=== PATIENT | female | born 1960 | race Caucasian/White ===

== ENCOUNTER 2020-10-16 07:29 | Outpatient (REF) | payer BC, SELFPAY ==
[2020-10-16 11:53] LABS: Estimated Average Glucose 100 mg/dL; Hemoglobin A1c % 5.1 %
[2020-10-16 11:58] LABS: Microalbum/Creatinine Ratio Ur 4.7 ug/mg cr
[2020-10-16 12:08] LABS: Alanine Aminotransferase 13 U/L (0-31); Albumin Level 4.1 g/dL (3.5-5.0); Alkaline Phosphatase 130 U/L (39-117); Anion Gap 12 (12-20); Aspartate Amino Transferase 14 U/L (5-31); Bilirubin Total 0.7 mg/dL (0.0-1.0); Blood Urea Nitrogen 13 mg/dL (9-16); Calcium 8.8 mg/dL (8.4-10.2); Carbon Dioxide 26 mmol/L (22-29); Chloride 103 mmol/L (96-108); Cholesterol 150 mg/dL; Estimated Glomerular Filt Rate > 60; Glucose Fasting 105 mg/dL (60-99); HDL Cholesterol 46 mg/dL; LDL Cholesterol Calculated 74 mg/dl; Potassium 4.4 mmol/l (3.3-5.1); Sodium 137 mmol/L (135-145); Total Protein 6.5 g/dL (6.5-8.0); Triglycerides 150 mg/dL
== END 2020-10-16 07:30 | disposition home or self-care (01) ==
LOC: HO.MANLR 07:29
PROVIDERS: PCP Internal Medicine; Visit Provider Internal Medicine
DX: E11.9 Type 2 diabetes mellitus without complications (principal)
CPT/HCPCS: 80053; 80061; 82043; 83036

== ENCOUNTER 2021-01-20 07:36 | Outpatient (REF) | payer BC, SELFPAY ==
[2021-01-20 11:43] LABS: Estimated Average Glucose 103 mg/dL; Hemoglobin A1c % 5.2 %
== END 2021-01-20 07:37 | disposition home or self-care (01) ==
LOC: HO.MANLR 07:36
PROVIDERS: PCP Internal Medicine; Visit Provider Internal Medicine
DX: E11.9 Type 2 diabetes mellitus without complications (principal)
CPT/HCPCS: 36415; 83036

== ENCOUNTER 2021-04-18 08:02 | Outpatient (REF) | payer BC, SELFPAY ==
[2021-04-18 11:51] LABS: Estimated Average Glucose 105 mg/dL; Hemoglobin A1c % 5.3 %
[2021-04-18 11:52] LABS: Alanine Aminotransferase 15 U/L (0-31); Albumin Level 4.3 g/dL (3.5-5.0); Alkaline Phosphatase 160 U/L (39-117); Anion Gap 12 (12-20); Aspartate Amino Transferase 15 U/L (5-31); Bilirubin Total 0.6 mg/dL (0.0-1.0); Blood Urea Nitrogen 14 mg/dL (9-16); Carbon Dioxide 27 mmol/L (22-29); Chloride 106 mmol/L (96-108); Cholesterol 161 mg/dL; Estimated Glomerular Filt Rate > 60; Glucose Fasting 132 mg/dL (60-99); HDL Cholesterol 49 mg/dL; LDL Cholesterol Calculated 80 mg/dl; Potassium 3.9 mmol/L (3.3-5.1); Sodium 141 mmol/L (135-145); Triglycerides 164 mg/dL
[2021-04-18 13:36] LABS: Creatinine Urine 173.44 mg/dL; Microalbum/Creatinine Ratio Ur 5.1 ug/mg cr
== END 2021-04-18 08:03 | disposition home or self-care (01) ==
LOC: HO.MANLDS 08:02
PROVIDERS: PCP Internal Medicine; Visit Provider Internal Medicine
DX: E11.9 Type 2 diabetes mellitus without complications (principal)
CPT/HCPCS: 36415; 80053; 80061; 82043; 83036

== ENCOUNTER 2021-09-05 07:39 | Outpatient (REF) | payer BC, SELFPAY ==
[2021-09-05 12:01] LABS: Estimated Average Glucose 114 mg/dL; Hemoglobin A1c % 5.6 %
== END 2021-09-05 07:40 | disposition home or self-care (01) ==
LOC: HO.MANLDS 07:39
PROVIDERS: PCP Internal Medicine; Visit Provider Internal Medicine
DX: E11.9 Type 2 diabetes mellitus without complications (principal)
CPT/HCPCS: 36415; 83036

== ENCOUNTER 2021-12-30 07:38 | Outpatient (REF) | payer BC, SELFPAY ==
[2021-12-30 11:19] LABS: Alanine Aminotransferase 13 U/L (0-31); Albumin Level 4.2 g/dL (3.5-5.0); Alkaline Phosphatase 137 U/L (39-117); Anion Gap 11 (12-20); Aspartate Amino Transferase 15 U/L (5-31); Bilirubin Total 0.7 mg/dL (0.0-1.0); Blood Urea Nitrogen 11 mg/dL (9-16); Calcium 9.3 mg/dL (8.4-10.2); Carbon Dioxide 28 mmol/L (22-29); Chloride 106 mmol/L (96-108); Cholesterol 157 mg/dL; Estimated Glomerular Filt Rate > 60; Glucose Fasting 124 mg/dL (60-99); HDL Cholesterol 51 mg/dL; LDL Cholesterol Calculated 72 mg/dl; Potassium 3.8 mmol/L (3.3-5.1); Sodium 141 mmol/L (135-145); Total Protein 7.1 g/dL (6.5-8.0); Triglycerides 173 mg/dL
[2021-12-30 11:40] LABS: Thyroid Stimulating Hormone 6.51 uIU/mL (0.32-4.0)
[2021-12-30 11:53] LABS: Creatinine Urine 48.66 mg/dL; Microalbumin Urine < 5.0 mg/L
[2021-12-30 12:22] LABS: Estimated Average Glucose 114 mg/dL; Hemoglobin A1C 131.2217 umol/L; Hemoglobin A1c % 5.6 %
== END 2021-12-30 07:39 | disposition home or self-care (01) ==
LOC: HO.MANLDS 07:38
PROVIDERS: PCP Internal Medicine; Visit Provider Internal Medicine
DX: E11.9 Type 2 diabetes mellitus without complications (principal); E03.9 Hypothyroidism, unspecified
CPT/HCPCS: 36415; 80053; 80061; 82043; 83036; 84443

== ENCOUNTER 2022-01-12 15:31 | Outpatient (REF) | payer BC, SELFPAY ==
[2022-01-12 19:56] LABS: Appearance Urine CLEAR; Color Urine YELLOW; Glucose Urine UA NEG (NEG); Leukocyte Esterase Urine NEG (NEG); Nitrite Urine NEG (NEG); Urine Blood NEG (NEG); Urine Ketones NEG (NEG); Urine Protein NEG (NEG-TRACE)
== END 2022-01-12 15:32 | disposition home or self-care (01) ==
LOC: HO.MANLDS 15:31
PROVIDERS: PCP Internal Medicine; Visit Provider Internal Medicine
DX: R30.9 Painful micturition, unspecified (principal)
CPT/HCPCS: 81003

== ENCOUNTER 2022-01-14 08:24 | Outpatient (REF) | payer BC, SELFPAY ==
--- NOTE | ~2022-01-14 | US_ITS ---
EXAMINATION: US ABDOMEN COMPLETE CLINICAL INFORMATION: Right upper quadrant pain. COMPARISON: None TECHNIQUE: Real-time imaging of the abdominal viscera. FINDINGS: PANCREAS: Normal. ABDOMINAL AORTA: The proximal, mid, and distal segments are normal in caliber. INFERIOR VENA CAVA: Visualized portions are normal. LIVER: Normal. The liver is normal in size. The liver contour is normal. Parenchymal echogenicity is normal. No focal hepatic lesion. There is no intrahepatic biliary duct dilatation seen. GALLBLADDER: Surgically absent. COMMON BILE DUCT: Normal in caliber measuring 0.61 cm in diameter. RIGHT KIDNEY: No renal calculi or focal parenchymal lesions. The kidney measures 10.8 cm in maximum dimension. There are scattered echogenic pyramids with twinkle artifact and echogenic shadowing. Question nephrocalcinosis. There is mild hydronephrosis. LEFT KIDNEY: No renal calculi or focal parenchymal lesions. The kidney measures 9.3 cm in maximum dimension. There are echogenic pyramids with twinkle artifact and some shadowing question nephrocalcinosis. There is mild hydronephrosis. SPLEEN: Normal. The spleen measures 8.8 cm in maximum dimension. FREE FLUID: None. US/US abdomen complete IMPRESSION: Bilateral echogenic pyramids with twinkle artifact and some shadowing likely nephrocalcinosis. There is mild bilateral hydronephrosis. The rest of the abdominal ultrasound is unremarkable.
== END 2022-01-14 08:25 | disposition home or self-care (01) ==
LOC: HO.HMGCX 08:24
PROVIDERS: PCP Internal Medicine; Visit Provider Physician Assistant
DX: R10.11 Right upper quadrant pain (principal)
CPT/HCPCS: 76700

== ENCOUNTER 2022-01-28 08:33 | Outpatient (REF) | payer BC, SELFPAY ==
[2022-01-28 11:17] LABS: Appearance Urine CLEAR; Color Urine YELLOW; Glucose Urine UA NEG (NEG); Leukocyte Esterase Urine NEG (NEG); Nitrite Urine NEG (NEG); PH 6.5 (5.0-8.0); Specific Gravity - Urine 1.015 (1.005-1.025); Urine Blood NEG (NEG); Urine Ketones NEG (NEG); Urine Protein NEG (NEG-TRACE)
== END 2022-01-28 08:34 | disposition home or self-care (01) ==
LOC: HO.MANLNP 08:33
PROVIDERS: PCP Internal Medicine; Visit Provider Internal Medicine
DX: R30.9 Painful micturition, unspecified (principal)
CPT/HCPCS: 81003

== ENCOUNTER 2022-04-17 07:52 | Outpatient (REF) | payer BC, SELFPAY ==
[2022-04-17 12:18] LABS: Creatinine Urine 93.57 mg/dL; Microalbum/Creatinine Ratio Ur 8.5 ug/mg cr
[2022-04-17 12:25] LABS: Alanine Aminotransferase 16 U/L (0-31); Alkaline Phosphatase 148 U/L (39-117); Anion Gap 12 (12-20); Aspartate Amino Transferase 15 U/L (5-31); Bilirubin Total 0.5 mg/dL (0.0-1.0); Blood Urea Nitrogen 13 mg/dL (9-16); Carbon Dioxide 25 mmol/L (22-29); Chloride 107 mmol/L (96-108); Cholesterol 158 mg/dL; Estimated Glomerular Filt Rate > 60; Glucose Random 117 mg/dL (60-115); HDL Cholesterol 50 mg/dL; LDL Cholesterol Calculated 79 mg/dl; Potassium 4.1 mmol/L (3.3-5.1); Sodium 140 mmol/L (135-145); Total Protein 6.9 g/dL (6.5-8.0); Triglycerides 147 mg/dL
[2022-04-17 12:58] LABS: Estimated Average Glucose 108 mg/dL; Hemoglobin A1c % 5.4 %
== END 2022-04-17 07:53 | disposition home or self-care (01) ==
LOC: HO.MANLDS 07:52
PROVIDERS: Visit Provider Internal Medicine
DX: E11.9 Type 2 diabetes mellitus without complications (principal)
CPT/HCPCS: 36415; 80053; 80061; 82043; 83036

== ENCOUNTER 2022-07-06 10:18 | Outpatient (REF) | payer BC, SELFPAY ==
[2022-07-06 14:15] LABS: Estimated Average Glucose 105 mg/dL; Hemoglobin A1c % 5.3 %
[2022-07-06 14:18] LABS: Cholesterol 147 mg/dL; HDL Cholesterol 51 mg/dL; LDL Cholesterol Calculated 75 mg/dl; Triglycerides 107 mg/dL
== END 2022-07-06 10:19 | disposition home or self-care (01) ==
LOC: HO.MANLDS 10:18
PROVIDERS: Visit Provider Internal Medicine
DX: E11.9 Type 2 diabetes mellitus without complications (principal)
CPT/HCPCS: 36415; 80061; 83036

== ENCOUNTER 2023-01-29 07:27 | Outpatient (REF) | payer BC, SELFPAY ==
[2023-01-29 11:19] LABS: Estimated Average Glucose 108 mg/dL; Hemoglobin A1c % 5.4 %
[2023-01-29 12:04] LABS: Microalbum/Creatinine Ratio Ur 26.6 ug/mg cr
[2023-01-29 12:09] LABS: Alanine Aminotransferase 22 U/L (0-31); Alkaline Phosphatase 143 U/L (39-117); Anion Gap 15 (12-20); Aspartate Amino Transferase 18 U/L (5-31); Bilirubin Total 0.9 mg/dL (0.0-1.0); Blood Urea Nitrogen 18 mg/dL (9-16); Calcium 8.9 mg/dL (8.4-10.2); Carbon Dioxide 24 mmol/L (22-29); Chloride 104 mmol/L (96-108); Cholesterol 178 mg/dL; Estimated Glomerular Filt Rate 54; Glucose Fasting 133 mg/dL (60-99); HDL Cholesterol 49 mg/dL; LDL Cholesterol Calculated 102 mg/dl; Sodium 139 mmol/L (135-145); Total Protein 6.6 g/dL (6.5-8.0); Triglycerides 136 mg/dL
[2023-01-29 12:30] LABS: Free T4 (Free Thyroxine) 1.12 ng/dL (0.71-1.85); Thyroid Stimulating Hormone 0.47 uIU/mL (0.32-4.0)
== END 2023-01-29 07:28 | disposition home or self-care (01) ==
LOC: HO.MANLDS 07:27
PROVIDERS: Visit Provider Internal Medicine
DX: Z13.89 Encounter for screening for other disorder (principal)
CPT/HCPCS: 36415; 80053; 80061; 82043; 83036; 84439; 84443

== ENCOUNTER 2023-06-25 07:33 | Outpatient (REF) | payer BC, SELFPAY ==
[2023-06-25 15:07] LABS: Alanine Aminotransferase 20 U/L (0-31); Alkaline Phosphatase 152 U/L (39-117); Anion Gap 12 (12-20); Aspartate Amino Transferase 16 U/L (5-31); Bilirubin Total 0.6 mg/dL (0.0-1.0); Blood Urea Nitrogen 15 mg/dL (9-16); Calcium 9.9 mg/dL (8.4-10.2); Carbon Dioxide 26 mmol/L (22-29); Chloride 107 mmol/L (96-108); Cholesterol 154 mg/dL; Estimated Glomerular Filt Rate > 60; Glucose Random 134 mg/dL (60-115); HDL Cholesterol 47 mg/dL; LDL Cholesterol Calculated 80 mg/dl; Potassium 4.2 mmol/L (3.3-5.1); Sodium 141 mmol/L (135-145); Triglycerides 135 mg/dL
[2023-06-25 15:24] LABS: Free T4 (Free Thyroxine) 0.93 ng/dL (0.71-1.85); Thyroid Stimulating Hormone 0.51 uIU/mL (0.32-4.0)
[2023-06-26 03:27] LABS: Estimated Average Glucose 111 mg/dL; Hemoglobin A1c % 5.5 %
== END 2023-06-25 07:34 | disposition home or self-care (01) ==
LOC: HO.MANLDS 07:33
PROVIDERS: Visit Provider Internal Medicine
DX: E03.9 Hypothyroidism, unspecified (principal); E11.9 Type 2 diabetes mellitus without complications
CPT/HCPCS: 36415; 80053; 80061; 83036; 84439; 84443

== ENCOUNTER 2023-10-19 07:30 | Outpatient (REF) | payer BC, SELFPAY ==
[2023-10-19 13:42] LABS: Estimated Average Glucose 111 mg/dL; Hemoglobin A1c % 5.5 % (<6.0)
[2023-10-19 14:25] LABS: Alanine Aminotransferase 17 U/L (0-31); Albumin Level 3.9 g/dL (3.5-5.0); Alkaline Phosphatase 150 U/L (39-117); Anion Gap 12 (12-20); Aspartate Amino Transferase 19 U/L (5-31); Bilirubin Total 0.6 mg/dL (0.0-1.0); Blood Urea Nitrogen 14 mg/dL (9-16); Calcium 8.8 mg/dL (8.4-10.2); Carbon Dioxide 25 mmol/L (22-29); Chloride 106 mmol/L (96-108); Cholesterol 147 mg/dL (<200); Estimated Glomerular Filt Rate > 60; Free T4 (Free Thyroxine) 1.01 ng/dL (0.71-1.85); Glucose Random 130 mg/dL (60-115); HDL Cholesterol 46 mg/dL (>40); LDL Cholesterol Calculated 79 mg/dL (<100); Potassium 3.7 mmol/L (3.3-5.1); Sodium 139 mmol/L (135-145); Thyroid Stimulating Hormone 1.22 uIU/mL (0.32-4.0); Total Protein 6.7 g/dL (6.5-8.0); Triglycerides 111 mg/dL (<150)
== END 2023-10-19 07:31 | disposition home or self-care (01) ==
LOC: HO.MANLDS 07:30
PROVIDERS: Visit Provider Internal Medicine
DX: E03.9 Hypothyroidism, unspecified (principal); E11.9 Type 2 diabetes mellitus without complications
CPT/HCPCS: 36415; 80053; 80061; 83036; 84439; 84443

== ENCOUNTER 2024-01-28 07:34 | Outpatient (REF) | payer BC, SELFPAY ==
[2024-01-28 13:18] LABS: MANUAL DIFF FLAG NO
[2024-01-28 13:32] LABS: Basophils Absolute Auto 0.1 X10*3/uL (0.0-0.2); Basophils Percent Auto 0.8 % (0-2); Eosinophils Absolute Auto 0.2 X10*3/uL (0.0-0.4); Eosinophils Percent Auto 2.4 % (0-4); Hematocrit 39.8 % (37.0-47.0); Hemoglobin 13.3 g/dl (12.0-16.0); Imm Gran Abs Auto 0.02 X10*3/uL (0.00-0.03); Imm Gran Pct Auto 0.3 % (0.0-0.4); Lymphocytes Absolute Auto 2.3 X10*3/uL (1.2-4.9); Lymphocytes Percent Auto 37.8 % (20-40); Mean Corpuscular HGB Conc 33.4 g/dl (31.0-35.0); Mean Corpuscular Hemoglobin 30.1 pg (27.0-33.0); Mean Platelet Volume 9.4 fL (9.4-12.3); Monocytes Absolute Auto 0.7 X10*3/uL (0.1-1.2); Monocytes Percent Auto 10.7 % (2-11); Platelet Count 268 X10*3/uL (160-400); Red Blood Count 4.42 X10*6/uL (4.20-5.50); Red Cell Distribution Width 12.6 % (11.0-16.0); White Blood Count 6.2 X10*3/uL (4.8-10.8)
[2024-01-28 13:38] LABS: Estimated Average Glucose 137 mg/dL; Hemoglobin A1c % 6.4 % (<6.0)
[2024-01-28 14:16] LABS: Alanine Aminotransferase 19 U/L (0-31); Albumin Level 4.1 g/dL (3.5-5.0); Alkaline Phosphatase 172 U/L (39-117); Anion Gap 13 (12-20); Aspartate Amino Transferase 15 U/L (5-31); Bilirubin Total 0.6 mg/dL (0.0-1.0); Blood Urea Nitrogen 16 mg/dL (9-16); Calcium 9.2 mg/dL (8.4-10.2); Carbon Dioxide 26 mmol/L (22-29); Chloride 107 mmol/L (96-108); Cholesterol 159 mg/dL (<200); Estimated Glomerular Filt Rate > 60; Glucose Random 155 mg/dL (60-115); HDL Cholesterol 43 mg/dL (>40); LDL Cholesterol Calculated 81 mg/dL (<100); Potassium 4.7 mmol/L (3.3-5.1); Sodium 141 mmol/L (135-145); Total Protein 7.1 g/dL (6.5-8.0); Triglycerides 175 mg/dL (<150)
[2024-01-28 14:33] LABS: Thyroid Stimulating Hormone 0.42 uIU/mL (0.32-4.0)
== END 2024-01-28 07:35 | disposition home or self-care (01) ==
LOC: HO.MANLDS 07:34
PROVIDERS: Visit Provider Internal Medicine
DX: R73.9 Hyperglycemia, unspecified (principal); E03.9 Hypothyroidism, unspecified; E78.5 Hyperlipidemia, unspecified
CPT/HCPCS: 36415; 80053; 80061; 83036; 84443; 85025

== ENCOUNTER 2024-04-25 07:33 | Outpatient (REF) | payer BC, SELFPAY ==
[2024-04-25 13:31] LABS: MANUAL DIFF FLAG NO
[2024-04-25 13:46] LABS: Basophils Percent Auto 0.5 % (0-2); Eosinophils Absolute Auto 0.1 X10*3/uL (0.0-0.4); Eosinophils Percent Auto 2.5 % (0-4); Hematocrit 39.3 % (37.0-47.0); Hemoglobin 13.3 g/dl (12.0-16.0); Imm Gran Abs Auto 0.01 X10*3/uL (0.00-0.03); Imm Gran Pct Auto 0.2 % (0.0-0.4); Lymphocytes Absolute Auto 1.7 X10*3/uL (1.2-4.9); Lymphocytes Percent Auto 31.3 % (20-40); Mean Corpuscular HGB Conc 33.8 g/dl (31.0-35.0); Mean Corpuscular Hemoglobin 30.5 pg (27.0-33.0); Mean Corpuscular Volume 90.1 fL (80.0-98.0); Mean Platelet Volume 9.2 fL (9.4-12.3); Monocytes Absolute Auto 0.5 X10*3/uL (0.1-1.2); Monocytes Percent Auto 8.7 % (2-11); Neutrophils Absolute Auto 3.1 x10*3/uL (2.0-8.3); Neutrophils Percent Auto 56.8 % (45-73); Platelet Count 239 X10*3/uL (160-400); Red Blood Count 4.36 X10*6/uL (4.20-5.50); Red Cell Distribution Width 12.5 % (11.0-16.0); White Blood Count 5.5 X10*3/uL (4.8-10.8)
[2024-04-25 13:59] LABS: Estimated Average Glucose 148 mg/dL; Hemoglobin A1c % 6.8 % (<6.0)
[2024-04-25 14:03] LABS: Alanine Aminotransferase 23 U/L (0-31); Albumin Level 4.2 g/dL (3.5-5.0); Alkaline Phosphatase 155 U/L (39-117); Anion Gap 12 (12-20); Aspartate Amino Transferase 19 U/L (5-31); Blood Urea Nitrogen 15 mg/dL (9-16); Calcium 9.6 mg/dL (8.4-10.2); Carbon Dioxide 26 mmol/L (22-29); Chloride 106 mmol/L (96-108); Cholesterol 160 mg/dL (<200); Estimated Glomerular Filt Rate 57; Glucose Random 143 mg/dL (60-115); HDL Cholesterol 44 mg/dL (>40); LDL Cholesterol Calculated 85 mg/dL (<100); Sodium 140 mmol/L (135-145); Total Protein 7.3 g/dL (6.5-8.0); Triglycerides 156 mg/dL (<150)
[2024-04-25 14:20] LABS: Free T4 (Free Thyroxine) 1.06 ng/dL (0.71-1.85); Thyroid Stimulating Hormone 0.53 uIU/mL (0.32-4.0)
[2024-04-25 14:24] LABS: Creatinine Urine 186.03 mg/dL
== END 2024-04-25 07:34 | disposition home or self-care (01) ==
LOC: HO.MANLDS 07:33
PROVIDERS: Visit Provider Internal Medicine
DX: E03.9 Hypothyroidism, unspecified (principal); E11.9 Type 2 diabetes mellitus without complications
CPT/HCPCS: 36415; 80053; 80061; 82043; 82570; 83036; 84439; 84443; 85025

== ENCOUNTER 2024-07-21 07:34 | Outpatient (REF) | payer BC, SELFPAY ==
[2024-07-21 08:36] LABS: Estimated Average Glucose 120 mg/dL; Hemoglobin A1c % 5.8 % (<6.0)
[2024-07-21 09:02] LABS: Alanine Aminotransferase 15 U/L (0-31); Alkaline Phosphatase 160 U/L (39-117); Anion Gap 10 (12-20); Aspartate Amino Transferase 14 U/L (5-31); Bilirubin Total 0.6 mg/dL (0.0-1.0); Blood Urea Nitrogen 9 mg/dL (9-16); Calcium 9.5 mg/dL (8.4-10.2); Carbon Dioxide 27 mmol/L (22-29); Chloride 107 mmol/L (96-108); Cholesterol 140 mg/dL (<200); Estimated Glomerular Filt Rate > 60; Glucose Random 135 mg/dL (60-115); HDL Cholesterol 41 mg/dL (>40); LDL Cholesterol Calculated 69 mg/dL (<100); Potassium 4.4 mmol/L (3.3-5.1); Sodium 140 mmol/L (135-145); Total Protein 6.9 g/dL (6.5-8.0); Triglycerides 154 mg/dL (<150)
== END 2024-07-21 07:35 | disposition home or self-care (01) ==
LOC: HO.LAB 07:34
PROVIDERS: PCP Internal Medicine; Visit Provider Internal Medicine
DX: E11.9 Type 2 diabetes mellitus without complications (principal)
CPT/HCPCS: 36415; 80053; 80061; 83036

== ENCOUNTER 2025-01-24 07:04 | Outpatient (REF) | payer BC, SELFPAY ==
--- OUTSIDE RECORDS SUMMARY | 2025-01-24 07:10 | XMS_ITS | Data Portability ---
Author Organization [facility] Address [address] [facility] [facility] [place] [address] Assessment Encounter Date Assessment Date Assessment LastModified by Organization Details LastModified Time 04/28/2024 04/28/2024 [id number] [place] [id number] (GLOST TILE SORTER) [facility] MODERATE MUST MEET 2 OUT OF 3 ELEMENTS: PROBLEMS, DATA OR RISK ELEMENT 1: PROBLEMS ADDRESSED 1 OR MORE CHRONIC ILLNESS WITH EXACERBATION OR 2 OR MORE STABLE CHRONIC ILLNESSES OR 1 UNDIAGNOSED NEW PROBLEM OR 1 ACUTE ILLNESS W/SYMPTOMS OR 1 ACUTE COMPLICATED INJURY ELEMENT 2: DATA MUST MEET 1 OF 3 CATEGORIES CATEGORY 1: REVIEW OF PRIOR EXTERNAL NOTES, REVIEW OF RESULTS, ORDERING OF EACH TEST, ASSESSMENT REQUIRING INDEPENDENT HISTORIAN OR CATEGORY 2: INDEPENDENT INTERPRETATION OF TESTS BY ANOTHER PHYSICIAN OR SPECIALIST OR CATEGORY 3: DISCUSSION OF MGT OR TEST INTERPRETATION W/EXTERNAL PHYSICIAN OR SPECIALIST ELEMENT 3: RISK RISK OF COMPLICATIONS AND/OR MORBIDITY OR MORTALITY OF PATIENT MANAGEMENT PROVIDER MUST THOROUGHLY DOCUMENT EACH ELEMENT THAT IS COVERED Not available 04/28/2024 13:53:13 07/28/2024 07/28/2024 [id number] [place] [id number] (GLOST TILE SORTER) [facility] MODERATE MUST MEET 2 OUT OF 3 ELEMENTS: PROBLEMS, DATA OR RISK ELEMENT 1: PROBLEMS ADDRESSED 1 OR MORE CHRONIC ILLNESS WITH EXACERBATION OR 2 OR MORE STABLE CHRONIC ILLNESSES OR 1 UNDIAGNOSED NEW PROBLEM OR 1 ACUTE ILLNESS W/SYMPTOMS OR 1 ACUTE COMPLICATED INJURY ELEMENT 2: DATA MUST MEET 1 OF 3 CATEGORIES CATEGORY 1: REVIEW OF PRIOR EXTERNAL NOTES, REVIEW OF RESULTS, ORDERING OF EACH TEST, ASSESSMENT REQUIRING INDEPENDENT HISTORIAN OR CATEGORY 2: INDEPENDENT INTERPRETATION OF TESTS BY ANOTHER PHYSICIAN OR SPECIALIST OR CATEGORY 3: DISCUSSION OF MGT OR TEST INTERPRETATION W/EXTERNAL PHYSICIAN OR SPECIALIST ELEMENT 3: RISK RISK OF COMPLICATIONS AND/OR MORBIDITY OR MORTALITY OF PATIENT MANAGEMENT PROVIDER MUST THOROUGHLY DOCUMENT EACH ELEMENT THAT IS COVERED Not available 07/28/2024 16:10:01 09/08/2024 09/08/2024 [id number] [place] [id number] (GLOST TILE SORTER) : MDM LOW MUST MEET 2 OF 3 ELEMENTS: PROBLEMS, DATA OR RISK ELEMENT 1: PROBLEMS ADDRESSED (LOW): 2 OR MORE SELF-LIMITED OR MINOR PROBLEMS OR 1 STABLE CHRONIC ILLNESS OR 1 ACUTE UNCOMPLICATED ILLNESS OR INJURY ELEMENT 2: DATA TO BE REVISED AND ANALYZED (LOW) MUST MEET 1 OF 2 CATEGORIES: CATEGORY 1. REVIEW OF PRIOR EXTERNAL NOTES/RESULTS, ORDERING OF TEST(S) CATEGORY 2. ASSESSMENT REQUIRING INDEPENDENT HISTORIAN(S) INCLUDE WHO THE HISTORIAN IS AND RELATION TO PT AND WHY PT IS UNABLE TO GIVE COMPLETE HISTORY ELEMENT 3: RISK (LOW) RISK OF COMPLICATIONS AND/OR MORBIDITY OR MORTALITY OF PATIENT MANAGEMENT PROVIDER MUST THOROUGHLY DOCUMENT ALL OF THE ELEMENTS COVERED Not available 09/08/2024 11:30:44 11/03/2024 11/03/2024 [id number] [place] [id number] (GLOST TILE SORTER) MDM MODERATE MUST MEET 2 OUT OF 3 ELEMENTS: PROBLEMS, DATA OR RISK ELEMENT 1: PROBLEMS ADDRESSED 1 OR MORE CHRONIC ILLNESS WITH EXACERBATION OR 2 OR MORE STABLE CHRONIC ILLNESSES OR 1 UNDIAGNOSED NEW PROBLEM OR 1 ACUTE ILLNESS W/SYMPTOMS OR 1 ACUTE COMPLICATED INJURY ELEMENT 2: DATA MUST MEET 1 OF 3 CATEGORIES CATEGORY 1: REVIEW OF PRIOR EXTERNAL NOTES, REVIEW OF RESULTS, ORDERING OF EACH TEST, ASSESSMENT REQUIRING INDEPENDENT HISTORIAN OR CATEGORY 2: INDEPENDENT INTERPRETATION OF TESTS BY ANOTHER PHYSICIAN OR SPECIALIST OR CATEGORY 3: DISCUSSION OF MGT OR TEST INTERPRETATION W/EXTERNAL PHYSICIAN OR SPECIALIST ELEMENT 3: RISK RISK OF COMPLICATIONS AND/OR MORBIDITY OR MORTALITY OF PATIENT MANAGEMENT PROVIDER MUST THOROUGHLY DOCUMENT EACH ELEMENT THAT IS COVERED Not available 11/03/2024 16:30:36 Plan of Treatment Reminders Order Date Submit Date Provider Last Modified By Organization Details Last Modified Time Details Appointments FOLLOW UP 15 2024 04:15P M DR AVILA Not available Not available Not available Lab HbA1c (hemoglob in A1c), blood 2023 024 [facility], [place], [address], 11/01/2024 12:49:40 HbA1c (hemoglob in A1c), blood 2023 024 [email or web address], [place], [address], 11/01/2024 12:49:40 TSH + free T4, serum 2023 024 [facility], [place], [address], 07/31/2024 06:38:51 HbA1c (hemoglob in A1c), blood 2023 024 [facility] (Lab), [address] [place], [address], 03/22/2024 16:27:53 CMP, serum or plasma 2023 024 [facility] (Lab), [address] [place] [address], [id number], 04/26/2024 11:19:42 lipid panel, blood 2023 024 [facility] (Lab), [address] [place] [address], [id number], 03/22/2024 16:27:53 CBC w/ auto diff 2023 024 [facility] (Lab), [address] [place] [address], [id number], 03/22/2024 16:27:53 microalbu min, urine 2023 024 [facility] (Lab), [address] [place], [address], 03/22/2024 16:27:53 Referral medical weight loss program referral - pt with diabetes 2023 024 [facility], [address] [place] [address] [place], [address], 11/06/2024 08:34:18 hand surgeon referral 2023 024 kelvin Olsen MD, [address] [facility], [place], [address], 11/06/2024 08:34:18 Procedures None recorded. Surgeries None recorded. Imaging None recorded. Medication Orders Trulicity 1.5 mg/0.5 mL subcutane ous pen injector 2023 [facility][id number], [address] [place], [place], [id number], 07/28/2024 16:10:51 valacyclo vir 1 gram tablet 2023 024 [facility] #[id number], [address] [place], [place], [id number], 04/28/2024 13:32:01 bupropion HCl XL 150 mg 24 hr tablet, extended release 2023 024 [facility][id number], [address] [place], [place], [id number], 03/22/2024 16:21:58 Patient TargetsNo targets recorded. Patient Instructions Encounter Date Encounter Id Patient Instructions Last Modified By Organization Details Last Modified Time 07/28/2024 [id number] hypothyroidism: care instructions Not available 07/28/2024 16:09:31 09/08/2024 [id number] pulse oximetry* Not available 09/08/2024 11:31:45 sleep apnea: car e instructions Not available 09/08/2024 11:31:45 11/03/2024 [id number] learning about type 2 diabetes Not available 11/03/2024 16:26:14 type 2 diabetes: care instructions Not available 11/03/2024 16:26:15 hypothyroidism: care instructions Not available 11/03/2024 16:31:18 Reason for Referral Hand Surgeon Referral for [place]ion of flexor tendon sheath of finger Referring Physician: Yasmany Avila, Internal Medicine, Encounter Date: 11/03/2024 Medical Weight Loss Program Referral for Type 2 diabetes mellitus pt with diabetes Referring Physician: Yasmany Avila, Internal Medicine, Encounter Date: 11/03/2024 Results Created Date Observation Date Name Description Value Unit Range Abnormal Flag Note LastModifiedBy Organization Detail LastModifiedTime 09/08/20 24 09/08/2024 pulse oxime try* Result 100% Not Available [facility] [address] [facility] [address], [place], [address], 09/08/2024 08:28:29 04/19/20 24 04/19/2024 stere otact ic breas t biops y (PROC ) No observ ation record ed. [email or web address] [facility] [address] [place] [address], [id number], 04/20/2024 22:31:30 04/26/20 24 04/19/2024 stere otact ic breas t biops y (PROC ) No observ ation record ed. [email or web address] [facility] [address] [place] [address], [id number], 04/28/2024 08:29:17 Result Notes None recorded. Problems Name Problem SNOMED Code Status Onset Date Resolution Date Notes Provider Name and Address Organization Details Recorded Time Depressi ve disorder 78435961 Active 2018 Yasmany Avila DO [address] [place] [address], [phone], [facility] 9 16:39:55 Osteoart hritis 131722994 Active 2018 Yasmany Avila DO [address] [place], [address], [facility] 9 16:54:59 Fibromya lgia 387874902 Active 2018 Yasmany Avila DO [address] [place], [address], [facility] 9 16:55:17 Gastroes ophageal reflux disease 062324046 Active 2019 Yasmany Avila DO [address] [place] [address], [phone], [facility] 0 10:46:59 Lipomato sis dolorosa 60468782 Active 2020 Yasmany Avila DO [address] [place] [address], [address], [facility] 1 14:49:03 Adenomat ous polyp of colon 289108185 Active 2020 Yasmany Avila, DO [address] [place] [address], [address], [facility] 1 21:20:54 Gastriti s 1544797 Active 2021 JUAN CINTRON [address] [place] [address], [address], [facility] 2 11:43:18 Anxiety 16376552 Active 2021 Yasmany Avila DO [address] [place] [address], [phone], [facility] 2 15:38:23 Sleep apnea 06510666 Active 2021 Yasmany Avila DO [address] [place] [address], [address], [facility] 2 15:58:19 Dysuria 10043284 Active 2021 JUAN CINTRON [address] [place] [address], [address], [facility] 2 16:46:40 Acute urinary tract infectio n 722693280 Active 2021 JUAN CINTRON [address] [place] [address], [address], [facility] 2 15:19:40 Type 2 diabetes mellitus 03522059 Active 2023 JUAN CINTRON [address] [place] [address], [address], [facility] 4 16:41:53 Aphthous ulcer of mouth 020064432 Active 2023 Yasmany Avila, DO [address] [place], [address], [facility] 4 16:19:17 Hypothyr oidism 90383685 [facility] 2017 [facility] 08:31:11 Mammogra phy abnormal 091930167 Active 2017 Right breast ? microcalc ification repeat mammo due 09/22 benign bzx Yasmany Avila, DO [address] [place] [address], [address], [facility] 4 13:49:16 Kidney stone 18928350 Active 2017 bilateral multiple 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 8 08:33:12 Medullar y sponge kidney 190868040 Active 2017 [facility] 8 08:33:38 Hyperlip idemia 49399512 Active 2017 [facility] 8 08:34:04 Migraine 13658290 Active 2017 [facility] 8 08:34:13 History of depressi on 602467246 Active 2017 [facility] 08:34:21 Mood disorder 74969809 Active 2017 anger [facility] 8 08:42:26 Ganglion of flexor tendon sheath of finger 356234273 Active 2023 Yasmany Avila, DO [address] [place], [address], [facility] 4 16:24:37 Excessiv e weight gain 508690431 Active 2023 Yasmany Avila, DO [address] [facility], [place], [address], [facility] 16:35:32 Problem Notes None recorded. Procedures Surgical History Date Name Laterality Status Provider Name and Address Organization Details Recorded Time 09/11/20 24 colonoscopy [facility] 09/11/2024 14:56:20 [facility] 02/25/2018 08:36:33 Cholecystectomy completed [facility] 02/25/2018 08:37:24 Endometr ablate thermal completed [facility] 02/25/2018 08:39:56 Imaging Results Imaging Date Name Status LastModified by Organization Details LastModified Time 04/19/2024 stereotactic breast biopsy (PROC) completed [address] [facility] [address] [place] [address], [address], 04/20/2024 22:31:30 04/19/2024 stereotactic breast biopsy (PROC) completed [address] [facility] [address] [place] [address], [address], 04/28/2024 08:29:17 Procedure Notes None recorded. Medical Equipment None Reported. Allergies Allergen ID Allergen Name Allergen Category Reaction Reaction Severity Criticality Documentation Date Start Date Code Code System Note Provider Name and Address Organization Details Recorded Time 913 Provigil medicatio n Not available Not available Not available 02/25/2018 84910 4 RxNorm Julissa Ricki [facility] 8 08:35:44 Medications Name Sig Start Date Stop Date Status Note LastModified by Organization Details LastModified Time Prescriptio n - Prior Authorizati on Request 02/03 completed Not Available Not Available Not Available cyclobenzap rine 10 mg tablet take 1 tablet by mouth three times a day 11/30 completed Not Available Not Available Not Available amoxicillin 500 mg capsule Take 1 capsule every 8 hours by oral route for 10 days. 04/03 completed Not Available Not Available Not Available metformin 500 mg tablet TAKE 1 TABLET BY MOUTH ONCE DAILY FOR 7 DAYS, THEN TAKE 1 TAB TWICE A DAY FOR 7 DAYS, THEN TAKE 2 TABS IN THE MORNING AND 1 TAB IN THE EVENI 05/25 completed Not Available Not Available Not Available nabumetone 750 mg tablet take 1 tablet by mouth twice a day for 15 DAYS 01/10 completed Not Available Not Available Not Available trazodone 50 mg tablet TAKE 1 TABLET BY MOUTH EVERY DAY 01/07 completed Not Available Not Available Not Available atorvastati n 10 mg tablet TAKE 1 TABLET BY MOUTH EVERY DAY active Not Available Not Available No t Available oxybutynin chloride ER 10 mg tablet,exte nded release 24 hr TAKE 1 TABLET BY MOUTH EVERY DAY active Not Available Not Available No t Available valacyclovi r 1 gram tablet TAKE 1 TABLET BY MOUTH EVERY 12 HOURS FOR 7 DAYS 04/28 completed Not Available Not Available Not Available sucralfate 100 mg/mL oral suspension TAKE 10 MLS BY MOUTH TWICE DAILY NEEDED 03/19 completed Not Available Not Available Not Available meloxicam 15 mg tablet 07/19 completed Not Available Not Available Not Available famotidine 40 mg tablet TAKE 1 TABLET BY MOUTH EVERY DAY 2024 active Not Available Not Available Not Avai lable dextroamphe tamine-amph etamine 10 mg tablet 06/07 completed Not Available Not Available Not Available Pyridium 200 mg tablet TAKE 1 TABLET BY MOUTH THREE TIMES DAILY FOR 7 DAYS 03/19 completed Not Available Not Available Not Available clobetasol 0.05 % topical cream APPLY A THIN LAYER TO THE AFFECTED AREA TOPICALLY TWICE DAILY 04/20 completed Not Available Not Available Not Available ciprofloxac in 250 mg tablet TAKE 1 TABLET BY MOUTH TWICE DAILY FOR 7 DAYS 12/31 completed Not Available Not Available Not Available ciprofloxac in 500 mg tablet TAKE 1 TABLET BY MOUTH EVERY 12 HOURS FOR 5 DAYS 03/19 completed Not Available Not Available Not Available sulfamethox azole 800 mg-trimetho prim 160 mg tablet TAKE 1 TABLET BY MOUTH EVERY 12 HOURS FOR 7 DAYS 03/19 completed Not Available Not Available Not Available tramadol 50 mg tablet TAKE 1 TABLET BY MOUTH TWICE DAILY NEEDED 03/22 completed Not Available Not Available Not Available triamcinolo ne acetonide 0.1 % topical cream 10/27 /2021 completed Not Available Not Available Not Available amoxicillin 500 mg tablet TAKE 1 TABLET BY MOUTH THREE TIMES DAILY 03/19 completed Not Available Not Available Not Available levothyroxi ne 75 mcg tablet TAKE 1 TABLET BY MOUTH EVERY DAY 07/06 completed Not Available Not Available Not Available Nexium 20 mg capsule,del ayed release Take 1 capsule every day by oral route. active OTC Not Available Not Available No t Available levothyroxi ne 100 mcg tablet TAKE 1 TABLET BY MOUTH EVERY DAY active Not Available Not Available No t Available oxycodone-a cetaminophe n 5 mg-325 mg tablet 05/25 completed Not Available Not Available Not Available bupropion HCl 100 mg tablet Take 1 tablet every day by oral route in the morning for 30 days. 09/27 completed Not Available Not Available Not Available levothyroxi ne 88 mcg tablet TAKE 1 TABLET BY MOUTH EVERY MORNING ON AN EMPTY STOMACH-- 04/03 completed Not Available Not Available Not Available lorazepam 0.5 mg tablet take 1 tablet by mouth every 6 hours if needed 09/27 completed Not Available Not Available Not Available methocarbam ol 750 mg tablet Take 1 tablet 3 times a day by oral route for 15 days. 08/30 completed Not Available Not Available Not Available prednisone 1 mg tablet 02/25 completed Not Available Not Available Not Available oseltamivir 75 mg capsule 02/25 completed Not Available Not Available Not Available metformin 1,000 mg tablet take 1 tab BID 08/31 completed Not Available Not Available Not Available clotrimazol e-betametha sone 1 %-0.05 % topical cream APPLY TO THE AFFECTED AND SURROUNDI NG AREAS OF SKIN BY TOPICAL ROUTE 2 TIMES PER DAY IN THE MORNING AND EVENING FOR 2 WEEKS 01/10 completed Not Available Not Available Not Available diclofenac potassium 50 mg tablet take 1 tablet by mouth twice a day 07/26 completed Not Available Not Available Not Available gabapentin 300 mg capsule 02/25 completed Not Available Not Available Not Available zolpidem 5 mg tablet TAKE 1 TABLET BY MOUTH EVERY DAY 10/29 completed Not Available Not Available Not Available lorazepam 1 mg tablet TAKE 1 TABLET BY MOUTH THREE TIMES DAILY FOR 10 DAYS 2024 active Not Available Not Available Not Avai lable fluocinonid e 0.05 % topical solution 09/10 completed Not Available Not Available Not Available estradiol 0.01% (0.1 mg/gram) vaginal cream PLACE 1 GRAM VAGINALLY 2 TIMES EVERY WEEK 09/10 completed Not Available Not Available Not Available zolpidem 10 mg tablet TAKE 1 TABLET BY MOUTH EVERY DAY 02/03 completed Not Available Not Available Not Available scopolamine 1 mg over 3 days transdermal patch APPLY 1 PATCH TOPICALLY TO THE SKIN EVERY 72 HOURS FOR 10 DAYS 2024 active Not Available Not Available Not Avai lable clobetasol 0.05 % scalp solution APPLY TO THE AFFECTED SCALP AREA BY TOPICAL ROUTE 2 TIMES PER DAY IN THE MORNING AND EVENING 01/10 completed Not Available Not Available Not Available dextroamphe tamine-amph etamine 5 mg tablet 02/25 completed Not Available Not Available Not Available naproxen 500 mg tablet 02/03 completed Not Available Not Available Not Available Tri-Janeen 0.01 %-4 %-0.05 % topical cream AAAOF THE FACE NIGHTLY AT BEDTIME FOR 12 WEEKS 09/10 completed Not Available Not Available Not Available Laxative (bisacodyl) 5 mg tablet TAKE 4 TABLETS BY MOUTH DIRECTED 11/03 completed Not Available Not Available Not Available Vitamin D3 25 mcg (1,000 unit) capsule Take 1 capsule every day by oral route. active Not Available Not Available No t Available cyclobenzap rine 5 mg tablet 05/25 completed Not Available Not Available Not Available Prilosec OTC 20 mg tablet,rudy yed release Take 1 tablet every day by oral route. 02/11 completed Not Available Not Available Not Available bupropion HCl XL 150 mg 24 hr tablet, extended release TAKE 1 TABLET BY MOUTH EVERY DAY 2024 active Not Available Not Available Not Avai lable nitrofurant oin monohydrate /macrocryst als 100 mg capsule TAKE 1 CAPSULE BY MOUTH EVERY 12 HOURS FOR 7 DAYS 02/11 completed Not Available Not Available Not Available trospium 20 mg tablet TAKE 1 TABLET BY MOUTH TWICE DAILY INSTEAD OF MYRBETRIQ 03/19 completed Not Available Not Available Not Available duloxetine 30 mg capsule,del ayed release TAKE 3 CAPSULES BY MOUTH EVERY DAY 09/12 completed Not Available Not Available Not Available duloxetine 60 mg capsule,del ayed release TAKE 1 CAPSULE BY MOUTH TWICE DAILY active Not Available Not Available No t Available Boostrix Tdap 2.5 Lf unit-8 mcg-5 Lf/0.5 mL intramuscul ar syringe 09/27 completed Not Available Not Available Not Available diclofenac 1 % topical gel 01/10 completed Not Available Not Available Not Available GaviLyte-G 236 gram-22.74 gram-6.74 gram-5.86 gram oral solution MIX AND DRINK DIRECTED 11/03 completed Not Available Not Available Not Available potassium citrate ER 15 mEq (1,620 mg) tablet,exte nded release TAKE 1 TABLET BY MOUTH TWICE DAILY 02/03 completed Not Available Not Available Not Available estradiol 10 mcg vaginal tablet 01/07 completed Not Available Not Available Not Available OneTouch Delica Lancets 33 gauge active Not Available Not Available Not Available OneTouch Verio test strips use one strip up to 4 times daily active Not Available Not Available No t Available lidocaine 5 % topical ointment 01/10 completed Not Available Not Available Not Available Myrbetriq 50 mg tablet,exte nded release TAKE 1 TABLET BY MOUTH EVERY DAY 03/19 completed Not Available Not Available Not Available Trulicity 1.5 mg/0.5 mL subcutaneou s pen injector 2024 active Not Available Not Available Not Avai lable Fluarix Quad [id number] (PF) 60 mcg (15 mcg x 4)/0.5 mL IM syringe 09/27 completed Not Available Not Available Not Available Flucelvax Quad (PF) 60 mcg (15 mcg x 4)/0.5 mL IM syringe 09/27 completed Not Available Not Available Not Available Fluarix Quad (PF) 60 mcg (15 mcg x 4)/0.5 mL IM syringe 09/27 completed Not Available Not Available Not Available Rybelsus 3 mg tablet 02/03 completed Not Available Not Available Not Available Fluarix Quad (PF) 60 mcg (15 mcg x 4)/0.5 mL IM syringe 01/27 completed Not Available Not Available Not Available Trulicity 3 mg/0.5 mL subcutaneou s pen injector Inject 3 mg every week by subcutane ous route for 30 days. 09/08 completed Not Available Not Available Not Available Vitals Date Recorded Body height Body mass index (BMI) Body weight Heart rate Respiratory rate Oxygen saturation Oxygen saturation in Arterial blood by Pulse oximetry Systolic blood pressure Diastolic blood pressure Provider Name and Address Organization Details Last Updated DateTime 4 154.94 cm 33.6 kg/m2 35154.4 4 g 97 /min 18 /min 99 % 99 % 148 mm[Hg] 88 mm[Hg] Rodríguez [facility] 4 16:05:16 Date Recorded Body height Body mass index (BMI) Body weight Heart rate Oxygen saturation Oxygen saturation in Arterial blood by Pulse oximetry Systolic blood pressure Diastolic blood pressure Provider Name and Address Organization Details Last Updated DateTime 4 154.94 cm 33.4 kg/m2 26665.4 9 g 90 /min 97 % 97 % 154 mm[Hg] 94 mm[Hg] Briseyda [facility] 4 13:32:55 Date Recorded Body height Body mass index (BMI) Body weight Heart rate Oxygen saturation Oxygen saturation in Arterial blood by Pulse oximetry Systolic blood pressure Diastolic blood pressure Provider Name and Address Organization Details Last Updated DateTime 4 154.94 cm 32.3 kg/m2 82722.3 g 91 /min 97 % 97 % 152 mm[Hg] 80 mm[Hg] Elyse [facility] 4 15:48:26 Date Recorded Body height Body mass index (BMI) Body weight Heart rate Oxygen saturation Oxygen saturation in Arterial blood by Pulse oximetry Systolic blood pressure Diastolic blood pressure Provider Name and Address Organization Details Last Updated DateTime 4 154.94 cm 32.4 kg/m2 10422.0 9 g 80 /min 100 % 100 % 138 mm[Hg] 82 mm[Hg] Rodríguez [facility] 4 10:01:03 Date Recorded Body height Body mass index (BMI) Body weight Heart rate Oxygen saturation Oxygen saturation in Arterial blood by Pulse oximetry Systolic blood pressure Diastolic blood pressure Provider Name and Address Organization Details Last Updated DateTime 4 154.94 cm 30.6 kg/m2 69886.9 6 g 98 /min 98 % 98 % 134 mm[Hg] 84 mm[Hg] Rod[facility]guez [facility] 4 15:57:43 Social History Question Answer Notes LastModified by Organizat ion Details LastModified Time Tobacco Smoking Status Never Smoker Not Available [facility] 09/17/2020 03:36:24 What Is Your Level Of Alcohol Consumption? Occasional [id number] Information not available 09/17/2020 What Is Your Level Of Caffeine Consumption? Occasional 2 Cups Coffee Per Day [id number] Information not available 09/17/2020 What Was The Date Of Your Most Recent Tobacco Screening? 11/03/2024 [email or web address] Information not available 11/03/2024 Do You Or Have You Ever Used Any Other Forms Of Tobacco Or Nicotine? No Information not available 04/20/2022 Sex: Unknown Functional Status Question Answer Note LastModified by Organization D etails LastModified Time What is your exercise level? None [id number] Information not available 09/17/2020 Mental Status None recorded. Family History Nothing Reported. Medical History No medical history recorded. Gynecological HistoryNo gynecological history recorded. Obstetrics History GPAL:G 0 P 0 0 0 0 Immunizations Vaccine Type Date Status Note Provider Nam e and Address Organization Details Recorded Time COVID-19, mRNA, LNP-S, PF, 100 mcg/0.5mL dose or 50 mcg/0.25mL dose 1 completed aYsmany Avila DO [address] [place] [address], [phone], [facility] 05/26/2021 14:10:58 COVID-19, mRNA, LNP-S, PF, 100 mcg/0.5mL dose or 50 mcg/0.25mL dose 1 completed Yasmany Avila DO [address] [place] [address], [phone], [facility] 05/26/2021 14:10:41 Influenza, split virus, quadrivalent, preservative 1 completed Yasmany Avila DO [address] [place] [address], [phone], [facility] 09/10/2021 15:42:09 Influenza, split virus, quadrivalent, preservative 8 completed Annemarie VICTOR M Sin [address] [facility], [place], [address], [facility] 08/30/2018 09:30:50 Tdap 8 completed Not Available [facility] 12/16/2019 02:14:52 Influenza, split virus, quadrivalent, preservative 9 completed Yeni [facility] 08/21/2019 16:23:48 Influenza, split virus, quadrivalent, preservative 0 completed Yeni fi[facility] 01/27/2021 10:01:10 Past Encounters Encounter ID Performer Location Encounter Start Date Encounter Closed Date Diagnosis/Indication Diagnosis SNOMED-CT Code Diagnosis ICD10 Code Diagnosis Note [id number] February January, [facility] [address] [facility],[place] [address] 02/25/2018 15:53:51 02/25/2018 17:04:31 Type 2 diabetes mellitus 55534981 E11.65 extensive counsellin g as noted in HPI 30 minutes were spent on counseling . all of the patients questions were answered. she will follow up in 3 months for recheck of labs. she is motivated to make lifestyle changes. specifical ly we discussed mediterran thad diet, weight watchers, or plant based diet. avoid atkins diet as it is high in animal fat which may be detrimenta l to cardiovasc ular health. Essentiall y consider a diet that focuses on fish/chick en as main source of protein, healthy fats like olive oil/avocad os, avoid/elim inate red meats/proc essed meats, eat lots of veggies, moderate fruit, avoid junk foods and white/proc essed carbs. exercise daily, or at least 4 days per week. attempt a mix of cardiovasc ular and muscle building. attempt to walk for 10 minutes even leisurely after every meal to minimize post prandial blood sugar spikes. Hypothyroidism 78120236 E03.9 Hyperlipidemia 03151016 E78.5 as above [id number] [facility] [address] [facility],[place] [address] 04/01/2018 14:42:36 04/01/2018 15:14:15 Type 2 diabetes mellitus 15551885 E11.65 continue current regimen Kidney stone 73506875 N2 0.0 has known kidney stones, but never has passed a stone urine was normal seems unlikely to be a passing stone if marcos blood in urine recc ER - pt understood Acute low back pain 2788 28667 M54.5 likely muscular [id number] [facility] [address] [facility], [place] [address] 05/25/2018 08:54:33 05/25/2018 09:54:01 Type 2 diabetes mellitus 99393222 E11.65 continue current regimen of 1000 mg in am and 500 mg in pm Obstructiv e sleep apnea syndrome 04840413 G47.33 Hypothyroidism 45169839 E03.9 is due for recheck in 6 months Depressive disorder 3548 9007 F33.9 well controlled rare use of lorazepam [id number] [facility] [address] [facility], [place] [address] 07/26/2018 14:24:21 07/26/2018 15:05:36 Neck pain 87670573 M54.2 Type 2 mary lou betes mellitus 83464572 E11.65 continue current regimen of 1000 mg in am and 500 mg in pm History of depression 16 9180337 Z86.59 Hyperlipidemia 59542291 E78.5 as above [id number] [facility] [address] [facility], [place] [address] 08/30/2018 09:01:42 08/30/2018 09:48:56 Type 2 diabetes mellitus 40091220 E11.65 continue current regimen of 1000 mg in am and 500 mg in pm pt would like to consider trulicity for weight loss benefits. she will check with her insurance the coverage ability of this medication . she would switch from metformin to trulicity. she is aware of thyroid c-cell tumor risk and has no h/o thyroid cancer in herself or in her family. Obstructiv e sleep apnea syndrome 61188136 G47.33 Hypothyroidism 02209452 E03.9 will check at next visit Depressive disorder 3548 9007 F33.9 well controlled rare use of lorazepam Motion sickness 70091144 T75.3XXA Screening procedure 2012 5006 Z13.9 [id number] February MARIAA SinALTHEA [facility] [address] [facility],[place] [address] 11/30/2018 11:44:17 11/30/2018 12:17:45 Type 2 diabetes mellitus 11798578 E11.65 has been taking metformin, plans to switch back to trulicity Obstructiv e sleep apnea syndrome 65595164 G47.33 uses cpap nightly Hypothyroidism 04423523 E03.9 will check 6 months Depressive disorder 3548 9007 F33.9 well controlled rare use of lorazepam Body mass index 25-29 - overweight 268543190 Z68.27 has been gradually losing weight praised for improvemen t Hyperlipidemia 81883516 E78.5 work on diet and exercise to help lower naturally consider statin over the next 6 mos to a year [id number] Yasmany Avila [facility] [address] [facility],[address] [place] [address] 03/14/2019 13:42:08 03/14/2019 14:26:43 Hypothyroidism 62728263 E03.9 will need to keep biannual chk of tsh Type 2 mary lou betes mellitus 42987925 E11.9 last a1c is 5.1 and she is doing awesome Hyperlipidemia 11683400 E78.5 will start atorvastat in 10mg rechk lab in 4 mo [id number] Yasmany Avila [facility] [address] [facility],[place] [address] 06/07/2019 15:23:08 06/07/2019 16:32:00 Hypothyroidism 09996421 E03.9 will need to keep biannual chk of tsh Type 2 mary lou betes mellitus 64662754 E11.9 last a1c is 5.1 and she is doing awesome Hypercholesterolemia 136 78820 E78.00 Anxiety 17175215 F41.9 [id number] Yasmany Avila [facility] [address] [facility],[place] [address] 06/21/2019 16:19:55 06/21/2019 16:49:45 Depressive disorder 51242466 F32.1 will add low dose bupropion to the cymbalta to try to improve her mood [id number] Yasmany Avila [facility] [address] [facility],[place] [address] 08/21/2019 16:05:43 08/21/2019 17:03:21 Depressive disorder 31588004 F32.1 l added low dose bupropion to the cymbalta to try to improve her mood and she seems to be better Type 2 mary lou betes mellitus 20992953 E11.9 has not been checkin g her sugars Medullary sponge kidney 840935298 Q61.5 no new issues followed by renal [id number] Yasmany Avila [facility] [address] [facility],[place] [address] 09/27/2019 16:06:34 09/27/2019 16:46:29 Metabolic syndrome X 012930324 E88.81 doing fantastic on trulicity and has no prob a1c is 5.0 Depressive disorder 3548 9007 F32.1 l added low dose bupropion to the cymbalta to try to improve her mood and she seems to be better she thinks she is doing ok Cheilosis 16898578 K13.0 [id number] Yasmany Avila [facility] [address] [facility],[place] [address] 11/06/2019 14:09:47 11/06/2019 14:31:55 Seborrheic dermatitis of scalp 714415337 L21.0 Anterior caput ongoing for 6 mo-1 year Eczema 77600132 L30.9 Scalp eczema Depressive disorder 3548 9007 F32.1 seems to be doing better Metabolic syndrome X 237 448179 E88.81 doing fantastic on trulicity and has no prob a1c is 5.0 [id number] Yasmany Avila [facility] [address] [facility],[place] [address] 01/10/2020 10:28:46 01/10/2020 11:13:50 Adult health examination 964892667 Z00.00 doing well Type 2 mary lou betes mellitus 20833075 E11.9 a1c is 4.8 and she s doing well still on trulicity we will stop and rechk a1c in 3 mo Hypothyroidism 88671453 E03.9 will need to keep biannual chk of tsh Alopecia 44492971 L65.9 believe this is from the bupropion will stop and see if this improves [id number] VICTORM Ascencio [facility] [address] [facility],[place] [address] 01/31/2020 13:31:55 02/12/2020 11:49:21 Fever 916093036 R50.9 f/u if sx change or worsen Acute pharyngitis 261893 003 J02.9 f/u if sx change or worsen Type 2 mary lou betes mellitus 62409589 E11.65 [id number] Yasmany Avila [facility] [address] [facility],[place] [address] 04/03/2020 14:51:19 04/03/2020 16:03:36 Hyperlipidemia 55884333 E78.5 will start atorvastat in 10mg and her LDL down to 111 and HDL at 40 exelllent Mood disorder 35705720 F 39 taking lorazepam daily during the day [facility]chan[facility] ic bursitis of left hip 1290332719 78904 M70.[address] rao for ani inj Type 2 mary lou betes mellitus 65065310 E11.9 a1c is up to 6.4 so we will go back to trulicity [place]opecia 26145232 L65.9 [place] [id number] Yasmany vAila [facility] [address] [facility],[place] [address] 04/17/2020 14:53:35 04/17/2020 15:20:16 Type 2 diabetes mellitus 22811103 E11.9 doing well on angie.icity Mood disorder 01908570 F 39 taking lorazepam daily during the day 0n 90 mg dulox ? if she has WU Insomnia 397314711 G47.0 0 [id number] Yasmany Avila [facility] [address] [facility],[place] [address] 07/19/2020 10:14:25 07/19/2020 11:12:13 Type 2 diabetes mellitus 71081242 E11.9 doing well on angie.icity a1c 5 Depressive disorder 2219 9007 F32.1 seems to be doing better Hypothyroidism 65693152 E03.9 will need to keep biannual chk of tsh Hyperlipidemia 60866865 E78.5 atorvastat in 10mg and her LDL down to 80and HDL at 50+exellle nt Gastroesop hageal reflux disease 096412019 K21.9 will try the omeprazole and if ok will continue for now call if unhelpful [id number] Yasmany Avila [facility] [address] [facility], [address] [facility] [place] [address] 10/25/2020 08:51:38 10/25/2020 10:26:59 Hypothyroidism 97017211 E03.9 will need to keep biannual chk of tsh Type 2 mary lou betes mellitus 55268281 E11.9 doing well on trul.icity a1c 5.1 long discussion re need for close monitor during pandemic a also will need vaccine if deemed safe for her to use Medullary sponge kidney 349718095 Q61.5 no new issues followed by renal and creat is stable [place]b [place] neg [id number] Yasmany Avila [facility] [address] [facility],[place] [address] 01/27/2021 09:56:49 01/27/2021 10:49:39 Hypothyroidism 16138654 E03.9 will need to keep biannual chk of tsh Type 2 mary lou betes mellitus 16645526 E11.9 doing well on trul.icity a1c 5.2 was 5.1 long discussion re need for close monitor during pandemic a also will need vaccine if deemed safe for her to use Medullary sponge kidney 986245594 Q61.5 no new issues followed by renal and creat is stable microalb is neg Pain in both feet 768937 4973 5964705 M79.671 M79.672 [id number] Yasmany Avila [facility] [address] [facility],[place] [address] 05/26/2021 13:57:49 05/26/2021 16:43:26 Type 2 diabetes mellitus 93046317 E11.9 doing well on trul.icity a1c 5.3 5.2 was 5.1 long discussion re need for close monitor during pandemic a also will need vaccine if deemed safe for her to use Hypothyroidism 95255338 E03.9 will need to keep biannual chk of tsh Depressive disorder 3548 9007 F32.1 seems to be doing better Hyperlipidemia 21457075 E78.5 atorvastat in 10mg and her LDL down to 80and HDL at 50+exellle nt 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 frustratin g , no treatment availhas mult areas around her legs they bother the most there she is covered in them and there are too many to remove but we will consider having the more prominent ones removed Medullary sponge kidney 350672739 Q61.5 no new issues followed by renal [place] [id number] Yasmany Avila [facility] [address] [facility],[place] [address] [place] [address] 09/10/2021 15:23:06 09/10/2021 16:34:47 Depressive disorder 67930861 F32.1 seems to be doing better Type 2 mary lou betes mellitus 83704869 E11.9 doing well on trul.icity a1c 5.3 5.2 was 5.1 long discussion re need for close monitor during pandemic a also will need vaccine if deemed safe for her to use Hypothyroidism 41865535 E03.9 will need to keep biannual chk of tsh Insomnia 823261543 G47.0 0 [id number] Yasmany Avila [facility] [address] [facility],[address] [place] [address] 10/01/2021 15:21:44 10/01/2021 16:24:14 Insomnia 561516480 G47.00 Metabolic syndrome X 237 632281 E88.81 doing fantastic on trulicity and has no prob a1c is 5.5 Type 2 mary lou betes mellitus 65143192 E11.9 doing well on trul.icity a1c 5.5 was5.3 5.2 was 5.1 long discussion re need for close monitor during pandemic a also will need vaccine if deemed safe for her to use [id number] Yasmany Avila DO [facility] [address] [facility],[address] [facility] [place] [address] 01/07/2022 15:49:40 01/07/2022 16:42:57 Major depressive disorder 484842123 F32.1 still under a lot of stress Type 2 mary lou betes mellitus 71094917 E11.9 doing well on trul.icity a1c was 5.6 and was 5.5 was 5.3 5.2 was 5.1 long discussion re need for close monitor during pandemic also will need vaccine if deemed safe for her to use Medullary sponge kidney 588295363 Q61.5 no new issues followed by renal and creat is stable microalb is neg Hypothyroidism 12679596 E03.9 will need to keep biannual chk of tsh Hyperlipidemia 39842791 E78.5 atorvastat in 10mg and her LDL down to 80and HDL at 50+exellle nt Gastroesop hageal reflux disease 822692748 K21.9 will try the nexium or pantoprazo le and if ok will continue for now call if unhelpful Motion sickness 66467477 T75.3XXD Nummular eczema 36907311 L30.0 [id number] JUAN CINTRON [facility] [address] [facility],[place] [address] 02/11/2022 11:28:51 02/11/2022 14:31:41 Gastritis 1425746 K29.60 will start on famotidine and sucralfate [id number] Yasmany Avila DO [facility] [address] [facility] [address] [facility] [place] [address] 04/20/2022 14:54:09 04/20/2022 15:44:20 Gastroesophageal reflux disease 006564024 K21.9 the nexium nad famotidine are actually doing quite well Hypothyroidism 09426074 E03.9 will need to keep biannual chk of tsh Type 2 mary lou betes mellitus 47866371 E11.9 doing well on trul.icity a1c was 5.6 and was 5.5 was 5.3 5.2 was 5.1 long discussion re need for close monitor during pandemic also will need vaccine if deemed safe for her to use Depressive disorder 3548 9007 F32.1 seems to be doing better Active or passive immunization 331847016 Z23 patient advised of due vaccines (pneu 23 & shingles) Anxiety 54035362 F41.9 [id number] [facility] [address] [facility],[place] [address] 07/24/2022 08:11:59 07/27/2022 08:51:09 Sleep apnea 11336494 G47.30 for home sleep study [id number] Yasmany Avila [facility] [address] [facility],[place] [address] 03/19/2023 15:25:36 03/19/2023 16:12:35 Depressive disorder 61315562 F32.1 seems to be doing better Motion sickness 63472387 T75.3XXD Hyperglycemia 56986975 R 73.9 a1c 5.4 and she is doing fantastic [id number] Yasmany Avila DO [facility] [address] [facility],[place] [address] 07/06/2023 08:07:11 07/07/2023 08:35:17 Hyperglycemia 49739371 R73.9 a1c 5.5 and she is doing fantastic Hypothyroidism 80542928 E03.9 will need to keep biannual chk of tsh Medullary sponge kidney 861704283 Q61.5 no new issues followed by renal and creat is stable microalb is neg [id number] Yasmany Avila [facility] [address] [facility],[place] [address] 10/29/2023 15:43:59 10/29/2023 16:19:11 Hyperglycemia 76589158 R73.9 a1c i still 5.5 and she is doing fantastic Hypothyroidism 38961703 E03.9 will need to keep biannual chk of tsh Hyperlipidemia 86331189 E78.5 atorvastat in 10mg and her LDL down to 80and HDL at 50+exellle nt [id number] Yasmany Avila [facility] [address] [facility],[address] [facility] [address] 02/04/2024 15:53:19 02/07/2024 08:17:57 Hyperlipidemia 84492856 E78.5 atorvastat in 10mg will hold for several weeks to see if swelling is gone and her LDL down to 80and HDL at 50+exellle nt Hypothyroidism 26347385 E03.9 will need to keep biannual chk of tsh but will do extra test due to use of trulicity3 mg Type 2 mary lou betes mellitus 22565698 E11.9 doing well on trul.icity a1c was 5.6 and was 5.5 was 5.3 5.2 was 5.1 long discussion re need for close monitor during pandemic also will need vaccine if deemed safe for her to use [id number] Yasmany Avila [facility] [address] [facility], [address] [facility] [address] 03/22/2024 15:56:04 03/22/2024 16:41:37 Type 2 diabetes mellitus 30731643 E11.9 doing well on trul.icity a1c was 5.6 and was 5.5 was 5.3 5.2 was 5.1 long discussion re need for close monitor during pandemic also will need vaccine if deemed safe for her to use Hyperlipidemia 35180653 E78.5 atorvastat in 10mg will hold for several weeks to see if swelling is gone and her LDL down to 80and HDL at 50+exellle nt Mood disorder 18951789 F 39 duloxetine not helpful relates taking 60 bid Depression screening 171 925776 Z13.31 positive History of depression 16 9416544 Z86.59 Aphthous u lcer of mouth 079432357 K12.0 will treat next outbreak [id number] Yasmany Avila [facility] [address] [facility],[address] [facility] [address] 04/28/2024 13:26:29 04/28/2024 14:23:51 Type 2 diabetes mellitus 45457035 E11.9 side effects on trul.icity of 3mg a1c was up to 6.8 was 6.2 5.6 and was 5.5 was 5.3 5.2 was 5.1 long discussion re need for close monitor during pandemic also will need vaccine if deemed safe for her to use Hypothyroidism 70452026 E03.9 will need to keep biannual chk of tsh but will do extra test due to use of trulicity 3mgwill try to cut dose by pulling out prematurly Medullary sponge kidney 062453798 Q61.5 no new issues followed by renal and creat is stable microalb is neg [id number] Yasmany Avila [facility] [address] [facility], [place] [address] 07/28/2024 15:42:43 07/30/2024 20:26:54 Type 2 diabetes mellitus 09192296 E11.9 side effects on trul.icity of 3mg a1c was up to 6.8 was 6.2 5.6 and was 5.5 was 5.3 5.2 was 5.1 long discussion re need for close monitor during pandemic also will need vaccine if deemed safe for her to use Hypothyroidism 26620796 E03.9 will need to keep biannual chk of tsh but will do extra test due to use of trulicity 3mgwill try to cut dose by pulling out prematurly [id number] Yasmany Avila [facility] [address] [place] [address], [place] [address] 09/08/2024 09:52:15 09/08/2024 13:45:24 Sleep apnea 99087557 G47.30 for home sleep study Anxiety 43935726 F41.9 stable with her work as long as the current schedule maintained paperwork filled out here with pt present [id number] Yasmany Avila [facility] [address] [facility], [place] [address] 11/03/2024 15:48:10 11/03/2024 16:43:03 Type 2 diabetes mellitus 93590033 E11.9 side effects on trul.icity of 3mg a1c is great at 6.0 was up to 6.8 was 6.2 5.6 and was 5.5 was 5.3 5.2 was 5.1 long discussion re need for close monitor during pandemic also will need vaccine if deemed safe for her to use Ganglion o f flexor tendon sheath of finger 766386423 M67.449 will refer to the hadnt Hypothyroidism 76791568 E03.9 will need to keep biannual chk of tsh but will do extra test due to use of trulicity 3mgwill try to cut dose by Health Concerns Section Related Observation LastModified by Organization Detai ls LastModified Time None Recorded Concern Status LastModified by Organization Details LastModified Time None Recorded Advance Directives Directive None Recorded Payers Encounter Date Sequence Insurance Name Policy Number Policy Mallory Covered Member ID Mallory Member ID Guarantor Name 03/22/2024 1 [place] Kobe Whittaker [id number] Jyoti Broadhurst 04/28/2024 1 [place] Kobe Woodsont [id number] Jyoti Broadhurst 07/28/2024 1 [place] Kobe Woodsont [id number] Jyoti Broadhurst 09/08/2024 1 [place] Kobe Woodsont [id number] Jyoti Broadhurst 11/03/2024 1 [place] Kobe Villegasrst [id number] Jyoti Broadhurst Notes Date Note Type Note Provider Name a nd Address Organization Details Recorded Time 4 text/html here for rechkrelates that she has been feeling depressed for at least a monthtaking meds appropriately not skipping just down seems dulox not working like it was Yasmany Avila, DO [address] [facility], [place], [address], [facility] 03/22/2024 16:23:06 4 text/html Care Management - DiabetesReported bypatient.Self Care:seeing eye doctor yearly for dilated eye exam; checking feet regularly; normal range of home blood sugars (in the low 100s); no side effects from medications Associated Symptoms:symptoms are usually well controlled; no fatigue; no dizziness; no excessive sweating; no headaches; no confusion; no increased thirst; no increased appetite; no increased urination; no blurred vision; no numbness of feet; no calluses on feet here for rechkand is doing okgot good news on breast bx and her lab was good except for a1c is up to 6.8relates that the 3mg dose is causing a lot of gi sx and nausea not feeling well and actually skipped last doseusing a once a day bupropion Yasmany Avila DO [address] [place] [address], [phone], [facility] 04/28/2024 14:00:43 4 text/html here for rechkstates she has been getting lightheaded a lotoverall is ok Yasmany Avila DO [address] [place] [address], [phone], [facility] 07/28/2024 16:13:22 4 text/html here for recchk relates that her work wants her to fill out more paper workthis is reviewed in detail with the pt Yasmany Avila DO [address] [place] [address], [phone], [facility] 09/08/2024 11:32:21 4 text/html Care Management - DiabetesReported bypatient.Self Care:seeing eye doctor yearly for dilated eye exam; checking feet regularly; normal range of home blood sugars (in the low 100s); no side effects from medications Associated Symptoms:symptoms are usually well controlled; no fatigue; no dizziness; no excessive sweating; no headaches; no confusion; no increased thirst; no increased appetite; no increased urination; no blurred vision; no numbness of feet; no calluses on feet here for rechk and is doing wellrelates that she has been stressed at work bc of [id number] 6.0 Yasmany Avila DO [address] [place] [address], [phone], [facility] 11/03/2024 16:37:41 OBGyn Episode No OBEpisode recorded.
[2025-01-24 08:25] LABS: Estimated Average Glucose 126 mg/dL
[2025-01-24 08:35] LABS: Alanine Aminotransferase 35 U/L (0-31); Alkaline Phosphatase 162 U/L (39-117); Anion Gap 12 (12-20); Aspartate Amino Transferase 22 U/L (5-31); Bilirubin Total 0.5 mg/dL (0.0-1.0); Blood Urea Nitrogen 13 mg/dL (9-16); Carbon Dioxide 27 mmol/L (22-29); Chloride 107 mmol/L (96-108); Cholesterol 138 mg/dL (<200); Estimated Glomerular Filt Rate 54; Glucose Random 146 mg/dL (60-115); HDL Cholesterol 48 mg/dL (>40); LDL Cholesterol Calculated 50 mg/dL (<100); Potassium 3.8 mmol/L (3.3-5.1); Sodium 142 mmol/L (135-145); Total Protein 7.3 g/dL (6.5-8.0); Triglycerides 200 mg/dL (<150)
== END 2025-01-24 07:05 | disposition home or self-care (01) ==
LOC: HO.LABR 07:04
PROVIDERS: PCP Internal Medicine; Visit Provider Internal Medicine
DX: E11.9 Type 2 diabetes mellitus without complications (principal)
CPT/HCPCS: 36415; 80053; 80061; 83036

== ENCOUNTER 2025-04-06 07:17 | Outpatient (REF) | payer BC, SELFPAY ==
--- OUTSIDE RECORDS SUMMARY | 2025-04-06 07:19 | XMS_ITS | Data Portability ---
Author Organization [facility] Home Service Address [address] [facility] [place] [address] Assessment Encounter Date Assessment Date Assessment LastModified by Organization Details LastModified Time 09/08/2024 09/08/2024 [id number] [place] [address] (FAMILY SERVICE ASSISTANT) : MDM LOW MUST MEET 2 OF [...] COVERED Not available 09/08/2024 11:30:44 11/03/2024 11/03/2024 [id number] [place] [address] (FAMILY SERVICE ASSISTANT) MDM MODERATE MUST MEET 2 OUT OF [...] THAT IS COVERED Not available 11/03/2024 16:30:36 01/31/2025 01/31/20[place] [id number] [place] [address] (FAMILY SERVICE ASSISTANT) [facility] MODERATE MUST MEET 2 OUT OF 3 [...] EACH ELEMENT THAT IS COVERED Not available 01/31/2025 16:54:07 02/27/2025 02/27/2025 [address] [place] [address] (FAMILY SERVICE ASSISTANT) [facility] MODERATE MUST MEET 2 OUT OF 3 [...] EACH ELEMENT THAT IS COVERED Not available 02/27/2025 15:54:35 04/04/2025 04/04/2025 [address] [place] [address] (FAMILY SERVICE ASSISTANT) [facility] MODERATE MUST MEET 2 OUT OF 3 [...] EACH ELEMENT THAT IS COVERED Not available 04/04/2025 16:18:11 Plan of Treatment Reminders Order Date Submit Date Provider Last Modified By Organization Details Last Modified Time Details Appointments FOLLOW UP 15 2024 09:15A M DR AVILA Not available Not available Not available Lab GBA gene mutations , blood or tissue 2024 025 [facility] (Lab), [address] [place], [address], 04/04/2025 16:29:33 CMP, serum or plasma [address] [place] [address] (Lab), [address] [place], [address], 04/04/2025 16:23:34 CBC [address] [place] [address] (Lab), [address] [place], [address], 04/04/2025 16:23:34 hemoglobi n A1c, QN, blood [address] [place] [address] (Lab), [address] [place], [address], 04/04/2025 16:23:34 TSH, serum or plasma [address] [place] [address] (Lab), [address] [place], [address], 04/04/2025 16:23:34 TSH + free T4, serum [address] [place] [address] (Lab), [address] [place], [address], 02/27/2025 16:00:11 Referral medical weight loss program referral - pt with diabetes [id number] [facility], [address] [place] [address] [place], [address], 11/06/2024 08:34:18 hand surgeon referral 2023 024 kelvin Olsen MD, [address] [facility], [place], [address], 11/06/2024 08:34:18 Procedures None recorded. Surgeries None recorded. Imaging None recorded. Medication Orders lisinopri l 10 mg tablet 2024 025 [place] [id number], [address], [place], [id number], 04/04/2025 16:20:12 lisinopri l 5 mg tablet 2024 025 [id number], [address], [place], [phone], 04/04/2025 16:19:23 Medrol (Zachary) 4 mg tablets in a dose pack 2024 025 [facility][id number], [address], [place], [id number], 04/04/2025 15:53:21 Patient TargetsNo targets recorded. Patient Instructions Encounter Date Encounter Id Patient Instructions Last Modified By Organization Details Last Modified Time 09/08/2024 [id number] pulse oximetry* Not available 09/08/2024 11:31:45 sleep apnea: car e instructions Not available 09/08/2024 11:31:45 11/03/2024 [id number] learning about t ype 2 diabetes Not available 11/03/2024 16:26:14 type 2 diabetes: care instructions Not available 11/03/2024 16:26:15 hypothyroidism: care instructions Not available 11/03/2024 16:31:18 01/31/2025 [id number] gastroesophageal reflux disease (GERD): care instructions Not available 01/31/2025 16:57:21 hypothyroidism: care instructions Not available 01/31/2025 16:57:21 Reason for Referral Hand Surgeon Referral for Ga nglion of flexor tendon sheath of finger Referring Physician: Yasmany Avila, Internal Medicine, Encounter Date: 11/03/2024 Medical Weight Loss Program Referral for Type 2 diabetes mellitus pt with diabetes Referring Physician: Yasmany Avila [facility], Encounter Date: 11/03/2024 Results Created Date Observation Date Name Description Value Unit Range Abnormal Flag Note LastModifiedBy Organization Detail LastModifiedTime 09/08/2009/08/2024 pulse oxime try* Result 100% Not Available [facility] [address] [place] [address] D, [place], [address], 09/08/2024 08:28:29 Result Notes None recorded. Problems Name Problem SNOMED Code Status Onset Date Resolution Date Notes Provider Name and Address Organization Details Recorded Time Depressi ve disorder 44815093 Active 2018 Yasmany Avila DO [address] [place] [address], [address], [facility] 9 16:39:55 Osteoart hritis 583001326 Active 2018 Yasmany Avila DO [address] [place] [address], [address], [facility] 9 16:54:59 Fibromya lgia 015660673 Active 2018 Yasmany Avila DO [address] [place] [address], [address], [facility] 9 16:55:17 Gastroes ophageal reflux disease 399813465 Active 2019 Yasmany Avila DO [address] [place] [address], [address], [facility] 0 10:46:59 Lipomato sis dolorosa 04645439 Active 2020 Yasmany Avila DO [address] [place] [address], [address], [facility] 1 14:49:03 Adenomat ous polyp of colon 714486195 Active 2020 Yasmany Avila DO [address] [place] [address], [address], [facility] 1 21:20:54 Gastriti s 9613803 Active 2021 JUAN CINTRON [address] [place] [address], [address], [facility] 2 11:43:18 Anxiety 03224336 Active 2021 Yasmany Avila DO [address] [place] [address], [address], [facility] 2 15:38:23 Sleep apnea 57589252 Active 2021 Yasmany Avila DO [address] [place] [address], [address], [facility] 2 15:58:19 Dysuria 65715599 Active 2021 JUAN CINTRON [address] [place] [address], [address], [facility] 2 16:46:40 Acute urinary tract infectio n 597435272 Active 2021 JUAN CINTRON [address] [place] [address], [address], [facility] 2 15:19:40 Type 2 diabetes mellitus 28975159 Active 2023 JUAN CINTRON [address] [place] [address], [address], [facility] 4 16:41:53 Aphthous ulcer of mouth 141459319 Active 2023 Yasmany Avila DO [address] [place] [address], [address], [facility] 4 16:19:17 Hypothyr oidism 86730956 Active 2017 [facility] 8 08:31:11 Mammogra phy abnormal 893200970 Active 2017 Right breast ? microcalc ification repeat mammo due 09/22 benign bzx Yasmany Avila, DO [address] [place] [address], [address], [place] [facility] 4 13:49:16 Kidney stone 48708146 Active 2017 bilateral multiple [facility] 08:32:51 Metaboli c syndrome X 716676467 Active 2017 [facility] 08:33:12 Medullar y sponge kidney 994495677 Active 2017 [facility] 08:33:38 Hyperlip idemia 11824759 Active 2017 [facility] 08:34:04 Migraine 11812806 Active 2017 [facility] 08:34:13 History of depressi on 574533821 Active 2017 [facility] 08:34:21 Mood disorder 48366840 Active 2017 anger [facility] 08:42:26 Ganglion of flexor tendon sheath of finger 321309951 Active 2023 Yasmany Avila, DO [address] [place] [address], [place], [address], [place] [facility] 4 16:24:37 Excessiv e weight gain 394819689 Active 2023 Yasmany Avila, DO [address] [place] [address], [address], [place] [facility] 4 16:35:32 Elevated blood-pr essure reading without diagnosi s of hyperten frank 241573397 Active 2024 Yasmany Avila, DO [address] [place] [address], [address], [facility] 16:53:34 Generali zed rash 477197746 Active 2024 Yasmany Avila, [address], [address], [facility] 5 16:59:16 Infestat ion by Sarcopte s sc[facility] hominis 756099814 Active 2024 Yasmany Avila, [address], [address], [facility] 16:11:51 Hyperten sive disorder 24399492 Active 2024 Yasmany Avila, [address], [address], [facility] 15:57:28 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 Procedures Surgical History Date Name Laterality Status Provider Name and Address Organization Details Recorded Time 09/11/20 24 colonoscopy completed Ismael Avila [facility] 09/11/2024 14:56:20 delivery completed Julissakeiko Robison [facility] 02/25/2018 08:36:33 Cholecystectomy completed Julissa Robison [facility] 02/25/2018 08:37:24 Endometr ablate thermal completed Julissakeiko Robison [facility] 02/25/2018 08:39:56 Imaging Results None recorded. Procedure Notes None recorded. Medical Equipment None Reported. Allergies Allergen ID Allergen Name Allergen Category Reaction Reaction Severity Criticality Documentation Date Start Date Code Code System Note Provider Name and Address Organization Details Recorded Time 913 Provigil medicatio n Not available Not available Not available 02/25/2018 65031 4 RxNorm Julissa fiore [facility] 8 08:35:44 Medications Name Sig Start Date [...] Not Available Not Available No t Available dextroamphe tamine-amph etamine 10 mg tablet 06/07 completed Not Available Not Available Not Available Pyridium 200 mg tablet TAKE 1 TABLET BY MOUTH THREE TIMES DAILY FOR 7 DAYS 03/19 completed Not Available Not Available Not Available clobetasol 0.05 % topical cream APPLY A THIN LAYER TO THE AFFECTED AREA TOPICALLY TWICE DAILY 04/20 completed Not Available Not Available Not Available permethrin 5 % topical cream APPLY FROM NECK DOWN OVERNIGHT FOR 8 HOURS. WASH OFF IN THE MORNING. REPEAT IN 1 WEEK 04/04 completed Not Available Not Available Not Available [...] tablet TAKE 1 TABLET BY MOUTH EVERY 6 TO 8 HOURS NEEDED FOR PAIN. MAXIMUM 400 MG DAILY 04/04 completed Not Available Not Available Not Available triamcinolo ne acetonide 0.1 % topical cream APPLY TO THE AFFECTED AREA TWICE DAILY FOR UP TO 2 WEEKS 04/04 completed Not Available Not Available Not Available [...] completed Not Available Not Available Not Available lisinopril 10 mg tablet Take 1 tablet every day by oral route for 30 days. 2024 active Not Available Not Available Not Avai lable diclofenac potassium 50 mg tablet take 1 tablet by mouth twice a day 07/26 completed Not Available Not Available Not Available gabapentin 300 mg capsule 02/25 completed Not Available Not Available Not Available lisinopril 5 mg tablet TAKE 1 TABLET BY MOUTH EVERY DAY 04/04 completed Not Available Not Available Not Available [...] SKIN EVERY 72 HOURS FOR 10 DAYS active Not Available Not Available No t Available methylpredn isolone 4 mg tablets in a dose pack FOLLOW PACKAGE DIRECTION S 04/04 completed Not Available Not Available Not Available clobetasol 0.05 % scalp solution APPLY TO [...] Not Available Not Available No t Available nitrofurant oin monohydrate /macrocryst als 100 mg [...] Not Available OneTouch Delica Lancets 33 gauge 04/04 completed Not Available Not Available Not Available OneTouch Verio test strips use one strip up to 4 times daily 04/04 completed Not Available Not Available Not Available lidocaine 5 % topical ointment 01/10 completed Not Available Not Available Not Available Myrbetriq 50 mg tablet,exte nded release TAKE 1 TABLET BY MOUTH EVERY DAY 03/19 completed Not Available Not Available Not Available Trulicity 1.5 mg/0.5 mL subcutaneou s pen injector ADMINISTE R 1.5 MG UNDER THE SKIN EVERY WEEK active Not Available Not Available No t Available Fluarix Quad (PF) 60 mcg (15 [...] Available Not Available Rybelsus 3 mg tablet 1 po qd 2024 active Not Available Not Available Not Avai lable Fluarix Quad (PF) 60 mcg (15 mcg [...] Updated DateTime 4 154.94 cm 32.4 kg/m2 36473.0 9 g 80 /min 100 % 100 % 138 mm[Hg] 82 mm[Hg] Rodríguez [facility] 4 10:01:03 Date Recorded Body height Body mass index (BMI) Body weight Heart rate Oxygen saturation Oxygen saturation in Arterial blood by Pulse oximetry Systolic blood pressure Diastolic blood pressure Provider Name and Address Organization Details Last Updated DateTime 4 154.94 cm 30.6 kg/m2 37214.9 6 g 98 /min 98 % 98 % 134 mm[Hg] 84 mm[Hg] Rodríguez [facility] 4 15:57:43 Date Recorded Body height Body mass index (BMI) Body weight Heart rate Oxygen saturation Oxygen saturation in Arterial blood by Pulse oximetry Systolic blood pressure Diastolic blood pressure Provider Name and Address Organization Details Last Updated DateTime 5 154.94 cm 32.2 kg/m2 39935.4 2 g 103 /min 92 % 92 % 154 mm[Hg] 98 mm[Hg] Briseyda Mosher [facility] 5 16:08:34 Date Recorded Body height Body mass index (BMI) Body weight Heart rate Oxygen saturation Oxygen saturation in Arterial blood by Pulse oximetry Systolic blood pressure Diastolic blood pressure Provider Name and Address Organization Details Last Updated DateTime 5 154.94 cm 32.1 kg/m2 65163.7 g 98 /min 97 % 97 % 140 mm[Hg] 78 mm[Hg] Elyse Nguyenmond [facility] 5 15:35:11 Date Recorded Body height Body mass index (BMI) Body weight Oxygen saturation Oxygen saturation in Arterial blood by Pulse oximetry Heart rate Systolic blood pressure Diastolic blood pressure Provider Name and Address Organization Details Last Updated DateTime 5 154.94 cm 32.8 kg/m2 07589.9 9 g 96 % 96 % 68 /min 130 mm[Hg] 78 mm[Hg] Terri Strauss [facility] 5 15:58:03 Social History Question Answer Notes LastModified by Saber Seven Details LastModified Time Tobacco Smoking Status Never Smoker Not Available [facility] 09/17/2020 03:36:24 What Is Your Level Of Caffeine Consumption? Occasional 2 Cups Coffee Per Day [id number] Information not available 09/17/2020 What Was The Date Of Your Most Recent Tobacco Screening? 04/04/2025 [email or web address] Information not available 04/04/2025 Sex: Unknown Functional Status Question Answer Note LastModified by Saber Seven Details LastModified Time Do you or have you ever used any other forms of tobacco or nicotine? No Information not available 04/20/2022 What is your level of alcohol consumption? Occasional [id number] Information not available 09/17/2020 What is your exercise level? None [id number] Information not available 09/17/2020 Mental Status None recorded. Family History Nothing Reported. Medical History No medical history recorded. Gynecological HistoryNo gynecological history recorded. Obstetrics History GPAL:G 0 P 0 0 0 0 Immunizations Vaccine Type Date Status Note Provider Nam e and Address Organization Details Recorded Time COVID-19, mRNA, LNP-S, PF, 100 mcg/0.5mL dose or 50 mcg/0.25mL dose 1 completed Yasmany Avila DO [address] [place] [address], [address], [facility] 05/26/2021 14:10:58 COVID-19, mRNA, LNP-S, PF, 100 mcg/0.5mL dose or 50 mcg/0.25mL dose 1 completed Yasmany Avila DO [address] [place] [address], [address], [facility] 05/26/2021 14:10:41 Influenza, split virus, quadrivalent, preservative 1 completed Yasmany Avila DO [address] [place] [address], [address], [facility] 09/10/2021 15:42:09 Influenza, split virus, quadrivalent, preservative 8 completed February January MARIAAALTHEA [address] [place] [address], [address], [facility] 08/30/2018 09:30:50 Tdap 8 completed Not Available [facility] 12/16/2019 02:14:52 Influenza, split virus, quadrivalent, preservative 9 completed Yeni fiore [facility] 08/21/2019 16:23:48 Influenza, split virus, quadrivalent, preservative 0 completed Yeni fiore [facility] 01/27/2021 10:01:10 Past Encounters Encounter ID Performer Location Encounter Start Date Encounter Closed Date Diagnosis/Indication Diagnosis SNOMED-CT Code Diagnosis ICD10 Code Diagnosis Note [id number] Yasmany Avila [facility] [address] [facility] [place] [address] 02/25/2018 15:53:51 02/25/2018 17:04:31 Type 2 diabetes mellitus 74488152 E11.65 extensive counsellin g as noted in [...] fat which may be detrimenta l [facility]. Essentiall y consider a diet that [...] minimize post prandial blood sugar spikes. Hypothyroidism 50198787 E03.9 Hyperlipidemia 82006429 E78.5 as above [id number] Yasmany Avila [facility] [address] [place] [address] 04/01/2018 14:42:36 04/01/2018 15:14:15 Type 2 diabetes mellitus 03406648 E11.65 continue current regimen Kidney stone 04372120 N2 0.0 has known kidney stones, but never has passed a stone urine was normal seems unlikely to be a passing stone if marcos blood in urine recc ER - pt understood Acute low back pain 2788 43396 M54.5 likely muscular [id number] Yasmany Avila [facility] [address] [place] [address] 05/25/2018 08:54:33 05/25/2018 09:54:01 Type 2 diabetes mellitus 24645628 E11.65 continue current regimen of 1000 mg in am and 500 mg in pm Obstructiv e sleep apnea syndrome 77017101 G47.33 Hypothyroidism 72053314 E03.9 is due for recheck in 6 months Depressive disorder 3548 9007 F33.9 well controlled rare use of lorazepam [id number] Yasmany Avila [facility] [address] [facility],[place] [address] 07/26/2018 14:24:21 07/26/2018 15:05:36 Neck pain 33719783 M54.2 Type 2 mary lou betes mellitus 46642201 E11.65 continue current regimen of 1000 mg in am and 500 mg in pm History of depression 16 0649920 Z86.59 Hyperlipidemia 65261752 E78.5 as above [id number] Yasmany Avila [facility] [address] [facility],[place] [address] 08/30/2018 09:01:42 08/30/2018 09:48:56 Type 2 diabetes mellitus 23085848 E11.65 continue current regimen of 1000 mg [...] her family. Obstructiv e sleep apnea syndrome 43029996 G47.33 Hypothyroidism 43734827 E03.9 will check at next visit Depressive disorder 3548 9007 F33.9 well controlled rare use of lorazepam Motion sickness 28667601 T75.3XXA Screening procedure 2012 5006 Z13.9 [id number] Yasmany Avila [facility] [address] [facility],[place] [address] 11/30/2018 11:44:17 11/30/2018 12:17:45 Type 2 diabetes mellitus 13174975 E11.65 has been taking metformin, plans to switch back to trulicity Obstructiv e sleep apnea syndrome 92988079 G47.33 uses cpap nightly Hypothyroidism 25110544 E03.9 will check 6 months Depressive disorder 3547 9007 F33.9 well controlled rare use of lorazepam Body mass index 25-29 - overweight 196732984 Z68.27 has been gradually losing weight praised for improvemen t Hyperlipidemia 37016002 E78.5 work on diet and exercise to help lower naturally consider statin over the next 6 mos to a year [id number] Yasmany Avila [facility] [address] [facility] [address] 03/14/2019 13:42:08 03/14/2019 14:26:43 Hypothyroidism 67306550 E03.9 will need to keep biannual chk of tsh Type 2 mary lou betes mellitus 99788975 E11.9 last a1c is 5.1 and she is doing awesome Hyperlipidemia 12536654 E78.5 will start atorvastat in 10mg rechk lab in 4 mo [id number] Yasmany Avila [facility] [address] [facility] [address] 06/07/2019 15:23:08 06/07/2019 16:32:00 Hypothyroidism 56283928 E03.9 will need to keep biannual chk of tsh Type 2 mary lou betes mellitus 53314691 E11.9 last a1c is 5.1 and she is doing awesome Hypercholesterolemia 136 00288 E78.00 Anxiety 96302238 F41.9 [id number] Yasmany Avila [facility] [address] [facility] [address] 06/21/2019 16:19:55 06/21/2019 16:49:45 Depressive disorder 05059219 F32.1 will add low dose bupropion to the cymbalta to try to improve her mood [id number] Yasmany Avila [facility] [address] [facility],[place] [facility] [address] 08/21/2019 16:05:43 08/21/2019 17:03:21 Depressive disorder 28689668 F32.1 l added low dose bupropion to the cymbalta to try to improve her mood and she seems to be better Type 2 mary lou betes mellitus 02083693 E11.9 has not been checkin g her sugars Medullary sponge kidney 471541259 Q61.5 no new issues followed by renal [id number] Yasmany Avila [facility] [address] [facility] [place] [address] 09/27/2019 16:06:34 09/27/2019 16:46:29 Metabolic syndrome X 393812822 E88.81 doing fantastic on trulicity and has no prob a1c is 5.0 Depressive disorder 3548 9007 F32.1 l added low dose bupropion to the cymbalta to try to improve her mood and she seems to be better she thinks she is doing ok Cheilosis 71554370 K13.0 [id number] Yasmany Avila DO [facility] [address] [facility],[place] [address] 11/06/2019 14:09:47 11/06/2019 14:31:55 Seborrheic dermatitis of scalp 349737430 L21.0 Anterior caput ongoing for 6 mo-1 year Eczema 00024280 L30.9 Scalp eczema Depressive disorder 3548 9007 F32.1 seems to be doing better Metabolic syndrome X 237 920078 E88.81 doing fantastic on trulicity and has no prob a1c is 5.0 [id number] Yasmany Avila DO [facility] [address] [facility],[place] [address] 01/10/2020 10:28:46 01/10/2020 11:13:50 Adult health examination 233163858 Z00.00 doing well Type 2 mary lou betes mellitus 23558568 E11.9 a1c is 4.8 and she s doing well still on trulicity we will stop and rechk a1c in 3 mo Hypothyroidism 60864540 E03.9 will need to keep biannual chk of tsh Alopecia 32536818 L65.9 believe this is from the bupropion will stop and see if this improves [id number] Yasmany Avila DO [facility] [address] [facility] [address] 01/31/2020 13:31:55 02/12/2020 11:49:21 Fever 899265598 R50.9 f/u if sx change or worsen Acute pharyngitis 513599 003 J02.9 f/u if sx change or worsen Type 2 mary lou betes mellitus 81951826 E11.65 [id number] Yasmany Avila [facility] [address] [facility],[place] [address] 04/03/2020 14:51:19 04/03/2020 16:03:36 Hyperlipidemia 91909618 E78.5 will start atorvastat in 10mg and her LDL down to 111 and HDL at 40 exelllent Mood disorder 85541190 F 39 taking lorazepam daily during the day [facility] bursitis of left hip 6629991265 51262 [address]70[address] rao for ani inj Type 2 mary lou betes mellitus 12572164 E11.9 a1c is up to 6.4 so we will go back to trulicity Alopecia [id number] [place] [id number] Yasmany Avila [facility] [address] [facility] [address] 04/17/2020 14:53:35 04/17/2020 15:20:16 Type 2 diabetes mellitus 62938884 E11.9 doing well on angie.icity Mood disorder 84093817 F 40 taking lorazepam daily during the day 0n 90 mg dulox ? if she has WU Insomnia 134723488 G47.0 0 [id number] Yasmany Avila [facility] [address] [facility] [address], [place] [address] 07/19/2020 10:14:25 07/19/2020 11:12:13 Type 2 diabetes mellitus 35311222 E11.9 doing well on angie.icity a1c 5 Depressive disorder 3548 9007 F32.1 seems to be doing better Hypothyroidism 11605584 E03.9 will need to keep biannual chk of tsh Hyperlipidemia 80846512 E78.5 atorvastat in 10mg and her LDL down to 80and HDL at 50+exellle nt Gastroesop hageal reflux disease 769055199 K21.9 will try the omeprazole and if ok will continue for now call if unhelpful [id number] Yasmany Avila [facility] [address] [facility] [address],[place] [address] 10/25/2020 08:51:38 10/25/2020 10:26:59 Hypothyroidism 74262638 E03.9 will need to keep biannual chk of tsh Type 2 mary lou betes mellitus 14389021 E11.9 doing well on trul.icity a1c 5.1 long discussion re need for close monitor during pandemic a also will need vaccine if deemed safe for her to use Medullary sponge kidney 417323892 Q61.5 no new issues followed by renal and creat is [place]b [place] neg [id number] Yasmany Avila, [facility] [address] [facility] [address],[place] [address] 01/27/2021 09:56:49 01/27/2021 10:49:39 Hypothyroidism 02199502 E03.9 will need to keep biannual chk of tsh Type 2 mary lou betes mellitus 92201421 E11.9 doing well on trul.icity a1c 5.2 was 5.1 long discussion re need for close monitor during pandemic a also will need vaccine if deemed safe for her to use Medullary sponge kidney 376669010 Q61.5 no new issues followed by renal and creat is stable microalb is neg Pain in both feet 540919 2283 0966797 M79.671 M79.672 [id number] Yasmany Avila, [facility] [address] [facility] [address],[place] [address] 05/26/2021 13:57:49 05/26/2021 16:43:26 Type 2 diabetes mellitus 82298391 E11.9 doing well on trul.icity a1c 5.3 5.2 was 5.1 long discussion re need for close monitor during pandemic a also will need vaccine if deemed safe for her to use Hypothyroidism 76296703 E03.9 will need to keep biannual chk of tsh Depressive disorder 4680 3017 F32.1 seems to be doing better Hyperlipidemia 12610952 E78.5 atorvastat in 10mg and her LDL down to 80and HDL at 50+exellle nt 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 frustratin g , no treatment availhas mult areas around her legs they bother the most there she is covered in them and there are too many to remove but we will consider having the more prominent ones removed Medullary sponge kidney 178252012 Q61.5 no new issues followed by renal and creat is stable [place]alb [place] neg [id number] Yasmany Phelan Krysta [facility] [address] [facility] [address],[place] [address] 09/10/2021 15:23:06 09/10/2021 16:34:47 Depressive disorder 34049258 F32.1 seems to be doing better Type 2 mary lou betes mellitus 36039566 E11.9 doing well on trul.icity a1c 5.3 5.2 was 5.1 long discussion re need for close monitor during pandemic a also will need vaccine if deemed safe for her to use Hypothyroidism 68394547 E03.9 will need to keep biannual chk of tsh Insomnia 300200590 G47.0 0 [id number] Yasmany Parisikaylynn [facility] [address] [facility] [address],[place] [address] 10/01/2021 15:21:44 10/01/2021 16:24:14 Insomnia 287748430 G47.00 Metabolic syndrome X 237 687306 E88.81 doing fantastic on trulicity and has no prob a1c is 5.5 Type 2 mary lou betes mellitus 02155241 E11.9 doing well on trul.icity a1c 5.5 was5.3 5.2 was 5.1 long discussion re need for close monitor during pandemic a also will need vaccine if deemed safe for her to use [id number] Yasmany Phelan Krysta [facility] [address] [facility] [address],[place] [address] 01/07/2022 15:49:40 01/07/2022 16:42:57 Major depressive disorder 566576137 F32.1 still under a lot of stress Type 2 mary lou betes mellitus 67295462 E11.9 doing well on trul.icity a1c was 5.6 and was 5.5 was 5.3 5.2 was 5.1 long discussion re need for close monitor during pandemic also will need vaccine if deemed safe for her to use Medullary sponge kidney 501497245 Q61.5 no new issues followed by renal and creat is stable microalb is neg Hypothyroidism 50317725 E03.9 will need to keep biannual chk of tsh Hyperlipidemia 82903154 E78.5 atorvastat in 10mg and her LDL down to 80and HDL at 50+exellle nt Gastroesop hageal reflux disease 453301888 K21.9 will try the nexium or pantoprazo le and if ok will continue for now call if unhelpful Motion sickness 02341660 T75.3XXD Nummular eczema 60875561 L30.0 [id number] Yasmany Avila [facility] [address] [facility] [address],[place] [address] 02/11/2022 11:28:51 02/11/2022 14:31:41 Gastritis 7672888 K29.60 will start on famotidine and sucralfate [id number] Yasmany Avila [facility] [address] [facility] [address],[place] [facility] [address] 04/20/2022 14:54:09 04/20/2022 15:44:20 Gastroesophageal reflux disease 309149015 K21.9 the nexium nad famotidine are actually doing quite well Hypothyroidism 34949953 E03.9 will need to keep biannual chk of tsh Type 2 mary lou betes mellitus 30424207 E11.9 doing well on trul.icity a1c was 5.6 and was 5.5 was 5.3 5.2 was 5.1 long discussion re need for close monitor during pandemic also will need vaccine if deemed safe for her to use Depressive disorder 3548 9007 F32.1 seems to be doing better Active or passive immunization 376369577 Z23 patient advised of due vaccines (pneu 23 & shingles) Anxiety 00504011 F41.9 [id number] Yasmany Avila [facility] [address] [facility] [address],[place] [facility] [address] 07/24/2022 08:11:59 07/27/2022 08:51:09 Sleep apnea 22246792 G47.30 for home sleep study [id number] Yasmany Avila [facility] [address] [facility] [address] [address] [facility] [address] 03/19/2023 15:25:36 03/19/2023 16:12:35 Depressive disorder 77759075 F32.1 seems to be doing better Motion sickness 45914575 T75.3XXD Hyperglycemia 52615135 R 73.9 a1c 5.4 and she is doing fantastic [id number] Yasmany Avila [facility] [address] [facility] [address],[place] [address] 07/06/2023 08:07:11 07/07/2023 08:35:17 Hyperglycemia 02086644 R73.9 a1c 5.5 and she is doing fantastic Hypothyroidism 23303766 E03.9 will need to keep biannual chk of tsh Medullary sponge kidney 019801291 Q61.5 no new issues followed by renal and creat is stable microalb is neg [id number] Yasmany Avila [facility] [address] [facility] [address],[place] [address] 10/29/2023 15:43:59 10/29/2023 16:19:11 Hyperglycemia 56057827 R73.9 a1c i still 5.5 and she is doing fantastic Hypothyroidism 33503069 E03.9 will need to keep biannual chk of tsh Hyperlipidemia 37704397 E78.5 atorvastat in 10mg and her LDL down to 80and HDL at 50+exellle nt [id number] Yasmany Avila [facility] [address] [facility] [address],[place] [address] 02/04/2024 15:53:19 02/07/2024 08:17:57 Hyperlipidemia 14227689 E78.5 atorvastat in 10mg will hold for several weeks to see if swelling is gone and her LDL down to 80and HDL at 50+exellle nt Hypothyroidism 73843790 E03.9 will need to keep biannual chk of tsh but will do extra test due to use of trulicity3 mg Type 2 mary lou betes mellitus 95701776 E11.9 doing well on trul.icity a1c was 5.6 and was 5.5 was 5.3 5.2 was 5.1 long discussion re need for close monitor during pandemic also will need vaccine if deemed safe for her to use [id number] Yasmany Avila DO [facility] [address] [facility],[place] [address] 03/22/2024 15:56:04 03/22/2024 16:41:37 Type 2 diabetes mellitus 48825580 E11.9 doing well on trul.icity a1c was 5.6 and was 5.5 was 5.3 5.2 was 5.1 long discussion re need for close monitor during pandemic also will need vaccine if deemed safe for her to use Hyperlipidemia 62017224 E78.5 atorvastat in 10mg will hold for several weeks to see if swelling is gone and her LDL down to 80and HDL at 50+exellle nt Mood disorder 41599422 F 40 duloxetine not helpful relates taking 60 bid Depression screening 171 112718 Z13.31 positive History of depression 16 5658207 Z86.59 Aphthous u lcer of mouth 032345540 K12.0 will treat next outbreak [id number] Yasmany Avila [facility] [address] [facility],[place] [address] 04/28/2024 13:26:29 04/28/2024 14:23:51 Type 2 diabetes mellitus 31270560 E11.9 side effects on trul.icity of 3mg a1c was up to 6.8 was 6.2 5.6 and was 5.5 was 5.3 5.2 was 5.1 long discussion re need for close monitor during pandemic also will need vaccine if deemed safe for her to use Hypothyroidism 01641728 E03.9 will need to keep biannual chk of tsh but will do extra test due to use of trulicity 3mgwill try to cut dose by pulling out prematurly Medullary sponge kidney 181044371 Q61.5 no new issues followed by renal and creat is stable microalb is neg [id number] Yasmany Avila [facility] [address] [facility] [address] [place] [address] 07/28/2024 15:42:43 07/30/2024 20:26:54 Type 2 diabetes mellitus 25691228 E11.9 side effects on trul.icity of 3mg a1c was up to 6.8 was 6.2 5.6 and was 5.5 was 5.3 5.2 was 5.1 long discussion re need for close monitor during pandemic also will need vaccine if deemed safe for her to use Hypothyroidism 25185701 E03.9 will need to keep biannual chk of tsh but will do extra test due to use of trulicity 3mgwill try to cut dose by pulling out prematurly [id number] Yasmany Avila [facility] [address] [facility] [address],[place] [address] 09/08/2024 09:52:15 09/08/2024 13:45:24 Sleep apnea 96117152 G47.30 for home sleep study Anxiety 96727551 F41.9 stable with her work as long as the current schedule maintained paperwork filled out here with pt present [id number] Yasmany Avila [facility] [address] [facility],[place] [address] 11/03/2024 15:48:10 11/03/2024 16:43:03 Type 2 diabetes mellitus 47762625 E11.9 side effects on trul.icity of 3mg a1c is great at 6.0 was up to 6.8 was 6.2 5.6 and was 5.5 was 5.3 5.2 was 5.1 long discussion re need for close monitor during pandemic also will need vaccine if deemed safe for her to use Ganglion o f flexor tendon sheath of finger 815657405 M67.449 will refer to the hadnt Hypothyroidism 46906108 E03.9 will need to keep biannual chk of tsh but will do extra test due to use of trulicity 3mgwill try to cut dose by [id number] Yasmany Avila [facility] [address] [facility] [address],[place] [address] 01/31/2025 15:50:12 02/02/2025 11:51:08 Depression screening 707614469 Z13.31 neg Elevated blood-pressure reading without diagnosis of hypertension 194957811 R03.0 she will get a bp machine and record will rechk in 2 mo Gastroesop hageal reflux disease 752471058 K21.9 the nexium nad famotidine are actually doing quite well Hypothyroidism 25204707 E03.9 will need to keep biannual chk of tsh but will do extra test due to use of trulicity 3mgwill try to cut dose by Type 2 mary lou betes mellitus 37712954 E11.9 side effects on trulicity of 3mg a1c is great at 6.0 was up to 6.8 was 6.2 5.6 and was 5.5 was 5.3 5.2 was 5.1 long discussion re need for close monitor during pandemic also will need vaccine if deemed safe for her to use Generalized rash 8013717 06 R21 [id number] Yasmany Avila [facility] [address] [facility],[place] [address] 02/27/2025 15:15:31 02/27/2025 16:06:56 Hyperlipidemia 05835670 E78.5 atorvastat in 10mg will hold for several weeks to see if swelling is gone and her LDL down to 80and HDL at 50+excelll ent Hypothyroidism 13340100 E03.9 will need to keep biannual chk of tsh but will do extra test due to use of trulicity 3mgwill try to cut dose by Generalized rash 6034450 06 R21 resolved Type 2 mary lou betes mellitus 39324796 E11.9 side effects on trulicity of 3mg a1c is great at 6.0 was up to 6.8 was 6.2 5.6 and was 5.5 was 5.3 5.2 was 5.1 long discussion re need for close monitor during pandemic also will need vaccine if deemed safe for her to use Depression screening 171 940967 Z13.31 neg Hypertensive disorder 38 610574 I10 will need to treat [id number] Yasmany Avila, [facility] [address] [facility] [address],[place] [place] [address] 04/04/2025 15:35:48 04/04/2025 16:29:18 Hypothyroidism 39222545 E03.9 will need to keep biannual chk of tsh but will do extra test due to use of trulicity 3mgwill try to cut dose by Hypertensive disorder 38 179547 I10 will need to treat at higher dose as home readings are still elevated Type 2 mary lou betes mellitus 30528190 E11.9 side effects on trulicity of 3mg a1c is great at 6.0 was up to 6.8 was 6.2 5.6 and was 5.5 was 5.3 5.2 was 5.1 long discussion re need for close monitor during pandemic also will need vaccine if deemed safe for her to use Hyperlipidemia 41244197 E78.5 atorvastat in 10mg will hold for several weeks to see if swelling is gone and her LDL down to 80and HDL at 50+excelll ent Depression screening 171 320760 Z13.31 neg 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 4496833455 11731441 Z14.8 Health Concerns Section Related Observation LastModified by Organization Detai ls LastModified Time None Recorded Concern Status LastModified by Organization Details LastModified Time None Recorded Advance Directives Directive None Recorded Payers Encounter Date Sequence Insurance Name Policy Number Policy Mallory Covered Member ID Mallory Member ID Guarantor Name 09/08/2024 1 [facility] Kobe Whittaker [id number] Jyoti Joneshursji 11/03/2024 1 [facility] Kobe Whittaker [id number] Jyoti Broadhurst 01/31/2025 1 [facility] Kobe Whittaker [id number] Jyoti Broadhurst 02/27/2025 1 [facility] Kobe Whittaker [id number] Jyoti Broadhurst 04/04/2025 1 [facility] Kobe Whittaker [id number] Jyoti Jonesrsji Notes Date Note Type Note Provider Name and Address Organization Details Recorded Time 09/08/20 24 text/htm l here for recchk relates that her work wants her to fill out more paper workthis is reviewed in detail with the pt Yasmany Avila, DO [address] [facility], [place], [address], [facility] 09/08/2024 11:32:21 11/03/20 24 text/htm l Care Management - DiabetesReported bypatient.Self Care:seeing eye [...] has been stressed at work bc of [id number] 6.0 Yasmany Avila DO [address] [place], [address], [facility] 11/03/2024 16:37:41 02/01/20 25 text/htm l here for rechk and is doing ok overallrelates that she is doing oka1c 6.0has a dfusse macular rash over limbs and thoraxwill neeed to treat as is very itchy for he last 3 weeks Yasmany Avila DO [address] [place], [address], [facility] 01/31/2025 17:00:00 02/28/20 25 text/htm l Care Management - Acquired HypothyroidismReported bypatient.Medication Education:understands administration; understands effect of concurrent medications; understands missed doses; understands consequences of noncompliance Associated Symptoms:no abnormal weight gain; no tiredness; no dry skin; no cold intolerance; no constipation; no diarrhea; no goiterCare Management - DiabetesReported bypatient.Self Care:seeing eye doctor [...] no numbness of feet; no calluses on feetCare Management - HyperlipidemiaReported bypatient.Control:usually well controlled; improving; at goal Complications:no coronary artery disease; no heart attack; no cardiovascular disease; no pancreatitis; no strokeGeneral Rash/Skin LesionReported bypatient.Quality:no itchy; not painful Context:no new detergents or skin products; no one else with similar rash Aggravating factors:nothing makes it worse Associated Symptoms:no fever; no cold symptoms; no nausea; no vomiting; no diarrhea; no urinary symptoms has been checking her bp at homeavg is 168/90 Yasmany Avila DO [address] [place], [address], [facility] 02/27/2025 16:00:25 04/04/20 25 text/htm l Care Management - Acquired HypothyroidismReported bypatient.Medication Education:understands administration; understands effect of concurrent medications; understands missed doses; understands consequences of noncompliance Associated Symptoms:no abnormal weight gain; no tiredness; no dry skin; no cold intolerance; no constipation; no diarrhea; no goiterCare Management - DiabetesReported bypatient.Self Care:seeing eye doctor [...] no numbness of feet; no calluses on feetCare Management - HyperlipidemiaReported bypatient.Control:usually well controlled; improving; at goal Complications:no coronary artery disease; no heart attack; no cardiovascular disease; no pancreatitis; no strokeGeneral Rash/Skin LesionReported bypatient.Quality:no itchy; not painful Context:no new detergents or skin products; no one else with similar rash Aggravating factors:nothing makes it worse Associated Symptoms:no fever; no cold symptoms; no nausea; no vomiting; no diarrhea; no urinary symptoms a1c in january was 6.0 doing well overall has been checking her bp at homeavg is 168/90 Yasmany Avila DO [address] [place], [address], [facility] 04/04/2025 16:28:52 OBGyn Episode No OBEpisode recorded.
== END 2025-04-06 07:18 | disposition home or self-care (01) ==
LOC: HO.LAB 07:17
PROVIDERS: PCP Internal Medicine; Visit Provider Internal Medicine
DX: Z14.8 Genetic carrier of other disease (principal)
CPT/HCPCS: 81251

== ENCOUNTER 2025-04-23 07:19 | Outpatient (REF) | payer BC, SELFPAY ==
--- OUTSIDE RECORDS SUMMARY | 2025-04-23 07:21 | XMS_ITS | Data Portability ---
Author Organization [facility], Telehealth Patient Home Address [address] [facility] [place] [place] [address] Assessment Encounter Date Assessment Date Assessment LastModified by Organization Details LastModified Time 09/08/2024 09/08/2024 [id number] [place] [address] (BILLING SPEC) : MDM LOW MUST MEET 2 OF [...] COVERED Not available 09/08/2024 11:30:44 11/03/2024 11/03/2024 [id number] [place] [address] (BILLING SPEC) MDM MODERATE MUST MEET 2 OUT OF [...] COVERED Not available 11/03/2024 16:30:36 01/31/2025 01/31/2025 [address] [place] [address] (BILLING SPEC) [facility] MODERATE MUST MEET 2 OUT OF 3 [...] COVERED Not available 01/31/2025 16:54:07 02/27/2025 02/27/2025 [address] [place] [address] (BILLING SPEC) [facility] MODERATE MUST MEET 2 OUT OF 3 [...] COVERED Not available 02/27/2025 15:54:35 04/04/2025 04/04/2025 [address] [place] [address] (BILLING SPEC) [facility] MODERATE MUST MEET 2 OUT OF 3 [...] mutations , blood or tissue 2024 025 [facility] (Lab), [address] [place], [address], 04/04/2025 16:29:33 CMP, serum or plasma 2024 025 [facility] (Lab), [address] [place], [address], 04/04/2025 16:23:34 CBC [address] [place] [address] (Lab), [address] [place], [address], 04/04/2025 16:23:34 hemoglobi n A1c, QN, blood 2024 025 [facility] (Lab), [address] [place], [address], 04/04/2025 16:23:34 TSH, serum or plasma [address] [place] [address] (Lab), [address] [place], [address], 04/04/2025 16:23:34 TSH + free T4, serum [address] [place] [address] (Lab), [address] [place], [address], 02/27/2025 16:00:11 Referral medical weight loss program referral - pt with diabetes 2023 [facility], [address] [place] [address] [place], [address], 11/06/2024 08:34:18 hand surgeon referral 2023 024 kelvin Olsen MD, [address] [facility], [place], [address], 11/06/2024 08:34:18 Procedures None recorded. Surgeries None recorded. Imaging None recorded. Medication Orders lisinopri l 10 mg tablet 2024 025 [id number], [address], [place], [id number], 04/04/2025 16:20:12 lisinopri l 5 mg tablet 2024 025 [id number], [address], [place], [id number], 04/04/2025 16:19:23 Medrol (Zachary) 4 mg tablets in a dose pack 2024 025 [email or web address][id number], [address], [place], [id number], 04/04/2025 15:53:21 Patient TargetsNo targets recorded. Patient Instructions Encounter Date Encounter Id Patient Instructions Last Modified By Organization Details Last Modified Time 09/08/2024 [id number] pulse oximetry* Not available 09/08/2024 11:31:45 sleep apnea: car e instructions Not available 09/08/2024 11:31:45 11/03/2024 [id number] learning about t ype 2 diabetes Not available 11/03/2024 16:26:14 type 2 diabetes: care instructions Not available 11/03/2024 16:26:15 hypothyroidism: care instructions Not available 11/03/2024 16:31:18 01/31/2025 [id number] gastroesophageal reflux disease (GERD): care instructions Not [...] pulse oxime try* Result 100% Not Available [facility] [address] [place] [address] D, [place], [address], 09/08/2024 08:28:29 Result Notes None recorded. Problems Name Problem SNOMED Code Status Onset Date Resolution Date Notes Provider Name and Address Organization Details Recorded Time Depressi ve disorder 73688040 Active 2018 Yasmany Avila DO [address] [place] [address], [address], [facility] 9 16:39:55 Osteoart hritis 870446710 Active 2018 Yasmany Avila DO [address] [place] [address], [address], [facility] 9 16:54:59 Fibromya lgia 902528354 Active 2018 Yasmany Avila DO [address] [place] [address], [address], [facility] 9 16:55:17 Gastroes ophageal reflux disease 419955953 Active 2019 Yasmany Avila DO [address] [place] [address], [address], [facility] 0 10:46:59 Lipomato sis dolorosa 14292891 Active 2020 Yasmany Avila DO [address] [place] [address], [address], [facility] 1 14:49:03 Adenomat ous polyp of colon 044490777 Active 2020 Yasmany Avila DO [address] [place] [address], [address], [facility] 1 21:20:54 Gastriti s 2962676 Active 2021 JUAN CINTRON [address] [place] [address], [address], [facility] 2 11:43:18 Anxiety 64475677 Active 2021 Yasmany Avila DO [address] [place] [address], [address], [facility] 2 15:38:23 Sleep apnea 63820661 Active 2021 Yasmany Avila DO [address] [place] [address], [address], [facility] 2 15:58:19 Dysuria 41122196 Active 2021 JUAN CINTRON [address] [place] [address], [address], [facility] 2 16:46:40 Acute urinary tract infectio n 657356565 Active 2021 JUAN CINTRON [address] [place] [address], [address], [facility] 2 15:19:40 Type 2 diabetes mellitus 24688490 Active 2023 JUAN CINTRON [address] [place] [address], [address], [facility] 4 16:41:53 Aphthous ulcer of mouth 044813156 Active 2023 Yasmany Avila DO [address] [place] [address], [address], [facility] 4 16:19:17 Hypothyr oidism 66310354 [facility] 8 08:31:11 Mammogra phy abnormal 362854273 Active 2017 Right breast ? microcalc ification repeat mammo due 09/22 benign bzx Yasmany Avila, DO [address] [place] [address], [address], [place] [facility] 4 13:49:16 Kidney stone 53155241 Active 2017 [facility] 08:32:51 Metaboli c syndrome X 939069873 Active 2017 [facility] 08:33:12 Medullar y sponge kidney 406757055 Active 2017 [facility] 08:33:38 Hyperlip idemia 06854456 Active 2017 [facility] 8 08:34:04 Migraine 44734848 Active 2017 [facility] 8 08:34:13 History of depressi on 208299387 Active 2017 [facility] 08:34:21 Mood disorder 44949618 Active 2017 anger [facility] 8 08:42:26 Ganglion of flexor tendon sheath of finger 056252442 Active 2023 Yasmany Avila, DO [address] [place] [address], [place], [address], [place] [facility] 4 16:24:37 Excessiv e weight gain 952301874 Active 2023 Yasmany Avila, DO [address] [place] [address], [address], [place] [facility] Internal [facility] 4 16:35:32 Elevated blood-pr essure reading without diagnosi s of hyperten frank 131891093 Active 2024 Yasmany Avila, DO [address] [place] [address], [address], [facility] Internal [facility] 5 16:53:34 Generali zed rash 676488522 Active 2024 Yasmany Phelan Krysta, [address], [address], [facility] Internal [facility] 5 16:59:16 Infestat ion by Sarcopte s scabiei ward hominis 948202278 Active 2024 Yasmany Parisikaylynn, [address], [address], [facility] 5 16:11:51 Hyperten sive disorder 47757286 Active 2024 Yasmany Phelan Krysta [address], [address], [facility] 15:57:28 Gaucher' s disease 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 Procedures Surgical History Date Name Laterality Status Provider Name and Address Organization Details Recorded Time 09/11/20 24 colonoscopy completed Ismael Avila [facility] 09/11/2024 14:56:20 delivery completed Julissa Robison [facility] Internal [facility] 02/25/2018 08:36:33 Cholecystectomy completed Julissa Robison [facility] Internal [facility] 02/25/2018 08:37:24 Endometr ablate thermal completed Julissakeiko Robison [facility] 02/25/2018 08:39:56 Imaging Results None recorded. Procedure Notes None recorded. Medical Equipment None Reported. Allergies Allergen ID Allergen Name Allergen Category Reaction Reaction Severity Criticality Documentation Date Start Date Code Code System Note Provider Name and Address Organization Details Recorded Time 913 Provigil medicatio n Not available Not available Not available 02/25/2018 72099 4 RxNorm Julissa fiore [facility] 8 08:35:44 Medications Name Sig [...] Not Available Not Available Not Avai lable oxycodone-a cetaminophe n 5 mg-325 mg tablet [...] Available Not Available lisinopril 10 mg tablet TAKE 1 TABLET BY MOUTH EVERY DAY active Not Available Not Available No t Available diclofenac potassium 50 mg tablet take [...] Updated DateTime 5 154.94 cm 32.2 kg/m2 38144.4 2 g 103 /min 92 % 92 % 154 mm[Hg] 98 mm[Hg] Briseyda Mosher [facility] 5 16:08:34 Date Recorded Body height Body mass index (BMI) Body weight Heart rate Oxygen saturation Oxygen saturation in Arterial blood by Pulse oximetry Systolic blood pressure Diastolic blood pressure Provider Name and Address Organization Details Last Updated DateTime 5 154.94 cm 32.1 kg/m2 24935.7 g 98 /min 97 % 97 % 140 mm[Hg] 78 mm[Hg] Elyse Flores [facility] 5 15:35:11 Date Recorded Body height Body mass index (BMI) Body weight Oxygen saturation Oxygen saturation in Arterial blood by Pulse oximetry Heart rate Systolic blood pressure Diastolic blood pressure Provider Name and Address Organization Details Last Updated DateTime 5 154.94 cm 32.8 kg/m2 60730.9 9 g 96 % 96 % 68 /min 130 mm[Hg] 78 mm[Hg] Terri Strauss [facility] 5 15:58:03 Date Recorded Body height Body mass index (BMI) Body weight Heart rate Oxygen saturation Oxygen saturation in Arterial blood by Pulse oximetry Systolic blood pressure Diastolic blood pressure Provider Name and Address Organization Details Last Updated DateTime 4 154.94 cm 32.4 kg/m2 64124.0 9 g 80 /min 100 % 100 % 138 mm[Hg] 82 mm[Hg] Rodríguez Frausto [facility] 4 10:01:03 Date Recorded Body height Body mass index (BMI) Body weight Heart rate Oxygen saturation Oxygen saturation in Arterial blood by Pulse oximetry Systolic blood pressure Diastolic blood pressure Provider Name and Address Organization Details Last Updated DateTime 4 154.94 cm 30.6 kg/m2 96083.9 6 g 98 /min 98 % 98 % 134 mm[Hg] 84 mm[Hg] Rodríguez Frausto [facility] 4 15:57:43 Social History Question Answer Notes LastModified by QThru Details LastModified Time Tobacco Smoking Status Never Smoker Not Available [facility]/17/[facility] 03:36:24 What Is Your Level Of Caffeine Consumption? Occasional 2 Cups Coffee Per Day [id number] Information not available 09/17/2020 What Was The Date Of Your Most Recent Tobacco Screening? 04/04/2025 [email or web address] Information not available 04/04/2025 Sex: Unknown Functional Status Question Answer Note LastModified by QThru Details LastModified Time Do you or have you ever used any other forms of tobacco or nicotine? No Information not available 04/20/2022 What is your level of alcohol consumption? Occasional [id number] Information not available 09/17/2020 What is your exercise level? None [id number] Information not available 09/17/2020 Mental Status None recorded. Family History Nothing Reported. Medical History No medical history recorded. Gynecological HistoryNo gynecological history recorded. Obstetrics History GPAL:G 0 P 0 0 0 0 Immunizations Vaccine Type Date Status Note Provider Nam e and Address Organization Details Recorded Time COVID-19, mRNA, LNP-S, PF, 100 mcg/0.5mL dose or 50 mcg/0.25mL dose 1 completed Yasmany Avila DO [address] [place] [address], [address], [facility] Internal [facility] 05/26/2021 14:10:58 COVID-19, mRNA, LNP-S, PF, 100 mcg/0.5mL dose or 50 mcg/0.25mL dose 1 completed Yasmany Avila DO [address] [place] [address], [address], [facility] Internal [facility] 05/26/2021 14:10:41 Influenza, split virus, quadrivalent, preservative 1 completed Yasmany Avila DO [address] [place] [address], [address], [facility] 09/10/2021 15:42:09 Influenza, split virus, quadrivalent, preservative 8 completed February JanuaryMARIAAALTHEA [address] [place] [address], [address], [facility] 08/30/2018 09:30:50 Tdap 8 completed Not Available [facility] 12/16/2019 02:14:52 Influenza, split virus, quadrivalent, preservative 9 completed Yeni fiore [facility] 08/21/2019 16:23:48 Influenza, split virus, quadrivalent, preservative 0 completed Yeni fiore [facility] 01/27/2021 10:01:10 Past Encounters Encounter ID Performer Location Encounter Start Date Encounter Closed Date Diagnosis/Indication Diagnosis SNOMED-CT Code Diagnosis ICD10 Code Diagnosis Note [id number] Yasmany Avila DO [facility] [address] [place] [address],[place] [address] 02/25/2018 15:53:51 02/25/2018 17:04:31 Type 2 diabetes mellitus 97880584 E11.65 extensive counsellin g as noted in [...] minimize post prandial blood sugar spikes. Hypothyroidism 80792312 E03.9 Hyperlipidemia 32700715 E78.5 as above [id number] [facility] [address] [facility], [place] [address] 04/01/2018 14:42:36 04/01/2018 15:14:15 Type 2 diabetes mellitus 53244324 E11.65 continue current regimen Kidney stone 04915907 N2 0.0 has known kidney stones, but never has passed a stone urine was normal seems unlikely to be a passing stone if marcos blood in urine recc ER - pt understood Acute low back pain 2788 04424 M54.5 likely muscular [id number] [facility] [address] [facility],[place] [address] 05/25/2018 08:54:33 05/25/2018 09:54:01 Type 2 diabetes mellitus 16571570 E11.65 continue current regimen of 1000 mg in am and 500 mg in pm Obstructiv e sleep apnea syndrome 05521992 G47.33 Hypothyroidism 60196330 E03.9 is due for recheck in 6 months Depressive disorder 3548 9007 F33.9 well controlled rare use of lorazepam [id number] [facility] [address] [facility],[place] [address] 07/26/2018 14:24:21 07/26/2018 15:05:36 Neck pain 30203176 M54.2 Type 2 mary lou betes mellitus 29670806 E11.65 continue current regimen of 1000 mg in am and 500 mg in pm History of depression 16 6786540 Z86.59 Hyperlipidemia 54784842 E78.5 as above [id number] [facility] [address] [facility],[place] [address] 08/30/2018 09:01:42 08/30/2018 09:48:56 Type 2 diabetes mellitus 07485460 E11.65 continue current regimen of 1000 mg [...] her family. Obstructiv e sleep apnea syndrome 90874810 G47.33 Hypothyroidism 95425891 E03.9 will check at next visit Depressive disorder 3548 9007 F33.9 well controlled rare use of lorazepam Motion sickness 73002132 T75.3XXA Screening procedure 2012 [address] Z13.[id number] [facility] [address] [facility],[place] [address] 11/30/2018 11:44:17 11/30/2018 12:17:45 Type 2 diabetes mellitus 23625620 E11.65 has been taking metformin, plans to switch back to trulicity Obstructiv e sleep apnea syndrome 29735595 G47.33 uses cpap nightly Hypothyroidism 36258475 E03.9 will check 6 months Depressive disorder 3548 9007 F33.9 well controlled rare use of lorazepam Body mass index 25-29 - overweight 146617129 Z68.27 has been gradually losing weight praised for improvemen t Hyperlipidemia 11509536 E78.5 work on diet and exercise to help lower naturally consider statin over the next 6 mos to a year [id number] [facility] [address] [facility] [address] 03/14/2019 13:42:08 03/14/2019 14:26:43 Hypothyroidism 11540064 E03.9 will need to keep biannual chk of tsh Type 2 mary lou betes mellitus 83719356 E11.9 last a1c is 5.1 and she is doing awesome Hyperlipidemia 76169506 E78.5 will start atorvastat in 10mg rechk lab in [id number] [facility] [address] [facility],[place] [address] 06/07/2019 15:23:08 06/07/2019 16:32:00 Hypothyroidism 43672028 E03.9 will need to keep biannual chk of tsh Type 2 mary lou betes mellitus 52214277 E11.9 last a1c is 5.1 and she is doing awesome Hypercholesterolemia 136 10223 E78.00 Anxiety 99147183 F41.[id number] [facility] [address] [facility],[place] [address] 06/21/2019 16:19:55 06/21/2019 16:49:45 Depressive disorder 54357518 F32.1 will add low dose bupropion to the cymbalta to try to improve her mood [id number] [facility] [address] [facility] [address] 08/21/2019 16:05:43 08/21/2019 17:03:21 Depressive disorder 47064837 F32.1 l added low dose bupropion to the cymbalta to try to improve her mood and she seems to be better Type 2 mary lou betes mellitus 47663705 E11.9 has not been checkin g her sugars Medullary sponge kidney 362384159 Q61.5 no new issues followed by renal [id number] [facility] [address] [facility] [address] 09/27/2019 16:06:34 09/27/2019 16:46:29 Metabolic syndrome X 971710214 E88.81 doing fantastic on trulicity and has no prob a1c is 5.0 Depressive disorder 3548 9007 F32.1 l added low dose bupropion to the cymbalta to try to improve her mood and she seems to be better she thinks she is doing ok Cheilosis 97393244 K13.[id number] [facility] [address] [facility],[place] [address] 11/06/2019 14:09:47 11/06/2019 14:31:55 Seborrheic dermatitis of scalp 423808187 L21.0 Anterior caput ongoing for 6 mo-1 year Eczema 97486138 L30.9 Scalp eczema Depressive disorder 3548 9007 F32.1 seems to be doing better Metabolic syndrome X 237 594643 E88.81 doing fantastic on trulicity and has no prob a1c is 5.[id number] [facility] [address] [facility],[place] [address] 01/10/2020 10:28:46 01/10/2020 11:13:50 Adult health examination 019156357 Z00.00 doing well Type 2 mary lou betes mellitus 70524755 E11.9 a1c is 4.8 and she s doing well still on trulicity we will stop and rechk a1c in 3 mo Hypothyroidism 58205656 E03.9 will need to keep biannual chk of tsh Alopecia 49590262 L65.9 believe this is from the bupropion will stop and see if this improves [id number] Yasmany Avila DO [facility] [address] [facility] [address] 01/31/2020 13:31:55 02/12/2020 11:49:21 Fever 672477089 R50.9 f/u if sx change or worsen Acute pharyngitis 437199 003 J02.9 f/u if sx change or worsen Type 2 mary lou betes mellitus 24895614 E11.[id number] [facility] [address] [facility],[place] [address] 04/03/2020 14:51:19 04/03/2020 16:03:36 Hyperlipidemia 35819009 E78.5 will start atorvastat in 10mg and her LDL down to 111 and HDL at 40 exelllent Mood disorder 93674519 F 39 taking lorazepam daily during the day [facility] bursitis of left hip 4677888179 95051 M70.[address] rao for ani inj Type 2 mary lou betes mellitus 86053634 E11.9 a1c is up to 6.4 so we will go back to trulicity [place]opecia 76446092 L[place] [place] [id number] [facility] [address] [facility] [address] 04/17/2020 14:53:35 04/17/2020 15:20:16 Type 2 diabetes mellitus 83642761 E11.9 doing well on angie.icity Mood disorder 88806442 F 39 taking lorazepam daily during the day 0n 90 mg dulox ? if she has WU Insomnia 060827634 G47.[id number] [facility] [address] [facility] [facility] [address] 07/19/2020 10:14:25 07/19/2020 11:12:13 Type 2 diabetes mellitus 91132752 E11.9 doing well on angie.icity a1c 5 Depressive disorder 3548 9007 F32.1 seems to be doing better Hypothyroidism 90682112 E03.9 will need to keep biannual chk of tsh Hyperlipidemia 30366156 E78.5 atorvastat in 10mg and her LDL down to 80and HDL at 50+exellle nt Gastroesop hageal reflux disease 059786297 K21.9 will try the omeprazole and if ok will continue for now call if unhelpful [id number] Yasmany Avila DO [facility] [address] [facility] [address] 10/25/2020 08:51:38 10/25/2020 10:26:59 Hypothyroidism 61162289 E03.9 will need to keep biannual chk of tsh Type 2 mary lou betes mellitus 57653359 E11.9 doing well on trul.icity a1c 5.1 long discussion re need for close monitor during pandemic a also will need vaccine if deemed safe for her to use Medullary sponge kidney 555586780 Q61.5 no new issues followed by renal [place] [id number] Yasmany Avila, [facility] [address] [facility],[place] [address] 01/27/2021 09:56:49 01/27/2021 10:49:39 Hypothyroidism 84092972 E03.9 will need to keep biannual chk of tsh Type 2 mary lou betes mellitus 46739575 E11.9 doing well on trul.icity a1c 5.2 was 5.1 long discussion re need for close monitor during pandemic a also will need vaccine if deemed safe for her to use Medullary sponge kidney 666789923 Q61.5 no new issues followed by renal and creat is stable microalb is neg Pain in both feet 394149 8489 8693446 M79.671 M79.672 [id number] Yasmany Avila, [facility] [address] 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 [address] [facility] [address],[place] [address] 09/10/2021 15:23:06 09/10/2021 16:34:47 Depressive disorder 76212832 F32.1 seems to be doing better Type 2 mary lou betes mellitus 72885346 E11.9 doing well on trul.icity a1c 5.3 5.2 was 5.1 long discussion re need for close monitor during pandemic a also will need vaccine if deemed safe for her to use Hypothyroidism 91831318 E03.9 will need to keep biannual chk of tsh Insomnia 454277334 G47.[id number] [facility] Internal Medicine [address] [facility] [address] [address] 10/01/2021 15:21:44 10/01/2021 16:24:14 Insomnia 533418098 G47.00 Metabolic syndrome X 237 485518 E88.81 doing fantastic on trulicity and has no prob a1c is 5.5 Type 2 mary lou betes mellitus 69845128 E11.9 doing well on trul.icity a1c 5.5 was5.3 5.2 was 5.1 long discussion re need for close monitor during pandemic a also will need vaccine if deemed safe for her to use [id number] [facility] Internal Medicine [address] [facility] [address],[place] [address] 01/07/2022 15:49:40 01/07/2022 16:42:57 Major depressive disorder 004929350 F32.1 still under a lot of stress Type 2 mary lou betes mellitus 80660817 E11.9 doing well on trul.icity a1c was 5.6 and was 5.5 was 5.3 5.2 was 5.1 long discussion re need for close monitor during pandemic also will need vaccine if deemed safe for her to use Medullary sponge kidney 598483009 Q61.5 no new issues followed by renal and creat is stable microalb is neg Hypothyroidism 24887261 E03.9 will need to keep biannual chk of tsh Hyperlipidemia 10057159 E78.5 atorvastat in 10mg and her LDL down to 80and HDL at 50+exellle nt Gastroesop hageal reflux disease 604863556 K21.9 will try the nexium or pantoprazo le and if ok will continue for now call if unhelpful Motion sickness 19891840 T75.3XXD Nummular eczema 93228576 L30.[address] [facility] Internal Medicine [address] [facility] [address] [address] 02/11/2022 11:28:51 02/11/2022 14:31:41 Gastritis 5116586 K29.60 will start on famotidine and sucralfate [address] [facility] Internal Medicine [address] [facility],[place] [address] 04/20/2022 14:54:09 04/20/2022 15:44:20 Gastroesophageal reflux disease 203278866 K21.9 the nexium nad famotidine are actually doing quite well Hypothyroidism 27542300 E03.9 will need to keep biannual chk of tsh Type 2 mary lou betes mellitus 68803723 E11.9 doing well on trul.icity a1c was 5.6 and was 5.5 was 5.3 5.2 was 5.1 long discussion re need for close monitor during pandemic also will need vaccine if deemed safe for her to use Depressive disorder 3548 9007 F32.1 seems to be doing better Active or passive immunization 380314061 Z23 patient advised of due vaccines (pneu 23 & shingles) Anxiety 03521595 F41.[address] [facility] Internal Medicine [address] [facility] [address] [place] [facility] [place] [address] 07/24/2022 08:11:59 07/27/2022 08:51:09 Sleep apnea 53163964 G47.30 for home sleep study [address] [facility] Internal Medicine [address] [facility] [address] [address] 03/19/2023 15:25:36 03/19/2023 16:12:35 Depressive disorder 93786533 F32.1 seems to be doing better Motion sickness 72173264 T75.3XXD Hyperglycemia 34544173 R 73.9 a1c 5.4 and she is doing fantastic [address] [facility] Internal Medicine [address] [facility] [address],[place] [address] 07/06/2023 08:07:11 07/07/2023 08:35:17 Hyperglycemia 15581072 R73.9 a1c 5.5 and she is doing fantastic Hypothyroidism 32418057 E03.9 will need to keep biannual chk of tsh Medullary sponge kidney 444087361 Q61.5 no new issues followed by renal and creat is stable microalb is neg 307559 Yasmany Avila [facility] Internal Medicine [address] [facility] [address],[place] [address] 10/29/2023 15:43:59 10/29/2023 16:19:11 Hyperglycemia 95213381 R73.9 a1c i still 5.5 and she is doing fantastic Hypothyroidism 65565761 E03.9 will need to keep biannual chk of tsh Hyperlipidemia 25691975 E78.5 atorvastat in 10mg and her LDL down to 80and HDL at 50+exellle nt 076826 Yasmany Avila [facility] Internal Medicine [address] [facility] [address] [address] 02/04/2024 15:53:19 02/07/2024 08:17:57 Hyperlipidemia 00859203 E78.5 atorvastat in 10mg will hold for several weeks to see if swelling is gone and her LDL down to 80and HDL at 50+exellle nt Hypothyroidism 88312564 E03.9 will need to keep biannual chk of tsh but will do extra test due to use of trulicity3 mg Type 2 mary lou betes mellitus 81176913 E11.9 doing well on trul.icity a1c was 5.6 and was 5.5 was 5.3 5.2 was 5.1 long discussion re need for close monitor during pandemic also will need vaccine if deemed safe for her to use [id number] Yasmany Avila [facility] Internal Medicine [address] [facility] [address] 03/22/2024 15:56:04 03/22/2024 16:41:37 Type 2 diabetes mellitus 01251539 E11.9 doing well on trul.icity a1c was 5.6 and was 5.5 was 5.3 5.2 was 5.1 long discussion re need for close monitor during pandemic also will need vaccine if deemed safe for her to use Hyperlipidemia 31983934 E78.5 atorvastat in 10mg will hold for several weeks to see if swelling is gone and her LDL down to 80and HDL at 50+exellle nt Mood disorder 36164835 F 39 duloxetine not helpful relates taking 60 bid Depression screening 171 630799 Z13.31 positive History of depression 16 6488237 Z86.59 Aphthous u lcer of mouth 560016716 K12.0 will treat next outbreak [id number] Yasmany Avila [facility] Internal Medicine [address] [facility] [address] 04/28/2024 13:26:29 04/28/2024 14:23:51 Type 2 diabetes mellitus 91482878 E11.9 side effects on trul.icity of 3mg a1c was up to 6.8 was 6.2 5.6 and was 5.5 was 5.3 5.2 was 5.1 long discussion re need for close monitor during pandemic also will need vaccine if deemed safe for her to use Hypothyroidism 15845300 E03.9 will need to keep biannual chk of tsh but will do extra test due to use of trulicity 3mgwill try to cut dose by pulling out prematurly Medullary sponge kidney 126518184 Q61.5 no new issues followed by renal and creat is stable microalb is neg 558575 Yasmany Avila [facility] Internal Medicine [address] [facility] [address] 07/28/2024 15:42:43 07/30/2024 20:26:54 Type 2 diabetes mellitus 61525605 E11.9 side effects on trul.icity of 3mg a1c was up to 6.8 was 6.2 5.6 and was 5.5 was 5.3 5.2 was 5.1 long discussion re need for close monitor during pandemic also will need vaccine if deemed safe for her to use Hypothyroidism 22726989 E03.9 will need to keep biannual chk of tsh but will do extra test due to use of trulicity 3mgwill try to cut dose by pulling out prematurly [id number] Yasmany Avila [facility] Internal Medicine [address] [facility] [address] [address] 09/08/2024 09:52:15 09/08/2024 13:45:24 Sleep apnea 67586036 G47.30 for home sleep study Anxiety 18877044 F41.9 stable with her work as long as the current schedule maintained paperwork filled out here with pt present [id number] Yasmany Avila [facility] Internal Medicine [address] [facility],[place] [address] 11/03/2024 15:48:10 11/03/2024 16:43:03 Type 2 diabetes mellitus 99595122 E11.9 side effects on trul.icity of 3mg a1c is great at 6.0 was up to 6.8 was 6.2 5.6 and was 5.5 was 5.3 5.2 was 5.1 long discussion re need for close monitor during pandemic also will need vaccine if deemed safe for her to use Ganglion o f flexor tendon sheath of finger 517430448 M67.449 will refer to the hadnt Hypothyroidism 10391352 E03.9 will need to keep biannual chk of tsh but will do extra test due to use of trulicity 3mgwill try to cut dose by [id number] Yasmany Avila [facility] Internal Medicine [address] [facility] [address] [address] 01/31/2025 15:50:12 02/02/2025 11:51:08 Depression screening 285237132 Z13.31 neg Elevated blood-pressure reading without diagnosis of hypertension 116021243 R03.0 she will get a bp machine and record will rechk in 2 mo Gastroesop hageal reflux disease 859695259 K21.9 the nexium nad famotidine are actually doing quite well Hypothyroidism 55483568 E03.9 will need to keep biannual chk of tsh but will do extra test due to use of trulicity 3mgwill try to cut dose by Type 2 mary lou betes mellitus 53498595 E11.9 side effects on trulicity of 3mg a1c is great at 6.0 was up to 6.8 was 6.2 5.6 and was 5.5 was 5.3 5.2 was 5.1 long discussion re need for close monitor during pandemic also will need vaccine if deemed safe for her to use Generalized rash 6290961 06 R[id number] [facility] Internal Medicine [address] [facility] [address],[place] [address] 02/27/2025 15:15:31 02/27/2025 16:06:56 Hyperlipidemia 93681983 E78.5 atorvastat in 10mg will hold for several weeks to see if swelling is gone and her LDL down to 80and HDL at 50+excelll ent Hypothyroidism 64935001 E03.9 will need to keep biannual chk of tsh but will do extra test due to use of trulicity 3mgwill try to cut dose by Generalized rash 4819569 06 R21 resolved Type 2 mary lou betes mellitus 43309590 E11.9 side effects on trulicity of 3mg a1c is great at 6.0 was up to 6.8 was 6.2 5.6 and was 5.5 was 5.3 5.2 was 5.1 long discussion re need for close monitor during pandemic also will need vaccine if deemed safe for her to use Depression screening 171 366035 Z13.31 neg Hypertensive disorder 38 634757 I10 will need to treat [id number] Yasmany Avila [facility] Internal Medicine [address] [facility] [address],[place] [address] 04/04/2025 15:35:48 04/04/2025 16:29:18 Hypothyroidism 08278745 E03.9 will need to keep biannual chk of tsh but will do extra test due to use of trulicity 3mgwill try to cut dose by Hypertensive disorder 38 692662 I10 will need to treat at higher dose as home readings are still elevated Type 2 mary lou betes mellitus 97839974 E11.9 side effects on trulicity of 3mg a1c is great at 6.0 was up to 6.8 was 6.2 5.6 and was 5.5 was 5.3 5.2 was 5.1 long discussion re need for close monitor during pandemic also will need vaccine if deemed safe for her to use Hyperlipidemia 60480099 E78.5 atorvastat in 10mg will hold for several weeks to see if swelling is gone and her LDL down to 80and HDL at 50+excelll ent Depression screening 171 248681 Z13.31 neg 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 47157615 Z14.8 Health Concerns Section Related Observation LastModified by Organization Detai ls LastModified Time None Recorded Concern Status LastModified by Organization Details LastModified Time None Recorded Advance Directives Directive None Recorded Payers Encounter Date Sequence Insurance Name Policy Number Policy Mallory Covered Member ID Mallory Member ID Guarantor Name 09/08/2024 1 [facility] [employer] Kobe Whittaker [id number] Jyoti Jonesrsji 11/03/2024 1 [facility] [employer] Kobe Whittaker [id number] Jyoti Broadhurst 01/31/2025 1 [facility] [employer] Kobe Whittaker [id number] Jyoti Broadhurst 02/27/2025 1 [facility] [employer] Kobe Whittaker [id number] Jyoti Broadhurst 04/04/2025 1 [facility] [employer] Kobe Whittaker [id number] Jyoti Jonesrsji Notes Date Note Type Note Provider Name and Address Organization Details Recorded Time 09/08/20 24 text/htm l here for recchk relates that her work wants her to fill out more paper workthis is reviewed in detail with the pt Yasmany Avila, DO [address] [facility], [place], [address], [facility] [place] [facility] 09/08/2024 11:32:21 11/03/20 24 [...] has been stressed at work bc of gpnouptsin9r 6.0 Yasmany Avila DO [address] [place], [address], [facility] Internal Medicine 11/03/2024 16:37:41 02/01/20 25 text/htm l here for rechk and is doing ok overallrelates that she is doing oka1c 6.0has a dfusse macular rash over limbs and thoraxwill neeed to treat as is very itchy for he last 3 weeks Yasmany Avila DO [address] [place], [address], [facility] Internal Medicine 01/31/2025 17:00:00 02/28/20 25 [...] homeavg is 168/90 Yasmany Avila DO [address] [place], [address], [facility] Internal Medicine 02/27/2025 16:00:25 04/04/20 25 [...] homeavg is 168/90 Yasmany Avila DO [address] [place], [address], [facility] Internal Medicine 04/04/2025 16:28:52 OBGyn Episode No OBEpisode recorded.
[2025-04-23 07:36] LABS: MANUAL DIFF FLAG NO
[2025-04-23 08:12] LABS: Basophils Absolute Auto 0.1 X10*3/uL (0.0-0.2); Basophils Percent Auto 0.7 % (0-2); Eosinophils Absolute Auto 0.2 X10*3/uL (0.0-0.4); Eosinophils Percent Auto 2.6 % (0-4); Hematocrit 36.4 % (37.0-47.0); Hemoglobin 12.4 g/dl (12.0-16.0); Imm Gran Abs Auto 0.03 X10*3/uL (0.00-0.03); Imm Gran Pct Auto 0.4 % (0.0-0.4); Lymphocytes Absolute Auto 2.2 X10*3/uL (1.2-4.9); Lymphocytes Percent Auto 29.4 % (20-40); Mean Corpuscular HGB Conc 34.1 g/dl (31.0-35.0); Mean Corpuscular Hemoglobin 30.5 pg (27.0-33.0); Mean Corpuscular Volume 89.4 fL (80.0-98.0); Monocytes Absolute Auto 0.6 X10*3/uL (0.1-1.2); Monocytes Percent Auto 8.4 % (2-11); Neutrophils Absolute Auto 4.3 x10*3/uL (2.0-8.3); Neutrophils Percent Auto 58.5 % (45-73); Platelet Count 247 X10*3/uL (160-400); Red Blood Count 4.07 X10*6/uL (4.20-5.50); White Blood Count 7.4 X10*3/uL (4.8-10.8)
[2025-04-23 08:13] LABS: Estimated Average Glucose 131 mg/dL; Hemoglobin A1c % 6.2 % (<6.0); Total Hemoglobin (HGBA1C) 3245.4876 umol/L
[2025-04-23 08:38] LABS: Alanine Aminotransferase 22 U/L (0-31); Albumin Level 4.1 g/dL (3.5-5.0); Anion Gap 11 (12-20); Aspartate Amino Transferase 18 U/L (5-31); Bilirubin Total 0.6 mg/dL (0.0-1.0); Blood Urea Nitrogen 14 mg/dL (9-16); Calcium 9.6 mg/dL (8.4-10.2); Carbon Dioxide 26 mmol/L (22-29); Chloride 105 mmol/L (96-108); Estimated Glomerular Filt Rate > 60; Glucose Random 153 mg/dL (60-115); Potassium 4.4 mmol/L (3.3-5.1); Sodium 138 mmol/L (135-145); Total Protein 6.5 g/dL (6.5-8.0)
[2025-04-23 08:56] LABS: Thyroid Stimulating Hormone 0.08 uIU/mL (0.32-4.0)
[2025-04-23 09:08] LABS: Alkaline Phosphatase 142 U/L (39-117)
== END 2025-04-23 07:20 | disposition home or self-care (01) ==
LOC: HO.LAB 07:19
PROVIDERS: PCP Internal Medicine; Visit Provider Internal Medicine
DX: E03.9 Hypothyroidism, unspecified (principal); I10 Essential (primary) hypertension; E11.9 Type 2 diabetes mellitus without complications
CPT/HCPCS: 36415; 80053; 83036; 84443; 85025

== ENCOUNTER 2025-08-29 07:13 | Outpatient (REF) | payer BC, SELFPAY ==
--- OUTSIDE RECORDS SUMMARY | 2020-06-20 17:45 | XMS_ITS | Encounter Summary ---
Author Organization [facility] Address [address] [facility] [address] [place] [address] Phone Care Team Providers Care Advanced Manufacturing Vice President Name Role Phone Yasmany Chaparro Primary Care Provider [phone] Krysta Yasmany Hooker DO Unavailable Kevin Anguiano MD Unavailable [email or web address] Edison Lua MD Unavailable Destiny Estrada ONSHORE DIVER Unavailable Renay Yoder MD Unavailable Violeta Bedolla DO Unavailable Jah Zhang MD Unavailable Roverto Braga MD Unavailable Yulisa Suazo MD Unavailable [phone] Mónica Cruz MD Unavailable [phone] Felipa Watson ONSHORE DIVER Unavailable Encounter Details Date Type Department Care Team (Late st Contact Info) Description 06/20/2020 5:45 PM EDT Hospital Encounter [facility] [address] [place] [phone] Ann Daniel, NURSE RESEARCH [address] [place] [address] [phone] [email or web address] Social History Tobacco Use Types Packs/Day Years [...] as of this encounter Plan of Treatment Not on file documented as of this encounter Procedures Procedure [...] IMPRESSION: No acute osseous abnormality. Ann Daniel NURSE RESEARCH IMG XR UPPER EXTREMITY Delfina l Result documented in this encounter Visit Diagnoses Not on filedocumented in this encounter Care Teams Advanced Manufacturing Vice President Relationship Specialty Start Date End Date Yasmany Chaparro DO PCP - General 09/02/17 12/12/24 Yasmany Chaparro DO Historical LMR Provider 09/04/17 Kevin Anguiano MD [email or web address] Historical LMR Provider 09/04/17 Edison Lua MD [address] [place] [address] Historical LMR Provider 09/04/17 Destiny Estrada NP [address] [place] [phone] [email or web address] Historical LMR Provider 09/04/17 2 Renay Yoder MD [address] [facility], 2nd [place] [address] [email or web address] Historical LMR Provider 09/04/17 Violeta Bedolla DO [address] [place] [address] Historical LMR Provider 09/04/17 2 Jah Zhang MD [address] [facility], [address] [place] [address] [email or web address] Historical LMR Provider 09/04/17 Roverto Braga MD [address] [place] [phone] Historical LMR Provider 09/04/17 2 Yulisa Suazo MD [address] [place] [address] Orthopedics [facility] Medicine, [place] [address] [email or web address] Historical LMR Provider 09/04/17 Mónica Cruz MD [address] [place] [phone] Historical LMR Provider 09/04/17 2 Felipa Watson NP [address] [place] [id number] Historical LMR Provider 09/04/17 2 documented as of this encounter Additional Source Comments The information contained in this document represents components of the legal health record. It is not the complete legal health record.[facility]
--- OUTSIDE RECORDS SUMMARY | 2025-08-29 07:16 | XMS_ITS | Encounter Summary ---
Author Organization [facility] Address [address] [place] [address] Phone Care Team Providers Care Railroad Maintenance Clerk Name Role Phone Yasmany Chaparro DO Primary Care Provider [phone] Yasmany Chaparro DO Unavailable Kevin Anguiano MD Unavailable [email or web address] Edison Lua MD Unavailable Destiny Estrada SUPERVISOR ORDNANCE TRUCK INSTALLATION Unavailable Renay Yoder MD Unavailable Violeta Bedolla DO Unavailable Jah Zhang MD Unavailable Roverto Braga MD Unavailable Yulisa Suazo MD Unavailable [phone] Mónica Cruz MD Unavailable [phone] Felipa Watson SUPERVISOR ORDNANCE TRUCK INSTALLATION Unavailable Yasmany Chaparro DO Primary Care Provider [phone] Encounter Details Date Type Department Care Team (Late st Contact Info) Description 08/11/2021 Procedure Pass [facility] Admitting Dept Virtual Department [address] [place] [address] Social History Tobacco Use Types Packs/Day Years Used Date Smoking Tobacco: Never Smokeless Tobacco: Never Alcohol Use Standard Drinks/Week Comments Yes 0 (1 standard drink = 0.6 oz pur e alcohol) Socially Comments No Sex and Gender Information Value Date Recorded Sex Assigned at Not on file Legal Sex Female 9:47 PM EDT Gender Identity Not on file Sexual Orientation Not on file documented as of this encounter Plan of Treatment Not on file documented as of this encounter Visit Diagnoses Not on filedocumented in this encounter Care Teams Railroad Maintenance Clerk Relationship Specialty Start Date End Date Yasmany Chaparro DO PCP - General 09/02/17 12/12/24 Yasmany Chaparro DO [address] [place] [address] PCP - General Internal Medicine 12/13/24 Yasmany Chaparro DO Historical LMR Provider 09/04/17 Kevin Anguiano MD [email or web address] Historical LMR Provider 09/04/17 Edison Lua MD [address] [place] [address] Historical LMR Provider 09/04/17 Destiny Estrada NP [address] [place] [address] [email or web address] Historical LMR Provider 09/04/17 2 Renay Yoder MD [address] [place] [address] Historical LMR Provider 09/04/17 Violeta Bedolla DO [address] [place] [address] Historical LMR Provider 09/04/17 2 Jah Zhang MD [address] [facility], [address] [place] [address] Historical LMR Provider 09/04/17 Roverto Braga MD [facility] [place] [address] Historical LMR Provider 09/04/17 2 Yulisa Suazo MD [address] [place] [address] [facility] [place] [address] Historical LMR Provider 09/04/17 Mónica Cruz MD [address] [place] [address] Historical LMR Provider 09/04/17 2 Felipa Watson NP [address] [place] [address] Historical LMR Provider 09/04/17 2 documented as of this encounter Additional Source Comments The information contained in this document represents components of the legal health record. It is not the complete legal health record.[facility]
--- OUTSIDE RECORDS SUMMARY | 2025-08-29 07:16 | XMS_ITS | Encounter Summary ---
Author Organization [facility] Address [address] [facility] [address] [place] [address] Phone Care Team Providers Care Electromedical Service Engineer Name Role Phone Yasmany Chaparro DO Primary Care Provider [phone] Yasmany Chaparro DO Unavailable Kevin Anguiano MD Unavailable [email or web address] Edison Lua MD Unavailable Destiny Estrada FREIGHT CAR CLEANER Unavailable Renay Yoder MD Unavailable Violeta Bedolla DO Unavailable Jah Zhang MD Unavailable Roverto Braga MD Unavailable Yulisa Suazo MD Unavailable [phone] Mónica Cruz MD Unavailable [phone] Felipa Watson FREIGHT CAR CLEANER Unavailable Yasmany Chaparro DO Primary Care Provider [phone] Encounter Details Date Type Department Care Team (Late st Contact Info) Description 10/02/2020 Procedure Pass [employer] [employer] [facility], [address] [address] Social History Tobacco Use Types Packs/Day Years [...] on filedocumented in this encounter Care Teams Electromedical Service Engineer Relationship Specialty Start Date End Date Yasmany Chaparro DO PCP - General 09/02/17 12/12/24 Yasmany Chaparro DO [address] [place] [address] PCP - General Internal Medicine 12/13/24 Yasmany Chaparro DO Historical LMR Provider 09/04/17 Kevin Anguiano MD [email or web address] Historical LMR Provider 09/04/17 Edison Lua MD [address] [place] [address] Historical LMR Provider 09/04/17 Destiny Estrada NP [address] [place] [address] [email or web address] Historical LMR Provider 09/04/17 2 Renay Yoder MD [address] [place] [address] Historical LMR Provider 09/04/17 Violeta Bedolla DO [address] [place] [address] Historical LMR Provider 09/04/17 2 Jah Zhang MD [address] [facility] [place] [address] Historical LMR Provider 09/04/17 Roverto Braga MD [facility] [place] [address] Historical LMR Provider 09/04/17 2 Yulisa Suazo MD [address] [place] [address] [facility] [place] [address] Historical LMR Provider 09/04/17 Mónica Cruz MD [address] [place] [address] Historical LMR Provider 09/04/17 2 Felipa Watson NP [address] [place] [address] Historical LMR Provider 09/04/17 2 documented as of this encounter Additional Source Comments The information contained in this document represents components of the legal health record. It is not the complete legal health record.[facility]
--- OUTSIDE RECORDS SUMMARY | 2025-08-29 07:16 | XMS_ITS | Encounter Summary ---
Author Organization [facility] Address [address] [place] [address] Phone Care Team Providers Care Route Driver Name Role Phone Krysta Yasmany Hooker DO Unavailable Kevin Anguiano MD Unavailable [email or web address] Jah Zhang MD Unavailable [phone] Yasmany Chaparro DO Primary Care Provider [phone] Encounter Details Date Type Department Care Team (Late st Contact Info) Description 12/15/2024 Procedure Pass [place] Admitting Dept - Virtual Department [address] [place] [address] Social History Tobacco Use Types Packs/Day Years [...] on filedocumented in this encounter Care Teams Route Driver Relationship Specialty Start Date End Date Yasmany Chaparro DO [address] [facility] [place] [address] PCP - General Internal Medicine 12/13/24 Yasmany Chaparro DO Historical LMR Provider 09/04/17 Kevin Anguiano MD [email or web address] Historical LMR Provider 09/04/17 Jah Zhang MD [address] [address] Historical LMR Provider 09/04/17 documented as of this encounter Additional Source Comments The information contained in this document represents components of the legal health record. It is not the complete legal health record.[facility]
--- OUTSIDE RECORDS SUMMARY | 2025-08-29 07:16 | XMS_ITS | Encounter Summary ---
Author Organization [facility] Address [address] [facility] [address] [place] [address] Phone Care Team Providers Care Supervisor Communications And Signals Name Role Phone Yasmany Chaparro DO Primary Care Provider [phone] Yasmany Chaparro DO Unavailable Kevin Anguiano MD Unavailable [email or web address] Jah Zhang MD Unavailable [phone] Yasmany Chaparro DO Primary Care Provider [phone] Encounter Details Date Type Department Care Team (Late st Contact Info) Description 10/21/2022 Procedure Pass [address] [address] Social History Tobacco Use Types Packs/Day Years Used Date Smoking Tobacco: Never Smokeless Tobacco: Never Alcohol Use Standard Drinks/Week Comments Not Currently 0 (1 standard drink = 0.6 oz [...] on filedocumented in this encounter Care Teams Supervisor Communications And Signals Relationship Specialty Start Date End Date Yasmany Chaparro DO PCP - General 09/02/17 12/12/24 Yasmany Chaparro DO [address] [facility] [place] [address] PCP - General Internal Medicine 12/13/24 Yasmany Chaparro DO Historical LMR Provider 09/04/17 Kevin Anguiano MD [email or web address] Historical LMR Provider 09/04/17 Jah Zhang MD [address] [address] [email or web address] Historical LMR Provider 09/04/17 documented as of this encounter Additional Source Comments The information contained in this document represents components of the legal health record. It is not the complete legal health record.[facility]
--- OUTSIDE RECORDS SUMMARY | 2025-08-29 07:16 | XMS_ITS | Encounter Summary ---
Author Organization [facility] Address [address] [place] [address] Phone Care Team Providers Care [employer] Name Role Phone Yasmany Chaparro DO Primary Care Provider [phone] Yasmany Chaparro DO Unavailable Kevin Anguiano MD Unavailable [email or web address] Jah Zhang MD Unavailable [phone] Yasmany Chaparro DO Primary Care Provider [phone] Encounter Details Date Type Department Care Team (Late st Contact Info) Description 12/30/2022 Ancillary Orders [facility], [facility] [address] [place] [address] Yasmany Chaparro DO [address] [facility] [place] [address] [email or web address] Abnormal finding on mammography Social History Tobacco Use Types Packs/Day Years [...] on file documented as of this encounter Results * BI MAMMOGRAM DIAGNOSTIC WITH TOMOSYNTHESIS WITH CAD (LEFT) (02/11/2023 7:22 AM EDT) Anatomical Region Laterality Modality Breast Left Left Mammography 02/11/2023 7:44 AM EDT Impressions 02/11/2023 4:53 PM EDT Equivocal persistence of discrete asymmetry within the posterior slightly medial left breast, only defined in one projection and not clearly persisting on spot compression tomography. Particularly given presence of multifocal asymmetries and lack of suspicious finding on ultrasound, finding is favored to be benign. Recommend follow-up mammography in 6 months to document stability. The results were given to the patient by the technologist at the time of the examination. BI-RADS CATEGORY: 3 - Probably benign finding. Short interval follow up suggested. DENSITY: The breast tissue is heterogeneously dense, which could obscure a lesion on mammography. Narrative 02/11/2023 4:53 PM EDT History: Abnormal screening mammography. 5 mm discrete asymmetry posterior medial left breast as revealed on cc projection. EXAM: Unilateral left full field digital mammography was obtained with computer-aided detection. 2-D and 2-D C view imaging obtained as well as tomosynthesis images in two projections of the breast was also obtained. Spot compression views including spot tomography obtained in the CC projection. 90 degree mediolateral tomography obtained. COMPARISON: Previous [facility] mammograms 12/29/2022, dating back to 04/15/2009. The breast is composed of heterogeneous fatty and fibroglandular elements. There are multiple discrete asymmetries throughout the breast, including 5.4 mm asymmetry posterior slightly medial breast suggested on conventional spot view but not clearly persisting on spot tomography and not well seen in the 90 degrees mediolateral projection. Additional oval asymmetries noted anterior breast. Immediately following mammography, targeted left breast ultrasound obtained revealing duct ectasia and suggestion of possible cyst deep within the left breast, difficult to reproduce in 2 planes. No solid, suspicious mass identified. Yasmany Chaparro DO IMG MG EXAMS Final Result documented in this encounter Visit Diagnoses Diagnosis Abnormal finding on mammography Abnormal finding on mammography documented in this encounter Care Teams [employer] Relationship Specialty Start Date End Date Yasmany Chaparro DO PCP - General 09/02/17 12/12/24 Yasmany Chaparro DO [address] [place] [address] [place] [address] PCP - General Internal Medicine 12/13/24 Yasmany Chaparro DO Historical LMR Provider 09/04/17 Kevin Anguiano MD [email or web address] Historical LMR Provider 09/04/17 Jah Zhang MD [address] [place] [id number] [email or web address] Historical LMR Provider 09/04/17 documented as of this encounter Additional Source Comments The information contained in this document represents components of the legal health record. It is not the complete legal health record.[facility]
--- OUTSIDE RECORDS SUMMARY | 2025-08-29 07:16 | XMS_ITS | Data Portability ---
Author Organization [facility], Telehealth Patient Home Address [address] [facility] [place] [address] Assessment Encounter Date Assessment Date Assessment LastModified by Organization Details LastModified Time 01/31/2025 01/31/2025 [address] [place] [address] (TECHNICAL AIDE) MDM MODERATE MUST MEET 2 OUT OF [...] COVERED Not available 01/31/2025 16:54:07 02/27/2025 02/27/2025 [address] [place] [address] (TECHNICAL AIDE) MDM MODERATE MUST MEET 2 OUT OF [...] COVERED Not available 02/27/2025 15:54:35 04/04/2025 04/04/2025 [address] [place] [address] (TECHNICAL AIDE) MDM MODERATE MUST MEET 2 OUT OF [...] THAT IS COVERED Not available 04/04/2025 16:18:11 05/07/2025 05/07/2025 [address] [place] [address] (TECHNICAL AIDE) MDM MODERATE MUST MEET 2 OUT OF [...] EACH ELEMENT THAT IS COVERED Not available 05/07/2025 09:33:41 07/09/2025 07/09/20[place] [address] [place] [address] (TECHNICAL AIDE) MDM HIGH MUST MEET 2 OUT OF 3 ELEMENTS: PROBLEMS, DATA OR RISK ELEMENT 1: PROBLEMS 1 OR MORE CHRONIC ILLNESS W/SEVERE EXACERBATION, PROGRESSION MAY REQUIRE HOSPITAL LEVEL CARE OR 1 ACUTE OR CHRONIC ILLNESS OR INJURY THAT POSES A THREAT TO LIFE OR BODILY FUNCTION ELEMENT 2: DATA: MUST MEET 2 OF 3 CATEGORIES CATEGORY 1 REVIEW OF PRIOR EXTERNAL NOTES REVIEW OF THE RESULTS ORDERING OF EACH TEST ASSESSMENT REQUIRING INDEPENDENT HISTORIAN(S) CATEGORY 2: INDEPENDENT INTERPRETATION OF TESTS BY ANOTHER PROVIDER/SPECIALI ST CATEGORY 3: DISCUSSION OF MGT OR TEST INTERPRETATION W/EXTERNAL PHYSICIAN/SPECIAL IST ELEMENT 3: RISK HIGH RISK OF MORBIDITY FROM ADDITIONAL DIAGNOSTIC TESTING OR TREATMENT PROVIDER MUST THOROUGHLY DOCUMENT EACH ELEMENT THAT IS COVERED The patient presented to their appointment today for multiple concerns requiring moderate to high-level decision making and took over 40-45 minutes for an adequate and appropriate history, exam, assessment and treatment plan. This appointment was done with an established patient. Not available 07/09/2025 16:17:35 Plan of Treatment Reminders Order Date Submit Date Provider Last Modified By Organization Details Last Modified Time Details Appointments FOLLOW UP 15 2024 02:15P M DR AVILA Not available Not available Not available Lab GBA gene mutations , blood or tissue 2024 025 [facility] (Lab), [address] [place] [address], [address], 05/08/2025 11:16:08 CMP, serum or plasma 2024 025 [facility] (Lab), [address] [place] [address], [address], 04/24/2025 12:27:37 CBC 2024 025 [facility] (Lab), [address] [place] [address], [address], 04/24/2025 12:27:37 hemoglobi n A1c, QN, blood 2024 025 [facility] (Lab), [address] [place] [address], [address], 04/24/2025 12:27:37 TSH, serum or plasma 2024 025 [facility] (Lab), [address] [place] [address], [address], 04/04/2025 16:23:34 TSH + free T4, serum 2024 025 [facility] (Lab), [address] [place], [address], 02/27/2025 16:00:11 Referral genetic counselor referral 2024 025 [facility], [address] [place], [address], 05/15/2025 09:28:08 Procedures None recorded. Surgeries None recorded. Imaging US, echocardi ogram - Not Required Procedure codes: 12719 Resolutio n: Completed on 5 at 09:41 am. 2024 025 [email or web address] 10 [facility], [address] [facility], [address], [address], 07/11/2025 12:26:05 PFT, complete 2024 025 [email or web address] 10 [facility] (Pulmonary Lab), [address] [place], [address], 07/11/2025 12:26:19 XR, chest, 2 view 2024 025 [email or web address] 10 [facility], [address] [place], [address], 07/11/2025 12:26:28 Medication Orders losartan 50 mg tablet 2024 025 [id number], [address] [place], [place], [id number], 05/07/2025 09:36:18 levothyro xine 88 mcg tablet 2024 025 [facility] #78333, [address] [place], [place], [id number], 05/07/2025 09:36:16 lisinopri l 10 mg tablet 2024 025 [facility] #62783, [address] [place], [place], [id number], 05/07/2025 09:32:05 lisinopri l 5 mg tablet 2024 025 [facility] #32162, [address] [place], [place], [id number], 04/04/2025 16:19:23 Medrol (Zachary) 4 mg tablets in a dose pack 2024 025 [facility] #10058, [address] [place], [place], [id number], 04/04/2025 15:53:21 Patient TargetsNo targets recorded. Patient Instructions Encounter Date Encounter Id Patient Instructions Last Modified By Organization Details Last Modified Time 01/31/2025 [id number] gastroesophageal reflux disease (GERD): care instructions Not available 01/31/2025 16:57:21 hypothyroidism: care instructions [email or web address] Not available 01/31/2025 16:57:21 Reason for Referral Genetic Counselor Referral f or Family history of disorder Referring Physician: Yasmany Avila, Internal Medicine, Encounter Date: 05/07/2025 Results Created Date Observation Date Name Description Value Unit Range Abnormal Flag Note LastModifiedBy Organization Detail LastModifiedTime Result Notes None recorded. Problems Name Problem SNOMED Code Status Onset Date Resolution Date Notes Provider Name and Address Organization Details Recorded Time Hypothyr oidism 50432435 Active 2017 [facility] 8 08:31:11 Mammogra phy abnormal 907911339 Active 2017 Right breast ? microcalc ification repeat mammo due 09/22 benign bzx Yasmany Avila, DO [address] [facility], [place], [address], [facility] 4 13:49:16 Kidney stone 65220898 Active 2017 bilateral multiple [facility] 8 08:32:51 Metaboli c syndrome X 639652259 Active 2017 [facility] 8 08:33:12 Medullar y sponge kidney 950668634 Active 2017 [facility] 8 08:33:38 Hyperlip idemia 04589612 Active 2017 [facility] 8 08:34:04 Migraine 29979127 Active 2017 [facility] 8 08:34:13 History of depressi on 727437228 Active 2017 [facility] 8 08:34:21 Mood disorder 10033451 Active 2017 anger [facility] 8 08:42:26 Depressi ve disorder 75272395 Active 2018 Yasmany Avila DO [address] [place] [address], [address], [facility] 9 16:39:55 Osteoart hritis 891167229 Active 2018 Yasmany Avila DO [address] [place] [address], [address], [facility] 9 16:54:59 Fibromya lgia 463012903 Active 2018 Yasmany Avila DO [address] [place] [address], [address], [facility] [place] [facility] 9 16:55:17 Gastroes ophageal reflux disease 472108222 Active 2019 Yasmany Avila DO [address] [place] [address], [address], [facility] [place] 0 10:46:59 Lipomato sis dolorosa 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 Active 2020 Yasmany Avila DO [address] [place] [address], [address], [facility] 1 14:49:03 Adenomat ous polyp of colon 949346183 Active 2020 Yasmany Avila DO [address] [place] [address], [address], [facility] 1 21:20:54 Gastriti s 7080651 Active 2021 JUAN CINTRON [address] [place] [address], [address], [facility] [place] 2 11:43:18 Anxiety 38462654 Active 2021 Yasmany Avila, DO [address] [place] [address], [address], [facility] [place] 2 15:38:23 Sleep apnea 88243559 Active 2021 Yasmany Avila DO [address] [place] [address], [address], [facility] [place] 2 15:58:19 Dysuria 71211448 Active 2021 JUAN CINTRON [address] [place] [address], [address], [facility] [place] 2 16:46:40 Acute urinary tract infectio n 607097186 Active 2021 JUAN CINTRON [address] [place] [address], [address], [facility] [place] 2 15:19:40 Type 2 diabetes mellitus 05040943 Active 2023 JUAN CINTRON [address] [place] [address], [address], [facility] 4 16:41:53 Aphthous ulcer of mouth 114488355 Active 2023 Yasmany Avila DO [address] [place] [address], [address], [facility] 4 16:19:17 Ganglion of flexor tendon sheath of finger 330342170 Active 2023 Yasmany Avila DO [address] [place] [address], [address], [facility] 4 16:24:37 Excessiv e weight gain 860161364 Active 2023 Yasmany Avila, DO [address] [place] [address], [address], [facility] [place] 4 16:35:32 Elevated blood-pr essure reading without diagnosi s of hyperten frank 863936534 Active 2024 Yasmany Avila, DO [address] [place] [address], [address], [facility] [place] 5 16:53:34 Generali zed rash 532978639 Active 2024 Yasmany Avila, [address], [address], [facility] [place] [facility] 5 16:59:16 Infestat ion by Sarcopte s sc[facility]iei [facility] hominis 083455947 Active 2024 Yasmany Avila, [address], [address], [facility] [place] [facility] 5 16:11:51 Hyperten sive disorder 90714639 Active 2024 Yasmany Avila, [address], [address], [facility] [place] 5 15:57:28 Dyspnea on exertion 60878539 Active 2024 Yasmany Avila, [address], [address], [facility] [place] 5 16:09:12 Problem Notes None recorded. Procedures Surgical History Date Name Laterality Status Provider Name and Address Organization Details Recorded Time 09/11/20 24 colonoscopy completed Ismael Avila [facility] 09/11/2024 14:56:20 delivery completed Julissakeiko Robison [facility] 02/25/2018 08:36:33 Cholecystectomy completed Julissakeiko Robison [facility] 02/25/2018 08:37:24 Endometr ablate thermal completed [facility]/25/[facility] 08:39:56 Imaging Results None recorded. Procedure Notes None recorded. Medical Equipment None Reported. Allergies Allergen ID Allergen Name Allergen Category Reaction Reaction Severity Criticality Documentation Date Start Date Code Code System Note Provider Name and Address Organization Details Recorded Time 9090 lisinopri l medicatio n cough Not available low 05/07/2025 15679 RxNorm Yasmany Avila, DO [address] [place], [address], [facility] [place] [facility] 5 09:32:15 913 Provigil medicatio n Not available Not available Not available 02/25/2018 17676 4 RxNorm [facility] 8 08:35:44 Medications Name Sig Start Date Stop Date Status Note LastModified by Organization Details LastModified Time Prescriptio n - Prior Authorizati on Request 02/03 completed Not Available Not Available Not Available losartan 50 mg tablet TAKE 1 TABLET BY MOUTH EVERY DAY active Not Available Not Available No t Available cyclobenzap rine 10 mg tablet take [...] Available permethrin 5 % topical cream APPLY (THOROUGH LY MASSAGE INTO SKIN FROM HEAD TO SOLES OF FEET) BY TOPICAL ROUTE ONCE LEAVE ON FOR 8-14 HR, THEN REMOVE BY THOROUGH WASHING 04/04 completed Not Available Not Available Not [...] TAKE 1 TABLET BY MOUTH EVERY DAY 05/07 completed Not Available Not Available Not Available oxycodone-a cetaminophe n 5 mg-325 mg tablet 05/25 completed Not Available Not Available Not Available bupropion HCl 100 mg tablet Take 1 tablet every day by oral route in the morning for 30 days. 09/27 completed Not Available Not Available Not Available levothyroxi ne 88 mcg tablet TAKE 1 TABLET BY MOUTH EVERY MORNING ON AN EMPTY STOMACH active Not Available Not Available No t Available lorazepam 0.5 mg tablet take 1 [...] TAKE 1 TABLET BY MOUTH EVERY DAY 05/07 completed Not Available Not Available Not Available [...] Not Available No t Available Fluarix Quad 7470-7164 (PF) 60 mcg (15 mcg x 4)/0.5 [...] completed Not Available Not Available Not Available Ozempic 0.25 mg or 0.5 mg (2 mg/3 mL) subcutaneou s pen injector INJECT 0.25MG UNDER THE SKIN EVERY WEEK active Not Available Not Available No t Available Vitals Date Recorded Body height Body mass index (BMI) Body weight Heart rate Oxygen saturation Oxygen saturation in Arterial blood by Pulse oximetry Systolic And Diastolic Provider Name and Address Organization Details Last Updated DateTime 5 154.94 cm 32.2 kg/m2 36897.4 2 g 103 /min 92 % 92 % 154/98 mm[Hg] Briseyda Mosher [facility] 5 16:08:34 Date Recorded Body height Body mass index (BMI) Body weight Heart rate Oxygen saturation Oxygen saturation in Arterial blood by Pulse oximetry Systolic And Diastolic Provider Name and Address Organization Details Last Updated DateTime 5 154.94 cm 32.1 kg/m2 62478.7 g 98 /min 97 % 97 % 140/78 mm[Hg] Elyse Flores [facility] 5 15:35:11 Date Recorded Body height Body mass index (BMI) Body weight Oxygen saturation Oxygen saturation in Arterial blood by Pulse oximetry Heart rate Systolic And Diastolic Provider Name and Address Organization Details Last Updated DateTime 5 154.94 cm 32.8 kg/m2 54696.9 9 g 96 % 96 % 68 /min 130/78 mm[Hg] Terri Strauss [facility] 5 15:58:03 Date Recorded Body height Body mass index (BMI) Body weight Heart rate Oxygen saturation Oxygen saturation in Arterial blood by Pulse oximetry Systolic And Diastolic Provider Name and Address Organization Details Last Updated DateTime 5 154.94 cm 32.7 kg/m2 91095.4 8 g 90 /min 98 % 98 % 130/80 mm[Hg] Elyse Flores [facility] 5 09:22:23 Date Recorded Body height Body mass index (BMI) Body weight Oxygen saturation Oxygen saturation in Arterial blood by Pulse oximetry Heart rate Systolic And Diastolic Provider Name and Address Organization Details Last Updated DateTime 5 154.94 cm 33.8 kg/m2 60194.0 3 g 99 % 99 % 92 /min 124/76 mm[Hg] [facility] 5 15:27:27 Social History Question Answer Notes LastModified by Organizat ion Details LastModified Time Tobacco Smoking Status Never Smoker Not Available [facility] 09/17/2020 03:36:24 What Is Your Level Of Caffeine Consumption? Occasional 2 Cups Coffee Per Day [id number] Information not available 09/17/2020 What Was The Date Of Your Most Recent Tobacco Screening? 07/09/2025 [email or web address] Information not available 07/09/2025 Sex: Unknown Functional Status Question Answer Note LastModified by Organizat ion Details LastModified Time Do you or have you ever used any other forms of tobacco or nicotine? No Information not available 04/20/2022 What is your level of alcohol consumption? Occasional [id number] Information not available 09/17/2020 What is your exercise level? None [id number] Information not available 09/17/2020 Mental Status None recorded. Family History Relationship Description Onset Age of this Age Resolved Age Notes LastModified by Organization Details LastModified Time Father Malignant neoplasm of colon 60 Not available 2024 23:40:54 Maternal Grandmother Leukemia Not available 05/27 23:41:10 Unspecified Relation Malignant neoplasm of breast 60 60 Not available 2024 23:41:38 Sister Polyp of colon 40 Not available 2024 23:42:10 Medical History No medical history recorded. Gynecological HistoryNo gynecological history recorded. Obstetrics History GPAL:G 0 P 0 0 0 0 Immunizations Vaccine Type Date Status Note Provider Nam e and Address Organization Details Recorded Time COVID-19, mRNA, LNP-S, PF, 100 mcg/0.5mL dose or 50 mcg/0.25mL dose 1 completed Yasmany Avila DO [address] [place] [address], [address], [facility] [place] [facility] 05/26/2021 14:10:58 COVID-19, mRNA, LNP-S, PF, 100 mcg/0.5mL dose or 50 mcg/0.25mL dose 1 completed Yasmany Avila DO [address] [place] [address] [place], [address], [facility] [place] 05/26/2021 14:10:41 Influenza, split virus, quadrivalent, preservative 1 completed Yasmany Avila DO [address] [place], [address], [facility] [place] [facility] 09/10/2021 15:42:09 Influenza, split virus, quadrivalent, preservative 8 completed February VICTOR M Sin [address] [place], [address], [facility] [place] [facility] 08/30/2018 09:30:50 Tdap 8 completed Not Available [facility] 12/16/2019 02:14:52 Influenza, split virus, quadrivalent, preservative 9 completed Yeni fiore [facility] 08/21/2019 16:23:48 Influenza, split virus, quadrivalent, preservative 0 [facility] 01/27/2021 10:01:10 Past Encounters Encounter ID Performer Location Encounter Start Date Encounter Closed Date Diagnosis/Indication Diagnosis SNOMED-CT Code Diagnosis ICD10 Code Diagnosis IMO Codes Diagnosis Note [id number] Yasmany MorroAlicia Avila DO [facility] [address] [facility],[place] [address] 02/25/2018 15:53:51 02/25/2018 17:04:31 Type 2 diabetes mellitus 45178827 E11.65 extensive counsellin g as noted in [...] fat which may be detrimenta l [facility]. Essentiall y consider a diet that [...] minimize post prandial blood sugar spikes. Hypothyroidism 31867204 E03.9 Hyperlipidemia 31643097 E78.5 as above [id number] Yasmany Avila [facility] [address] [facility],[place] [address] 04/01/2018 14:42:36 04/01/2018 15:14:15 Type 2 diabetes mellitus 16681558 E11.65 continue current regimen Kidney stone 50893176 N2 0.0 has known kidney stones, but never has passed a stone urine was normal seems unlikely to be a passing stone if marcos blood in urine recc ER - pt understood Acute low back pain 2788 73761 M54.5 likely muscular [id number] [facility] [address] [facility],[place] [address] 05/25/2018 08:54:33 05/25/2018 09:54:01 Type 2 diabetes mellitus 88981526 E11.65 continue current regimen of 1000 mg in am and 500 mg in pm Obstructiv e sleep apnea syndrome 77679142 G47.33 Hypothyroidism 81096669 E03.9 is due for recheck in 6 months Depressive disorder 3548 9007 F33.9 well controlled rare use of lorazepam [id number] Yasmany Avila [facility] [address] [facility],[place] [address] 07/26/2018 14:24:21 07/26/2018 15:05:36 Neck pain 40403455 M54.2 Type 2 mary lou betes mellitus 62543293 E11.65 continue current regimen of 1000 mg in am and 500 mg in pm History of depression 16 1020247 Z86.59 Hyperlipidemia 59976356 E78.5 as above [id number] Yasmany Avila [facility] [address] [facility], [place] [address] 08/30/2018 09:01:42 08/30/2018 09:48:56 Type 2 diabetes mellitus 51251541 E11.65 continue current regimen of 1000 mg [...] her family. Obstructiv e sleep apnea syndrome 13958076 G47.33 Hypothyroidism 22257496 E03.9 will check at next visit Depressive disorder 3548 9007 F33.9 well controlled rare use of lorazepam Motion sickness 13953953 T75.3XXA Screening procedure 2012 5006 Z13.9 [id number] Yasmany Avila [facility] [address] [facility], [place] [place] [address] 11/30/2018 11:44:17 11/30/2018 12:17:45 Type 2 diabetes mellitus 99385283 E11.65 has been taking metformin, plans to switch back to trulicity Obstructiv e sleep apnea syndrome 67424227 G47.33 uses cpap nightly Hypothyroidism 18827466 E03.9 will check 6 months Depressive disorder 3548 9007 F33.9 well controlled rare use of lorazepam Body mass index 25-29 - overweight 558282397 Z68.27 has been gradually losing weight praised for improvemen t Hyperlipidemia 97601885 E78.5 work on diet and exercise to help lower naturally consider statin over the next 6 mos to a year [id number] Yasmany Avila [facility] [address] [facility], [place] [place] [address] 03/14/2019 13:42:08 03/14/2019 14:26:43 Hypothyroidism 28245606 E03.9 will need to keep biannual chk of tsh Type 2 mary lou betes mellitus 78495515 E11.9 last a1c is 5.1 and she is doing awesome Hyperlipidemia 91368398 E78.5 will start atorvastat in 10mg rechk lab in 4 mo [id number] Yasmany Avila [facility] [address] [facility], [place] [place] [address] 06/07/2019 15:23:08 06/07/2019 16:32:00 Hypothyroidism 95581799 E03.9 will need to keep biannual chk of tsh Type 2 mary lou betes mellitus 77645138 E11.9 last a1c is 5.1 and she is doing awesome Hypercholesterolemia 136 79038 E78.00 Anxiety 72132646 F41.9 [id number] Yasmany Avila [facility] [address] [facility],[place] [address] 06/21/2019 16:19:55 06/21/2019 16:49:45 Depressive disorder 12825289 F32.1 will add low dose bupropion to the cymbalta to try to improve her mood [id number] Yasmany Avila [facility] [address] [facility],[place] [address] 08/21/2019 16:05:43 08/21/2019 17:03:21 Depressive disorder 50701397 F32.1 l added low dose bupropion to the cymbalta to try to improve her mood and she seems to be better Type 2 mary lou betes mellitus 25819873 E11.9 has not been checkin g her sugars Medullary sponge kidney 113437897 Q61.5 no new issues followed by renal [id number] Yasmany Avila [facility] [address] [facility] [address],[place] [address] 09/27/2019 16:06:34 09/27/2019 16:46:29 Metabolic syndrome X 041137988 E88.81 doing fantastic on trulicity and has no prob a1c is 5.0 Depressive disorder 3633 9007 F32.1 l added low dose bupropion to the cymbalta to try to improve her mood and she seems to be better she thinks she is doing ok Cheilosis 21826787 K13.0 [id number] Yasmany Avila [facility] [address] [facility] [address] [address] 11/06/2019 14:09:47 11/06/2019 14:31:55 Seborrheic dermatitis of scalp 853885850 L21.0 Anterior caput ongoing for 6 mo-1 year Eczema 43260384 L30.9 Scalp eczema Depressive disorder 2844 3297 F32.1 seems to be doing better Metabolic syndrome X 237 764149 E88.81 doing fantastic on trulicity and has no prob a1c is 5.0 [id number] Yasmany Avila [facility] [address] [facility] [address] [address] 01/10/2020 10:28:46 01/10/2020 11:13:50 Adult health examination 431691251 Z00.00 doing well Type 2 mary lou betes mellitus 84751584 E11.9 a1c is 4.8 and she s doing well still on trulicity we will stop and rechk a1c in 3 mo Hypothyroidism 89768324 E03.9 will need to keep biannual chk of tsh Alopecia 47574511 L65.9 believe this is from the bupropion will stop and see if this improves [id number] Yasmany Avila [facility] [address] [facility], [place] [address] 01/31/2020 13:31:55 02/12/2020 11:49:21 Fever 210932192 R50.9 f/u if sx change or worsen Acute pharyngitis 838876 003 J02.9 f/u if sx change or worsen Type 2 mary lou betes mellitus 25648746 E11.65 [id number] Yasmany Avila [facility] [address] [facility] [place] [address] 04/03/2020 14:51:19 04/03/2020 16:03:36 Hyperlipidemia 35256034 E78.5 will start atorvastat in 10mg and her LDL down to 111 and HDL at 40 exelllent Mood disorder 07390977 F 40 taking lorazepam daily during the day [facility] ic bursitis of left hip [id number] 92004 [address]70.[address] rao for ani inj Type 2 mary lou betes mellitus 10360571 E11.9 a1c is up to 6.4 so we will go back to trulicity [place]opecia 69360984 [place] [id number] Yasmany Avila [facility] [address] [facility] [address],[place] [facility] [place] [address] 04/17/2020 14:53:35 04/17/2020 15:20:16 Type 2 diabetes mellitus 72628070 E11.9 doing well on angie.icity Mood disorder 94453397 F 40 taking lorazepam daily during the day 0n 90 mg dulox ? if she has WU Insomnia 530030372 G47.0 0 [id number] Yasmany Avila, [facility] [address] [facility] [address],[place] [address] 07/19/2020 10:14:25 07/19/2020 11:12:13 Type 2 diabetes mellitus 11006758 E11.9 doing well on angie.icity a1c 5 Depressive disorder 3548 9007 F32.1 seems to be doing better Hypothyroidism 66228757 E03.9 will need to keep biannual chk of tsh Hyperlipidemia 15610979 E78.5 atorvastat in 10mg and her LDL down to 80and HDL at 50+exellle nt Gastroesop hageal reflux disease 655483758 K21.9 will try the omeprazole and if ok will continue for now call if unhelpful [id number] Yasmany Avila, [facility] [address] [facility] [address],[place] [address] 10/25/2020 08:51:38 10/25/2020 10:26:59 Hypothyroidism 53659168 E03.9 will need to keep biannual chk of tsh Type 2 mary lou betes mellitus 42528016 E11.9 doing well on trul.icity a1c 5.1 long discussion re need for close monitor during pandemic a also will need vaccine if deemed safe for her to use Medullary sponge kidney 070032994 Q61.5 no new issues followed by renal [place] [id number] Yasmany Avila, [facility] [address] [facility] [address],[place] [address] 01/27/2021 09:56:49 01/27/2021 10:49:39 Hypothyroidism 64499303 E03.9 will need to keep biannual chk of tsh Type 2 mary lou betes mellitus 42536247 E11.9 doing well on trul.icity a1c 5.2 was 5.1 long discussion re need for close monitor during pandemic a also will need vaccine if deemed safe for her to use Medullary sponge kidney 438897562 Q61.5 no new issues followed by renal and creat is stable microalb is neg Pain in bi lateral feet 1965834308 5172001 M79.671 M79.672 [id number] Yasmany Avila [facility] [address] [facility] [address],[place] 7 05/26/2021 13:57:49 05/26/2021 16:43:26 Type 2 diabetes mellitus 22313299 E11.9 doing well on trul.icity a1c 5.3 5.2 was 5.1 long discussion re need for close monitor during pandemic a also will need vaccine if deemed safe for her to use Hypothyroidism 94565367 E03.9 will need to keep biannual chk of tsh Depressive disorder 3548 9007 F32.1 seems to be doing better Hyperlipidemia 32400627 E78.5 atorvastat in 10mg and her LDL down to 80and HDL at 50+exellle nt 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 frustratin g , no treatment availhas mult areas around her legs they bother the most there she is covered in them and there are too many to remove but we will consider having the more prominent ones removed Medullary sponge kidney 219479342 Q61.5 no new issues followed by renal and creat is [place]b is neg [id number] Yasmany Avila [facility] [address] [facility] [address] 7 09/10/2021 15:23:06 09/10/2021 16:34:47 Depressive disorder 45780987 F32.1 seems to be doing better Type 2 mary lou betes mellitus 41707721 E11.9 doing well on trul.icity a1c 5.3 5.2 was 5.1 long discussion re need for close monitor during pandemic a also will need vaccine if deemed safe for her to use Hypothyroidism 20640632 E03.9 will need to keep biannual chk of tsh Insomnia 118669940 G47.0 0 [id number] Yasmany Avila [facility] [address] [facility] [address],[place] 7 10/01/2021 15:21:44 10/01/2021 16:24:14 Insomnia 236346699 G47.00 Metabolic syndrome X 237 565574 E88.81 doing fantastic on trulicity and has no prob a1c is 5.5 Type 2 mary lou betes mellitus 31138733 E11.9 doing well on trul.icity a1c 5.5 was5.3 5.2 was 5.1 long discussion re need for close monitor during pandemic a also will need vaccine if deemed safe for her to use [id number] Yasmany Avila [facility] [address] [facility] [address],[place] [address] 01/07/2022 15:49:40 01/07/2022 16:42:57 Major depressive disorder 890457063 F32.1 still under a lot of stress Type 2 mary lou betes mellitus 73486253 E11.9 doing well on trul.icity a1c was 5.6 and was 5.5 was 5.3 5.2 was 5.1 long discussion re need for close monitor during pandemic also will need vaccine if deemed safe for her to use Medullary sponge kidney 254926315 Q61.5 no new issues followed by renal and creat is stable microalb is neg Hypothyroidism 64108802 E03.9 will need to keep biannual chk of tsh Hyperlipidemia 56529791 E78.5 atorvastat in 10mg and her LDL down to 80and HDL at 50+exellle nt Gastroesop hageal reflux disease 134617664 K21.9 will try the nexium or pantoprazo le and if ok will continue for now call if unhelpful Motion sickness 70543611 T75.3XXD Nummular eczema 88378790 L30.0 [id number] Yasmany Avila [facility] [address] [facility] [address],[place] [address] 02/11/2022 11:28:51 02/11/2022 14:31:41 Gastritis 5439712 K29.60 will start on famotidine and sucralfate [id number] Yasmany Avila [facility] [address] [facility] [address],[place] [address] 04/20/2022 14:54:09 04/20/2022 15:44:20 Gastroesophageal reflux disease 249653110 K21.9 the nexium nad famotidine are actually doing quite well Hypothyroidism 02511316 E03.9 will need to keep biannual chk of tsh Type 2 mary lou betes mellitus 78201324 E11.9 doing well on trul.icity a1c was 5.6 and was 5.5 was 5.3 5.2 was 5.1 long discussion re need for close monitor during pandemic also will need vaccine if deemed safe for her to use Depressive disorder 3548 9007 F32.1 seems to be doing better Active or passive immunization 038777835 Z23 patient advised of due vaccines (pneu 23 & shingles) Anxiety 92763156 F41.9 [id number] Yasmany Avila [facility] [address] [facility] [address] [address] 07/24/2022 08:11:59 07/27/2022 08:51:09 Sleep apnea 40402268 G47.30 for home sleep study [id number] Yasmany Avila [facility] [address] [facility] [address],[place] [address] 03/19/2023 15:25:36 03/19/2023 16:12:35 Depressive disorder 04128418 F32.1 seems to be doing better Motion sickness 96456079 T75.3XXD Hyperglycemia 65484075 R 73.9 a1c 5.4 and she is doing fantastic [id number] Yasmany Avila [facility] [address] [facility] [address],[place] [address] 07/06/2023 08:07:11 07/07/2023 08:35:17 Hyperglycemia 40020177 R73.9 a1c 5.5 and she is doing fantastic Hypothyroidism 26460710 E03.9 will need to keep biannual chk of tsh Medullary sponge kidney 848146526 Q61.5 no new issues followed by renal and creat is stable microalb is neg [id number] Yasmany Avila [facility] [address] [facility] [address],[place] [facility] [place] [address] 10/29/2023 15:43:59 10/29/2023 16:19:11 Hyperglycemia 29530942 R73.9 a1c i still 5.5 and she is doing fantastic Hypothyroidism 32160442 E03.9 will need to keep biannual chk of tsh Hyperlipidemia 59369528 E78.5 atorvastat in 10mg and her LDL down to 80and HDL at 50+exellle nt [id number] Yasmany Avila, [facility] [address] [facility],[place] [address] 02/04/2024 15:53:19 02/07/2024 08:17:57 Hyperlipidemia 29855294 E78.5 atorvastat in 10mg will hold for several weeks to see if swelling is gone and her LDL down to 80and HDL at 50+exellle nt Hypothyroidism 00104627 E03.9 will need to keep biannual chk of tsh but will do extra test due to use of trulicity3 mg Type 2 mary lou betes mellitus 21317557 E11.9 doing well on trul.icity a1c was 5.6 and was 5.5 was 5.3 5.2 was 5.1 long discussion re need for close monitor during pandemic also will need vaccine if deemed safe for her to use [id number] Yasmany Avila, [facility] [address] [facility] [address] [address] 03/22/2024 15:56:04 03/22/2024 16:41:37 Type 2 diabetes mellitus 97656645 E11.9 doing well on trul.icity a1c was 5.6 and was 5.5 was 5.3 5.2 was 5.1 long discussion re need for close monitor during pandemic also will need vaccine if deemed safe for her to use Hyperlipidemia 34841134 E78.5 atorvastat in 10mg will hold for several weeks to see if swelling is gone and her LDL down to 80and HDL at 50+exellle nt Mood disorder 15835921 F 40 duloxetine not helpful relates taking 60 bid Depression screening 171 637284 Z13.31 positive History of depression 16 8057658 Z86.59 Aphthous u lcer of mouth 991062955 K12.0 will treat next outbreak [id number] Yasmany Avila DO [facility] [address] [facility],[place] [address] 04/28/2024 13:26:29 04/28/2024 14:23:51 Type 2 diabetes mellitus 79119570 E11.9 side effects on trul.icity of 3mg a1c was up to 6.8 was 6.2 5.6 and was 5.5 was 5.3 5.2 was 5.1 long discussion re need for close monitor during pandemic also will need vaccine if deemed safe for her to use Hypothyroidism 09036794 E03.9 will need to keep biannual chk of tsh but will do extra test due to use of trulicity 3mgwill try to cut dose by pulling out prematurly Medullary sponge kidney 225770403 Q61.5 no new issues followed by renal and creat is stable microalb is neg [id number] Yasmany Avila DO [facility] [address] [facility],[place] [address] 07/28/2024 15:42:43 07/30/2024 20:26:54 Type 2 diabetes mellitus 78914349 E11.9 side effects on trul.icity of 3mg a1c was up to 6.8 was 6.2 5.6 and was 5.5 was 5.3 5.2 was 5.1 long discussion re need for close monitor during pandemic also will need vaccine if deemed safe for her to use Hypothyroidism 97003309 E03.9 will need to keep biannual chk of tsh but will do extra test due to use of trulicity 3mgwill try to cut dose by pulling out prematurly [id number] Yasmany Avila DO [facility] [address] [facility],[place] [address] 09/08/2024 09:52:15 09/08/2024 13:45:24 Sleep apnea 70547954 G47.30 for home sleep study Anxiety 73344698 F41.9 stable with her work as long as the current schedule maintained paperwork filled out here with pt present [id number] Yasmany Avila DO [facility] [address] [facility],[place] [facility] [address] 11/03/2024 15:48:10 11/03/2024 16:43:03 Type 2 diabetes mellitus 55204506 E11.9 side effects on trul.icity of 3mg a1c is great at 6.0 was up to 6.8 was 6.2 5.6 and was 5.5 was 5.3 5.2 was 5.1 long discussion re need for close monitor during pandemic also will need vaccine if deemed safe for her to use Ganglion o f flexor tendon sheath of finger 213023611 M67.449 will refer to the hadnt Hypothyroidism 47053669 E03.9 will need to keep biannual chk of tsh but will do extra test due to use of trulicity 3mgwill try to cut dose by [id number] Yasmany Avila [facility] [address] [facility],[place] [address] 01/31/2025 15:50:12 02/02/2025 11:51:08 Depression screening 403690285 Z13.31 neg Elevated blood-pressure reading without diagnosis of hypertension 783395014 R03.0 she will get a bp machine and record will rechk in 2 mo Gastroesop hageal reflux disease 055916143 K21.9 the nexium nad famotidine are actually doing quite well Hypothyroidism 06052984 E03.9 will need to keep biannual chk of tsh but will do extra test due to use of trulicity 3mgwill try to cut dose by Type 2 mary lou betes mellitus 84647764 E11.9 side effects on trulicity of 3mg a1c is great at 6.0 was up to 6.8 was 6.2 5.6 and was 5.5 was 5.3 5.2 was 5.1 long discussion re need for close monitor during pandemic also will need vaccine if deemed safe for her to use Generalized rash 2398459 06 R21 [id number] Yasmany Avila [facility] [address] [facility] [address] [address] 02/27/2025 15:15:31 02/27/2025 16:06:56 Hyperlipidemia 06038259 E78.5 atorvastat in 10mg will hold for several weeks to see if swelling is gone and her LDL down to 80and HDL at 50+excelll ent Hypothyroidism 12157739 E03.9 will need to keep biannual chk of tsh but will do extra test due to use of trulicity 3mgwill try to cut dose by Generalized rash 1959228 06 R21 resolved Type 2 mary lou betes mellitus 86919904 E11.9 side effects on trulicity of 3mg a1c is great at 6.0 was up to 6.8 was 6.2 5.6 and was 5.5 was 5.3 5.2 was 5.1 long discussion re need for close monitor during pandemic also will need vaccine if deemed safe for her to use Depression screening 171 Z13.31 neg Hypertensive disorder 38 670043 I10 will need to treat [id number] Yasmany Avila [facility] [address] [facility],[place] [address] 04/04/2025 15:35:48 04/04/2025 16:29:18 Hypothyroidism 89255994 E03.9 will need to keep biannual chk of tsh but will do extra test due to use of trulicity 3mgwill try to cut dose by Hypertensive disorder 38 935381 I10 will need to treat at higher dose as home readings are still elevated Type 2 mary lou betes mellitus 78725438 E11.9 side effects on trulicity of 3mg a1c is great at 6.0 was up to 6.8 was 6.2 5.6 and was 5.5 was 5.3 5.2 was 5.1 long discussion re need for close monitor during pandemic also will need vaccine if deemed safe for her to use Hyperlipidemia 94507121 E78.5 atorvastat in 10mg will hold for several weeks to see if swelling is gone and her LDL down to 80and HDL at 50+excelll ent Depression screening 171 Z13.31 neg 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 1482055008 12985526 Z14.8 9994691030 [id number] Yasmany Avila [facility] [address] [facility],[place] [address] 05/07/2025 09:13:44 05/07/2025 09:52:37 Depression screening 583858931 Z13.31 neg Hyperlipidemia 83863825 E78.5 stable and holding is on atorvastat in 10mg will hold for several weeks to see if swelling is gone and her LDL down to 80and HDL at 50+excelll ent Hypertensive disorder 38 990963 I10 she has developed a cough will change lisinopril to losartan Type 2 mary lou betes mellitus 45383684 E11.9 a1vc is great at 6.2 side effects on trulicity of 3mg a1c is great at 6.0 was up to 6.8 was 6.2 5.6 and was 5.5 was 5.3 5.2 was 5.1 long discussion re need for close monitor during pandemic also will need vaccine if deemed safe for her to use Hypothyroidism 04952531 E03.9 noted very low tsh dizzy, jittery and hand tremors will lower dose to 88mcg Family his tory of disorder 794088063 Z83.49 9614345 [id number] Yasmany Avila [facility] [address] [facility] [address],[place] [address] 07/09/2025 15:18:25 07/09/2025 16:48:00 Hypertensive disorder 71334935 I10 she has developed a cough will change lisinopril to losartan Hyperlipidemia 28055765 E78.5 stable and holding is on atorvastat in 10mg will hold for several weeks to see if swelling is gone and her LDL down to 80and HDL at 50+excelll ent Type 2 mary lou betes mellitus 10794394 E11.9 a1vc is great at 6.2 side effects on trulicity of 3mg a1c is great at 6.0 was up to 6.8 was 6.2 5.6 and was 5.5 was 5.3 5.2 was 5.1 long discussion re need for close monitor during pandemic also will need vaccine if deemed safe for her to use Hypothyroidism 00984816 E03.9 noted very low tsh dizzy, jittery and hand tremors will lower dose to 88mcg Depression screening 171 084019 Z13.31 neg Dyspnea on exertion 6084 5006 R06.09 777300 Health Concerns Section Related Observation LastModified by Organization Detai ls LastModified Time None Recorded Concern Status LastModified by Organization Details LastModified Time None Recorded Advance Directives Directive None Recorded Payers Insurance Date Sequence Insurance Name Policy Number Policy Mallory Covered Member ID Mallory Member ID Guarantor Name 07/07/2025 1 [facility] [employer] Kobe Hirsch Remedios [id number] Jyoti Remedios Notes Date Note Type Note Provider Name and Address Organization Details Recorded Time 02/01/20 25 text/htm l Care Management - DiabetesReported by PatientROS as noted in the HPI here for rechk and is doing ok overallrelates that she is doing oka1c 6.0has a dfusse macular rash over limbs and thoraxwill neeed to treat as is very itchy for he last 3 weeks Yasmany Avila, DO [address] [facility], [place], [address], [facility] [place] 01/31/2025 17:00:00 02/28/20 25 text/htm l Care Management - DiabetesReported by PatientHPIFor self care, patient reportsseeing eye doctor yearly for dilated eye exam,checking feet regularly,normal range of home blood sugars (in the low 100s), andno side effects from medications. For associated symptoms, patient reportssymptoms are usually well controlled,no fatigue,no dizziness,no excessive sweating,no headaches,no confusion,no increased thirst,no increased appetite,no increased urination,no blurred vision,no numbness of feet, andno calluses on feet. Care Management - Acquired HypothyroidismReported by PatientCare ManagementFor medication education, patient reportsunderstands administration,understands effect of concurrent medications,understands missed doses, andunderstands consequences of noncompliance.Interim HistoryFor associated symptoms, patient reportsno abnormal weight gain,no tiredness,no dry skin,no cold intolerance,no constipation,no diarrhea, andno goiter. General Rash/Skin LesionReported by PatientHPIFor quality, patient reportsno itchyandnot painful. For context, patient reportsno new detergents or skin productsandno one else with similar rash. For aggravating factors, patient reportsnothing makes it worse. For associated symptoms, patient reportsno fever,no cold symptoms,no nausea,no vomiting,no diarrhea, andno urinary symptoms. Care Management - HyperlipidemiaReported by PatientHPIFor control, patient reportsusually well controlled,improving, andat goal. For complications, patient reportsno coronary artery disease,no heart attack,no cardiovascular disease,no pancreatitis, andno stroke.ROS as noted in the HPI has been checking her bp at homeavg is 168/90 Yasmany A. Bigda, DO [address] [place], [address], [facility], [place] [facility] 02/27/2025 16:00:25 04/04/20 25 text/htm l Care Management - DiabetesReported by PatientHPIFor self care, patient reportsseeing eye doctor yearly for dilated eye exam,checking feet regularly,normal range of home blood sugars (in the low 100s), andno side effects from medications. For associated symptoms, patient reportssymptoms are usually well controlled,no fatigue,no dizziness,no excessive sweating,no headaches,no confusion,no increased thirst,no increased appetite,no increased urination,no blurred vision,no numbness of feet, andno calluses on feet. Care Management - Acquired HypothyroidismReported by PatientCare ManagementFor medication education, patient reportsunderstands administration,understands effect of concurrent medications,understands missed doses, andunderstands consequences of noncompliance.Interim HistoryFor associated symptoms, patient reportsno abnormal weight gain,no tiredness,no dry skin,no cold intolerance,no constipation,no diarrhea, andno goiter. General Rash/Skin LesionReported by PatientHPIFor quality, patient reportsno itchyandnot painful. For context, patient reportsno new detergents or skin productsandno one else with similar rash. For aggravating factors, patient reportsnothing makes it worse. For associated symptoms, patient reportsno fever,no cold symptoms,no nausea,no vomiting,no diarrhea, andno urinary symptoms. Care Management - HyperlipidemiaReported by PatientHPIFor control, patient reportsusually well controlled,improving, andat goal. For complications, patient reportsno coronary artery disease,no heart attack,no cardiovascular disease,no pancreatitis, andno stroke.ROS as noted in the HPI a1c in january was 6.0 doing well overall has been checking her bp at homeavg is 168/90 Yasmany A. Bigda, DO [address] [place], [address], [facility] 04/04/2025 16:28:52 05/07/20 25 text/htm l Care Management - DiabetesReported by PatientHPIFor self care, patient reportsseeing eye doctor yearly for dilated eye exam,checking feet regularly,normal range of home blood sugars (in the low 100s), andno side effects from medications. For associated symptoms, patient reportssymptoms are usually well controlled,no fatigue,no dizziness,no excessive sweating,no headaches,no confusion,no increased thirst,no increased appetite,no increased urination,no blurred vision,no numbness of feet, andno calluses on feet. Care Management - HypertensionReported by PatientHPIFor self care, patient reportsnot under emotional stress. For severity, patient reportssymptoms are improvinganddoes not interfere with daily activities. For associated symptoms, patient reportsno dizziness,no lightheadedness,no chest pain,no shortness of breath,no palpitations,no edema,no calf muscle cramps,no blurred vision,no confusion,no headaches, andno fatigue. Care Management - Acquired HypothyroidismReported by PatientCare ManagementFor medication education, patient reportsunderstands administration,understands effect of concurrent medications,understands missed doses, andunderstands consequences of noncompliance.Interim HistoryFor associated symptoms, patient reportsno abnormal weight gain,no tiredness,no dry skin,no cold intolerance,no constipation,no diarrhea, andno goiter. General Rash/Skin LesionReported by PatientHPIFor quality, patient reportsno itchyandnot painful. For context, patient reportsno new detergents or skin productsandno one else with similar rash. For aggravating factors, patient reportsnothing makes it worse. For associated symptoms, patient reportsno fever,no cold symptoms,no nausea,no vomiting,no diarrhea, andno urinary symptoms. Care Management - HyperlipidemiaReported by PatientHPIFor control, patient reportsusually well controlled,improving, andat goal. For complications, patient reportsno coronary artery disease,no heart attack,no cardiovascular disease,no pancreatitis, andno stroke.ROS as noted in the HPI doing ok but having episodes of severe lightheadedness fairly frequently is also jittery with hand shakingalso she has developed a cough tickle in her throat and very irritating a1c in january was 6.0 doing well overall has been checking her bp at homeavg is 168/90 Yasmany Avila, DO [address] [facility], [place], [address], [facility] 05/07/2025 09:47:49 07/09/20 25 text/htm l Care Management - DiabetesReported by PatientHPIFor self care, patient reportsseeing eye doctor yearly for dilated eye exam,checking feet regularly,normal range of home blood sugars (in the low 100s), andno side effects from medications. For associated symptoms, patient reportssymptoms are usually well controlled,no fatigue,no dizziness,no excessive sweating,no headaches,no confusion,no increased thirst,no increased appetite,no increased urination,no blurred vision,no numbness of feet, andno calluses on feet. Care Management - HypertensionReported by PatientHPIFor self care, patient reportsnot under emotional stress. For severity, patient reportssymptoms are improvinganddoes not interfere with daily activities. For associated symptoms, patient reportsno dizziness,no lightheadedness,no chest pain,no shortness of breath,no palpitations,no edema,no calf muscle cramps,no blurred vision,no confusion,no headaches, andno fatigue. Care Management - Acquired HypothyroidismReported by PatientCare ManagementFor medication education, patient reportsunderstands administration,understands effect of concurrent medications,understands missed doses, andunderstands consequences of noncompliance.Interim HistoryFor associated symptoms, patient reportsno abnormal weight gain,no tiredness,no dry skin,no cold intolerance,no constipation,no diarrhea, andno goiter. General Rash/Skin LesionReported by PatientHPIFor quality, patient reportsno itchyandnot painful. For context, patient reportsno new detergents or skin productsandno one else with similar rash. For aggravating factors, patient reportsnothing makes it worse. For associated symptoms, patient reportsno fever,no cold symptoms,no nausea,no vomiting,no diarrhea, andno urinary symptoms. Care Management - HyperlipidemiaReported by PatientHPIFor control, patient reportsusually well controlled,improving, andat goal. For complications, patient reportsno coronary artery disease,no heart attack,no cardiovascular disease,no pancreatitis, andno stroke.ROS as noted in the HPI doing ok but having episodes of severe lightheadednessalso having ongoing fatigue and is sleepinghome bp machine is showing high number systolicsdiastolics are ok today bp is 124 systolic a1c in april was 6.2 doing well overall has been checking her bp at homeavg is 168/90 Yasmany Avila DO [address] [facility], [place], [address], [facility], [place] 07/09/2025 16:17:55 OBGyn Episode No OBEpisode recorded.
--- OUTSIDE RECORDS SUMMARY | 2025-08-29 07:16 | XMS_ITS | Encounter Summary ---
Author Organization [facility] Address [address] [facility] [address] [place] [address] Phone Care Team Providers Care Hand Ii Cutter Name Role Phone Yasmany Chaparro DO Primary Care Provider [phone] Ailinkaylynn Yasmany Hooker DO Unavailable Kevin Anguiano MD Unavailable [email or web address] Jah Zhang MD Unavailable [phone] Krysta Yasmany Hooker DO Primary Care Provider [phone] Encounter Details Date Type Department Care Team (Latest Contact Info) Description 12/24/2022 Transcribe Orders Virtual Department [address] [place] [address] Roxane Romero MD [address] [place] [address] [email or web address] Calculus of kidney (Primary Dx) Social History Tobacco Use Types Packs/Day Years [...] documented as of this encounter Visit Diagnoses Diagnosis Calculus of kidney- Primary documented in this encounter Care Teams Hand Ii Cutter Relationship Specialty Start Date End Date Yasmany Chaparro DO PCP - General 09/02/17 12/12/24 Yasmany Chaparro DO [address] [place] [address] PCP - General Internal Medicine 12/13/24 Yasmany Chaparro DO Historical LMR Provider 09/04/17 Kevin Anguiano MD [email or web address] Historical LMR Provider 09/04/17 Jah Zhang MD [address] [place] [address] [email or web address] Historical LMR Provider 09/04/17 documented as of this encounter Additional Source Comments The information contained in this document represents components of the legal health record. It is not the complete legal health record.[facility]
--- OUTSIDE RECORDS SUMMARY | 2025-08-29 07:16 | XMS_ITS | Encounter Summary ---
Author Organization [facility] Address [address] [facility] [address] [place] [address] Phone Care Team Providers Care Dairy Husbandry Worker Name Role Phone Yasmany Chaparro DO Primary Care Provider [phone] Yasmany Chaparro DO Unavailable Kevin Anguiano MD Unavailable [email or web address] Edison Lua MD Unavailable Destiny Estrada DIE FINISHER Unavailable Renay Yoder MD Unavailable Violeta Bedolla DO Unavailable Jah Zhang MD Unavailable Roverto Braga MD Unavailable Yulisa Suazo MD Unavailable [phone] Mónica Cruz MD Unavailable [phone] Felipa Watson DIE FINISHER Unavailable Yasmany Chaparro DO Primary Care Provider [phone] Encounter Details Date Type Department Care Team (Late st Contact Info) Description 09/10/2021 Procedure Pass [facility], [address] [address] Social History Tobacco Use Types Packs/Day Years [...] on filedocumented in this encounter Care Teams Dairy Husbandry Worker Relationship Specialty Start Date End Date Yasmany Chaparro DO PCP - General 09/02/17 12/12/24 Yasmany Chaparro DO [address] [place] [address] PCP - General Internal Medicine 12/13/24 Yasmany Chaparro DO Historical LMR Provider 09/04/17 Kevin Anguiano MD [email or web address] Historical LMR Provider 09/04/17 Edison Lua MD [address] [place] [address] Historical LMR Provider 09/04/17 Destiny Estrada NP [address] [place] [address] [email or web address] Historical LMR Provider 09/04/17 2 Renay Yoder MD [address] [place] [address] Historical LMR Provider 09/04/17 Violeta Bedolla DO [address] [place] [address] Historical LMR Provider 09/04/17 2 Jah Zhang MD [address] [facility] [place] [address] Historical LMR Provider 09/04/17 Roverto Braga MD [facility] [place] [phone] Historical LMR Provider 09/04/17 2 Yulisa Suazo MD [address] [place] [address] [facility] [place] [address] Historical LMR Provider 09/04/17 Mónica Cruz MD [address] [place] [address] Historical LMR Provider 09/04/17 2 Felipa Watson NP [address] [place] [address] Historical LMR Provider 09/04/17 2 documented as of this encounter Additional Source Comments The information contained in this document represents components of the legal health record. It is not the complete legal health record.[facility]
--- OUTSIDE RECORDS SUMMARY | 2025-08-29 07:16 | XMS_ITS | Encounter Summary ---
Author Organization [facility] Address [address] [facility] [place] [facility] [address] [place] [address] Phone Care Team Providers Care Yarn Sizer Name Role Phone Ailinkaylynn Yasmany Morro DO Primary Care Provider [phone] Yasmany Chaparro DO Unavailable Kevin Anguiano MD Unavailable [email or web address] Jah Zhang MD Unavailable [phone] Yasmany Chaparro DO Primary Care Provider [phone] Encounter Details Date Type Department Care Team (Late st Contact Info) Description 09/11/2024 Procedure Pass [facility] Admitting Dept Virtual Department [address] [place] [address] Social History Tobacco Use Types Packs/Day Years [...] on filedocumented in this encounter Care Teams Yarn Sizer Relationship Specialty Start Date End Date Yasmany Chaparro DO PCP - General 09/02/17 12/12/24 Yasmany Chaparro DO [address] [place] [address] [place] [address] PCP - General Internal Medicine 12/13/24 Yasmany Chaparro DO Historical LMR Provider 09/04/17 Kevin Anguiano MD [email or web address] Historical LMR Provider 09/04/17 Jah Zhang MD [address] [place] [address] [email or web address] Historical LMR Provider 09/04/17 documented as of this encounter Additional Source Comments The information contained in this document represents components of the legal health record. It is not the complete legal health record.[facility]
--- OUTSIDE RECORDS SUMMARY | 2025-08-29 07:16 | XMS_ITS | Encounter Summary ---
Author Organization [facility] Address [address] [facility] [address] [place] [address] Phone Care Team Providers Care Terminal Superintendent Name Role Phone Krysta Yasmany Morro DO Primary Care Provider [phone] Yasmany Chaparro DO Unavailable Kevin Anguiano MD Unavailable [email or web address] Jah Zhang MD Unavailable [phone] Yasmany Chaparro DO Primary Care Provider [phone] Encounter Details Date Type Department Care Team (Late st Contact Info) Description 02/16/2024 Procedure Pass [place] Admitting Dept - Virtual Department [address] [place] [address] Social History Tobacco Use Types Packs/Day Years Used Date Smoking Tobacco: Never Smokeless Tobacco: Never Alcohol Use Standard Drinks/Week Comments Never 0 (1 standard drink = 0.6 oz pur e alcohol) Education Answer Date Recorded Are you interested in more education? Not on darin e 03/12/2023 Are you concerned about learning? Not on file 03/12/2023 No 03/12/2023 No 03/12/2023 Digital Access Answer Date Recorded No 04/10/2023 No 04/10/2023 Reliable internet access at home? Not on file 04/10/2023 Device with a working camera? Not on file Comments No Sex and Gender Information Value Date Recorded Sex Assigned at Not on file Legal Sex Female 9:47 PM EDT Gender Identity Not on file Sexual Orientation Not on file documented as of this encounter Plan of Treatment Not on file documented as of this encounter Visit Diagnoses Not on filedocumented in this encounter Care Teams Terminal Superintendent Relationship Specialty Start Date End Date Yasmany Chaparro DO PCP - General 09/02/17 12/12/24 Yasmany Chaparro DO [address] [place] [address] [place] [address] PCP - General Internal Medicine 12/13/24 Yasmany Chaparro DO Historical LMR Provider 09/04/17 Kevin Anguiano MD [email or web address] Historical LMR Provider 09/04/17 Jah Zhang MD [address] [place] [address] [email or web address] Historical LMR Provider 09/04/17 documented as of this encounter Additional Source Comments The information contained in this document represents components of the legal health record. It is not the complete legal health record.[facility]
--- OUTSIDE RECORDS SUMMARY | 2025-08-29 07:16 | XMS_ITS | Encounter Summary ---
Author Organization [facility] Address [address] [facility] [address] [place] [address] Phone Care Team Providers Care Mechanical Engineering Technologist Name Role Phone Yasmany Chaparro DO Primary Care Provider [phone] Yasmany Chaparro DO Unavailable Kevin Anguiano MD Unavailable [email or web address] Edison Lua MD Unavailable Destiny Estrada FIBERGLASS LAMINATOR Unavailable Renay Yoder MD Unavailable Violeta Bedolla DO Unavailable Jah Zhang MD Unavailable Roverto Braga MD Unavailable Yulisa Suazo MD Unavailable [phone] Mónica Cruz MD Unavailable [phone] Felipa Watson FIBERGLASS LAMINATOR Unavailable Yasmany Chaparro DO Primary Care Provider [phone] Encounter Details Date Type Department Care Team (Late st Contact Info) Description 10/02/2020 Ancillary Orders Virtual Department 30 [place] [address] Yasmany Chaparro DO [address] [facility] [place] [address] [email or web address] Breast screening Social History Tobacco Use Types Packs/Day Years [...] of this encounter Results * BI MAMMOGRAM SCREENING WITH TOMOSYNTHESIS WITH CAD (BILATERAL) (12/25/2020 7:43 AM EST) Anatomical Region Laterality Modality Breast Left, Breast Right, Breast Bilateral Bila teral Mammography 12/25/2020 8:09 AM EST Impressions 12/25/2020 8:11 AM EST No mammographic evidence of malignancy. Recommend routine annual surveillance. BI-RADS CATEGORY: 2 - Benign finding. DENSITY: The breast tissue is heterogeneously dense, which could obscure a lesion on mammography. Narrative 12/25/2020 8:11 AM EST 60-year-old female with no current breast symptoms. Comparison made to previous on 12/21/2019 and as far back as 07/24/2014. Interpretation made in conjunction with computer-aided detection and tomosynthesis. The breasts are heterogeneously dense, which may obscure small masses. Stable bilateral calcifications and ductal ectasia. There are no suspicious masses, areas of architectural distortion, or suspicious clusters of microcalcifications. Procedure Note Giorgi Torrez MD - 12/25/2020 60-year-old female with no current breast symptoms. Comparison made toprevious on 12/21/2019 and as far back as 07/24/2014. Interpretation made inconjunction with computer-aided detection and tomosynthesis. The breasts are heterogeneously dense, which may obscure small masses.Stable bilateral calcifications and ductal ectasia. There are no suspicious masses, areas of architectural distortion, orsuspicious clusters of microcalcifications. IMPRESSION: No mammographic evidence of malignancy. Recommend routine annualsurveillance. BI-RADS CATEGORY: 2 - Benign finding. DENSITY: The breast tissue is heterogeneously dense, which could obscurea lesion on mammography. us Yasmany Chaparro DO IMG MG EXAMS Final Result documented in this encounter Visit Diagnoses Diagnosis Breast screening Breast screening, unspecified Breast screening Breast screening, unspecified documented in this encounter Care Teams Mechanical Engineering Technologist Relationship Specialty Start Date End Date Yasmany Chaparro DO [email or web address] PCP - General 09/02/17 12/12/24 Yasmany Chaparro DO [address] [place] [address] [email or web address] PCP - General Internal Medicine 12/13/24 Yasmany Chaparro DO Historical LMR Provider 09/04/17 Kevin Anguiano MD [email or web address] Historical LMR Provider 09/04/17 Edison Lua MD [address] [place] [address] Historical LMR Provider 09/04/17 Destiny Estrada NP [address] [place] [address] [email or web address] Historical LMR Provider 09/04/17 2 Renay Yoder MD [address] [place] [address] Historical LMR Provider 09/04/17 Violeta Bedolla DO [address] [place] [address] Historical LMR Provider 09/04/17 2 Jah Zhang MD [address] [facility] [address] [place] [address] Historical LMR Provider 09/04/17 Roverto Braga MD [address] [place] [phone] Historical LMR Provider 09/04/17 2 Yulisa Suazo MD [address] [place] [address] [facility], [place] [address] Historical LMR Provider 09/04/17 Mónica Cruz MD [address] [place] [address] Historical LMR Provider 09/04/17 2 Felipa Watson NP [address] [place] [address] Historical LMR Provider 09/04/17 2 documented as of this encounter Additional Source Comments The information contained in this document represents components of the legal health record. It is not the complete legal health record.[facility]
--- OUTSIDE RECORDS SUMMARY | 2025-08-29 07:16 | XMS_ITS | Encounter Summary ---
Author Organization [facility] Address [address] [facility] [address] [place] [address] Phone Care Team Providers Care Social Worker Palliative Care Name Role Phone Yasmany Chaparro DO Primary Care Provider [phone] Yasmany Chaparro DO Unavailable Kevin Anguiano MD Unavailable [email or web address] Edison Lua MD Unavailable Destiny Estrada ENT PHYSICIAN Unavailable Renay Yoder MD Unavailable Violeta Bedolla DO Unavailable Jah Zhang MD Unavailable Roverto Braga MD Unavailable Yulisa Suazo MD Unavailable [phone] Mónica Cruz MD Unavailable [phone] Felipa Watson ENT PHYSICIAN Unavailable Yasmany Chaparro DO Primary Care Provider [phone] Encounter Details Date Type Department Care Team (Late st Contact Info) Description 09/02/2020 Procedure Pass [facility] [place] [facility], [address] [address] Social History Tobacco Use Types Packs/Day Years [...] on file documented as of this encounter Last Filed Vital Signs Vital Sign Reading Time Taken Comments Blood Pressure - - Pulse - - Temperature - - Respiratory Rate - - Oxygen Saturation - - Inhaled Oxygen Concentration - - Weight 74.8 kg (165 lb) 09/05/2020 10:28 AM EDT Height 154.9 cm (5' 1 ) 09/05/2020 10:28 AM EDT Body Mass Index 31.18 09/05/2020 10:28 AM EDT documented in this encounter Plan of Treatment Not on file documented as of this encounter Visit Diagnoses Not on filedocumented in this encounter Care Teams Social Worker Palliative Care Relationship Specialty Start Date End Date Yasmany Chaparro DO PCP - General 09/02/17 12/12/24 Yasmany Chaparro DO [address] [place] [address] PCP - General Internal Medicine 12/13/24 Yasmany Chaparro DO Historical LMR Provider 09/04/17 Kevin Anguiano MD [email or web address] Historical LMR Provider 09/04/17 Edison Lua MD [address] [place] [address] Historical LMR Provider 09/04/17 Destiny Estrada NP [address] [place] [address] [email or web address] Historical LMR Provider 09/04/17 2 Renay Yoder MD [address] [facility], 2nd [place] [address] Historical LMR Provider 09/04/17 Violeta Bedolla DO [address] [place] [address] Historical LMR Provider 09/04/17 2 Jah Zhang MD [address] [facility] [place] [address] Historical LMR Provider 09/04/17 Roverto Braga MD [address] [place] [phone] Historical LMR Provider 09/04/17 2 Yulisa Suazo MD [address] [place] [address] [facility], [place] [address] Historical LMR Provider 09/04/17 Mónica Cruz MD [address], [place] [address] Historical LMR Provider 09/04/17 2 Felipa Watson NP [address] [place] [address] Historical LMR Provider 09/04/17 2 documented as of this encounter Additional Source Comments The information contained in this document represents components of the legal health record. It is not the complete legal health record.[facility]
--- OUTSIDE RECORDS SUMMARY | 2025-08-29 07:16 | XMS_ITS | Clinical Summary ---
Author Organization [facility] Address [address] [address] Phone Care Team Providers Care Art Conservator Name Role Phone Krysta Jake Hooker DO Unavailable Kevin Anguiano MD Unavailable [email or web address] Jah Zhang MD Unavailable [phone] Jake Avila DO Primary Care Provider [phone] Allergies Active Allergy Reactions Criticality Noted Date Comments Modafinil 03/09/2017 Other reaction(s): very ill,achy flu like Medications cholecalciferol, vitamin D3, 1,000 unit capsule 1,000 Units daily. Active dulaglutide (TRULICITY) 1.5 mg/0.5 mL subcutaneous injection 1.5 mg once a week. Active LORazepam (ATIVAN) 0.5 MG tablet 0.5 mg once as needed. Active atorvastatin (LIPITOR) 10 MG tablet 10 mg daily. Active DULoxetine (CYMBALTA) 60 MG capsule duloxetine 60 mg capsule,delaye d release TAKE 1 CAPSULE BY MOUTH TWICE DAILY Active esomeprazole magnesium (NEXIUM ORAL) Take by mouth daily. Active buPROPion (WELLBUTRIN XL) 150 MG ER 24 hr tablet Take 150 mg by mouth daily. Active levothyroxine (SYNTHROID, LEVOTHROID) 100 MCG tablet Take 100 mcg by mouth daily. Active traMADoL (ULTRAM) 50 mg tablet Take 1 tablets by mouth every 6-8 hours as needed for pain, maximum 400 mg/day. Patient may request partial fill. 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 right wrist, and bl knees. No historical or physical evidence s/o underlying or co-morbid inflammatory arthritis and no current indication for ongoing rheumatology-specific mgmt. Trial naproxen +/- topical diclofenac as needed. Briefly reviewed non-pharmacologic tx of knee OA including quadriceps strengthening exercise and wt loss. Would obtain updated plain films if NSAIDs not effective; happy to re-evaluate for any clinically significant change or if intra-articular steroid injection is required in future.. Right leg numbness 05/28/2023 Assessment & Plan (05/28/2023 4:12 PM EDT): ? L-spine origin though exam today unrevealing; patient advised current sxs s/o neuropathic pain > LE DVT. Recommend re-evaluation by PCP for progressively severe or persistent sxs given absence of underlying inflammatory arthritis. Hyperglycemia 03/19/2023 Lumbar radiculitis 02/04/2021 Assessment & Plan (02/04/2021 8:55 AM EDT): I think a portion of her pain is radicular especially in the left thigh both sitting and nocturnally. She has a disc extrusion at L3-4 as well as severe facet arthropathy at L for which could be referred into the left thigh as well. We discussed this today. We discussed the pros and cons of going back to physiatry to consider a fluoroscopically guided epidural injection or facet joint injection or both. Risks would be worsening of her diabetes. This likely can be managed with preprocedure knowledge and planning along with primary care. Other considerations may be towards radiofrequency ablation if steroids ineffective. She would like to think about this and will continue with PT for now. MRI was reviewed. 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 She has been stable on 90 mg of Cymbalta daily. Tramadol is used regularly but at relatively low doses and without side effects and should continue with current dose as there is no side effects with the Cymbalta. Laboratory work was reviewed. No signs or symptoms of inflammatory arthritis or other collagen vascular disorder at this time. 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 Assessment & Plan (02/04/2021 8:54 AM EDT): Continues to be symptomatic with painful tender subcutaneous nodules throughout the body. Physical therapy has begun. Unsure of eventual outcome. May continue with PT. Continue tramadol at night with ibuprofen or naproxen sodium and 25 mg of tramadol with naproxen or ibuprofen 3 times daily as needed. Lab work reviewed. No visits with results within 3 Month(s) from this visit. Latest known visit with results is: Hospital Outpatient Visit on 09/02/2020 Component Date Value Ref Range Status CB SCREEN ON HEP 2 09/02/2020 Negative Negative Final C REACTIVE PROTEIN 09/02/2020 0.8 0.0 - 4.0 mg/L Final TSH 09/02/2020 3.36 0.27 - 4.20 uIU/mL Final Assessment & Plan (12/30/2020 9:24 AM EST): Ongoing chronic recurrent tender nodules throughout the subcutaneous tissue of her arms and legs are unchanged. Continue tramadol at bedtime. Continue efforts at low inflammatory diet with caloric restriction. Assessment & Plan (10/25/2019 4:29 PM EST): Patient has multiple painful small lipomas on the upper and lower extremities. She did have a biopsy several years ago which showed uncomplicated lipoma with no malignant transformation. These are always quite tender to palpation. Gave the patient 2 ointments to try: Voltaren gel to be applied on an as-needed basis up to 3 times daily to selected areas as well as a 5% Lidoderm ointment. She did not have a good response to nabumetone I have also increased her Cymbalta from 40 mg to 60 mg a day and she will call me in 3 weeks to let me know how that works. Greater than 50% of this 28-minute visit were spent [id number] conversation with the patient going over the natural history and treatment of Dercum's disease and its relationship to chronic pain. We also talked about the risks and benefits of continued use of tramadol which she will continue at 50 mg twice daily as needed. Will avoid oral anti-inflammatories while on diclofenac gel. Recent lab work was reviewed with her. Depressive disorder 06/21/2019 Abnormal mammogram 02/25/2018 Mood disorder 02/25/2018 History of depression 02/25/2018 Hyperlipidemia 02/25/2018 Hypothyroidism 02/25/2018 Kidney stone 02/25/2018 Medullary sponge kidney 02/25/2018 Migraine 02/25/2018 Type 2 diabetes mellitus 02/25/2018 Knee pain, left 01/24/2018 Assessment & Plan (10/28/2021 9:07 AM EST): No OA on XR Suspect ITB tendinitis and PF syndrome No mechanical issues Encouraged strengthening program daily Assessment & Plan (07/10/2021 8:21 AM EDT): Likely patellofemoral disorder. X-rays reviewed. Look normal. Suggest quadricep strengthening and external knee support with a space for the patella. Assessment & Plan (12/13/2018 4:48 PM EST): Mostly patellofemoral disorder. No signs of instability or meniscal disruption. No signs of synovitis. Continue to do quadricep strengthening and wear well fitting supportive shoes with good shock absorption and pay attention to her weight. Assessment & Plan (04/26/2018 4:27 PM EDT): I reviewed patient's x-ray showing no evidence of osteoarthritis in the wrists well maintained joint spaces. The posterior pain in the popliteal fossa plus tenderness over the semimembranosus bursa is suggestive of a knee bursitis and this will be injected with cortisone today. I advised a knee support and continued efforts towards quadriceps strengthening as well as wearing well fitting supportive shoes with good shock absorption. Assessment & Plan (01/24/2018 4:52 PM EDT): Pain behind the left knee with some tenderness and fullness. Represent a semimembranosus bursitis. She will be registered for physical therapy to evaluate and treat that when she goes for her postsurgical physical therapy for her right lateral epicondylitis in the meantime we will obtain a screening x-ray of the left knee. There are really no strong signs or symptoms of mechanical derangement. We will see if she has underlying osteoarthritis. Fibromyalgia 10/26/2017 Assessment & Plan (04/17/2022 5:17 PM EDT): Pt has hx of mood disorder , poor sleep and widespread pain which is consistent with dx Treatment involves restorative sleep, controlling mood and regular exercise Combination Cymbalta and Ambien has been helpful Residual pain in hands due most likely to early OA Unable to tolerate NSAID due to GI upset Trial topical Voltaren gel Encouraged daily graded exercise program Suggest cross training Assessment & Plan (10/28/2021 9:05 AM EST): Carries dx of widespread pain with hx of mood disorder , poor sleep which is consistent with dx Treatment involves restorative sleep, controlling mood and regular exercise PCP just increased Cymbalta and Ambien added with some improvement Encouraged gardfe exercise program On Lipitor, pt to discuss holding for 2 weeks to see if myalgias in LE improve Naprosyn 500 mg BID prn and d/c tramadol Discussed the risks of NSAID use including: serious adverse cardiovascular thrombotic events, including fatal OH and stroke, serious gastrointestinal inflammation, ulceration, bleeding, and perforation as well as liver and kidney toxicity. We discussed the importance of using the lowest effective dose for the shortest interval necessary, and will continue to work to lower this dose. Pt understands that lab monitoring is required 2 x year on NSAID to include CBC ,Liver Functions, and creatinine Assessment & Plan (04/28/2021 10:27 AM EDT): I think the line between fibromyalgia and Dercum's disease with her tenderness and soreness is a little blurred here. We will try to maximize her cardiovascular capability while having her restrict calories and basically try to stay on a low inflammatory diet as much as possible. Because of the fatigue which is chronic but worsening we will check her thyroid function as well as a Lyme test a C-reactive protein and a CPK. Previous lab work was reviewed with her. No visits with results within 3 Month(s) from this visit. Latest known visit with results is: Hospital Outpatient Visit on 09/02/2020 Component Date Value Ref Range Status CB SCREEN ON HEP 2 09/02/2020 Negative Negative Final C REACTIVE PROTEIN 09/02/2020 0.8 0.0 - 4.0 mg/L Final TSH 09/02/2020 3.36 0.27 - 4.20 uIU/mL Final Assessment & Plan (12/30/2020 9:24 AM EST): With particular tenderness over the left anserine bursa and bilaterally over the trochanteric bursa and iliotibial bands I think she would benefit from therapeutic ultrasound and physical therapy. I am referring her back there. She agrees with this plan. Medications will be left unchanged for now. Laboratory work was reviewed. No visits with results within 3 Month(s) from this visit. Latest known visit with results is: Hospital Outpatient Visit on 09/02/2020 Component Date Value Ref Range Status CB SCREEN ON HEP 2 09/02/2020 Negative Negative Final C REACTIVE PROTEIN 09/02/2020 0.8 0.0 - 4.0 mg/L Final TSH 09/02/2020 3.36 0.27 - 4.20 uIU/mL Final Assessment & Plan (09/02/2020 10:31 AM EDT): Generalized tenderness fatigue and pain suggest fibromyalgia in the absence of serologic evidence of inflammatory arthritis or other collagen vascular disorder. Previous lab work in 2018 was reviewed showing a negative antinuclear antibody, negative HLA-B27, negative CCP and rheumatoid factor. In addition I believe the painful nodules represents a form of Dercum's disease. She will stay on Cymbalta at 90 mg daily. Further work-up to make sure were not missing a lumbar radiculopathy will be undertaken with an MRI of the lumbar spine. In addition as she has not had serologic work-up for a while, though a full work-up will not be repeated, she will have an antinuclear antibody, TSH with reflex and a C-reactive protein ordered. Total of 28 minutes was spent during this visit of which half was spent in direct contact with the patient. Assessment & Plan (08/08/2019 2:43 PM EDT): Active fibromyalgia. Cymbalta will be increased from 30 mg daily to 40 mg daily and she will restart nabumetone at 1500 mg daily. I encouraged use of vitamin D3 1000 units daily. Assessment & Plan (03/13/2019 4:32 PM EDT): She is actually doing better with this. She has lost a little bit of weight, she is eating healthier, she is getting a bit more exercise, but she is under a lot of stress taking care of her sick mother with ALS. We will continue on Cymbalta 30 mg daily. She is having no side effects to this. Lab work will be checked. Options were answered about fibromyalgia and she will try to get some low impact cardiovascular training in. Talked about the utility of a low inflammatory Mediterranean style diet as well. Assessment & Plan (12/13/2018 4:49 PM EST): Multiple tender points, continued fatigue, and interrupted sleep, all suggest active fibromyalgia. We discussed the relationship between osteoarthritis, stress, diabetes, and fibromyalgia. We also talked about her caring for her mother who was recently diagnosed with ALS. Medications will remain unchanged except an increase in her Cymbalta from 20 mg daily to 30 mg daily. I encouraged her compliance with vitamin D3. Talked about the relationship between serum vitamin D levels and achiness and fatigue. Refilled her tramadol today. Assessment & Plan (08/12/2018 5:00 PM EDT): Continue Cymbalta, continue vitamin D and cyclobenzaprine. Refill tramadol today. May use nabumetone at 1500 mg daily on a as needed basis. Discussed natural history of fibromyalgia, need for continued weight loss and healthy Mediterranean low inflammatory diet. No evidence for inflammatory arthropathy. Fibromyalgia is active but stable. I talked about the possibility of increasing the dose of Cymbalta. I recommended a walking program. Other than 50% of this 28-minute visit was spent in [id number] conversation with the patient going over treatment and natural history of fibromyalgia and chronic pain risks and benefits of her current medication as well as fall and fracture prevention strategies. Assessment & Plan (04/26/2018 4:27 PM EDT): Doing fair. We will restart vitamin D3 which she is not taking at 1000 units a day, continue Cymbalta at 20 mg a day and refill Flexeril at 5 mg at bedtime. Low inflammatory Mediterranean-style diet and gentle cardiovascular exercise is recommended. Assessment & Plan (01/24/2018 4:52 PM EDT): Active but stable and under reasonably good control on current medications. She will continue to follow a low inflammatory Mediterranean-style diet. Assessment & Plan (10/26/2017 4:56 PM EST): Active but stable with diffuse polyarthralgias and myalgias but no evidence of synovitis and we did have a discussion today concerning the risks and benefits of cyclobenzaprine which she will remain on at 5 mg at bedtime but she may on occasion increase this to 10 mg. We will keep her duloxetine well at 20 mg daily and I asked her to add a 500 mg acetaminophen tablets each tramadol dose of 50 mg which she now takes twice daily. We also discussed a therapeutic Mediterranean anti- inflammatory diet, walking program and weight reduction. All of her questions were answered during a 28 minute visit during which 50% of the time was spent in [id number] discussion going over the above items. Primary osteoarthritis of both hands 10/26/2017 Assessment & Plan (07/10/2021 8:21 AM EDT): Hypermobility and mild early basilar thumb and interphalangeal osteoarthritis. Discussed natural history of this, the need for warmth, the benefit of intrinsic muscle strengthening, and large behavioral geneticist on tools and utensils and judicious use of warmth. Assessment & Plan (04/28/2021 10:28 AM EDT): He does have the beginnings of some tender Heberden's nodes in several of the DIP joints and I did explain to her the natural history of slowly progressive inflammatory osteoarthritis. Assessment & Plan (08/08/2019 2:43 PM EDT): Discussed natural history of inflammatory osteoarthritis and the need for enlarged behavioral geneticist on tools and utensils and the judicious use of warmth. Assessment & Plan (03/13/2019 4:31 PM EDT): He has a new nonsymptomatic Heberden's node in the left second DIP joint. We discussed intrinsic muscle strengthening, and large behavioral geneticist on tools and utensils and the judicious use of warmth. Assessment & Plan (12/13/2018 4:48 PM EST): Mild bilateral interphalangeal osteoarthritis will continue to be treated with warmth, acetaminophen, tramadol as needed, exercises for the intrinsic muscles of the hands, enlarged behavioral geneticist on tools and utensils. No evidence for Dupuytren's contractures or diabetic hand syndrome. Assessment & Plan (10/26/2017 4:56 PM EST): Stable and symptomatic without evidence of neuropathy. It involves mostly the PIP joints bilaterally and mostly in the right hand. We spoke about exercising and strengthening the intrinsic muscles of both hands using a soft rubber ball and judicious use of warmth. History of right lateral epicondylitis 7 Assessment & Plan (03/13/2019 4:31 PM EDT): Status post surgical treatment for the right lateral epicondylitis she is now having more pain in her exam points to involvement of the common extensor tendon sheath and the origin of this on the lateral epicondyle. She has been referred to physical therapy to evaluate and treat and do a series of therapeutic ultrasounds as well as electrical stimulation. I have also put her back on 1500 mg daily of nabumetone and refill the medication. We discussed risks and benefits. Assessment & Plan (12/13/2018 4:49 PM EST): Well-healed surgical scar over the right lateral epicondyle with full pain-free range of motion of the right elbow and no crepitance or pain elicited on pronation or supination over the common extensor tendon sheath. Assessment & Plan (08/12/2018 4:59 PM EDT): Continue home exercise program to stretch and strengthen the common extensor tendon sheath. Assessment & Plan (04/26/2018 4:28 PM EDT): She underwent surgery for this and did quite well without operative complications. She is undergoing physical therapy now. The incision looks good. Assessment & Plan (01/24/2018 4:51 PM EDT): Patient will have definitive surgical solution for right lateral epicondylitis as she has failed conservative therapy. She will then didn't need to do his stretching and strengthening program for the common extensor tendon sheath. Assessment & Plan (10/26/2017 4:57 PM EST): She has responded favorably benefit from with only short-term relief to previous corticosteroid injections in next week at my request she is seeing an deployment specialist of the forearm. Resolved Problems Problem Noted Date Diagnosed Date Resolved Date Spondylosis of cervical jarrell on without myelopathy or radiculopathy 08/08/2019 10/28/2021 Assessment & Plan (08/08/2019 2:44 PM EDT): Painful loss in range of motion is suggestive of cervical spondylosis without long track signs or radiculopathy. Nabumetone should help as should the increased dose of Cymbalta and I will refer her to physical therapy to evaluate and treat her. Greater than 50% of this 28-minute visit was spent [id number] conversation with the patient coordinating my care with out of her primary care physician and physical therapist. Encounters Date Type Department Care Team Description 07/06/2025 Telephone [facility] [address] [place] [address] Radha Huston MD Appointment from Last 3 Months Immunizations Immunization Administration Dates Next Due COVID-19 (Pre-09/06) Moderna Vaccine, mRNA, PF 03/07/2021,02/07/2021 Influenza Quadrivalent MDCK Preservative Free IM 08/16/2018 Influenza Quadrivalent Prese rvative Free IM 08/26/2021,08/04/2020,08/15/2019,2016 Influenza Quadrivalent w/ Preservative IM 10/10/2020,08/14/2019,08/23/2018 Tdap 04/09/2018 Family History Medical History Relation Comments Breast cancer Cousin maternal Cancer Father Colon cancer Cardiovascular disease Father Hypertension Father ALS Mother Pulmonary fibrosis Mother Relation Status Comments Cousin Father Mother Social History Tobacco Use Types Packs/Day Years Used Date Smoking Tobacco: Never Smokeless Tobacco: Never Tobacco Cessation:Counseling Given: Not Answered Alcohol Use Standard Drinks/Week Comments Never 0 [...] on file Sexual Orientation Not on file Last Filed Vital Signs Vital Sign Reading Time Taken Comments Blood Pressure 161/84 12/15/2024 10:30 AM EST Pulse 81 12/15/2024 10:30 AM EST Temperature 36.3 C (97.3 F) 12/15/2024 9:21 AM EST Respiratory Rate 13 12/15/2024 10:30 AM EST Oxygen Saturation 100% 12/15/2024 10:30 AM EST Inhaled Oxygen Concentration - - Weight 75.8 kg (167 lb) 12/15/2024 7:45 AM EST Height 154.9 cm (5' 1 ) 12/15/2024 7:45 AM EST Body Mass Index 31.55 12/15/2024 7:45 AM EST Plan of Treatment Health Maintenance Due Date Last Done Comments DEPRESSION SCREENING 1973 HEPATITIS C SCREENING 1979 HIV ONE-TIME SCREENING (18-65 YEARS) 1979 PNEUMOCOCCAL VACCINES (50+ years) (1 of 2 - PCV) 02/19/1980 COLOGUARD 2006 FIT TEST 2006 FOBT 2006 SIGMOIDOSCOPY 2006 VIRTUAL COLONOSCOPY 2006 ZOSTER VACCINES (1 of 2) 2011 DIABETIC EYE EXAM 06/20/2020 URINE MICROALBUMIN/CREATININE RATIO 06/20/2020 TSH LEVEL 04/28/2022 04/28/2021, 09/02/2020 PAP SMEAR 03/11/2023 03/11/2018, 03/11/2018 HEMOGLOBIN A1C 05/02/2025 11/01/2024 BLOOD PRESSURE 06/11/2025 12/12/2024 INFLUENZA VACCINE (#1) 2025 , 08/20/2023, 08/18/2022, Additional history exists COVID-19 VACCINE ( - season) 2025 03/07/2021, 02/07/2021 MAMMOGRAM 01/24/2026 01/25/2024, 12/16, 12/26/2021, Additional history exists Adult Td,Tdap Booster 04/09/2028 04/09/2018 COLONOSCOPY 09/11/2034 09/11/2024, 08/11/2021 COLORECTAL CANCER SCREENING 09/11/2034 RSV VACCINE (1 - 1-dose 75+ series) 02/19/2036 SMOKING STATUS SCREENING (Once After 26 Yrs) Completed 12/15/2024 HEPATITIS A VACCINES Aged Out No long er eligible based on patient's age to complete this topic HIB VACCINES Aged Out No longer eligi ble based on patient's age to complete this topic MENINGOCOCCAL VACCINES (ACWY) Aged Out No longer eligible based on patient's age to complete this topic MENINGOCOCCAL VACCINES (B) Aged Out N o longer eligible based on patient's age to complete this topic Medical Devices Implanted Type Area Mash Filter Press Operator Device Identifier Shelf Expiration Date Model / Serial / Lot Marker Biopsy 13mm Site [employer] For Eviva Ti Net Bioabsorbable Shape 1 Mini Cork Bx/10ea - [id number] Implanted:Qty: 1 on 04/19/2024 by Shaun Desir MD at [facility] Clip Right: Breast [employer] 10/20/2024 SMARK-EVIV A-[id number] / / [id number] Description:Top hat shaped t itanium marker Procedures Procedure Name Priority Date/Time Associated Diagnosis Comments HEMOGLOBIN A1C Routine 11/01/2024 8:33 AM EST Type 2 diabetes mellitus without complication, unspecified whether terminal supervisor insulin use ENDOSCOPY, COLON 09/11/2024 8:22 AM EDT BI MAMMOGRAM SCREENING WITH TOMOSYNTHESIS WITH CAD (BILATERAL) Routine 01/25/2024 7:53 AM EDT Breast screening TSH WITH REFLEX Routine 04/28/2021 8:33 AM EDT Fibromyalgia PAP TEST Routine 03/11/2018 12:00 AM EDT from Last 3 Months or Most Recently Relevant to Health Maintenance Results * (ABNORMAL) Hemoglobin A1c (11/01/2024 8:33 AM EST) HEMOGLOBIN A1C 6.0(H) 4.3 - 5.8 % [facility] Blood 11/01/2024 8:33 AM EST 11/01/2024 8:35 AM EST us Jake Avila DO LAB BLOOD ORDERABLES Final Resul t [facility] [address] [place] [address] * ENDOSCOPY, COLON (09/11/2024 8:22 AM EDT) Narrative Transcriptions Bhavesh Wan MD - 09/11/2024 8:22 AM EDT [facility] Patient Name: Jyoti Jonesedwige Attending MD:: BHAVESH WAN MD, Procedure Date: 09/11/2024 8:22 AM Date of : 1960 Age: 64 Admit Type: Outpatient Gender: Female Room: [place] [address] Referring MD: JAKE AVILA DO Exam Type: Colonoscopy Indications: Screening in patient at increased risk: Colorectal cancer in father 60 or older, High risk coloncancer surveillance: Personal history of colonic polyps,High risk colon cancer surveillance: Personal history of multiple (3 or more) adenomas, Last colonoscopy: July 2021 Medications: Monitored Anesthesia Care Procedure: Informed consent was obtained from the patientafter discussion of the indications, limitations, alternatives, benefits, and risks of the procedure. Risks specifically discussed include but are not limited to medication reactions, missed lesions, bleeding, perforation, or the need for emergent surgery. Throughout the procedure, the patient's blood pressure, pulse, end-tidal CO2, and oxygensaturations were monitored continuously. The Colonoscope was introduced through the anus and advanced to the cecum, identified by theappendiceal orifice, ileocecal valve and palpation. The colonoscopy was performed without difficulty. The patient tolerated the procedure fairly well. The quality of the bowel preparation was evaluatedusing the BBPS ([place] Bowel Preparation Scale) withscores of: Right Colon = 3, Transverse Colon = 3 and Left Colon = 3 (entire mucosa seen well with no residual staining, small fragments of stool or opaqueliquid). The total BBPS score equals 9. The ileocecal valve, appendiceal orifice, and rectum werephotographed. Complications: No immediate complications. Estimated blood loss:None. Findings: The perianal and digital rectal examinations were normal. Pertinent negatives include normalsphincter tone. A 7 mm polyp was found in the descending colon at40 cm proximal to the anus. The polyp was sessile. The polyp was removed with a cold snare. Resection and retrieval were complete. Estimated blood loss was minimal. Retroflexion in the right colon was performed. Non-bleeding internal hemorrhoids were found during retroflexion. The hemorrhoids were moderate. The exam was otherwise without abnormality ondirect and retroflexion views. Impression: - One 7 mm polyp in the descending colon at 40 cm proximal to the anus, removed with a cold snare. Resected and retrieved. - Non-bleeding internal hemorrhoids. - The examination was otherwise normal on directand retroflexion views. Recommendation: - I will send results of your biopsy to you andyour referring physician or provider. If you do notreceive notification within 3 weeks, please call ouroffice. - Repeat colonoscopy in 5 years for surveillancebased on pathology results. - Patient has a contact number available for emergencies. The signs and symptoms of potential delayed complications were discussed with thepatient. Return to normal activities tomorrow. Written discharge instructions were provided to thepatient. BHAVESH WAN MD 09/11/2024 8:43:17 AM This report has been signed electronically. Number of Addenda: 0 Note Initiated On: 09/11/2024 8:22 AM Procedure Code(s): --- Professional --- 41394, Colonoscopy, flexible; with removal of tumor(s), polyp(s), or other lesion(s) by snare technique --- Technical --- 46228, Colonoscopy, flexible; with removal of tumor(s), polyp(s), or other lesion(s) by snare technique Diagnosis Code(s): --- Professional --- Z80.0, Family history of malignant neoplasm of digestive organs Z86.010, Personal history of colonic polyps D12.4, Benign neoplasm of descending colon K64.8, Other hemorrhoids --- Technical --- Z80.0, Family history of malignant neoplasm of digestive organs Z86.010, Personal history of colonic polyps D12.4, Benign neoplasm of descending colon K64.8, Other hemorrhoids CPT copyright 2021 [employer]. All rights reserved. The codes documented in this report are preliminary and upon police sergeant precinct reviewmay be revised to meet current compliance requirements. Procedure Date: 09/11/2024 8:22:[address] [place] [address] us Jake A Bigda DO GI PROCEDURE ORDERABLES Final Re sult * (ABNORMAL) BI MAMMOGRAM SCREENING WITH TOMOSYNTHESIS WITH CAD (BILATERAL) (01/25/2024 7:53 AM EDT) Anatomical Region Laterality Modality Breast Left, Breast Right, Breast Bilateral Bila teral Mammography 01/26/2024 11:2 4 AM EDT Impressions 01/26/2024 11:30 AM EDT 1. Indeterminate calcifications in the right breast for which additional imaging is recommended with diagnostic mammography including magnification views. 2. No mammographic evidence of malignancy in the left breast. BI-RADS 0 INCOMPLETE Needs additional imaging evaluation The patient will be notified of the results and recommendations. The mammography department will contact the patient to arrange for the additional imaging. Narrative 01/26/2024 11:30 AM EDT BI MAMMOGRAM SCREENING WITH TOMOSYNTHESIS WITH CAD (BILATERAL) Additional patient information: Screening. COMPARISON: Comparison is made with relevant prior imaging. Breast composition: The breast tissue is heterogeneously dense which may obscure small masses. FINDINGS: Right Indeterminate calcifications are present in the upper outer right breast 6 cm from the nipple, new calcifications are adjacent to stable larger course and regional punctate calcifications. Left No abnormal masses, suspicious calcifications, or other significant findings are identified mammographically in the left breast. Procedure Note Pretty Vail MD - 01/26/2024 BI MAMMOGRAM SCREENING WITH TOMOSYNTHESIS WITH CAD (BILATERAL) Additional patient information: Screening. COMPARISON: Comparison is made with relevant prior imaging. Breast composition: The breast tissue is heterogeneously dense which mayobscure small masses. FINDINGS: Right Indeterminate calcifications are present in the upper outer right breast 6cm from the nipple, new calcifications are adjacent to stable largercourse and regional punctate calcifications. Left No abnormal masses, suspicious calcifications, or other significantfindings are identified mammographically in the left breast. IMPRESSION: 1. Indeterminate calcifications in the right breast for which additionalimaging is recommended with diagnostic mammography including magnificationviews. 2. No mammographic evidence of malignancy in the left breast. BI-RADS 0 INCOMPLETE Needs additional imaging evaluation The patient will be notified of the results and recommendations. Themammography department will contact the patient to arrange for theadditional imaging. us Jake A Bigda DO IMG MG EXAMS Final Result * TSH with reflex (04/28/2021 8:33 AM EDT) TSH 3.55 0.27 - 4.20 uIU/mL [facility] Blood 04/28/2021 8:33 AM EDT 04/28/2021 8:38 AM EDT us Kevin Anguiano MD LAB BLOOD ORDERABLES Final Result [address] [address] * Pap Smear (03/11/2018 12:00 AM EDT) 03/11/2018 03/14/2018 12: 56 PM EDT Narrative SEE NARRATIVE - 03/18/2018 9:01 AM EDT [address] [address] Communication Manager: Terri Ham MD RAG ROOM SUPERVISOR Cytology Report FINAL DIAGNOSIS A. PAP SMEAR (SUREPATH) CE: SPECIMEN ADEQUACY: Satisfactory for evaluation; transformation zone present. INTERPRETATION: NEGATIVE FOR INTRAEPITHELIAL LESION OR MALIGNANCY. Electronically Signed Out By: JULIANN Irwin(ASCP) The Pap test is a screening test primarily for squamous cancers and precursors and has associated false-negative and false-positive results. New technologies such as liquid-based preparations may decrease but will not eliminate all false-negative results. Regular sampling and follow-up of unexplained clinical signs and symptoms are recommended to minimize false negative results. PROCEDURES/ADDENDA HPV Testing (Requested) Ordered Date: 03/14/2018 HPV Test Negative for high risk human papillomavirus types 16, 18 and the Other high risk probe set (Includes 31, 33, 35, 39, 45, 51, 52, 56, 58, 59, 66, 68) by Judd cobase 4800 HR-HPV analysis. Clinical correlation is advised. This HPV test was performed at [facility], [address] [place] [address]. The accuracy and precision of this test has been verified in the Cytopathology laboratory of the [facility]. This test has not been cleared or approved by the U.S. Food and Drug Administration (FDA). CLINICAL HISTORY Date of Last Menstrual Period: Not Provided Menstrual History: Post Menopausal Other Clinical Conditions: Screening Pap normal SPECIMEN SOURCE A: PAP SMEAR (SUREPATH) CE Patient Name: JYOTI WHITTAKER : 1960 (Age: 58) Sex: F Institution: [facility] Location: [facility] Date of Collection: 03/11/2018 Date of Reported: 03/18/2018 09:01 Results to: Jah Zhang MD, BS Jah Zhang MD CYTOLOGY ORDERABLES Final Res ult SEE NARRATIVE from Last 3 Months or Most Recently Relevant to Health Maintenance [place] [place] [address] [place] [address] Care Teams Art Conservator Relationship Specialty Start Date End Date Jake Avila DO [address] [place] [address] PCP - General Internal Medicine 12/13/24 Jake Avila DO Historical LMR Provider 09/04/17 Kevin Anguiano MD [email or web address] Historical LMR Provider 09/04/17 Jah Zhang MD [address] [facility] [address] [place] [address] [email or web address] Historical LMR Provider 09/04/17 Additional Source Comments The information contained in this document represents components of the legal health record. It is not the complete legal health record.[facility]
--- OUTSIDE RECORDS SUMMARY | 2025-08-29 07:16 | XMS_ITS | Encounter Summary ---
Author Organization [facility] Address [address] [facility] [address] [place] [address] Phone Care Team Providers Care Cyber Security Name Role Phone Ailinkaylynn Yasmany Hooker DO Unavailable Kevin Anugiano MD Unavailable [email or web address] Jah Zhang MD Unavailable [phone] Yasmany Chaparro DO Primary Care Provider [phone] Encounter Details Date Type Department Care Team (Late st Contact Info) Description 12/13/2024 Prep for Surgery [facility] Orthopedics & Sports Medicine [address] [place] [id number] Yenifer lOsen MD [address] [place] [address] Orthopedics & Sports Medicine, [facility] [place] [address] [email or web address] Social History Tobacco Use Types Packs/Day Years [...] on filedocumented in this encounter Care Teams Cyber Security Relationship Specialty Start Date End Date Yasmany Chaparro DO [address] [place] [address] [place] [address] PCP - General Internal Medicine 12/13/24 Yasmany Chaparro DO Historical LMR Provider 09/04/17 Kevin Anguiano MD [email or web address] Historical LMR Provider 09/04/17 Jah Zhang MD [address] [place] [address] Historical LMR Provider 09/04/17 documented as of this encounter Additional Source Comments The information contained in this document represents components of the legal health record. It is not the complete legal health record.[facility]
--- OUTSIDE RECORDS SUMMARY | 2025-08-29 07:17 | XMS_ITS | Encounter Summary ---
Author Organization [facility] Address [address] [facility] [address] [place] [address] Phone Care Team Providers Care Clutch Rebuilder Name Role Phone Yasmany Chaparro DO Primary Care Provider [phone] Yasmany Chaparro DO Unavailable Kevin Anguiano MD Unavailable [email or web address] Jah Zhang MD Unavailable [phone] Yasmany Chaparro DO Primary Care Provider [phone] Encounter Details Date Type Department Care Team (Late st Contact Info) Description 12/16/2022 Procedure Pass [facility], Ct Scan - [address] [address] Social History Tobacco Use Types Packs/Day Years [...] on filedocumented in this encounter Care Teams Clutch Rebuilder Relationship Specialty Start Date End Date Yasmany Chaparro DO PCP - General 09/02/17 12/12/24 Yasmany Chaparro DO [address] [place] [address] PCP - General Internal Medicine 12/13/24 Yasmany Chaparro DO Historical LMR Provider 09/04/17 Kevin Anguiano MD [email or web address] Historical LMR Provider 09/04/17 Jah Zhang MD [address] [address] [email or web address] Historical LMR Provider 09/04/17 documented as of this encounter Additional Source Comments The information contained in this document represents components of the legal health record. It is not the complete legal health record.[facility]
--- OUTSIDE RECORDS SUMMARY | 2025-08-29 07:17 | XMS_ITS | Encounter Summary ---
Author Organization [facility] Address [address] [facility] [address] [place] [address] Phone Care Team Providers Care Construction Project Mgr Name Role Phone Yasmany Chaparro DO Primary Care Provider [phone] Yasmany Chaparro DO Unavailable Kevin Anguiano MD Unavailable [email or web address] Jah Zhang MD Unavailable [phone] Yasmany Chaparro DO Primary Care Provider [phone] Encounter Details Date Type Department Care Team (Late st Contact Info) Description 02/05/2023 Procedure Pass [address] [address] Social History Tobacco Use Types Packs/Day Years [...] on filedocumented in this encounter Care Teams Construction Project Mgr Relationship Specialty Start Date End Date Yasmany Chaparro DO PCP - General 09/02/17 12/12/24 Yasmany Chaparro DO [address] [facility] [place] [address] PCP - General Internal Medicine 12/13/24 Yasmany Chaparro DO Historical LMR Provider 09/04/17 Kevin Anguiano MD [email or web address] Historical LMR Provider 09/04/17 Jah Zhang MD [address] [address] [email or web address] Historical LMR Provider 09/04/17 documented as of this encounter Additional Source Comments The information contained in this document represents components of the legal health record. It is not the complete legal health record.[facility]
--- OUTSIDE RECORDS SUMMARY | 2025-08-29 07:17 | XMS_ITS | Encounter Summary ---
Author Organization [facility] Address [address] [facility] [address] [place] [address] Phone Care Team Providers Care Superintendent System Operation Name Role Phone Yasmany Chaparro DO Primary Care Provider [phone] Yasmany Chaparro DO Unavailable Kevin Anguiano MD Unavailable [email or web address] Edison Lua MD Unavailable Destiny Estrada DRY CELL BATTERY ASSEMBLER Unavailable Renay Yoder MD Unavailable Violeta Bedolla DO Unavailable [phone] Jah Zhang MD Unavailable Roverto Braga MD Unavailable [phone] Yulisa Suazo MD Unavailable [phone] Mónica Cruz MD Unavailable [phone] Felipa Watson DRY CELL BATTERY ASSEMBLER Unavailable Yasmany Chaparro DO Primary Care Provider [phone] Encounter Details Date Type Department Care Team (Late st Contact Info) Description 10/05/2018 Ancillary Orders Virtual Department [address] [place] [address] Yasmany Chaparro DO [address] [facility] [place] [address] [email or web address] Breast screening Social History Tobacco Use Types [...] MAMMOGRAM SCREENING WITH TOMOSYNTHESIS WITH CAD (BILATERAL) (12/20/2018 7:42 AM EST) Anatomical Region Laterality Modality Breast Left, Breast Right, Breast Bilateral Bila teral Mammography 12/20/2018 1:44 PM EST Impressions 12/20/2018 1:49 PM EST No mammographic change indicative of malignancy. Routine screening is recommended. BI-RADS CATEGORY: 2 - Benign finding. DENSITY: There are scattered fibroglandular densities. POS - CDHMAM2 Narrative 12/20/2018 1:49 PM EST FINDINGS: Bilateral full-field digital screening mammography is obtained and read in conjunction with computer-aided detection. 3-D tomosynthesis as well as 2-D C view imaging is also performed. Comparison includes the most recent exam from 12/16/2017 and as far back as 06/23/2012. Breasts are composed of scattered fibroglandular tissue. No worrisome interval change in scattered bilateral calcifications. No new suspicious mass, suspicious microcalcifications, architectural distortion, focal skin thickening, or new asymmetry is detected. Procedure Note Roberto Galvan MD - 12/20/2018 FINDINGS: Bilateral full-field digital screening mammography is obtained and read inconjunction with computer-aided detection. 3-D tomosynthesis as well as2-D C view imaging is also performed. Comparison includes the most recentexam from 12/16/2017 and as far back as 06/23/2012. Breasts are composed of scattered fibroglandular tissue. No worrisomeinterval change in scattered bilateral calcifications. No new suspiciousmass, suspicious microcalcifications, architectural distortion, focal skinthickening, or new asymmetry is detected. IMPRESSION: No mammographic change indicative of malignancy. Routine screening isrecommended. BI-RADS CATEGORY: 2 - Benign finding. DENSITY: There are scattered fibroglandular densities. POS - CDHMAM2 us Yasmany Chaparro DO IMG MG EXAMS Final Result documented in this encounter Visit Diagnoses Diagnosis Breast screening Breast screening, unspecified Breast screening Breast screening, unspecified documented in this encounter Care Teams Superintendent System Operation Relationship Specialty Start Date End Date Yasmany Chaparro DO PCP - General 09/02/17 12/12/24 Yasmany Chaparro DO [address] [place] [address] PCP - General Internal Medicine 12/13/24 Yasmany Chaparro DO Historical LMR Provider 09/04/17 Kevin Anguiano MD [email or web address] Historical LMR Provider 09/04/17 Edison Lua MD [address] [place] [address] Historical LMR Provider 09/04/17 Destiny Estrada NP [address] [place] [address] [email or web address] Historical LMR Provider 09/04/17 2 Renay Yoder MD [address] [facility], 2nd [place] [address] [email or web address] Historical LMR Provider 09/04/17 Violeta Bedolla DO [address] [place] [address] Historical LMR Provider 09/04/17 2 Jah Zhang MD [address] [facility] [place] [address] [email or web address] Historical LMR Provider 09/04/17 Roverto Braga MD [address] [place] [phone] Historical LMR Provider 09/04/17 2 Yulisa Suazo MD [address] [place] [address] Orthopedics & Sports Medicine, [place] [address] [email or web address] Historical LMR Provider 09/04/17 Mónica Cruz MD [address], [place] [phone] Historical LMR Provider 09/04/17 2 Felipa Watson NP [address] [place] [address] Historical LMR Provider 09/04/17 2 documented as of this encounter Additional Source Comments The information contained in this document represents components of the legal health record. It is not the complete legal health record.[facility]
--- OUTSIDE RECORDS SUMMARY | 2025-08-29 07:17 | XMS_ITS | Encounter Summary ---
Author Organization [facility] Address [address] [facility] [address] [place] [address] Phone Care Team Providers Care Channeler Insole Name Role Phone Yasmany Chaparro DO Primary Care Provider [phone] Yasmany Chaparro DO Unavailable Kevin Anguiano MD Unavailable [email or web address] Jah Zhang MD Unavailable [phone] Yasmany Chaparro DO Primary Care Provider [phone] Encounter Details Date Type Department Care Team (Late st Contact Info) Description 01/26/2024 Ancillary Orders [facility] [address] [place] [address] Yasmany Chaparro DO [address] [facility] [place] [address] [email or web address] Abnormal finding on mammography, microcalcification (Primary Dx) Social History Tobacco Use Types Packs/Day Years Used Date Smoking Tobacco: Never Smokeless Tobacco: Never Alcohol Use Standard Drinks/Week Comments Not Currently 0 (1 standard drink = 0.6 oz pur e alcohol) Socially Education Answer Date Recorded Are you interested [...] documented as of this encounter Results * (ABNORMAL) BI MAMMOGRAM DIAGNOSTIC WITH TOMOSYNTHESIS WITH CAD (RIGHT) (03/24/2024 10:53 AM EDT) Anatomical Region Laterality Modality Breast Right, Breast Bilateral Right M ammography 03/24/2024 11:1 0 AM EDT Impressions 03/24/2024 11:34 AM EDT Mildly suspicious microcalcifications in the upper outer right breast for which stereotactic breast biopsy is recommended. BI-RADS 4A SUSPICIOUS Discussed in detail with the patient immediately following the imaging. Narrative 03/24/2024 11:34 AM EDT BI MAMMOGRAM DIAGNOSTIC WITH TOMOSYNTHESIS WITH CAD (RIGHT) Additional patient information: COMPARISON: Comparison is made with relevant prior imaging. Breast composition: The breast tissue is heterogeneously dense which may obscure small masses. FINDINGS: Right Mammogram: Persisting group of microcalcifications in the upper outer right breast and lung benign coarse calcifications. While many of these are punctate and there is evidence of a few microcalcifications layering in a fashion typical of benign milk of calcium. Microcalcifications are indeterminant. No evidence of an underlying mass or architectural distortion. Procedure Note Shaun Desir MD - 03/24/2024 BI MAMMOGRAM DIAGNOSTIC WITH TOMOSYNTHESIS WITH CAD (RIGHT) Additional patient information: COMPARISON: Comparison is made with relevant prior imaging. Breast composition: The breast tissue is heterogeneously dense which mayobscure small masses. FINDINGS: Right Mammogram: Persisting group of microcalcifications in the upper outer right breastand lung benign coarse calcifications. While many of these are punctateand there is evidence of a few microcalcifications layering in a fashiontypical of benign milk of calcium. Microcalcifications are indeterminant.No evidence of an underlying mass or architectural distortion. IMPRESSION: Mildly suspicious microcalcifications in the upper outer right breast forwhich stereotactic breast biopsy is recommended. BI-RADS 4A SUSPICIOUS Discussed in detail with the patient immediately following the imaging. us Yasmany Chaparro DO IMG MG EXAMS Final Result documented in this encounter Visit Diagnoses Diagnosis Abnormal finding on mammography, microcalcification- Primary Abnormal finding on mammography, microcalcification documented in this encounter Care Teams Channeler Insole Relationship Specialty Start Date End Date Yasmany Chaparro DO [email or web address] PCP - General 09/02/17 12/12/24 Yasmany Chaparro DO [address] [facility] [place] [address] PCP - General Internal Medicine 12/13/24 Yasmany Chaparro DO [email or web address] Historical LMR Provider 09/04/17 Kevin Anguiano MD [email or web address] Historical LMR Provider 09/04/17 Jah Zhang MD [address] [facility] [address] [place] [address] Historical LMR Provider 09/04/17 documented as of this encounter Additional Source Comments The information contained in this document represents components of the legal health record. It is not the complete legal health record.[facility]
--- OUTSIDE RECORDS SUMMARY | 2025-08-29 07:17 | XMS_ITS | Encounter Summary ---
Author Organization [facility] Address [address] [facility] [address] [place] [address] Phone Care Team Providers Care Events Assistant Name Role Phone Yasmany Chaparro DO Primary Care Provider [phone] Yasmany Chaparro DO Unavailable Kevin Anguiano MD Unavailable [email or web address] Edison Lua MD Unavailable Destiny Estrada MOLD STACKER Unavailable Renay Yoder MD Unavailable Violeta Bedolla DO Unavailable Jah Zhang MD Unavailable Roverto Braga MD Unavailable Yulisa Suazo MD Unavailable Mónica Cruz MD Unavailable [phone] Felipa Watson MOLD STACKER Unavailable Yasmany Chaparro DO Primary Care Provider [phone] Reason for Referral * Occupational Therapy (Routine) - Closed Specialty Diagnoses / Procedures Referred By Sharyn workman Referred To Contact Occupational Therapy Diagnoses Encounter for rehabilitation System, Provider Not In, PhD [address] [address] Phone: tel: Referral ID Status Reason Start Date Expiration Date Visits Re quested Visits Authorized [id number] Closed 03/24/2018 11/14/2018 20 20 Encounter Details Date Type Department Care Team (Latest Contact Info) Description 03/17/2018 Transcribe Orders [facility] [address] [place] [address] Shaun Kapadia PA [address] [place] [address] Encounter for rehabilitation (Primary Dx) Social History Tobacco Use Types [...] as of this encounter Plan of Treatment Scheduled Referrals Name Type Priority Associated Diagnoses Orde r Schedule Ambulatory referral to [facility] Occupational Therapy Outpatient Referral Routine Encounter for rehabilitation Ordered: 03/17/2018 documented as of this encounter Visit Diagnoses Diagnosis Encounter for rehabilitation- Primary documented in this encounter Care Teams Events Assistant Relationship Specialty Start Date End Date Yasmany Chaparro DO PCP - General 09/02/17 12/12/24 Yasmany Chaparro DO [address] [place] [address] PCP - General Internal Medicine 12/13/24 Yasmany Chaparro DO Historical LMR Provider 09/04/17 Kevin Anguiano MD [email or web address] Historical LMR Provider 09/04/17 Edison Lua MD [address] [place] [address] Historical LMR Provider 09/04/17 Destiny Estrada NP [address] [place] [address] [email or web address] Historical LMR Provider 09/04/17 2 Renay Yoder MD [address] [facility], [address] [place] [address] [email or web address] Historical LMR Provider 09/04/17 Violeta Bedolla DO [address] [place] [address] Historical LMR Provider 09/04/17 2 Jah Zhang MD [address] [facility], [address] [place] [address] [email or web address] Historical LMR Provider 09/04/17 Roverto Braga MD [address] [place] [phone] Historical LMR Provider 09/04/17 2 Yulisa Suazo MD [address] [place] [address] [facility], [place] [address] Historical LMR Provider 09/04/17 Mónica Cruz MD [address] [place] [address] Historical LMR Provider 09/04/17 2 Felipa Watson NP [address] [place] [address] Historical LMR Provider 09/04/17 2 documented as of this encounter Additional Source Comments The information contained in this document represents components of the legal health record. It is not the complete legal health record.[facility]
--- OUTSIDE RECORDS SUMMARY | 2025-08-29 07:17 | XMS_ITS | Encounter Summary ---
Author Organization [facility] Address [address] [facility] [address] [place] [address] Phone Care Team Providers Care Acquisition Consultant Name Role Phone Yasmany Chaparro DO Primary Care Provider [phone] Yasmany Chaparro DO Unavailable Kevin Anguiano MD Unavailable [email or web address] Jah Zhang MD Unavailable [phone] Yasmany Chaparro DO Primary Care Provider [phone] Encounter Details Date Type Department Care Team (Late st Contact Info) Description 02/05/2023 Ancillary Orders [facility], [facility] [address] [place] [address] Yasmany Chaparro DO [address] [facility] [place] [address] [email or web address] Abnormal finding on mammography Social History Tobacco [...] as of this encounter Results * BI US BREAST LIMITED (LEFT) (02/11/2023 8:47 AM EDT) Anatomical Region Laterality Modality Breast Left, Breast Bilateral Left Ul trasound 02/11/2023 5:28 PM EDT Impressions 02/11/2023 5:31 PM EDT Negative left breast ultrasound other than for presence of duct ectasia. No suspicious mass defined. Findings on mammography are likely benign. Recommend follow-up left breast mammography in 6 months to document stability. BI-RADS Category 3, probably benign Narrative 02/11/2023 5:31 PM EDT History: Abnormal screening and diagnostic mammography. Tissue asymmetries within the anterior retroareolar left breast and posterior mid to lateral left breast. FINDINGS: Correlation made with preceding screening and diagnostic mammography. Anterior, mid and far posterior aspect of the left breast assessed central to medial breast. Multiple prominent ducts are visible. No definite solid or cystic mass defined which would account for findings on mammography. No architectural distortion. Procedure Note Benton Bradford MD - 02/11/2023 History: Abnormal screening and diagnostic mammography. Tissue asymmetrieswithin the anterior retroareolar left breast and posterior mid to lateralleft breast. FINDINGS: Correlation made with preceding screening and diagnosticmammography. Anterior, mid and far posterior aspect of the left breastassessed central to medial breast. Multiple prominent ducts are visible.No definite solid or cystic mass defined which would account for findingson mammography. No architectural distortion. IMPRESSION: Negative left breast ultrasound other than for presence of duct ectasia.No suspicious mass defined. Findings on mammography are likely benign. Recommend follow-up left breastmammography in 6 months to document stability. BI-RADS Category 3, probably benign us Yasmany Chaparro DO IMG US BREAST Final Result documented in this encounter Visit Diagnoses Diagnosis Abnormal finding on mammography Abnormal finding on mammography documented in this encounter Care Teams Acquisition Consultant Relationship Specialty Start Date End Date Yasmany Chaparro DO PCP - General 09/02/17 12/12/24 Yasmany Chaparro DO [address] [facility] [place] [address] PCP - General Internal Medicine 12/13/24 Yasmany Chaparro DO Historical LMR Provider 09/04/17 Kevin Anguiano MD [email or web address] Historical LMR Provider 09/04/17 Jah Zhang MD [address] [place] [address] [email or web address] Historical LMR Provider 09/04/17 documented as of this encounter Additional Source Comments The information contained in this document represents components of the legal health record. It is not the complete legal health record.[facility]
--- OUTSIDE RECORDS SUMMARY | 2025-08-29 07:17 | XMS_ITS | Encounter Summary ---
Author Organization [facility] Address [address] [facility] [address] [place] [address] Phone Care Team Providers Care Electric Detector Operator Name Role Phone Yasmany Chaparro DO Primary Care Provider [phone] Yasmany Chaparro DO Unavailable Kevin Anguiano MD Unavailable [email or web address] Jah Zhang MD Unavailable [phone] Yasmany Chaparro DO Primary Care Provider [phone] Encounter Details Date Type Department Care Team (Late st Contact Info) Description 02/05/2023 Ancillary Orders [facility] [address] [place] [address] Yasmany Chaparro DO 179 [facility] [place] [address] [email or web address] Social History Tobacco Use Types Packs/Day Years [...] on filedocumented in this encounter Care Teams Electric Detector Operator Relationship Specialty Start Date End Date AilinYasmany chaidezDO PCP - General 09/02/17 12/12/24 Krysta Yasmany HookerDO [address] [facility] [place] [address] PCP - General Internal Medicine 12/13/24 Yasmany Chaparro DO Historical LMR Provider 09/04/17 Kevin Anguiano MD [email or web address] Historical LMR Provider 09/04/17 Jah Zhang MD [address] [place] [address] [address] [place] [address] [email or web address] Historical LMR Provider 09/04/17 documented as of this encounter Additional Source Comments The information contained in this document represents components of the legal health record. It is not the complete legal health record.[facility]
--- OUTSIDE RECORDS SUMMARY | 2025-08-29 07:17 | XMS_ITS | Encounter Summary ---
Author Organization [facility] Address [address] [facility] [address] [place] [address] Phone Care Team Providers Care Quality Coordinator Name Role Phone Krysta Yasmany Morro DO Primary Care Provider [phone] Yasmany Chaparro DO Unavailable Kevin Anguiano MD Unavailable [email or web address] Jah Zhang MD Unavailable [phone] Yasmany Chaparro DO Primary Care Provider [phone] Encounter Details Date Type Department Care Team (Late st Contact Info) Description 03/10/2023 Procedure Pass [address] [address] Social History Tobacco Use Types Packs/Day Years Used Date Smoking Tobacco: Never Smokeless Tobacco: Never Alcohol Use Standard Drinks/Week Comments Not Currently 0 (1 standard drink = 0.6 oz pur e alcohol) Socially Education Answer Date Recorded Are you interested in more education? Not on darin e 03/12/2023 Are you concerned about learning? Not on file 03/12/2023 No 03/12/2023 No 03/12/2023 Comments No Sex and Gender Information Value Date Recorded Sex Assigned at Not on file Legal Sex Female 9:47 PM EDT Gender Identity Not on file Sexual Orientation Not on file documented as of this encounter Plan of Treatment Not on file documented as of this encounter Visit Diagnoses Not on filedocumented in this encounter Care Teams Quality Coordinator Relationship Specialty Start Date End Date KrystaYasmanyDO PCP - General 09/02/17 12/12/24 Krysta Yasmany HookerDO [address] [facility] [place] [address] PCP - General Internal Medicine 12/13/24 Yasmany Chaparro DO Historical LMR Provider 09/04/17 Kevin Anguiano MD [email or web address] Historical LMR Provider 09/04/17 Jah Zhang MD [address] [place] [address] [email or web address] Historical LMR Provider 09/04/17 documented as of this encounter Additional Source Comments The information contained in this document represents components of the legal health record. It is not the complete legal health record.[facility]
--- OUTSIDE RECORDS SUMMARY | 2025-08-29 07:17 | XMS_ITS | Encounter Summary ---
Author Organization [facility] Address [address] [facility] [address] [place] [address] Phone Care Team Providers Care Hot Tar Roofer Helper Name Role Phone Yasmany Chaparro DO Primary Care Provider [phone] Yasmany Chaparro DO Unavailable Kevin Anguiano MD Unavailable [email or web address] Edison Lua MD Unavailable Destiny Estrada BIODIESEL PRODUCT MANAGER Unavailable Renay Yoder MD Unavailable Violeta Bedolla DO Unavailable [phone] Jah Zhang MD Unavailable Roverto Braga MD Unavailable [phone] Yulisa Suazo MD Unavailable [phone] Mónica Cruz MD Unavailable [phone] Felipa Watson BIODIESEL PRODUCT MANAGER Unavailable Yasmany Chaparro DO Primary Care Provider [phone] Encounter Details Date Type Department Care Team (Late st Contact Info) Description 11/05/2017 Ancillary Orders Virtual Department [address] [place] [address] Yasmany Chaparro DO [address] [facility] [place] [address] [email or web address] Breast screening Social History Tobacco Use Types Packs/Day Years Used Date Smoking Tobacco: Never Smokeless Tobacco: Never Alcohol Use Standard Drinks/Week Comments Yes 0 (1 standard drink = 0.6 oz pur e alcohol) Socially Comments Unknown Sex and Gender Information Value Date Recorded Sex Assigned at Not on file Legal Sex Female 9:47 PM EDT Gender Identity Not on file Sexual Orientation Not on file documented as of this encounter Plan of Treatment Not on file documented as of this encounter Results * BI MAMMOGRAM SCREENING WITH TOMOSYNTHESIS WITH CAD (BILATERAL) (12/16/2017 7:41 AM EST) Anatomical Region Laterality Modality Breast Left, Breast Right, Breast Bilateral Bila teral Mammography 12/16/2017 7:52 AM EST Impressions 12/16/2017 7:56 AM EST No mammographic evidence of malignancy. Recommend routine annual surveillance. BI-RADS CATEGORY: 2 - Benign finding. DENSITY: There are scattered fibroglandular densities. POS - [id number] Narrative 12/16/2017 7:56 AM EST 57-year-old female with no current breast symptoms. Comparison made to previous on 12/15/2016 and as far back as 04/10/2011. Interpretation made in conjunction with computer-aided detection and tomosynthesis. There are scattered areas of fibroglandular density. Stable scattered bilateral calcifications. There are no suspicious masses, areas of architectural distortion, or suspicious clusters of microcalcifications. Procedure Note Rajiv Hopkins MD - 12/16/2017 57-year-old female with no current breast symptoms. Comparison made toprevious on 12/15/2016 and as far back as 04/10/2011. Interpretation madein conjunction with computer-aided detection and tomosynthesis. There are scattered areas of fibroglandular density. Stable scatteredbilateral calcifications. There are no suspicious masses, areas of architectural distortion, orsuspicious clusters of microcalcifications. IMPRESSION: No mammographic evidence of malignancy. Recommend routine annualsurveillance. BI-RADS CATEGORY: 2 - Benign finding. DENSITY: There are scattered fibroglandular densities. POS - CDHMAM2 Yasmany Hooker Krysta LIGHT IMG MG EXAMS Final Result documented in this encounter Visit Diagnoses Diagnosis Breast screening Breast screening, unspecified Breast screening Breast screening, unspecified documented in this encounter Care Teams Hot Tar Roofer Helper Relationship Specialty Start Date End Date Yasmany Chaparro DO [email or web address] PCP - General 09/02/17 12/12/24 Yasmany Chaparro DO [address] [place] [address] [email or web address] PCP - General Internal Medicine 12/13/24 Yasmany Chaparro DO [email or web address] Historical LMR Provider 09/04/17 Kevin Anguiano MD [email or web address] Historical LMR Provider 09/04/17 Edison Lua MD [address] [place] [address] Historical LMR Provider 09/04/17 Destiny Estrada NP [address] [place] [address] [email or web address] Historical LMR Provider 09/04/17 2 Renay Yoder MD [address] [place] [address], [address] [place] [address] Historical LMR Provider 09/04/17 Violeta Bedolla DO [address] [place] [address] Historical LMR Provider 09/04/17 2 Jah Zhang MD 22 [facility], [address] [place] [address] Historical LMR Provider 09/04/17 Roverto Braga MD [facility]3 [place] [phone] Historical LMR Provider 09/04/17 2 Yulisa Suazo MD [address] [place] [address] [facility] [place] [address] Historical LMR Provider 09/04/17 Mónica Cruz MD [address] [place] [address] Historical LMR Provider 09/04/17 2 Felipa Watson NP [address] [place] [address] Historical LMR Provider 09/04/17 2 documented as of this encounter Additional Source Comments The information contained in this document represents components of the legal health record. It is not the complete legal health record.[facility]
--- OUTSIDE RECORDS SUMMARY | 2025-08-29 07:17 | XMS_ITS | Encounter Summary ---
Author Organization [facility] Address [address] [facility] [address] [place] [address] Phone Care Team Providers Care Rn Mobile Name Role Phone Krysta Yasmany Morro DO Primary Care Provider [phone] Yasmany Chaparro DO Unavailable Kevin Anguiano MD Unavailable [email or web address] Jah Zhang MD Unavailable [phone] Yasmany Chaparro DO Primary Care Provider [phone] Encounter Details Date Type Department Care Team (Late st Contact Info) Description 11/12/2023 Procedure Pass [facility], [address] [address] Social History Tobacco Use Types Packs/Day Years [...] on filedocumented in this encounter Care Teams Rn Mobile Relationship Specialty Start Date End Date Yasmany Chaparro DO PCP - General 09/02/17 12/12/24 Yasmany Chaparro DO [address] [place] [address] [place] [address] PCP - General Internal Medicine 12/13/24 Yasmany Chaparro DO Historical LMR Provider 09/04/17 Kevin Anguiano MD [email or web address] Historical LMR Provider 09/04/17 Jah Zhang MD [address] [place] [address] [email or web address] Historical LMR Provider 09/04/17 documented as of this encounter Additional Source Comments The information contained in this document represents components of the legal health record. It is not the complete legal health record.[facility]
--- OUTSIDE RECORDS SUMMARY | 2025-08-29 07:17 | XMS_ITS | Encounter Summary ---
Author Organization [facility] Address [address] [place] [address] Phone Care Team Providers Care Woolen Tester Name Role Phone Yasmany Chaparro DO Primary Care Provider [phone] Yasmany Chaparro DO Unavailable Kevin Anguiano MD Unavailable [email or web address] Jah Zhang MD Unavailable [phone] Yasmany Chaparro DO Primary Care Provider [phone] Encounter Details Date Type Department Care Team (Late st Contact Info) Description 02/02/2023 Telephone CD Pulmonary, Allergy and Critical Care Medicine [address] [place] [address] Christianne Her MA [email or web address] Social History Tobacco Use Types Packs/Day Years [...] on filedocumented in this encounter Care Teams Woolen Tester Relationship Specialty Start Date End Date Yasmany Chaparro DO PCP - General 09/02/17 12/12/24 Yasmany Chaparro DO [address] [place] [address] PCP - General Internal Medicine 12/13/24 Yasmany Chaparro DO Historical LMR Provider 09/04/17 Kevin Anguiano MD [email or web address] Historical LMR Provider 09/04/17 Jah Zhang MD [address] [place] [address] [email or web address] Historical LMR Provider 09/04/17 documented as of this encounter Additional Source Comments The information contained in this document represents components of the legal health record. It is not the complete legal health record.[facility]
[2025-08-29 07:30] LABS: MANUAL DIFF FLAG NO
[2025-08-29 08:19] LABS: Hematocrit 39.0 % (37.0-47.0); Hemoglobin 12.6 g/dl (12.0-16.0); Imm Gran Abs Auto 0.02 X10*3/uL (0.00-0.03); Imm Gran Pct Auto 0.3 % (0.0-0.4); Lymphocytes Absolute Auto 2.0 X10*3/uL (1.2-4.9); Mean Corpuscular HGB Conc 32.3 g/dl (31.0-35.0); Mean Corpuscular Hemoglobin 29.7 pg (27.0-33.0); Mean Corpuscular Volume 92.0 fL (80.0-98.0); NRBC Abs Auto 0.000 X10*3/uL (0.0-0.012); NRBC Pct Auto 0.0 /100WBC (0.0-0.2); Platelet Count 244 X10*3/uL (160-400); Red Blood Count 4.24 X10*6/uL (4.20-5.50); White Blood Count 6.2 X10*3/uL (4.8-10.8)
[2025-08-29 08:37] LABS: Total Hemoglobin (HGBA1C) 3277.2242 umol/L
[2025-08-29 09:15] LABS: Alanine Aminotransferase 18 U/L (0-31); Albumin Level 4.1 g/dL (3.5-5.0); Alkaline Phosphatase 161 U/L (39-117); Anion Gap 12 (12-20); Aspartate Amino Transferase 18 U/L (5-31); Blood Urea Nitrogen 12 mg/dL (9-16); Calcium 8.8 mg/dL (8.4-10.2); Carbon Dioxide 24 mmol/L (22-29); Chloride 109 mmol/L (96-108); Estimated Glomerular Filt Rate > 60; Potassium 3.9 mmol/L (3.3-5.1); Sodium 141 mmol/L (135-145); Total Protein 6.7 g/dL (6.5-8.0)
[2025-08-29 09:25] LABS: Free T4 (Free Thyroxine) 0.92 ng/dL (0.71-1.85); Thyroid Stimulating Hormone 1.57 uIU/mL (0.32-4.0)
== END 2025-08-29 07:14 | disposition home or self-care (01) ==
LOC: HO.LAB 07:13
PROVIDERS: PCP Internal Medicine; Visit Provider Internal Medicine
DX: E11.9 Type 2 diabetes mellitus without complications (principal)
CPT/HCPCS: 36415; 80053; 83036; 84439; 84443; 85025

== ENCOUNTER 2025-11-14 07:37 | Outpatient (REF) | payer BC, SELFPAY ==
--- OUTSIDE RECORDS SUMMARY | 2020-06-20 16:45 | XMS_ITS | Encounter Summary ---
Author Organization [facility] Address [address] [facility] [address] [place] [address] Phone Care Team Providers Care Ice Platform Supervisor Name Role Phone Yasmany Chaparro Primary Care Provider [phone] Krysta Yasmany Hooker DO Unavailable Kevin Anguiano MD Unavailable [email or web address] Edison Lua MD Unavailable Destiny Estrada FIELD SALES TRAINER Unavailable Renay Yoder MD Unavailable Violeta Bedolla DO Unavailable Jah Zhang MD Unavailable Roverto Braga MD Unavailable [phone] Yulisa Suazo MD Unavailable [phone] Mónica Cruz MD Unavailable [phone] Felipa Watson FIELD SALES TRAINER Unavailable Encounter Details Date Type Department Care Team (Late st Contact Info) Description 06/20/2020 5:45 PM EDT Hospital Encounter [facility] [address] [place] [address] [phone] Ann Daniel, FINAL APPLICATION REVIEWER [address] [place] [address] [id number] Social History Tobacco Use Types Packs/Day Years Used Date Smoking Tobacco: Never Smokeless Tobacco: Never Alcohol Use Standard Drinks/Week Comments Never 0 (1 standard drink = 0.6 oz pur e alcohol) rarely Education Answer Date Recorded Are you interested in more education? Not on darin e 03/12/2023 Are you concerned about learning? Not on file 03/12/2023 No 03/12/2023 No 03/12/2023 Digital Access Answer Date Recorded No 04/10/2023 No 04/10/2023 Reliable internet access at home? Not on file 04/10/2023 Device with a working camera? Not on file Intimate Partner Violence Answer Date R ecorded Are you denied basic needs s uch as food, clothing, or medical care? No 09/06/2024 In the past 12 months have y ou been in a relationship with a person who hurts, threatens, or tries to control you? No 09/06/2024 Are you denied basic needs s uch as food, clothing, or medical care? No 09/06/2024 In the past 12 months have y ou been in a relationship with a person who hurts, threatens, or tries to control you? No 09/06/2024 Comments No Sex and Gender Information Value Date Recorded Sex Assigned at Not on file Legal Sex Female 9:47 PM EDT Gender Identity Not on file Sexual Orientation Not on file documented as of this encounter Plan of Treatment Upcoming Encounters Date Type Department Care Team (Late st Contact Info) Description 09/28/2025 Procedure Pass [address] [address] 06/14/2026 8:30 AM EDT Appointment [address] [address] Yasmany Chaparro, DO [address] [facility] [place] [address] [place] [address] [email or web address] documented as of this encounter Procedures Procedure Name Priority Date/Time Associated Diagnosis Comments XR WRIST 3 OR MORE VIEWS (RIGHT) Urgent/patient waiting 06/20/2020 5:51 PM EDT Right wrist injury, initial encounter documented in this encounter Results * XR WRIST 3 OR MORE VIEWS (RIGHT) (06/20/2020 5:51 PM EDT) Anatomical Region Laterality Modality Wrist Right Radiographic Angelica ging 06/20/2020 5:57 PM EDT Impressions 06/20/2020 5:59 PM EDT No acute osseous abnormality. Narrative 06/20/2020 5:59 PM EDT EXAM: XR WRIST 3 OR MORE VIEWS (RIGHT) COMPARISON: Radiographs of bilateral hands on May 29, 2016 FINDINGS: Bones of the wrist are intact and in anatomic alignment.Joint spaces are preserved.Overlying soft tissues are unremarkable. Procedure Note Wei Sanford MD - 06/20/2020 EXAM: XR WRIST 3 OR MORE VIEWS (RIGHT) COMPARISON: Radiographs of bilateral hands on May 29, 2016 FINDINGS: Bones of the wrist are intact and in anatomic alignment.Joint spaces arepreserved.Overlying soft tissues are unremarkable. IMPRESSION: No acute osseous abnormality. Ann Daniel FINAL APPLICATION REVIEWER IMG XR UPPER EXTREMITY Delfina l Result documented in this encounter Visit Diagnoses Not on filedocumented in this encounter Care Teams Ice Platform Supervisor Relationship Specialty Start Date End Date Yasmany Chaparro DO PCP - General 09/02/17 12/12/24 Yasmany Chaparro DO Historical LMR Provider 09/04/17 Kevin Anguiano MD [email or web address] Historical LMR Provider 09/04/17 Edison Lua MD [address] [place] [address] Historical LMR Provider 09/04/17 Destiny Estrada NP [address] [place] [address] [email or web address] Historical LMR Provider 09/04/17 2 Renay Yoder MD [address] [facility], 2nd [place] [address] Historical LMR Provider 09/04/17 Violeta Bedolla DO [address] [place] [id number] Historical LMR Provider 09/04/17 2 Jah Zhang MD [address] [facility], [address] [place] [address] Historical LMR Provider 09/04/17 Roverto Braga MD [address] [place] [phone] Historical LMR Provider 09/04/17 2 Yulisa Suazo MD [address] [place] [address] [facility], [facility] [place] [address] Historical LMR Provider 09/04/17 Mónica Cruz MD [address] [place] [address] Historical LMR Provider 09/04/17 2 Felipa Watson NP [address] [place] [id number] Historical LMR Provider 09/04/17 2 documented as of this encounter Additional Source Comments The information contained in this document represents components of the legal health record. It is not the complete legal health record.[facility]
--- OUTSIDE RECORDS SUMMARY | 2025-11-14 07:39 | XMS_ITS | Encounter Summary ---
Author Organization [facility] Address [address] [facility] [address] [place] [address] Phone Care Team Providers Care Python Programmer Name Role Phone Ailinkaylynn Yasmany Hooker DO Unavailable Kevin Anguiano MD Unavailable [email or web address] Jah Zhang MD Unavailable [phone] Yasmany Chaparro DO Primary Care Provider Encounter Details Date Type Department Care Team (Late st Contact Info) Description 12/13/2024 Prep for Surgery [facility] [address] [place] [address] Yenifer Olsen MD [address] [place] [address] [facility], [place] [address] Social History Tobacco Use Types Packs/Day Years [...] st Contact Info) Description 09/28/2025 Procedure Pass [address] [address] 06/14/2026 8:30 AM EDT Appointment [address] [address] Yasmany Chaparro DO [address] [place] [address] [email or web address] documented as of this encounter Visit Diagnoses Not on filedocumented in this encounter Care Teams Python Programmer Relationship Specialty Start Date End Date Yasmany Chaparro DO [address] [place] [address] PCP - General Internal Medicine 12/13/24 Yasmany Chaparro DO Historical LMR Provider 09/04/17 Kevin Anguiano MD [email or web address] Historical LMR Provider 09/04/17 Jah Zhang MD [address] [place] [address], [facility] [address] [place] [address] [email or web address] Historical LMR Provider 09/04/17 documented as of this encounter Additional Source Comments The information contained in this document represents components of the legal health record. It is not the complete legal health record.[facility]
--- OUTSIDE RECORDS SUMMARY | 2025-11-14 07:40 | XMS_ITS | Encounter Summary ---
Author Organization [facility] Address [address] [facility] [address] [place] [address] Phone Care Team Providers Care Tank Filler Name Role Phone Ailinkaylynn Yasmany Morro DO Primary Care Provider [phone] Yasmany Chaparro DO Unavailable Kevin Anguiano MD Unavailable [email or web address] Jah Zhang MD Unavailable [phone] Yasmany Chaparro DO Primary Care Provider [phone] Encounter Details Date Type Department Care Team (Late st Contact Info) Description 09/11/2024 Procedure Pass [facility] Admitting Dept Virtual Department [address] [place] [address] Social History Tobacco Use Types Packs/Day Years [...] st Contact Info) Description 09/28/2025 Procedure Pass [address] [address] 06/14/2026 8:30 AM EDT Appointment [address] [address] Yasmany Chaparro DO [address] [place] [address] documented as of this encounter Visit Diagnoses Not on filedocumented in this encounter Care Teams Tank Filler Relationship Specialty Start Date End Date Yasmany Chaparro DO PCP - General 09/02/17 12/12/24 Yasmany Chaparro DO [address] [place] [address] PCP - General Internal Medicine 12/13/24 Yasmany Chaparro DO Historical LMR Provider 09/04/17 Kevin Anguiano MD [email or web address] Historical LMR Provider 09/04/17 Jah Zhang MD [address] [place] [address] [email or web address] Historical LMR Provider 09/04/17 documented as of this encounter Additional Source Comments The information contained in this document represents components of the legal health record. It is not the complete legal health record.[facility]
--- OUTSIDE RECORDS SUMMARY | 2025-11-14 07:40 | XMS_ITS | Encounter Summary ---
Author Organization [facility] Address [address] [facility] [address] [place] [address] Phone Care Team Providers Care Tank Car Reconditioner Name Role Phone Yasmany Chaparro DO Primary Care Provider [phone] Yasmany Chaparro DO Unavailable Kevin Anguiano MD Unavailable [email or web address] Edison Lua MD Unavailable Destiny Estrada CROTCH BREAKER Unavailable Renay Yoder MD Unavailable Violeta Bedolla DO Unavailable [phone] Jah Zhang MD Unavailable Roverto Braga MD Unavailable Yulisa Suazo MD Unavailable [phone] Mónica Cruz MD Unavailable [phone] Felipa Watson CROTCH BREAKER Unavailable Yasmany Chaparro DO Primary Care Provider [phone] Encounter Details Date Type Department Care Team (Late st Contact Info) Description 10/02/2020 Ancillary Orders Virtual Department [address] [place] [address] Yasmany Chaparro DO 179 [facility] [place] [address] [email or web address] Breast screening Social History Tobacco Use Types [...] st Contact Info) Description 09/28/2025 Procedure Pass [address] [address] 06/14/2026 8:30 AM EDT Appointment [address] [address] Yasmany Chaparro, 179 [facility] [place] [address] [place] [address] [email or web address] documented as of this encounter Results * [...] dense, which could obscurea lesion on mammography. Yasmany Chaparro DO IMG MG EXAMS Final Result documented in this encounter Visit Diagnoses Diagnosis Breast screening Breast screening, unspecified Breast screening Breast screening, unspecified documented in this encounter Care Teams Tank Car Reconditioner Relationship Specialty Start Date End Date Yasmany Chaparro DO PCP - General 09/02/17 12/12/24 Yasmany Chaparro DO 179 [place] [address] PCP - General Internal Medicine 12/13/24 Yasmany Chaparro DO Historical LMR Provider 09/04/17 Kevin Anguiano MD [email or web address] Historical LMR Provider 09/04/17 Edison Lua MD [address] [place] [address] Historical LMR Provider 09/04/17 Destiny Estrada NP 21 [place] [address] [email or web address] Historical LMR Provider 09/04/17 2 Renay Yoder MD [address] [facility], 2nd [place] [address] Historical LMR Provider 09/04/17 Violeta Bedolla DO [address] [place] [address] Historical LMR Provider 09/04/17 2 Jah Zhang MD [address] [facility], [address] [place] [address] Historical LMR Provider 09/04/17 Roverto Braga MD [address] [place] [address] Historical LMR Provider 09/04/17 2 Yulisa Suazo MD [address] [place] [address] [facility], [place] [address] Historical LMR Provider 09/04/17 Mónica Cruz MD [address], [place] [address] Historical LMR Provider 09/04/172 2 Felipa Watson NP [address] [place] [address] Historical LMR Provider 09/04/172 2 documented as of this encounter Additional Source Comments The information contained in this document represents components of the legal health record. It is not the complete legal health record.[facility]
--- OUTSIDE RECORDS SUMMARY | 2025-11-14 07:40 | XMS_ITS | Encounter Summary ---
Author Organization [facility] Address [address] [facility] [address] [place] [address] Phone Care Team Providers Care Oil Filters Inspector Name Role Phone Krysta Yasmany Morro DO Primary Care Provider [phone] Yasmany Chaparro DO Unavailable Kevin Anguiano MD Unavailable [email or web address] Jah Zhang MD Unavailable [phone] Yasmany Chaparro DO Primary Care Provider [phone] Encounter Details Date Type Department Care Team (Late st Contact Info) Description 02/16/2024 Procedure Pass OR Admitting Dept - Virtual Department [address] [place] [address] Social History Tobacco Use Types Packs/Day Years [...] st Contact Info) Description 09/28/2025 Procedure Pass [address] [address] 06/14/2026 8:30 AM EDT Appointment [address] [address] Yasmany Chaparro DO 179 [place] [address] documented as of this encounter Visit Diagnoses Not on filedocumented in this encounter Care Teams Oil Filters Inspector Relationship Specialty Start Date End Date Yasmany Chaparro DO PCP - General 09/02/17 12/12/24 Yasmany Chaparro DO 179 [place] [address] PCP - General Internal Medicine 12/13/24 Yasmany Chaparro DO Historical LMR Provider 09/04/17 Kevin Anguiano MD [email or web address] Historical LMR Provider 09/04/17 Jah Zhang MD [address] [place] [address] [email or web address] Historical LMR Provider 09/04/17 documented as of this encounter Additional Source Comments The information contained in this document represents components of the legal health record. It is not the complete legal health record.[facility]
--- OUTSIDE RECORDS SUMMARY | 2025-11-14 07:40 | XMS_ITS | Encounter Summary ---
Author Organization [facility] Address [address] [facility] [address] [place] [address] Phone Care Team Providers Care Tenter Frame Operator Name Role Phone Yasmany Chaparro DO Primary Care Provider [phone] Yasmany Chaparro DO Unavailable Kevin Anguiano MD Unavailable [email or web address] Edison Lua MD Unavailable Destiny Estrada DOLL SURGEON Unavailable Renay Yoder MD Unavailable Violeta Bedolla DO Unavailable Jah Zhang MD Unavailable Roverto Braga MD Unavailable Yulisa Suazo MD Unavailable [phone] Mónica Cruz MD Unavailable [phone] Felipa Watson DOLL SURGEON Unavailable Yasmany Chaparro DO Primary Care Provider [phone] Encounter Details Date Type Department Care Team (Late st Contact Info) Description 08/11/2021 Procedure Pass [facility] Admitting Dept Virtual Department 30 [place] [address] Social History Tobacco Use Types Packs/Day Years [...] st Contact Info) Description 09/28/2025 Procedure Pass [address] [address] 06/14/2026 8:30 AM EDT Appointment [address] [address] Yasmany Chaparro DO 179 [place] [address] [email or web address] documented as of this encounter Visit Diagnoses Not on filedocumented in this encounter Care Teams Tenter Frame Operator Relationship Specialty Start Date End Date Yasmany Chaparro DO PCP - General 09/02/17 12/12/24 Yasmany Chaparro DO 179 [place] [address] PCP - General Internal Medicine 12/13/24 Yasmany Chaparro DO Historical LMR Provider 09/04/17 Kevin Anguiano MD [email or web address] Historical LMR Provider 09/04/17 Edison Lua MD [address] [place] [address] Historical LMR Provider 09/04/17 Destiny Estrada NP 21 [place] [address] [email or web address] Historical LMR Provider 09/04/17 2 Renay Yoder MD 15 [facility], 2nd [place] [address] Historical LMR Provider 09/04/17 Violtea Bedolla DO [address] [place] [address] Historical LMR Provider 09/04/17 2 Jah Zhang MD [address] [facility], [address] [place] [address] Historical LMR Provider 09/04/17 Roverto Braga MD [address] [place] [phone] Historical LMR Provider 09/04/17 2 Yulisa Suazo MD [address] [place] [address] [facility], [place] [address] Historical LMR Provider 09/04/17 Mónica Cruz MD [address], [place] [address] Historical LMR Provider 09/04/17 2 Felipa Watson NP [address] [place] [address] Historical LMR Provider 09/04/17 2 documented as of this encounter Additional Source Comments The information contained in this document represents components of the legal health record. It is not the complete legal health record.[facility]
--- OUTSIDE RECORDS SUMMARY | 2025-11-14 07:40 | XMS_ITS | Encounter Summary ---
Author Organization [facility] Address [address] [facility] [address] [place] [address] Phone Care Team Providers Care Extractive Metallurgist Name Role Phone Yasmany Chaparro DO Primary Care Provider [phone] Yasmany Chaparro DO Unavailable Kevin Anguiano MD Unavailable [email or web address] Edison Lua MD Unavailable Destiny Estrada SAMPLE DYE MIXER Unavailable Renay Yoder MD Unavailable Violeta Bedolla DO Unavailable Jah Zhang MD Unavailable Roverto Braga MD Unavailable Yulisa Suazo MD Unavailable [phone] Mónica Cruz MD Unavailable [phone] Felipa Watson SAMPLE DYE MIXER Unavailable Yasmany Chaparro DO Primary Care Provider [phone] Encounter Details Date Type Department Care Team (Late st Contact Info) Description 09/02/2020 Procedure Pass [facility], [address] [address] Social History Tobacco Use Types Packs/Day Years [...] documented in this encounter Plan of Treatment Upcoming Encounters Date Type Department Care Team (Late st Contact Info) Description 09/28/2025 Procedure Pass [address] [address] 06/14/2026 8:30 AM EDT Appointment [address] [address] Yasmany Chaparro DO 179 [place] [address] documented as of this encounter Visit Diagnoses Not on filedocumented in this encounter Care Teams Extractive Metallurgist Relationship Specialty Start Date End Date Yasmany Chaparro DO PCP - General 09/02/17 12/12/24 Yasmany Chaparro DO 179 [place] [address] PCP - General Internal Medicine 12/13/24 Yasmany Chaparro DO [email or web address] Historical LMR Provider 09/04/17 Kevin Anguiano MD [email or web address] Historical LMR Provider 09/04/17 Edison Lua MD [address] [place] [address] Historical LMR Provider 09/04/17 Destiny Estrada NP [address] [place] [address] [email or web address] Historical LMR Provider 09/04/17 2 Renay Yoder MD 15 [facility], [address] [place] [address] [email or web address] Historical LMR Provider 09/04/17 Violeta Bedolla DO [address] [place] [address] Historical LMR Provider 09/04/17 2 Jah Zhang MD 22 [facility], [facility] [address] [place] [address] [email or web address] Historical LMR Provider 09/04/17 Roverto Braga MD [address] [place] [address] Historical LMR Provider 09/04/17 2 Yulisa Suazo MD [address] [place] [address] [facility], [place] [address] [email or web address] Historical LMR Provider 09/04/17 Mónica Cruz MD [address] [place] [address] Historical LMR Provider 09/04/17 2 Felipa Watson NP [address] [place] [address] Historical LMR Provider 09/04/17 2 documented as of this encounter Additional Source Comments The information contained in this document represents components of the legal health record. It is not the complete legal health record.[facility]
--- OUTSIDE RECORDS SUMMARY | 2025-11-14 07:40 | XMS_ITS | Continuity of Care Document ---
Author Organization [facility] Address [address] [facility] [address] [facility] [place] [address] Assessment Encounter Date Assessment Date Assessment LastModified by Organization Details LastModified Time 09/05/2025 09/05/2025 [id number] [place] [id number] (CLASSIFIED ADVERTISING SUPERVISOR) MDM MODERATE MUST MEET 2 OUT OF [...] EACH ELEMENT THAT IS COVERED Not available 09/05/2025 15:04:13 Plan of Treatment Reminders Order Date Submit Date Provider Last Modified By Organization Details Last Modified Time Details Appointments FOLLOW UP 15 2025 04:00P M DR AVILA Not available Not available Not available Lab None recorded . Referral None recorded . Procedures None recorded . Surgeries None recorded . Imaging None recorded . Medication Orders None recorded . Patient TargetsNo targets recorded. Patient Instructions Encounter Date Encounter Id Patient Instructions Last Modified By Organization Details Last Modified Time 09/05/2025 [id number] hypothyroidism: care instructions Not available 09/05/2025 15:05:23 Reason for Referral None Reported. Results Created Date Observation Date Name Description Value Unit Range Abnormal Flag Note LastModifiedBy Organization Detail LastModifiedTime 08/28/20 25 08/28/2025 US, echoc ardio gram No observ ation record ed. [facility] [address] [place], [address], 08/28/2025 23:29:00 08/29/20 25 08/28/2025 XR, chest , 2 view No observ ation record ed. [facility] [address] [place], [address], 08/29/2025 11:01:18 Result Notes None recorded. Problems Name Problem SNOMED Code Status Onset Date Resolution Date Notes Provider Name and Address Organization Details Recorded Time Hypothyr oidism 81434052 Active 2017 Julissa fiore [facility] 8 08:31:11 Mammogra phy abnormal 837788363 Active 2017 Right breast ? 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 Julissa fiore [facility] 8 08:33:12 Medullar y sponge kidney 326875432 Active 2017 Julissa fiore [facility] 8 08:33:38 Hyperlip idemia 76768903 Active 2017 Julissa fiore [facility] 8 08:34:04 Migraine 61766607 Active 2017 Julissa fiore [facility] 8 08:34:13 History of depressi on 537979157 Active 2017 Julisas fiore [facility] 8 08:34:21 Mood disorder 05516746 Active 2017 anger Julissa Robison [facility] 8 08:42:26 Depressi ve disorder 34954244 Active 2018 Yasmany Avila DO [address] [place] [address], [address], [facility] 9 16:39:55 Osteoart hritis 168385678 Active 2018 Yasmany Avila DO [address] [place] [address], [address], [facility] 9 16:54:59 Fibromya lgia 482390939 Active 2018 Yasmany Avila [address], [address], [facility] 9 16:55:17 Gastroes ophageal reflux disease 958084907 Active 2019 Yasmany Avila DO [address] [place] [address], [address], [facility] 0 10:46:59 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 2020 Yasmany Avila DO [address] [place] [address], [address], [facility] 1 14:49:03 Adenomat ous polyp of colon 413865304 Active 2020 Yasmany Avila DO [address] [place] [address], [address], [facility] 1 21:20:54 Gastriti s 3769793 Active 2021 JUAN CINTRON [address] [place] [address], [address], [facility] 2 11:43:18 Anxiety 20776721 Active 2021 Yasmany Avila DO [address] [place] [address], [address], [facility] 2 15:38:23 Sleep apnea 18782567 Active 2021 Yasmany Avila, DO [address] [place] [address], [address], [facility] 2 15:58:19 Dysuria 62132235 Active 2021 JUAN CINTRON [address] [place] [address], [address], [facility] 2 16:46:40 Acute urinary tract infectio n 233207789 Active 2021 JUAN CINTRON [address] [place] [address], [address], [facility] 2 15:19:40 Type 2 diabetes mellitus 70497627 Active 2023 JUAN CINTRON [address] [place] [address], [address], [facility] 4 16:41:53 Aphthous ulcer of mouth 570228388 Active 2023 Yasmany Avila [address], [address], [facility] 4 16:19:17 Ganglion of flexor tendon sheath of finger 449999266 Active 2023 Yasmany Avila [address], [address], [facility] 4 16:24:37 Excessiv e weight gain 161269654 Active 2023 Yasmany Avila, [address], [address], [facility] 4 16:35:32 Elevated blood-pr essure reading without diagnosi s of hyperten frank 604075076 Active 2024 Yasmany Avila [address], [address], [facility] 5 16:53:34 Generali zed rash 211283165 Active 2024 Yasmany Avila, DO [address] [place] [address], [address], [facility] 5 16:59:16 Infestat ion by Sarcopte s scabiei ward hominis 694336669 Active 2024 Yasmany Avila, DO [address] [place] [address], [address], [facility] 5 16:11:51 Hyperten sive disorder 35336193 Active 2024 Yasmany Avila, DO [address] [place] [address], [address], [facility] 15:57:28 Dyspnea on exertion 27625322 Active 2024 Yasmany Avila, [address], [address], [facility] 16:09:12 Problem Notes None recorded. Procedures Surgical History Date Name Laterality Status Provider Name and Address Organization Details Recorded Time 09/11/20 24 colonoscopy completed Ismaeljaden Avila [facility] 09/11/2024 14:56:20 delivery completed Julissakeiko Robison [facility] 02/25/2018 08:36:33 Cholecystectomy completed Julissakeiko Robison [facility] 02/25/2018 08:37:24 Endometr ablate thermal completed [facility] Ricki [facility] 02/25/2018 08:39:56 Imaging Results None recorded. Procedure Notes None recorded. Medical Equipment None Reported. Allergies Allergen ID Allergen Name Allergen Category Reaction Reaction Severity Criticality Documentation Date Start Date Code Code System Note Provider Name and Address Organization Details Recorded Time 9090 lisinopri l medicatio n cough Not available low 05/07/2025 58601 RxNorm Yasmany Avila, DO [address] [place] [address], [address], [facility] 5 09:32:15 913 Provigil medicatio n Not available Not available Not available 02/25/2018 30299 4 RxNorm Julissakeiko Robison [facility] 8 08:35:44 9527 modafinil medicatio n Not available Not available Not available 09/28/20252016 04643 RxNorm Other react ion(s ): very ill,a bill flu like Not Available [place] - External Data Service - prod 5 11:04:44 Medications Name Sig Start Date Stop Date [...] Not Available Not Available Not Avai lable oxybutynin chloride ER 10 mg tablet,exte nded [...] Not Available No t Available Fluarix Quad 3157-6091 (PF) 60 mcg (15 mcg x 4)/0.5 [...] (2 mg/3 mL) subcutaneou s pen injector Inject 0.5 mg every week by subcutane ous route for 30 days. 2024 active Not Available Not Available Not Avai lable Vitals None Recorded Social History Question Answer Notes LastModified by Organizat ion Details LastModified Time Tobacco Smoking Status Never Smoker Not Available [employer] 09/17/2020 03:36:24 What Is Your Level Of Caffeine Consumption? Occasional 2 Cups Coffee Per Day [id number] Information not available 09/17/2020 What Was The Date Of Your Most Recent Tobacco Screening? 07/09/2025 [email or web address] Information not available 07/09/2025 Sex: Unknown Functional Status Question Answer Note LastModified by Organizat ion Details LastModified Time Do you or have you ever used any other forms of tobacco or nicotine? No Information not available 04/20/2022 What is your level of alcohol consumption? Occasional [id number] Information not available 09/17/2020 What is your exercise level? None [id number] Information not available 09/17/2020 Mental Status None [...] mcg/0.25mL dose 1 completed Yasmany Avila DO [address] [place] [address], [address], [facility] 05/26/2021 14:10:58 COVID-19, mRNA, LNP-S, PF, 100 mcg/0.5mL dose or 50 mcg/0.25mL dose 1 completed Yasmany Avila DO [address] [place] [address], [address], [facility] 05/26/2021 14:10:41 Influenza, split virus, quadrivalent, preservative 1 completed Yasmany Avila DO [address] [facility], [place], [address], [facility] 09/10/2021 15:42:09 Influenza, split virus, quadrivalent, preservative 8 completed February VICTOR M Sin [address] [place], [address], [facility] 08/30/2018 09:30:50 Tdap 8 completed Not Available [employer] 12/16/2019 02:14:52 Influenza, split virus, quadrivalent, preservative 9 completed Yeni fiore [facility] 08/21/2019 16:23:48 Influenza, split virus, quadrivalent, preservative 0 completed Yeni fiore [facility] 01/27/2021 10:01:10 Past Encounters Encounter ID Performer Location Encounter Start Date Encounter Closed Date Diagnosis/Indication Diagnosis SNOMED-CT Code Diagnosis ICD10 Code Diagnosis IMO Codes Diagnosis Note [id number] Yasmany Avila DO [facility] [address] [facility] [place] [address] 09/05/2025 14:00:06 09/07/2025 10:09:16 Depression screening 086003198 Z13.31 neg Hyperlipidemia 56460340 E78.5 stable and holding is on atorvastat in 10mg will hold for several weeks to see if swelling is gone and her LDL down to 80and HDL at 50+excelll ent Hypertensive disorder 38 535067 I10 losartan is ok Type 2 mary lou betes mellitus 75394290 E11.9 a1vc is great at 6.8 side effects on trulicity of 3mg a1c is great at 6.0 was up to 6.8 was 6.2 5.6 and was 5.5 was 5.3 5.2 was 5.1 long discussion re need for close monitor during pandemic also will need vaccine if deemed safe for her to use Hypothyroidism 05345588 E03.9 noted very low tsh dizzy, jittery and hand tremors will lower dose to 88mcg Health Concerns Section Related Observation LastModified by Organization Detai ls LastModified Time None Recorded Concern Status LastModified by Organization Details LastModified Time None Recorded Payers Encounter Date Sequence Insurance Name Policy Number Policy Mallory Covered Member ID Mallory Member ID Guarantor Name 09/05/2025 1 [facility] [employer] Kobe M Remedios [id number] Jyoti Remedios Notes Date Note Type Note Provider Name and Address Organization Details Recorded Time 09/05/20 25 text/htm l Care Management - HypertensionReported by PatientHPIFor self care, patient reportsnot under emotional stress. For severity, patient reportssymptoms are improvinganddoes not interfere with daily activities. For associated symptoms, patient reportsno dizziness,no lightheadedness,no chest pain,no shortness of breath,no palpitations,no edema,no calf muscle cramps,no blurred vision,no confusion,no headaches, andno fatigue. Care Management - DiabetesReported by PatientHPIFor self [...] andno calluses on feet. Care Management - HyperlipidemiaReported by PatientHPIFor control, patient reportsusually well controlled,improving, andat goal. For complications, patient reportsno coronary artery disease,no heart attack,no cardiovascular disease,no pancreatitis, andno stroke.ROS as noted in the HPI here for rechk and is doing ok now on ozempicreviewed lab in detail Yasmany Avila, [address] [facility], [place], [address], [facility] 09/05/2025 15:07:24 OBGyn Episode No OBEpisode recorded.
--- OUTSIDE RECORDS SUMMARY | 2025-11-14 07:40 | XMS_ITS | Encounter Summary ---
Author Organization [facility] Address [address] [place] [address] Phone Care Team Providers Care Temporary Office Assistant Name Role Phone Yasmany Chaparro DO Unavailable Kevin Anguiano MD Unavailable [email or web address] Jah Zhang MD Unavailable [phone] Yasmany Chaparro DO Primary Care Provider [phone] Encounter Details Date Type Department Care Team (Late st Contact Info) Description 09/28/2025 Transcribe Orders Virtual Department [address] [place] [address] Yasmany Chaparro DO [address] [facility] [place] [address] [place] [address] [email or web address] Breast screening (Primary Dx) Social History Tobacco Use Types Packs/Day Years Used Date Smoking Tobacco: Never Smokeless Tobacco: Never Alcohol Use Standard Drinks/Week Comments Never 0 (1 standard drink = 0.6 oz pur e alcohol) rarely Education Answer Date Recorded Are you interested in more education? Not on dairn e 03/12/2023 Are you concerned about learning? [...] st Contact Info) Description 09/28/2025 Procedure Pass [address] [address] 06/14/2026 8:30 AM EDT Appointment [address] [address] Yasmany Chaparro DO [address] [facility] [place] [address] [email or web address] Scheduled Orders Name Type Priority Associated Diagnoses Orde r Schedule Mammogram Screening (Bilateral) Imaging Routine Breast screening Expected: 09/28/2025, Expires: 09/28/2026 documented as of this encounter Visit Diagnoses Diagnosis Breast screening- Primary Breast screening, unspecified documented in this encounter Care Teams Temporary Office Assistant Relationship Specialty Start Date End Date Yasmany Chaparro DO [address] [facility] [place] [address] [email or web address] PCP - General Internal Medicine 12/13/24 Yasmany Chaparro DO [email or web address] Historical LMR Provider 09/04/17 Kevin Anguiano MD [email or web address] Historical LMR Provider 09/04/17 Jah Zhang MD [address] [place] [address] [email or web address] Historical LMR Provider 09/04/17 documented as of this encounter Additional Source Comments The information contained in this document represents components of the legal health record. It is not the complete legal health record.[facility]
--- OUTSIDE RECORDS SUMMARY | 2025-11-14 07:40 | XMS_ITS | Encounter Summary ---
Author Organization [facility] Address [address] [place] [address] Phone Care Team Providers Care Oven Operator Name Role Phone Krysta Yasmany Hooker DO Unavailable Kevin Anguiano MD Unavailable [email or web address] Jah Zhang MD Unavailable [phone] Yasmany Chaparro DO Primary Care Provider [phone] Encounter Details Date Type Department Care Team (Late st Contact Info) Description 12/15/2024 Procedure Pass OR Admitting Dept - Virtual Department [address] [place] [address] Social History Tobacco Use Types Packs/Day Years [...] Contact Info) Description 09/28/2025 Procedure Pass [address] [address] 06/14/2026 8:30 AM EDT Appointment [address] [address] Yasmany Chaparro DO [address] [facility] [place] [address] [email or web address] documented as of this encounter Visit Diagnoses Not on filedocumented in this encounter Care Teams Oven Operator Relationship Specialty Start Date End Date Yasmany Chaparro DO [address] [facility] [place] [address] [email or web address] PCP - General Internal Medicine 12/13/24 Yasmany Chaparro DO Historical LMR Provider 09/04/17 Kevin Anguiano MD [email or web address] Historical LMR Provider 09/04/17 Jah Zhang MD [address] [place] [address] Historical LMR Provider 09/04/17 documented as of this encounter Additional Source Comments The information contained in this document represents components of the legal health record. It is not the complete legal health record.[facility]
--- OUTSIDE RECORDS SUMMARY | 2025-11-14 07:40 | XMS_ITS | Encounter Summary ---
Author Organization [facility] Address [address] [place] [address] Phone Care Team Providers Care Hay Baler Name Role Phone Yasmany Chaparro Primary Care Provider [phone] Yasmany Chaparro DO Unavailable Kevin Anguiano MD Unavailable [email or web address] Jah Zhang MD Unavailable [phone] Yasmany Chaparro DO Primary Care Provider [phone] Encounter Details Date Type Department Care Team (Late st Contact Info) Description 10/21/2022 Procedure Pass [address] [address] Social History Tobacco Use Types Packs/Day Years [...] Contact Info) Description 09/28/2025 Procedure Pass [address] [address] 06/14/2026 8:30 AM EDT Appointment [address] [place] [address] Yasmany Chaparro MorroDO [address] [facility] [place] [address] documented as of this encounter Visit Diagnoses Not on filedocumented in this encounter Care Teams Hay Baler Relationship Specialty Start Date End Date Krysta Yasmany HookerDO PCP - General 09/02/17 12/12/24 Yasmany Chaparro DO [address] [facility] [place] [address] PCP - General Internal Medicine 12/13/24 Yasmany Chaparro DO Historical LMR Provider 09/04/17 Kevin Anguiano MD [email or web address] Historical LMR Provider 09/04/17 Jah Zhang MD [address] [address] [email or web address] Historical LMR Provider 09/04/17 documented as of this encounter Additional Source Comments The information contained in this document represents components of the legal health record. It is not the complete legal health record.[facility]
--- OUTSIDE RECORDS SUMMARY | 2025-11-14 07:40 | XMS_ITS | Encounter Summary ---
Author Organization [facility] Address [address] [place] [address] Phone Care Team Providers Care Geometry Tutor Name Role Phone Yasmany Chaparro DO Primary Care Provider [phone] Krysta Yasmany Hooker DO Unavailable Kevin Anguiano MD Unavailable [email or web address] Jah Zhang MD Unavailable [phone] [email or web address] DO Primary Care Provider [phone] Encounter Details Date Type Department Care Team (Latest Contact Info) Description 12/24/2022 Transcribe Orders Virtual Department [address] [place] [address] Roxane Romero MD [address] [place] [address] [email or web address] Calculus of kidney (Primary Dx) Social History [...] st Contact Info) Description 09/28/2025 Procedure Pass [address] [address] 06/14/2026 8:30 AM EDT Appointment [address] [address] Yasmany Chaparro DO [address] [facility] [place] [address] documented as of this encounter Visit Diagnoses Diagnosis Calculus of kidney- Primary documented in this encounter Care Teams Geometry Tutor Relationship Specialty Start Date End Date Yasmany Chaparro DO PCP - General 09/02/17 12/12/24 Yasmany Chaparro DO [address] [facility] [place] [address] PCP - General Internal Medicine 12/13/24 Yasmany Chaparro DO Historical LMR Provider 09/04/17 Kevin Anguiano MD [email or web address] Historical LMR Provider 09/04/17 Jah Zhang MD [address] [address] Historical LMR Provider 09/04/17 documented as of this encounter Additional Source Comments The information contained in this document represents components of the legal health record. It is not the complete legal health record.[facility]
--- OUTSIDE RECORDS SUMMARY | 2025-11-14 07:40 | XMS_ITS | Encounter Summary ---
Author Organization [facility] Address [address] [place] [address] Phone Care Team Providers Care Machine Operator Name Role Phone Yasmany Chaparro Primary Care Provider [phone] Yasmany Chaparro DO Unavailable Kevin Anguiano MD Unavailable [email or web address] Jah Zhang MD Unavailable [phone] Yasmany Chaparro DO Primary Care Provider [phone] Encounter Details Date Type Department Care Team (Late st Contact Info) Description 12/16/2022 Procedure Pass [address] [address] Social History Tobacco Use Types Packs/Day Years [...] Contact Info) Description 09/28/2025 Procedure Pass [address] [address] 06/14/2026 8:30 AM EDT Appointment [address] [place] [address] Yasmany Chaparro MorroDO [address] [facility] [place] [address] documented as of this encounter Visit Diagnoses Not on filedocumented in this encounter Care Teams Machine Operator Relationship Specialty Start Date End Date Krysta Yasmany HookerDO PCP - General 09/02/17 12/12/24 Yasmany Chaparro DO [address] [place] [address] PCP - General Internal Medicine 12/13/24 Yasmany Chaparro DO Historical LMR Provider 09/04/17 Kevin Anguiano MD [email or web address] Historical LMR Provider 09/04/17 Jah Zhang MD [address] [address] [email or web address] Historical LMR Provider 09/04/17 documented as of this encounter Additional Source Comments The information contained in this document represents components of the legal health record. It is not the complete legal health record.[facility]
--- OUTSIDE RECORDS SUMMARY | 2025-11-14 07:40 | XMS_ITS | Encounter Summary ---
Author Organization [facility] Address [address] [place] [address] Phone Care Team Providers Care Addresser Name Role Phone Yasmany Chaparro DO Primary Care Provider [phone] Yasmany Chaparro DO Unavailable Kevin Anguiano MD Unavailable [email or web address] Edison Lua MD Unavailable Destiny Estrada THERMAL SURFACING MACHINE OPERATOR Unavailable Renay Yoder MD Unavailable Violeta Bedolla DO Unavailable Jah Zhang MD Unavailable Roverto Braga MD Unavailable Yulisa Suazo MD Unavailable [phone] Mónica Cruz MD Unavailable [phone] Felipa Watson THERMAL SURFACING MACHINE OPERATOR Unavailable Yasmany Chaparro DO Primary Care Provider [phone] Encounter Details Date Type Department Care Team (Late st Contact Info) Description 10/02/2020 Procedure Pass [facility], [address] [address] Social History Tobacco Use Types Packs/Day Years [...] st Contact Info) Description 09/28/2025 Procedure Pass [address] [address] 06/14/2026 8:30 AM EDT Appointment [address] [address] Yasmany Chaparro DO [address] [place] [address] [email or web address] documented as of this encounter Visit Diagnoses Not on filedocumented in this encounter Care Teams Addresser Relationship Specialty Start Date End Date Yasmany Chaparro DO PCP - General 09/02/17 12/12/24 Yasmany Chaparro DO [address] [place] [address] PCP - General Internal Medicine 12/13/24 Yasmany Chaparro DO Historical LMR Provider 09/04/17 Kevin Anguiano MD [email or web address] Historical LMR Provider 09/04/17 Edison Lua MD [address] [place] [address] Historical LMR Provider 09/04/17 Destiny Estrada NP [address] [place] [address] [email or web address] Historical LMR Provider 09/04/17 2 Renay Yoder MD [address] [facility], 2nd [place] [address] Historical LMR Provider 09/04/17 Violeta Bedolla DO [address] [place] [address] Historical LMR Provider 09/04/17 2 Jah Zhang MD [address] [facility], [address] [place] [address] Historical LMR Provider 09/04/17 Roverto Braga MD [address] [place] [phone] Historical LMR Provider 09/04/17 2 Yulisa Suazo MD [address] [place] [address] [facility], [place] [address] Historical LMR Provider 09/04/17 Mónica Cruz MD [address] [address] Historical LMR Provider 09/04/17 2 Felipa Watson NP [address] [place] [address] Historical LMR Provider 09/04/17 2 documented as of this encounter Additional Source Comments The information contained in this document represents components of the legal health record. It is not the complete legal health record.[facility]
--- OUTSIDE RECORDS SUMMARY | 2025-11-14 07:40 | XMS_ITS | Encounter Summary ---
Author Organization [facility] Address [address] [facility] [address] [facility] [address] [place] [address] Phone Care Team Providers Care Film Flat Inspector Name Role Phone Yasmany Chaparro DO Primary Care Provider [phone] Yasmany Chaparro DO Unavailable Kevin Anguiano MD Unavailable [email or web address] Edison Lua MD Unavailable Destiny Estrada ANIMAL NURSERY WORKER Unavailable Renay Yoder MD Unavailable Violeta Bedolla DO Unavailable Jah Zhang MD Unavailable Roverto Braga MD Unavailable Yulisa Suazo MD Unavailable [phone] Mónica Cruz MD Unavailable [phone] Felipa Watson ANIMAL NURSERY WORKER Unavailable Yasmany Chaparro DO Primary Care Provider [phone] Encounter Details Date Type Department Care Team (Late st Contact Info) Description 09/10/2021 Procedure Pass [facility], [address] [address] Social History Tobacco Use Types Packs/Day Years [...] st Contact Info) Description 09/28/2025 Procedure Pass [address] [address] 06/14/2026 8:30 AM EDT Appointment [address] [address] Yasmany Chaparro DO [address] [place] [address] [email or web address] documented as of this encounter Visit Diagnoses Not on filedocumented in this encounter Care Teams Film Flat Inspector Relationship Specialty Start Date End Date Yasmany Chaparro DO PCP - General 09/02/17 12/12/24 Yasmany Chaparro DO [address] [place] [address] PCP - General Internal Medicine 12/13/24 Yasmany Chaparro DO Historical LMR Provider 09/04/17 Kevin Anguiano MD [email or web address] Historical LMR Provider 09/04/17 Edison Lua MD [address] [place] [address] Historical LMR Provider 09/04/17 Destiny Estrada NP 21 [place] [address] [email or web address] Historical LMR Provider 09/04/17 2 Renay Yoder MD [address] [facility], 2nd [place] [address] Historical LMR Provider 09/04/17 Violeta Bedolla DO [address] [place] [address] Historical LMR Provider 09/04/17 2 Jah Zhang MD [address] [facility], [facility] [address] [place] [address] Historical LMR Provider 09/04/17 Roverto Braga MD [address] [place] [phone] Historical LMR Provider 09/04/17 2 Yulisa Suazo MD [address] [place] [address] [facility], [place] [address] Historical LMR Provider 09/04/17 Mónica Cruz MD [address] [place] [address] Historical LMR Provider 09/04/17 2 Felipa Watson NP [address] [place] [address] Historical LMR Provider 09/04/17 2 documented as of this encounter Additional Source Comments The information contained in this document represents components of the legal health record. It is not the complete legal health record.[facility]
--- OUTSIDE RECORDS SUMMARY | 2025-11-14 07:40 | XMS_ITS | Encounter Summary ---
Author Organization [facility] Address [address] [facility] [address] [place] [address] Phone Care Team Providers Care Slipcover Cutter Name Role Phone Yasmany Chaparro DO Primary Care Provider [phone] Yasmany Chaparro DO Unavailable Kevin Anguiano MD Unavailable [email or web address] Edison Lua MD Unavailable Destiny Estrada GLOBAL PROGRAM MANAGER Unavailable Renay Yoder MD Unavailable Violeta Bedolla DO Unavailable [phone] Jah Zhang MD Unavailable Roverto Braga MD Unavailable Yulisa Suazo MD Unavailable [phone] Mónica Cruz MD Unavailable [phone] Felipa Watson GLOBAL PROGRAM MANAGER Unavailable Yasmany Chaparro DO Primary Care Provider [phone] Encounter Details Date Type Department Care Team (Late st Contact Info) Description 11/05/2017 Ancillary Orders Virtual Department [address] [place] [address] Yasmany Chaparro DO [address] [facility] [place] [address] [email or web address] Breast screening Social History Tobacco Use Types [...] st Contact Info) Description 09/28/2025 Procedure Pass [address] [address] 06/14/2026 8:30 AM EDT Appointment [address] [address] Yasmany Chaparro, [address] [facility] [place] [address] [email or web address] documented as of this encounter Results * [...] unspecified documented in this encounter Care Teams Slipcover Cutter Relationship Specialty Start Date End Date Yasmany Chaparro DO PCP - General 09/02/17 12/12/24 Yasmany Chaparro DO [address] [place] [address] PCP - General Internal Medicine 12/13/24 Yasmany Chaparro DO Historical LMR Provider 09/04/17 Kevin Anguiano MD [email or web address] Historical LMR Provider 09/04/17 Edison Lua MD [address] [place] [address] Historical LMR Provider 09/04/17 Destiny Estrada NP [address] [place] [address] [email or web address] Historical LMR Provider 09/04/17 2 Renay Yoder MD [address] [facility], 2nd [place] [address] Historical LMR Provider 09/04/17 Violeta Bedolla DO [address] [place] [address] Historical LMR Provider 09/04/17 2 Jah Zhang MD [address] [facility], [address] [place] [address] Historical LMR Provider 09/04/17 Roverto Braga MD [address] [place] [phone] Historical LMR Provider 09/04/17 2 Yulisa Suazo MD [address] [place] [address] [facility], [place] [address] Historical LMR Provider 09/04/17 Mónica Cruz MD [address], [place] [address] Historical LMR Provider 09/04/17 2 Felipa Watson NP [address] [place] [address] Historical LMR Provider 09/04/17 2 documented as of this encounter Additional Source Comments The information contained in this document represents components of the legal health record. It is not the complete legal health record.[facility]
--- OUTSIDE RECORDS SUMMARY | 2025-11-14 07:40 | XMS_ITS | Clinical Summary ---
Author Organization [facility] Address [address] [address] Phone Care Team Providers Care Product Delivery Specialist Name Role Phone Krysta Jake Hooker DO Unavailable Kevin Anguiano MD Unavailable [email or web address] Jah Zhang MD Unavailable [phone] Jake Avila DO Primary Care Provider [phone] Allergies Active Allergy Reactions Criticality Noted Date [...] 50% of this 28-minute visit were spent plsv-to-iozm conversation with the patient going over the [...] serious adverse cardiovascular thrombotic events, including fatal AL and stroke, serious gastrointestinal inflammation, ulceration, bleeding, [...] of this 28-minute visit was spent in zdlk-hv-cbzy conversation with the patient going over treatment [...] 50% of the time was spent in nkki-mg-npqy discussion going over the above items. Primary osteoarthritis of both hands 10/26/2017 Assessment & Plan (07/10/2021 8:21 AM EDT): Hypermobility and mild early basilar thumb and interphalangeal osteoarthritis. Discussed natural history of this, the need for warmth, the benefit of intrinsic muscle strengthening, and large district customs director on tools and utensils and judicious use [...] inflammatory osteoarthritis and the need for enlarged district customs director on tools and utensils and the judicious use of warmth. Assessment & Plan (03/13/2019 4:31 PM EDT): He has a new nonsymptomatic Heberden's node in the left second DIP joint. We discussed intrinsic muscle strengthening, and large district customs director on tools and utensils and the judicious use of warmth. Assessment & Plan (12/13/2018 4:48 PM EST): Mild bilateral interphalangeal osteoarthritis will continue to be treated with warmth, acetaminophen, tramadol as needed, exercises for the intrinsic muscles of the hands, enlarged district customs director on tools and utensils. No evidence for [...] at my request she is seeing an clinic specialist of the forearm. Resolved Problems Problem [...] 50% of this 28-minute visit was spent aque-by-ixol conversation with the patient coordinating my care with out of her primary care physician and physical therapist. Encounters Date Type Department Care Team Description 09/28/2025 Transcribe Orders Virtual Department [address] [place] [address] Jake Avila, DO Breast screening (Primary Dx) from Last 3 Months Immunizations Immunization Administration [...] 12/15/2024 7:45 AM EST Plan of Treatment Upcoming Encounters Date Type Department Care Team (Late st Contact Info) Description 09/28/2025 Procedure Pass [address] [address] 06/14/2026 8:30 AM EDT Appointment [address] [address] Jake Avila, DO [address] [facility] [place] [address] [place] [address] Health Maintenance Due Date Last Done Comments [...] 08/20/2023, 08/18/2022, Additional history exists COVID-19 VACCINE (2024- season) 2025 03/07/2021, 02/07/2021 MAMMOGRAM 01/24/2026 01/25/2024, [...] this topic Medical Devices Implanted Type Area Margin Trimmer Device Identifier Shelf Expiration Date Model / Serial / Lot Marker Biopsy 13mm Site [employer] For Eviva Ti Net Bioabsorbable Shape 1 Mini Cork Bx/10ea - [id number] Implanted:Qty: 1 on 04/19/2024 by Shaun Desir MD at [facility] Clip Right: Breast [employer] 10/20/2024 SMARK-EVIV A-13 / / [id number] Description:Top hat shaped t itanium marker Procedures Procedure Name Priority Date/Time Associated Diagnosis Comments HEMOGLOBIN A1C Routine 11/01/2024 8:33 AM EST Type 2 diabetes mellitus without complication, unspecified whether correction insulin use ENDOSCOPY, COLON 09/11/2024 8:22 AM [...] HEMOGLOBIN A1C 6.0(H) 4.3 - 5.8 % [facility] Blood 11/01/2024 8:33 AM EST 11/01/2024 8:35 AM EST us Jake Morro Avila DO LAB BLOOD BKR ORDERABLES Final R esult [address] [address] * ENDOSCOPY, COLON (09/11/2024 8:22 AM EDT) Narrative Transcriptions Bhavesh Wan MD - 09/11/2024 8:22 AM EDT [facility] Patient Name: Jyoti Jonesedwige Attending MD:: BHAVESH WAN MD, Procedure Date: 09/11/2024 8:22 AM Date of : 1960 Age: 64 Admit Type: Outpatient Gender: Female Room: [facility] 04 Referring MD: JAKE AVILA DO Exam Type: [...] the bowel preparation was evaluatedusing the BBPS ([place] Bowel Preparation Scale) withscores of: Right Colon [...] 8:22 AM Procedure Code(s): --- Professional --- 18394, Colonoscopy, flexible; with removal of tumor(s), polyp(s), or other lesion(s) by snare technique --- Technical --- 77171, Colonoscopy, flexible; with removal of tumor(s), polyp(s), [...] colon K64.8, Other hemorrhoids CPT copyright 2021 [employer]. All rights reserved. The codes documented in this report are preliminary and upon remote medical coder reviewmay be revised to meet current compliance requirements. Procedure Date: 09/11/2024 8:22:[address] [place] [address] us Jake A Bigda DO GI [...] to arrange for theadditional imaging. us Jake Parisida DO IMG MG EXAMS Final Result * TSH with reflex (04/28/2021 8:33 AM EDT) TSH 3.55 0.27 - 4.20 uIU/mL [facility] Blood 04/28/2021 8:33 AM EDT 04/28/2021 8:38 AM EDT Kevin Anguiano MD LAB BLOOD BKR ORDERABLES F inal Result [address] [address] * Pap Smear (03/11/2018 12:00 AM EDT) 03/11/2018 03/14/2018 12: 56 PM EDT Narrative SEE NARRATIVE - 03/18/2018 9:01 AM EDT [address] [address] Recovery Coach: Terri Ham MD TELLER COORDINATOR Cytology Report FINAL DIAGNOSIS A. PAP SMEAR [...] advised. This HPV test was performed at [facility], [address] [place] [address]. The accuracy and precision of this test has been verified in the Cytopathology laboratory of the [facility]. This test has not been cleared or approved by the U.S. Food and Drug Administration (FDA). CLINICAL HISTORY Date of Last Menstrual Period: Not Provided Menstrual History: Post Menopausal Other Clinical Conditions: Screening Pap normal SPECIMEN SOURCE A: PAP SMEAR (SUREPATH) CE Patient Name: JYOTI WHITTAKER : 1960 (Age: 58) Sex: F Institution: [facility] Location: [facility] Date of Collection: 03/11/2018 Date of Reported: 03/18/2018 09:01 Results to: Jah Zhang MD, BS Jah Zhang MD CYTOLOGY ORDERABLES Final Res ult SEE NARRATIVE from Last 3 Months or Most Recently Relevant to Health Maintenance Insurance [employer] [facility] [employer] [facility] Care Teams Product Delivery Specialist Relationship Specialty Start Date End Date Jake Avila DO [address] [facility] [place] [address] [place] [address] [email or web address] PCP - General Internal Medicine 12/13/24 Jake Avila DO [email or web address] Historical LMR Provider 09/04/17 Kevin Anguiano MD [email or web address] Historical LMR Provider 09/04/17 Jha Zhang MD [address] [place] [address] [email or web address] Historical LMR Provider 09/04/17 Additional Source Comments The information contained in this document represents components of the legal health record. It is not the complete legal health record.[facility]
--- OUTSIDE RECORDS SUMMARY | 2025-11-14 07:40 | XMS_ITS | Encounter Summary ---
Author Organization [facility] Address [address] [facility] [address] [place] [address] Phone Care Team Providers Care Special Weapons Unit Officer Name Role Phone Krysta Yasmany Hooker DO Primary Care Provider [phone] Yasmany Chaparro DO Unavailable Kevin Anguiano MD Unavailable [email or web address] Jah Zhang MD Unavailable [phone] Yasmany Chaparro DO Primary Care Provider [phone] Encounter Details Date Type Department Care Team (Late Contact Info) Description 12/30/2022 Ancillary Orders [facility], [facility] [address] [place] [address] Yasmany Chaparro DO 179 [facility] [place] [address] [place] [address] [email or web address] Abnormal finding on mammography Social History Tobacco [...] Contact Info) Description 09/28/2025 Procedure Pass [address] [address] 06/14/2026 8:30 AM EDT Appointment [address] [address] Yasmany Chaparro, DO 179 [facility] [place] [address] [email or web address] documented as of this encounter Results * [...] 90 degree mediolateral tomography obtained. COMPARISON: Previous [facility] mammograms 12/29/2022, dating back to 04/15/2009. The [...] 2 planes. No solid, suspicious mass identified. us Yasmany Parisikaylynn LIGHT IMG MG EXAMS Final Result documented in this encounter Visit Diagnoses Diagnosis Abnormal finding on mammography Abnormal finding on mammography documented in this encounter Care Teams Special Weapons Unit Officer Relationship Specialty Start Date End Date Yasmany Chaparro DO PCP - General 09/02/17 12/12/24 Yasmany Chaparro DO 179 [facility] [place] [address] PCP - General Internal Medicine 12/13/24 Yasmany Chaparro DO Historical LMR Provider 09/04/17 Kevin Anguiano MD [email or web address] Historical LMR Provider 09/04/17 Jah Zhang MD [address] [address] [email or web address] Historical LMR Provider 09/04/17 documented as of this encounter Additional Source Comments The information contained in this document represents components of the legal health record. It is not the complete legal health record.[facility]
--- OUTSIDE RECORDS SUMMARY | 2025-11-14 07:41 | XMS_ITS | Encounter Summary ---
Author Organization [facility] Address [address] [facility] [place] [address] [place] [address] Phone Care Team Providers Care Zoology Teacher Name Role Phone Yasmany Chaparro DO Primary Care Provider [phone] Yasmany Chaparro DO Unavailable Kevin Anguiano MD Unavailable [email or web address] Edison Lua MD Unavailable Destiny Estrada BRAND LEAD Unavailable Renay Yoder MD Unavailable Violeta Bedolla DO Unavailable [phone] Jah Zhang MD Unavailable Roverto Braga MD Unavailable Yulisa Suazo MD Unavailable [phone] Mónica Cruz MD Unavailable [phone] Felipa Watson BRAND LEAD Unavailable Yasmany Chaparro DO Primary Care Provider [phone] Encounter Details Date Type Department Care Team (Late st Contact Info) Description 10/05/2018 Ancillary Orders Virtual Department [address] [place] [address] Yasmany Chaparro DO 179 [place] [address] Breast screening Social History Tobacco Use Types [...] st Contact Info) Description 09/28/2025 Procedure Pass [address] [address] 06/14/2026 8:30 AM EDT Appointment [address] [address] Yasmany Chaparro DO 179 [facility] [place] [address] [place] [address] [email or web address] documented as of this encounter Results * [...] scattered fibroglandular densities. POS - CDHMAM2 Yasmany Chaparro DO IMG MG EXAMS Final Result documented in this encounter Visit Diagnoses Diagnosis Breast screening Breast screening, unspecified Breast screening Breast screening, unspecified documented in this encounter Care Teams Zoology Teacher Relationship Specialty Start Date End Date Yasmany Chaparro DO PCP - General 09/02/17 12/12/24 Yasmany Chaparro DO 179 [place] [address] PCP - General Internal Medicine 12/13/24 Yasmany Chaparro DO Historical LMR Provider 09/04/17 Kevin Anguiano MD [email or web address] Historical LMR Provider 09/04/17 Edison Lua MD [address] [place] [address] Historical LMR Provider 09/04/17 Destiny Estrada NP 21 [place] [address] [email or web address] Historical LMR Provider 09/04/17 2 Renay Yoder MD 15 [facility], 2nd [place] [address] [email or web address] Historical LMR Provider 09/04/17 Violeta Bedolla DO [address] [place] [address] Historical LMR Provider 09/04/17 2 Jah Zhang MD 22 [facility] [address] [place] [address] [email or web address] Historical LMR Provider 09/04/17 Roverto Braga MD [address] [place] [phone] Historical LMR Provider 09/04/17 2 Yulisa Suazo MD [address] [place] [address] Orthoped[facility] Medicine, [place] [address] [email or web address] Historical LMR Provider 09/04/17 Mónica Cruz MD [facility] [place] [address] Historical LMR Provider 09/04/17 2 Felipa Watson NP [address] [place] [address] Historical LMR Provider 09/04/17 2 documented as of this encounter Additional Source Comments The information contained in this document represents components of the legal health record. It is not the complete legal health record.[facility]
--- OUTSIDE RECORDS SUMMARY | 2025-11-14 07:41 | XMS_ITS | Encounter Summary ---
Author Organization [facility] Address 399 [facility] [address] [place] [address] Phone Care Team Providers Care Livestock Buyer Name Role Phone Krysta Yasmany Hooker DO Primary Care Provider [phone] Yasmany Chaparro DO Unavailable Kevin Anguiano MD Unavailable [email or web address] Jah Zhang MD Unavailable [phone] Yasmany Chaparro DO Primary Care Provider [phone] Encounter Details Date Type Department Care Team (Late st Contact Info) Description 02/05/2023 Ancillary Orders [facility] [address] [place] [address] Yasmany Chaparro DO 179 [place] [address] [email or web address] Social History Tobacco Use Types Packs/Day Years [...] st Contact Info) Description 09/28/2025 Procedure Pass [address] [address] 06/14/2026 8:30 AM EDT Appointment [address] [address] Yasmany Chaparro DO 179 [place] [address] documented as of this encounter Visit Diagnoses Not on filedocumented in this encounter Care Teams Livestock Buyer Relationship Specialty Start Date End Date Yasmany Chaparro DO [email or web address] PCP - General 09/02/17 12/12/24 Yasmany Chaparro DO [address] [place] [address] [email or web address] PCP - General Internal Medicine 12/13/24 Yasmany Chaparro DO [email or web address] Historical LMR Provider 09/04/17 Kevin Anguiano MD [email or web address] Historical LMR Provider 09/04/17 Jah Zhang MD [address] [place] [address] Historical LMR Provider 09/04/17 documented as of this encounter Additional Source Comments The information contained in this document represents components of the legal health record. It is not the complete legal health record.[facility]
--- OUTSIDE RECORDS SUMMARY | 2025-11-14 07:41 | XMS_ITS | Encounter Summary ---
Author Organization [facility] Address [address] [facility] [address] [place] [address] Phone Care Team Providers Care Direct Mail Coordinator Name Role Phone Krysta Yasmany Morro Primary Care Provider [phone] Yasmany Chaparro DO Unavailable Kevin Anguiano MD Unavailable [email or web address] Jah Zhang MD Unavailable [phone] Yasmany Chaparro DO Primary Care Provider [phone] Encounter Details Date Type Department Care Team (Late st Contact Info) Description 02/05/2023 Procedure Pass [address] [address] Social History Tobacco Use Types Packs/Day Years [...] st Contact Info) Description 09/28/2025 Procedure Pass [address] [address] 06/14/2026 8:30 AM EDT Appointment [address] [place] [address] Yasmany Chaparro MorroDO 179 [place] [address] documented as of this encounter Visit Diagnoses Not on filedocumented in this encounter Care Teams Direct Mail Coordinator Relationship Specialty Start Date End Date Krysta Yasmany HookerDO PCP - General 09/02/17 12/12/24 Yasmany Chaparro DO [address] [facility] [place] [address] PCP - General Internal Medicine 12/13/24 Yasmany Chaparro DO Historical LMR Provider 09/04/17 Kevin Anguiano MD [email or web address] Historical LMR Provider 09/04/17 Jah Zhang MD [address] [address] [email or web address] Historical LMR Provider 09/04/17 documented as of this encounter Additional Source Comments The information contained in this document represents components of the legal health record. It is not the complete legal health record.[facility]
--- OUTSIDE RECORDS SUMMARY | 2025-11-14 07:41 | XMS_ITS | Encounter Summary ---
Author Organization [facility] Address [address] [facility] [address] [place] [address] Phone Care Team Providers Care Pig Iron Loader Name Role Phone Yasmany Chaparro DO Primary Care Provider [phone] Yasmany Chaparro DO Unavailable Kevin Anguiano MD Unavailable [email or web address] Edison Lua MD Unavailable Destiny Estrada MULTISENSOR INTELLIGENCE OFFICER Unavailable Renay Yoder MD Unavailable Violeta Bedolla DO Unavailable Jah Zhang MD Unavailable Roverto Braga MD Unavailable [phone] Yulisa Suazo MD Unavailable Mónica Cruz MD Unavailable [phone] Felipa Watson MULTISENSOR INTELLIGENCE OFFICER Unavailable Yasmany Chaparro DO Primary Care Provider [phone] Reason for Referral * Occupational Therapy (Routine) - Closed Specialty Diagnoses / Procedures Referred By Sharyn workman Referred To Contact Occupational Therapy Diagnoses Encounter for rehabilitation System, Provider Not In, PhD [address] [address] Phone: tel: Referral ID Status Reason Start Date Expiration Date Visits Re quested Visits Authorized [id number] Closed 03/24/2018 11/14/2018 20 20 Encounter Details Date Type Department Care Team (Latest Contact Info) Description 03/17/2018 Transcribe Orders [facility] [address] [place] [address] Shaun Kapadia PA [address] [place] [address] Encounter for rehabilitation (Primary Dx) Social History [...] st Contact Info) Description 09/28/2025 Procedure Pass [address] [address] 06/14/2026 8:30 AM EDT Appointment [address] [address] Yasmany Chaparro DO 179 [facility] [place] [address] [email or web address] Scheduled Referrals Name Type Priority Associated Diagnoses Orde r Schedule Ambulatory referral to [facility] Occupational Therapy Outpatient Referral Routine Encounter for rehabilitation Ordered: 03/17/2018 documented as of this encounter Visit Diagnoses Diagnosis Encounter for rehabilitation- Primary documented in this encounter Care Teams Pig Iron Loader Relationship Specialty Start Date End Date Yasmany Chaparro DO PCP - General 10/19/17 1/28/25 Yasmany Chaparro DO [address] [place] [address] PCP - General Internal Medicine 12/13/24 Yasmany Chaparro DO Historical LMR Provider 09/04/17 Kevin Anguiano MD [email or web address] Historical LMR Provider 09/04/17 Edison Lua MD [address] [place] [address] Historical LMR Provider 09/04/17 Destiny Estrada NP [address] [place] [address] [email or web address] Historical LMR Provider 09/04/17 2 Renay Yoder MD [address] [place] [address], [address] [place] [address] Historical LMR Provider 09/04/17 Violeta Bedolla DO [address] [place] [address] Historical LMR Provider 09/04/17 2 Jah Zhang MD [address] [address] Historical LMR Provider 09/04/17 Roverto Braga MD [address] [place] [phone] Historical LMR Provider 09/04/17 2 Yulisa Suazo MD [address] [place] [address] [facility], [place] [address] [email or web address] Historical LMR Provider 09/04/17 Mónica Cruz MD [address] [phone] Historical LMR Provider 09/04/17 2 Felipa Watson NP [address] [place] [address] Historical LMR Provider 09/04/17 2 documented as of this encounter Additional Source Comments The information contained in this document represents components of the legal health record. It is not the complete legal health record.[facility]
--- OUTSIDE RECORDS SUMMARY | 2025-11-14 07:41 | XMS_ITS | Encounter Summary ---
Author Organization [facility] Address 399 [facility] [address] [place] [address] Phone Care Team Providers Care Medical Technical Writer Name Role Phone Yasmany Chaparro DO Primary Care Provider [phone] Yasmany Chaparro DO Unavailable Kevin Anguiano MD Unavailable [email or web address] Jah Zhang MD Unavailable [phone] Yasmany Chaparro DO Primary Care Provider [phone] Encounter Details Date Type Department Care Team (Late st Contact Info) Description 01/26/2024 Ancillary Orders [facility], [facility] 30 [place] [address] Yasmany Chaparro DO 179 [facility] [address] [email or web address] Abnormal finding on mammography, microcalcification (Primary Dx) [...] st Contact Info) Description 09/28/2025 Procedure Pass [address] [address] 06/14/2026 8:30 AM EDT Appointment [address] [address] Yasmany Chaparro, DO 179 [facility] [address] [email or web address] documented as of this encounter Results * [...] microcalcification documented in this encounter Care Teams Medical Technical Writer Relationship Specialty Start Date End Date Yasmany Chaparro DO PCP - General 09/02/17 12/12/24 Yasmany Chaparro DO 179 [facility] [address] PCP - General Internal Medicine 12/13/24 Yasmany Chaparro DO Historical LMR Provider 09/04/17 Kevin Anguiano MD [email or web address] Historical LMR Provider 09/04/17 Jah Zhang MD [address] [place] [address] [email or web address] Historical LMR Provider 09/04/17 documented as of this encounter Additional Source Comments The information contained in this document represents components of the legal health record. It is not the complete legal health record.[facility]
--- OUTSIDE RECORDS SUMMARY | 2025-11-14 07:41 | XMS_ITS | Data Portability ---
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 AND ARRESTING GEAR OFFICER) MDM MODERATE MUST MEET 2 OUT OF [...] mutations , blood or tissue 2024 025 [facility] (Lab), [address] [place] [address], [address], 05/08/2025 11:16:08 CMP, serum or plasma 2024 025 [facility] (Lab), [address] [place] [address], [address], 04/24/2025 12:27:37 CBC 2024 025 [facility] (Lab), [address] [place] [address], [address], 04/24/2025 12:27:37 hemoglobi n A1c, QN, blood 2024 025 [facility] (Lab), [address] [place] [address], [address], 04/24/2025 12:27:37 TSH, serum or plasma 2024 025 [facility] (Lab), [address] [place] [address], [address], 04/04/2025 16:23:34 TSH + free T4, serum 2024 025 [facility] (Lab), [address] [place], [address], 02/27/2025 16:00:11 Referral genetic counselor referral 2024 025 [facility] Sched[facility], [address] [place], [address], 05/15/2025 09:28:08 Procedures None recorded. Surgeries None recorded. Imaging US, echocardi ogram - Not Required Procedure codes: 42211 Resolutio n: Completed on 5 at 09:41 am. 2024 025 [email or web address] 10 [facility], [address] [facility], [address], [address], 07/11/2025 12:26:05 PFT, complete 2024 025 [email or web address] 10 [facility] (Pulmonary Lab), [address] [place], [address], 07/11/2025 12:26:19 XR, chest, 2 view 2024 025 [email or web address] 10 [facility], [address] [place], [address], 07/11/2025 12:26:28 Medication Orders losartan 50 mg tablet 2024 025 [id number], [address], [place], [id number], 05/07/2025 09:36:18 levothyro xine 88 mcg tablet 2024 025 [facility][id number], [address], [place], [id number], 05/07/2025 09:36:16 lisinopri l 10 mg tablet 2024 025 [facility] #[id number], [address], [place], [id number], 05/07/2025 09:32:05 lisinopri l 5 mg tablet 2024 025 [id number], [address], [place], [id number], 04/04/2025 16:19:23 Patient TargetsNo targets recorded. Patient Instructions Encounter Date Encounter Id Patient Instructions Last Modified By Organization Details Last Modified Time 09/05/2025 [id number] [facility]: [facility] Not available 09/05/2025 15:05:23 Reason for Referral Genetic Counselor Referral f or Family history of disorder Referring Physician: Yasmany Avila, Internal Medicine, Encounter Date: 05/07/2025 Results Created Date Observation Date Name Description Value Unit Range Abnormal Flag Note LastModifiedBy Organization Detail LastModifiedTime 08/28/2008/28/2025 US, echoc ardio gram No observ ation record ed. [facility] [address] [place], [address], 08/28/2025 23:29:00 08/29/2008/28/2025 XR, chest , 2 view No observ ation record ed. [facility] [address] [place], [address], 08/29/2025 11:01:18 Result Notes None recorded. Problems Name Problem SNOMED Code Status Onset Date Resolution Date Notes Provider Name and Address Organization Details Recorded Time Hypothyr oidism 46568011 Active 2017 [facility] 8 08:31:11 Mammogra phy abnormal 109416392 Active 2017 Right breast ? microcalc ification repeat mammo due 09/22 benign bzx Yasmany Avila, DO [address] [facility], [place], [address], [place] [facility] 4 13:49:16 Kidney stone 91506218 Active 2017 bilateral multiple [facility] 08:32:51 Metaboli c syndrome X 232974479 Active 2017 [facility] 08:33:12 Medullar y sponge kidney 582047907 Active 2017 [facility] 08:33:38 Hyperlip idemia 83401983 Active 2017 [facility] 08:34:04 Migraine 03760531 Active 2017 [facility] 08:34:13 History of depressi on 619424370 Active 2017 [facility] 08:34:21 Mood disorder 56449110 Active 2017 anger [facility] 08:42:26 Depressi ve disorder 50782695 Active 2018 Yasmany Avila DO [address] [place] [address], [address], [facility] 9 16:39:55 Osteoart hritis 886476079 Active 2018 Yasmany Avila DO [address] [place] [address], [address], [facility] 9 16:54:59 Fibromya lgia 325793435 Active 2018 Yasmany Avila DO [address] [place] [address], [address], [facility] 9 16:55:17 Gastroes ophageal reflux disease 361351670 Active 2019 Yasmany Avila DO [address] [place] [address], [address], [facility] 0 10:46:59 Lipomato sis dolorosa 28370721 Active 2020 Yasmany Avila DO [address] [place] [address], [address], [facility] 1 14:49:03 Adenomat ous polyp of colon 028955790 Active 2020 Yasmany Avila DO [address] [place] [address], [address], [facility] 1 21:20:54 Gastriti s 3182435 Active 2021 JUAN CINTRON [address] [place] [address], [address], [facility] 2 11:43:18 Anxiety 63492208 Active 2021 Yasmany Avila DO [address] [place] [address], [address], [facility] 2 15:38:23 Sleep apnea 80476757 Active 2021 Yasmany Avila DO [address] [place] [address], [address], [facility] 2 15:58:19 Dysuria 23556822 Active 2021 JUAN CINTRON [address] [place] [address], [address], [facility] 2 16:46:40 Acute urinary tract infectio n 823007260 Active 2021 JUAN CINTRON [address] [place] [address], [address], [facility] 2 15:19:40 Type 2 diabetes mellitus 62299536 Active 2023 JUAN CINTRON [address] [place] [address], [address], [facility] 4 16:41:53 Aphthous ulcer of mouth 421229239 Active 2023 Yasmany Avila DO [address] [place] [address], [address], [facility] 4 16:19:17 Ganglion of flexor tendon sheath of finger 145924041 Active 2023 Yasmany Phelan Ailinkaylynn, DO [address] [place] [address], [address], [facility] 4 16:24:37 Excessiv e weight gain 938713753 Active 2023 Yasmany Avila, DO [address] [place] [address], [address], [facility] 4 16:35:32 Elevated blood-pr essure reading without diagnosi s of hyperten frank 484227616 Active 2024 Yasmany Phelan Krysta, DO [address] [place] [address], [address], [facility] 5 16:53:34 Generali zed rash 986829383 Active 2024 Yasmany MorroAlicia Krysta, DO [address] [place] [address], [address], [facility] 5 16:59:16 Infestat ion by Sarcopte s scabiei ward hominis 062399371 Active 2024 Yasmany MorroAlicia Krysta, DO [address] [place] [address], [address], [facility] 5 16:11:51 Hyperten sive disorder 77309952 Active 2024 Yasmany Zhane Avila, DO [address] [place] [address], [address], [facility] 5 15:57:28 Dyspnea on exertion 43236688 Active 2024 Yasmany Avila, [address], [address], [facility] 5 16:09:12 Problem Notes None recorded. Procedures Surgical History Date Name Laterality Status Provider Name and Address Organization Details Recorded Time 09/11/20 24 colonoscopy completed Ismael Avila [facility] 09/11/2024 14:56:20 delivery completed Julissa Robison [facility] 02/25/2018 08:36:33 Cholecystectomy completed Julissa Robison [facility] 02/25/2018 08:37:24 Endometr ablate thermal completed Julissakeiko Robison [facility] 02/25/2018 08:39:56 Imaging Results None recorded. Procedure Notes None recorded. Medical Equipment None Reported. Allergies Allergen ID Allergen Name Allergen Category Reaction Reaction Severity Criticality Documentation Date Start Date Code Code System Note Provider Name and Address Organization Details Recorded Time 9090 lisinopri l medicatio n cough Not available low 05/07/2025 98725 RxNorm Yasmany MorroAlicia Avila, DO [address] [place], [address], [facility] 5 09:32:15 913 Provigil medicatio n Not available Not available Not available 02/25/2018 44223 4 RxNorm [facility] 8 08:35:44 9527 modafinil medicatio n Not available Not available Not available 09/28/20252016 70152 RxNorm Other react ion(s ): very ill,a bill flu like Not Available tigre - External Data Service - prod 5 [...] Not Available No t Available Fluarix Quad 7018-8840 (PF) 60 mcg (15 mcg x 4)/0.5 [...] Available Not Available Not Avai lable Vitals Date Recorded Body height Body mass index (BMI) Body weight Heart rate Oxygen saturation Systolic And Diastolic Provider Name and Address Organization Details Last Updated DateTime 5 154.94 cm 32.1 kg/m2 60059.7 g 98 /min 97 % 140/78 mm[Hg] Elyse Flores [facility] 5 15:35:11 Date Recorded Body height Body mass index (BMI) Body weight Oxygen saturation Heart rate Systolic And Diastolic Provider Name and Address Organization Details Last Updated DateTime 5 154.94 cm 32.8 kg/m2 12327.9 9 g 96 % 68 /min 130/78 mm[Hg] SONYA DANG [facility] 5 15:58:03 Date Recorded Body height Body mass index (BMI) Body weight Heart rate Oxygen saturation Systolic And Diastolic Provider Name and Address Organization Details Last Updated DateTime 5 154.94 cm 32.7 kg/m2 58141.4 8 g 90 /min 98 % 130/80 mm[Hg] Elyse Flores [facility] 5 09:22:23 Date Recorded Body height Body mass index (BMI) Body weight Oxygen saturation Heart rate Systolic And Diastolic Provider Name and Address Organization Details Last Updated DateTime 5 154.94 cm 33.8 kg/m2 13033.0 3 g 99 % 92 /min 124/76 mm[Hg] SONYA DANG [facility] 5 15:27:27 Social History Question Answer Notes LastModified by Organizat [employer] Details LastModified Time Tobacco Smoking Status Never Smoker Not Available [facility] 09/17/2020 03:36:24 What Is Your Level Of Caffeine Consumption? Occasional 2 Cups Coffee Per Day [id number] Information not available 09/17/2020 What Was The Date Of Your Most Recent Tobacco Screening? 07/09/2025 [email or web address] Information not available 07/09/2025 Sex: Unknown Functional Status Question Answer Note LastModified by Organ[employer]at [employer] Details LastModified Time Do you or have you ever used any other forms of tobacco or nicotine? No Information not available 04/20/2022 What is your level of alcohol consumption? Occasional [id number] Information not available 09/17/2020 What is your exercise level? None [id number] Information not available 09/17/2020 Mental Status None [...] mcg/0.25mL dose 1 completed Yasmany Avila DO [address] [place], [address], [facility] 05/26/2021 14:10:58 COVID-19, mRNA, LNP-S, PF, 100 mcg/0.5mL dose or 50 mcg/0.25mL dose 1 completed Yasmany Avila DO [address] [place], [address], [facility] 05/26/2021 14:10:41 Influenza, split virus, quadrivalent, preservative 1 completed Yasmany Avila DO [address] [place], [address], [facility] 09/10/2021 15:42:09 Influenza, split virus, quadrivalent, preservative 8 completed February VICTOR M Sin [address] [place], [address], [facility] 08/30/2018 09:30:50 Tdap 8 completed Not Available [facility] 12/16/2019 02:14:52 Influenza, split virus, quadrivalent, preservative 9 [facility]/21[facility] 16:23:48 Influenza, split virus, quadrivalent, preservative 0 [facility] 01/27/2021 10:01:10 Past Encounters Encounter ID Performer Location Encounter Start Date Encounter Closed Date Diagnosis/Indication Diagnosis SNOMED-CT Code Diagnosis ICD10 Code Diagnosis IMO Codes Diagnosis Note [id number] [facility] [address] [facility],[place] [address] 02/25/2018 15:53:51 02/25/2018 17:04:31 Type 2 diabetes mellitus 00484589 E11.65 extensive counsellin g as noted in [...] which may be detrimenta l to cardiovasc ar health. Essentiall y consider a diet that [...] minimize post prandial blood sugar spikes. Hypothyroidism 90793402 E03.9 Hyperlipidemia 08709260 E78.5 as above [id number] Yasmany Avila [facility] [address] [facility], [place] [address] 04/01/2018 14:42:36 04/01/2018 15:14:15 Type 2 diabetes mellitus 96256143 E11.65 continue current regimen Kidney stone 35465919 N2 0.0 has known kidney stones, but never has passed a stone urine was normal seems unlikely to be a passing stone if marcos blood in urine recc ER - pt understood Acute low back pain 2788 03111 M54.5 likely muscular [id number] Yasmany Avila [facility] [address] [facility] [place] [facility] [place] [address] 05/25/2018 08:54:33 05/25/2018 09:54:01 Type 2 diabetes mellitus 43643072 E11.65 continue current regimen of 1000 mg in am and 500 mg in pm Obstructiv e sleep apnea syndrome 62112201 G47.33 Hypothyroidism 47767457 E03.9 is due for recheck in 6 months Depressive disorder 3548 9007 F33.9 well controlled rare use of lorazepam [id number] Yasmany Avila [facility] [address] [facility] [address] 07/26/2018 14:24:21 07/26/2018 15:05:36 Neck pain 64995544 M54.2 Type 2 mary lou betes mellitus 30544347 E11.65 continue current regimen of 1000 mg in am and 500 mg in pm History of depression 16 6563539 Z86.59 Hyperlipidemia 70077979 E78.5 as above [id number] Yasmany Avila [facility] [address] [facility],[place] [address] 08/30/2018 09:01:42 08/30/2018 09:48:56 Type 2 diabetes mellitus 07603696 E11.65 continue current regimen of 1000 mg [...] her family. Obstructiv e sleep apnea syndrome 23326698 G47.33 Hypothyroidism 50206647 E03.9 will check at next visit Depressive disorder 3548 9007 F33.9 well controlled rare use of lorazepam Motion sickness 39700733 T75.3XXA Screening procedure 2012 5006 Z13.9 [id number] Yasmany Avila [facility] [address] [facility] [place] [facility] [place] [address] 11/30/2018 11:44:17 11/30/2018 12:17:45 Type 2 diabetes mellitus 69741847 E11.65 has been taking metformin, plans to switch back to trulicity Obstructiv e sleep apnea syndrome 98531999 G47.33 uses cpap nightly Hypothyroidism 06204277 E03.9 will check 6 months Depressive disorder 3548 9007 F33.9 well controlled rare use of lorazepam Body mass index 25-29 - overweight 603515281 Z68.27 has been gradually losing weight praised for improvemen t Hyperlipidemia 38658655 E78.5 work on diet and exercise to help lower naturally consider statin over the next 6 mos to a year [id number] Yasmayn Avila [facility] [address] [facility],[place] [address] 03/14/2019 13:42:08 03/14/2019 14:26:43 Hypothyroidism 50064539 E03.9 will need to keep biannual chk of tsh Type 2 mary lou betes mellitus 27562000 E11.9 last a1c is 5.1 and she is doing awesome Hyperlipidemia 79592866 E78.5 will start atorvastat in 10mg rechk lab in 4 mo [id number] Yasmany Avila [facility] [address] [facility],[place] [address] 06/07/2019 15:23:08 06/07/2019 16:32:00 Hypothyroidism 44311111 E03.9 will need to keep biannual chk of tsh Type 2 mary lou betes mellitus 63831929 E11.9 last a1c is 5.1 and she is doing awesome Hypercholesterolemia 136 15277 E78.00 Anxiety 68300024 F41.9 [id number] Yasmany Avila, [facility] [address] [facility] [address] [address] 06/21/2019 16:19:55 06/21/2019 16:49:45 Depressive disorder 63237865 F32.1 will add low dose bupropion to the cymbalta to try to improve her mood [id number] Yasmany Avila [facility] [address] [facility] [address] [address] 08/21/2019 16:05:43 08/21/2019 17:03:21 Depressive disorder 64547985 F32.1 l added low dose bupropion to the cymbalta to try to improve her mood and she seems to be better Type 2 mary lou betes mellitus 56494878 E11.9 has not been checkin g her sugars Medullary sponge kidney 742936957 Q61.5 no new issues followed by renal [id number] Yasmany Avila [facility] [address] [facility] [address] [address] 09/27/2019 16:06:34 09/27/2019 16:46:29 Metabolic syndrome X 840025985 E88.81 doing fantastic on trulicity and has no prob a1c is 5.0 Depressive disorder 3548 9007 F32.1 l added low dose bupropion to the cymbalta to try to improve her mood and she seems to be better she thinks she is doing ok Cheilosis 72531353 K13.0 [id number] Yasmany Avila [facility] [address] [facility] [address] [address] 11/06/2019 14:09:47 11/06/2019 14:31:55 Seborrheic dermatitis of scalp 573569186 L21.0 Anterior caput ongoing for 6 mo-1 year Eczema 85550417 L30.9 Scalp eczema Depressive disorder 1957 1327 F32.1 seems to be doing better Metabolic syndrome X 237 002638 E88.81 doing fantastic on trulicity and has no prob a1c is 5.[id number] [facility] [address] [facility] [address], [place] [place] [facility] [address] 01/10/2020 10:28:46 01/10/2020 11:13:50 Adult health examination 936744587 Z00.00 doing well Type 2 mary lou betes mellitus 78898473 E11.9 a1c is 4.8 and she s doing well still on trulicity we will stop and rechk a1c in 3 mo Hypothyroidism 26999715 E03.9 will need to keep biannual chk of tsh Alopecia 20135385 L65.9 believe this is from the bupropion will stop and see if this improves [id number] [facility] [address] [facility], [address] [facility] [address] 01/31/2020 13:31:55 02/12/2020 11:49:21 Fever 605329261 R50.9 f/u if sx change or worsen Acute pharyngitis 559050 003 J02.9 f/u if sx change or worsen Type 2 mary lou betes mellitus 38071137 E11.65 [id number] Yasmany Avila [facility] [address] [facility] [address], [address] [facility] [address] 04/03/2020 14:51:19 04/03/2020 16:03:36 Hyperlipidemia 16480265 E78.5 will start atorvastat in 10mg and her LDL down to 111 and HDL at 40 exelllent Mood disorder 98817014 F 39 taking lorazepam daily during the day [facility] ic bursitis of left hip 3866583791 11076 [address]70.[address] rao for ani inj Type 2 mary lou betes mellitus 73272389 E11.9 a1c is up to 6.4 so we will go back to trulicity Alopecia 35561786 L65.9 [place] [id number] Yasmany Avila [facility] [address] [facility] [address] [address] 04/17/2020 14:53:35 04/17/2020 15:20:16 Type 2 diabetes mellitus 84109322 E11.9 doing well on angie.icity Mood disorder 67295241 F 39 taking lorazepam daily during the day 0n 90 mg dulox ? if she has WU Insomnia 683564874 G47.0 0 [id number] Yasmany Avila, [facility] [address] [facility] [address],[place] [address] 07/19/2020 10:14:25 07/19/2020 11:12:13 Type 2 diabetes mellitus 50105491 E11.9 doing well on angie.icity a1c 5 Depressive disorder 3548 9007 F32.1 seems to be doing better Hypothyroidism 87485776 E03.9 will need to keep biannual chk of tsh Hyperlipidemia 89249726 E78.5 atorvastat in 10mg and her LDL down to 80and HDL at 50+exellle nt Gastroesop hageal reflux disease 531474683 K21.9 will try the omeprazole and if ok will continue for now call if unhelpful [id number] Yasmany Avila, [facility] [address] [facility] [address] [address] 10/25/2020 08:51:38 10/25/2020 10:26:59 Hypothyroidism 59788115 E03.9 will need to keep biannual chk of tsh Type 2 mary lou betes mellitus 10185180 E11.9 doing well on trul.icity a1c 5.1 long discussion re need for close monitor during pandemic a also will need vaccine if deemed safe for her to use Medullary sponge kidney 837771232 Q61.5 no new issues followed by renal [place] [id number] Yasmany Avila, [facility] [address] [facility] [address],[place] [address] 01/27/2021 09:56:49 01/27/2021 10:49:39 Hypothyroidism 02133115 E03.9 will need to keep biannual chk of tsh Type 2 mary lou betes mellitus 81162911 E11.9 doing well on trul.icity a1c 5.2 was 5.1 long discussion re need for close monitor during pandemic a also will need vaccine if deemed safe for her to use Medullary sponge kidney 025517948 Q61.5 no new issues followed by renal and creat is stable microalb is neg Pain in bi lateral feet 9667839190 0537903 M79.671 M79.672 [id number] Yasmany Avila [facility] [address] [facility] [address],[place] [address] 05/26/2021 13:57:49 05/26/2021 16:43:26 Type 2 diabetes mellitus 54509232 E11.9 doing well on trul.icity a1c 5.3 5.2 was 5.1 long discussion re need for close monitor during pandemic a also will need vaccine if deemed safe for her to use Hypothyroidism 63457410 E03.9 will need to keep biannual chk of tsh Depressive disorder 3548 9007 F32.1 seems to be doing better Hyperlipidemia 13783204 E78.5 atorvastat in 10mg and her LDL down to 80and HDL at 50+exellle nt 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 frustratin g , no treatment availhas mult areas around her legs they bother the most there she is covered in them and there are too many to remove but we will consider having the more prominent ones removed Medullary sponge kidney 519924838 Q61.5 no new issues followed by renal and creat is stable [place]alb [place] [id number] Yasmany Avila [facility] [address] [facility] [address] [facility] [place] [address] 09/10/2021 15:23:06 09/10/2021 16:34:47 Depressive disorder 95677607 F32.1 seems to be doing better Type 2 mary lou betes mellitus 16948607 E11.9 doing well on trul.icity a1c 5.3 5.2 was 5.1 long discussion re need for close monitor during pandemic a also will need vaccine if deemed safe for her to use Hypothyroidism 21539425 E03.9 will need to keep biannual chk of tsh Insomnia 065357447 G47.0 0 [id number] Yasmany Avila [facility] Internal Medicine [address] [facility] [address],[place] [address] 10/01/2021 15:21:44 10/01/2021 16:24:14 Insomnia 260519010 G47.00 Metabolic syndrome X 237 614856 E88.81 doing fantastic on trulicity and has no prob a1c is 5.5 Type 2 mary lou betes mellitus 61516482 E11.9 doing well on trul.icity a1c 5.5 was5.3 5.2 was 5.1 long discussion re need for close monitor during pandemic a also will need vaccine if deemed safe for her to use [id number] Yasmany Avila [facility] Internal Medicine [address] [facility] [address],[place] [address] 01/07/2022 15:49:40 01/07/2022 16:42:57 Major depressive disorder 336475738 F32.1 still under a lot of stress Type 2 mary lou betes mellitus 99149887 E11.9 doing well on trul.icity a1c was 5.6 and was 5.5 was 5.3 5.2 was 5.1 long discussion re need for close monitor during pandemic also will need vaccine if deemed safe for her to use Medullary sponge kidney 580188138 Q61.5 no new issues followed by renal and creat is stable microalb is neg Hypothyroidism 66972831 E03.9 will need to keep biannual chk of tsh Hyperlipidemia 76639464 E78.5 atorvastat in 10mg and her LDL down to 80and HDL at 50+exellle nt Gastroesop hageal reflux disease 058550952 K21.9 will try the nexium or pantoprazo le and if ok will continue for now call if unhelpful Motion sickness 24178337 T75.3XXD Nummular eczema 28297581 L30.0 69835 Yasmany Avila [facility] Internal Medicine [address] [facility] [address],[place] [address] 02/11/2022 11:28:51 02/11/2022 14:31:41 Gastritis 9415234 K29.60 will start on famotidine and sucralfate 83589 Yasmany Avila [facility] Internal Medicine [address] [facility] [address],[place] [address] 04/20/2022 14:54:09 04/20/2022 15:44:20 Gastroesophageal reflux disease 386703244 K21.9 the nexium nad famotidine are actually doing quite well Hypothyroidism 12065472 E03.9 will need to keep biannual chk of tsh Type 2 mary lou betes mellitus 26693412 E11.9 doing well on trul.icity a1c was 5.6 and was 5.5 was 5.3 5.2 was 5.1 long discussion re need for close monitor during pandemic also will need vaccine if deemed safe for her to use Depressive disorder 3548 9007 F32.1 seems to be doing better Active or passive immunization 068751979 Z23 patient advised of due vaccines (pneu 23 & shingles) Anxiety 06417796 F41.9 57079 Yasmany Avila [facility] Internal Medicine [address] [facility] [address] [address] 07/24/2022 08:11:59 07/27/2022 08:51:09 Sleep apnea 42571881 G47.30 for home sleep study [id number] Yasmany Avila [facility] Internal Medicine [address] [facility] [address] [address] 03/19/2023 15:25:36 03/19/2023 16:12:35 Depressive disorder 99194733 F32.1 seems to be doing better Motion sickness 67024591 T75.3XXD Hyperglycemia 85931034 R 73.9 a1c 5.4 and she is doing fantastic 48168 Yasmany Avila [facility] Internal Medicine [address] [facility] [address],[place] [address] 07/06/2023 08:07:11 07/07/2023 08:35:17 Hyperglycemia 84777327 R73.9 a1c 5.5 and she is doing fantastic Hypothyroidism 95633463 E03.9 will need to keep biannual chk of tsh Medullary sponge kidney 714845015 Q61.5 no new issues followed by renal and creat is stable microalb is neg 766024 Yasmany Avila [facility] Internal Medicine [address] [facility] [address],[place] [address] 10/29/2023 15:43:59 10/29/2023 16:19:11 Hyperglycemia 97160871 R73.9 a1c i still 5.5 and she is doing fantastic Hypothyroidism 33342255 E03.9 will need to keep biannual chk of tsh Hyperlipidemia 03925520 E78.5 atorvastat in 10mg and her LDL down to 80and HDL at 50+exellle nt [id number] Yasmany Avila, [facility] Internal Medicine [address] [facility] [place] [address] 02/04/2024 15:53:19 02/07/2024 08:17:57 Hyperlipidemia 95696535 E78.5 atorvastat in 10mg will hold for several weeks to see if swelling is gone and her LDL down to 80and HDL at 50+exellle nt Hypothyroidism 06278346 E03.9 will need to keep biannual chk of tsh but will do extra test due to use of trulicity3 mg Type 2 mary lou betes mellitus 39070576 E11.9 doing well on trul.icity a1c was 5.6 and was 5.5 was 5.3 5.2 was 5.1 long discussion re need for close monitor during pandemic also will need vaccine if deemed safe for her to use [id number] Yasmany Avila, [facility] Internal Medicine [address] [facility],[place] [address] 03/22/2024 15:56:04 03/22/2024 16:41:37 Type 2 diabetes mellitus 54365383 E11.9 doing well on trul.icity a1c was 5.6 and was 5.5 was 5.3 5.2 was 5.1 long discussion re need for close monitor during pandemic also will need vaccine if deemed safe for her to use Hyperlipidemia 82303393 E78.5 atorvastat in 10mg will hold for several weeks to see if swelling is gone and her LDL down to 80and HDL at 50+exellle nt Mood disorder 66861165 F 39 duloxetine not helpful relates taking 60 bid Depression screening 171 212835 Z13.31 positive History of depression 16 7755788 Z86.59 Aphthous u lcer of mouth 879556353 K12.0 will treat next outbreak [id number] Yasmany Avila [facility] Internal Medicine [address] [facility],[place] [address] 04/28/2024 13:26:29 04/28/2024 14:23:51 Type 2 diabetes mellitus 33238723 E11.9 side effects on trul.icity of 3mg a1c was up to 6.8 was 6.2 5.6 and was 5.5 was 5.3 5.2 was 5.1 long discussion re need for close monitor during pandemic also will need vaccine if deemed safe for her to use Hypothyroidism 06070011 E03.9 will need to keep biannual chk of tsh but will do extra test due to use of trulicity 3mgwill try to cut dose by pulling out prematurly Medullary sponge kidney 529152940 Q61.5 no new issues followed by renal and creat is stable microalb is neg [id number] Yasmany Avila [facility] Internal [facility] [address] [facility],[place] [address] 07/28/2024 15:42:43 07/30/2024 20:26:54 Type 2 diabetes mellitus 64888806 E11.9 side effects on trul.icity of 3mg a1c was up to 6.8 was 6.2 5.6 and was 5.5 was 5.3 5.2 was 5.1 long discussion re need for close monitor during pandemic also will need vaccine if deemed safe for her to use Hypothyroidism 90600284 E03.9 will need to keep biannual chk of tsh but will do extra test due to use of trulicity 3mgwill try to cut dose by pulling out prematurly [id number] Yasmany Avila [facility] Internal [facility] [address] [facility] [place] [address] 09/08/2024 09:52:15 09/08/2024 13:45:24 Sleep apnea 91762252 G47.30 for home sleep study Anxiety 81415378 F41.9 stable with her work as long as the current schedule maintained paperwork filled out here with pt present [id number] Yasmany Avila [facility] Internal Medicine [address] [facility],[place] [address] 11/03/2024 15:48:10 11/03/2024 16:43:03 Type 2 diabetes mellitus 26842023 E11.9 side effects on trul.icity of 3mg a1c is great at 6.0 was up to 6.8 was 6.2 5.6 and was 5.5 was 5.3 5.2 was 5.1 long discussion re need for close monitor during pandemic also will need vaccine if deemed safe for her to use Ganglion o f flexor tendon sheath of finger 840868084 M67.449 will refer to the hadnt dr Hypothyroidism 81023775 E03.9 will need to keep biannual chk of tsh but will do extra test due to use of trulicity 3mgwill try to cut dose by [id number] Yasmany Avila [facility] Internal Medicine [address] [facility],[place] [address] 01/31/2025 15:50:12 02/02/2025 11:51:08 Depression screening 017426357 Z13.31 neg Elevated blood-pressure reading without diagnosis of hypertension 755099098 R03.0 she will get a bp machine and record will rechk in 2 mo Gastroesop hageal reflux disease 683144955 K21.9 the nexium nad famotidine are actually doing quite well Hypothyroidism 69620912 E03.9 will need to keep biannual chk of tsh but will do extra test due to use of trulicity 3mgwill try to cut dose by Type 2 mary lou betes mellitus 41539670 E11.9 side effects on trulicity of 3mg a1c is great at 6.0 was up to 6.8 was 6.2 5.6 and was 5.5 was 5.3 5.2 was 5.1 long discussion re need for close monitor during pandemic also will need vaccine if deemed safe for her to use Generalized rash 1296732 06 R21 [id number] Yasmany Avila [facility] Medicine [address] [facility] [place] [address] 02/27/2025 15:15:31 02/27/2025 16:06:56 Hyperlipidemia 53786497 E78.5 atorvastat in 10mg will hold for several weeks to see if swelling is gone and her LDL down to 80and HDL at 50+excelll ent Hypothyroidism 58382085 E03.9 will need to keep biannual chk of tsh but will do extra test due to use of trulicity 3mgwill try to cut dose by Generalized rash 5237173 06 R21 resolved Type 2 mary lou betes mellitus 11334751 E11.9 side effects on trulicity of 3mg a1c is great at 6.0 was up to 6.8 was 6.2 5.6 and was 5.5 was 5.3 5.2 was 5.1 long discussion re need for close monitor during pandemic also will need vaccine if deemed safe for her to use Depression screening 171 802584 Z13.31 neg Hypertensive disorder 38 567685 I10 will need to treat [id number] Yasmany Avila [facility] Internal Medicine [address] [facility],[place] [address] 04/04/2025 15:35:48 04/04/2025 16:29:18 Hypothyroidism 93366248 E03.9 will need to keep biannual chk of tsh but will do extra test due to use of trulicity 3mgwill try to cut dose by Hypertensive disorder 38 742144 I10 will need to treat at higher dose as home readings are still elevated Type 2 mary lou betes mellitus 24350586 E11.9 side effects on trulicity of 3mg a1c is great at 6.0 was up to 6.8 was 6.2 5.6 and was 5.5 was 5.3 5.2 was 5.1 long discussion re need for close monitor during pandemic also will need vaccine if deemed safe for her to use Hyperlipidemia 82503032 E78.5 atorvastat in 10mg will hold for several weeks to see if swelling is gone and her LDL down to 80and HDL at 50+excelll ent Depression screening 171 Z13.31 neg 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 3074793089 19322433 Z14.8 1375474574 [id number] Yasmany Avila [facility] Internal Medicine [address] [facility],[place] [address] 05/07/2025 09:13:44 05/07/2025 09:52:37 Depression screening 406444739 Z13.31 neg Hyperlipidemia 73507104 E78.5 stable and holding is on atorvastat in 10mg will hold for several weeks to see if swelling is gone and her LDL down to 80and HDL at 50+excelll ent Hypertensive disorder 38 709360 I10 she has developed a cough will change lisinopril to losartan Type 2 mary lou betes mellitus 44113317 E11.9 a1vc is great at 6.2 side effects on trulicity of 3mg a1c is great at 6.0 was up to 6.8 was 6.2 5.6 and was 5.5 was 5.3 5.2 was 5.1 long discussion re need for close monitor during pandemic also will need vaccine if deemed safe for her to use Hypothyroidism 02041833 E03.9 noted very low tsh dizzy, jittery and hand tremors will lower dose to 88mcg Family his tory of disorder 618885105 Z83.49 1689498 [id number] Yasmany Avila [facility] Internal Medicine [address] [facility] [address] [place] [address] 07/09/2025 15:18:25 07/09/2025 16:48:00 Hypertensive disorder 58058622 I10 she has developed a cough will change lisinopril to losartan Hyperlipidemia 27044997 E78.5 stable and holding is on atorvastat in 10mg will hold for several weeks to see if swelling is gone and her LDL down to 80and HDL at 50+excelll ent Type 2 mary lou betes mellitus 06269417 E11.9 a1vc is great at 6.2 side effects on trulicity of 3mg a1c is great at 6.0 was up to 6.8 was 6.2 5.6 and was 5.5 was 5.3 5.2 was 5.1 long discussion re need for close monitor during pandemic also will need vaccine if deemed safe for her to use Hypothyroidism 85384408 E03.9 noted very low tsh dizzy, jittery and hand tremors will lower dose to 88mcg Depression screening 171 435587 Z13.31 neg Dyspnea on exertion 6084 5006 R06.09 [id number] Yasmany Avila DO [facility] Internal Medicine [address] [facility] [address] [address] 09/05/2025 14:00:06 09/07/2025 10:09:16 Depression screening 622915800 Z13.31 neg Hyperlipidemia 49831235 E78.5 stable and holding is on atorvastat in 10mg will hold for several weeks to see if swelling is gone and her LDL down to 80and HDL at 50+excelll ent Hypertensive disorder 38 293191 I10 losartan is ok Type 2 mary lou betes mellitus 06662804 E11.9 a1vc is great at 6.8 side effects on trulicity of 3mg a1c is great at 6.0 was up to 6.8 was 6.2 5.6 and was 5.5 was 5.3 5.2 was 5.1 long discussion re need for close monitor during pandemic also will need vaccine if deemed safe for her to use Hypothyroidism 51233344 E03.9 noted very low tsh dizzy, jittery and hand tremors will lower dose to 88mcg Health Concerns Section Related Observation LastModified by Organization Detai ls LastModified Time None Recorded Concern Status LastModified by Organization Details LastModified Time None Recorded Advance Directives Directive None Recorded Payers Insurance Date Sequence Insurance Name Policy Number Policy Mallory Covered Member ID Mallory Member ID Guarantor Name 09/02/2025 1 [facility] [employer] Kobe Whittaker [id number] Jyoti Whittaker Notes Date Note Type Note Provider Name and Address Organization Details Recorded Time 02/28/20 25 text/htm l Care Management - [...] homeavg is 168/90 Yasmany Avila, DO [address] [place], [address], [facility] Internal Medicine 02/27/2025 16:00:25 04/04/20 25 text/htm [...] homeavg is 168/90 Yasmany Avila DO [address] [place], [address], [facility] Internal Medicine 04/04/2025 16:28:52 05/07/20 25 text/htm [...] homeavg is 168/90 Yasmany Avila DO [address] [facility], [place], [address], [facility] Internal Medicine 05/07/2025 09:47:49 07/09/20 25 text/htm [...] homeavg is 168/90 Yasmany Avila, DO [address] [place], [address], [facility] Internal Medicine 07/09/2025 16:17:55 09/05/20 25 text/htm l Care Management - [...] on ozempicreviewed lab in detail Yasmany Avila, DO [address] [facility], [place], [address], [facility] 09/05/2025 15:07:24 OBGyn Episode No OBEpisode recorded.
--- OUTSIDE RECORDS SUMMARY | 2025-11-14 07:41 | XMS_ITS | Encounter Summary ---
Author Organization [facility]erg[facility] Address [address] [place] [address] Phone Care Team Providers Care Industrial Hygiene Engineer Name Role Phone Yasmany Chaparro Primary Care Provider [phone] Krysta Yasmany Hooker DO Unavailable Kevin Anguiano MD Unavailable [email or web address] Jah Zhang MD Unavailable [phone] Yasmany Chaparro DO Primary Care Provider [phone] Encounter Details Date Type Department Care Team (Late Contact Info) Description 02/02/2023 Telephone [facility] Pulmonology, Allergy and Critical [facility] Medicine Clinic [address] [place] [address] Christianne Her MA [email or web address] Social History Tobacco Use Types Packs/Day Years [...] Encounters Date Type Department Care Team (Late Contact Info) Description 09/28/2025 Procedure Pass [facility], [address] [id number] 06/14/2026 8:30 AM EDT Appointment [facility], [facility] [address] [place] [address] Yasmany Chaparro DO [address] [place] [address] [email or web address] documented as of this encounter Visit Diagnoses Not on filedocumented in this encounter Care Teams Industrial Hygiene Engineer Relationship Specialty Start Date End Date Yasmany Chaparro DO PCP - General 09/02/17 12/12/24 Yasmany Chaparro DO [address] [place] [address] PCP - General Internal Medicine 12/13/24 Yasmany Chaparro DO Historical LMR Provider 09/04/17 Kevin Anguiano MD [email or web address] Historical LMR Provider 09/04/17 Jah Zhang MD [address] [place] [address] Historical LMR Provider 09/04/17 documented as of this encounter Additional Source Comments The information contained in this document represents components of the legal health record. It is not the complete legal health record.[facility]
--- OUTSIDE RECORDS SUMMARY | 2025-11-14 07:41 | XMS_ITS | Encounter Summary ---
Author Organization [facility] Address [address] [facility] [address] [place] [address] Phone Care Team Providers Care Copy Machine Operator Name Role Phone Krysta Yasmany Morro DO Primary Care Provider [phone] Yasmany Chaparro DO Unavailable Kevin Anguiano MD Unavailable [email or web address] Jah Zhang MD Unavailable [phone] Yasmany Chaparro DO Primary Care Provider [phone] Encounter Details Date Type Department Care Team (Late st Contact Info) Description 11/12/2023 Procedure Pass [facility], [address] [address] Social History Tobacco Use Types Packs/Day Years [...] st Contact Info) Description 09/28/2025 Procedure Pass [address] [address] 06/14/2026 8:30 AM EDT Appointment [address] [address] Yasmany Chaparro DO [address] [place] [address] documented as of this encounter Visit Diagnoses Not on filedocumented in this encounter Care Teams Copy Machine Operator Relationship Specialty Start Date End Date Yasmany Chaparro DO PCP - General 09/02/17 12/12/24 Yasmany Chaparro DO [address] [place] [address] PCP - General Internal Medicine 12/13/24 Yasmany Chaparro DO Historical LMR Provider 09/04/17 Kevin Anguiano MD [email or web address] Historical LMR Provider 09/04/17 Jah Zhang MD [address] [place] [address] [email or web address] Historical LMR Provider 09/04/17 documented as of this encounter Additional Source Comments The information contained in this document represents components of the legal health record. It is not the complete legal health record.[facility]
--- OUTSIDE RECORDS SUMMARY | 2025-11-14 07:41 | XMS_ITS | Encounter Summary ---
Author Organization [facility] Address [address] [facility] [address] [place] [address] Phone Care Team Providers Care Food And Nutrition Professor Name Role Phone Yasmany Chaparro DO Primary Care Provider [phone] Yasmany Chaparro DO Unavailable Kevin Anguiano MD Unavailable [email or web address] Jah Zhang MD Unavailable [phone] BigYasmany chaidez DO Primary Care Provider [phone] Encounter Details Date Type Department Care Team (Late st Contact Info) Description 03/10/[address] [address] Social History Tobacco Use Types Packs/Day Years [...] (Late st Contact Info) Description 09/28/2025 Procedure [facility] [address] [address] 06/14/2026 8:30 AM EDT Appointment [address] [address] Yasmany Chaparro DO [address] [facility] [place] [address] documented as of this encounter Visit Diagnoses Not on filedocumented in this encounter Care Teams Food And Nutrition Professor Relationship Specialty Start Date End Date Yasmany Chaparro DO PCP - General 09/02/17 12/12/24 Yasmany Chaparro DO [address] [facility] [place] [address] PCP - General Internal Medicine 12/13/24 Yasmany Chaparro DO Historical LMR Provider 09/04/17 Kevin Anguiano MD [email or web address] Historical LMR Provider 09/04/17 Jah Zhang MD [address] [place] [address] Historical LMR Provider 09/04/17 documented as of this encounter Additional Source Comments The information contained in this document represents components of the legal health record. It is not the complete legal health record.[facility]
--- OUTSIDE RECORDS SUMMARY | 2025-11-14 07:41 | XMS_ITS | Encounter Summary ---
Author Organization [facility] Address [address] [facility] [address] [place] [address] Phone Care Team Providers Care Regional Maintenance Manager Name Role Phone Krysta Yasmany Hooker DO Primary Care Provider [phone] Yasmany Chaparro DO Unavailable Kevin Anguiano MD Unavailable [email or web address] Jah Zhang MD Unavailable [phone] Yasmany Chaparro DO Primary Care Provider [phone] Encounter Details Date Type Department Care Team (Late Contact Info) Description 02/05/2023 Ancillary Orders [facility], [facility] [address] [place] [address] Yasmany Chaparro DO [address] [facility] [place] [address] [email or web address] Abnormal finding on mammography Social History Tobacco [...] st Contact Info) Description 09/28/2025 Procedure Pass [address] [address] 06/14/2026 8:30 AM EDT Appointment [address] [address] AilinkaylynnYasmany, DO [address] [facility] [place] [address] [email or web address] documented as of this encounter Results * [...] mammography. No architectural distortion. Procedure Note Benton rBadford MD - 02/11/2023 History: Abnormal screening and [...] BI-RADS Category 3, probably benign us Yasmany Hooker Krysta LIGHT IMG US BREAST Final Result documented in this encounter Visit Diagnoses Diagnosis Abnormal finding on mammography Abnormal finding on mammography documented in this encounter Care Teams Regional Maintenance Manager Relationship Specialty Start Date End Date Yasmany Chaparro DO PCP - General 09/02/17 12/12/24 Yasmany Chaparro DO [address] [facility] [place] [address] PCP - General Internal Medicine 12/13/24 Yasmany Chaparro DO Historical LMR Provider 09/04/17 Kevin Anguiano MD [email or web address] Historical LMR Provider 09/04/17 Jah Zhang MD [address] [address] [email or web address] Historical LMR Provider 09/04/17 documented as of this encounter Additional Source Comments The information contained in this document represents components of the legal health record. It is not the complete legal health record.[facility]
--- OUTSIDE RECORDS SUMMARY | 2025-11-14 07:41 | XMS_ITS | Clinical Summary ---
Author Organization [facility] Address [address] [address] Phone Care Team Providers Care Stippler Name Role Phone Yasmany Chaparro DO Primary Care Provider [phone] Allergies Active Allergy Reactions Criticality Noted Date Comments Atorvastatin Cough 10/26/2025 Modafinil Other (see comments) 03/09/2017 Other reaction(s): very ill,achy flu like Medications buPROPion XL (WELLBUTRIN XL) 150 MG 24 hr tablet Take 150 mg by mouth 1 (one) time each day Active levothyroxine (SYNTHROID, LEVOTHROID) 88 MCG tablet Take 88 mcg by mouth 1 (one) time each day before breakfast TAKE 1 TABLET BY MOUTH EVERY MORNING ON AN EMPTY STOMACH Active DULoxetine (CYMBALTA) [address] capsule Take 60 mg by mouth in the morning and 60 mg in the evening. Active famotidine (PEPCID) 40 MG tablet Take 40 mg by mouth 1 (one) time each day 5 Active losartan (COZAAR) 50 MG tablet Take 50 mg by mouth 1 (one) time each day 5 Active Ozempic, 0.25 or 0.5 MG/DOSE, 2 MG/3ML solution pen-injector INJECT 0.5 MG EVERY WEEK UNDER THE SKIN FOR 30 DAYS. 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 Obesity 10/26/2025 Obstructive sleep apnea syndrome 02/15/2024 Hyperglycemia 03/19/2023 Lumbar radiculitis 02/04/2021 Depressive disorder 06/21/2019 Hyperlipidemia 02/25/2018 Hypothyroidism 02/25/2018 Mammography abnormal 02/25/2018 Renal stone 02/25/2018 Type 2 diabetes mellitus 02/25/2018 Medullary sponge kidney 02/25/2018 Fibromyalgia 10/26/2017 Encounters Date Type Department Care Team Description 10/30/2025 9:00 AM EST Office Visit [facility] [address] [address] Edison Wang MD Renal stone (Primary Dx); Medullary sponge kidney from Last 3 Months Immunizations Immunization Administration Dates Next Due Influenza, MDCK, PF, Quadrivalent 08/16/2018 Influenza, Quadrivalent, Pre servative Free 08/26/2021,08/04/2020,08/15/2019,2016 Influenza, Quadrivalent, Wit h Preservative 10/10/2020,08/14/2019,08/23/2018 Moderna SARS-COV-2 03/07/2021,02/07/2021 Tdap 04/09/2018 Family History Medical History Relation Comments Cancer Cousin Colon cancer Father Hypertension Father ALS Mother Pulmonary fibrosis Mother Relation Status Comments Cousin Father Mother Social History Tobacco Use Types Packs/Day Years Used Date Smoking Tobacco: Never Smokeless Tobacco: Never Tobacco Cessation:Counseling Given: No Alcohol Use Standard Drinks/Week Comments Yes 5 (1 standard drink = 0.6 oz pur e alcohol) social drinker Comments Unknown Sex and Gender Information Value Date Recorded Sex Assigned at Not on file Legal Sex Female 4:15 PM EST Gender Identity Not on file Sexual Orientation Not on file Last Filed Vital Signs Vital Sign Reading Time Taken Comments Blood Pressure 120/72 10/30/2025 8:47 AM EST Pulse 88 10/30/2025 8:47 AM EST Temperature - - Respiratory Rate - - Oxygen Saturation 97% 10/30/2025 8:47 AM EST Inhaled Oxygen Concentration - - Weight 80.5 kg (177 lb 6.4 oz) 10/30/2025 8:47 A M EST Height - - Body Mass Index - - Plan of Treatment Upcoming Encounters Date Type Department Care Team (Late st Contact Info) Description 12/13/2025 7:30 AM EST Office Visit [facility] [address] [address] Pretty Kwan ARNP [address] [address] Health Maintenance Due Date Last Done Comments Breast Cancer Screening 1960 Colorectal Cancer Screening: Annual FOBT 2010 Colorectal Cancer Screening: Colonoscopy 2010 Colorectal Cancer Screening: Sigmoidoscopy 2010 Pneumococcal Vaccine: 50+ Years (1 of 1 - PCV) 2011 Influenza Vaccine (#1) 2025 , 10/10/2020, 08/04/2020, Additional history exists Diabetes: Hemoglobin A1C 09/17/2025 Diabetes: Ophthalmology Exam 09/17/2025 Diabetes: Pedal Pulse Checked 09/17/2025 Diabetes: Sensory Foot Exam 09/17/2025 Diabetes: Visual Foot Exam 09/17/2025 Hepatitis B Vaccine Aged Out No longe r eligible based on patient's age to complete this topic Insurance [facility] Care Teams Stippler Relationship Specialty Start Date End Date Yasmany Chaparro DO [address] [place] [address] [phone] PCP - General Internal Medicine 09/17/25
[2025-11-14 07:50] LABS: MANUAL DIFF FLAG NO
[2025-11-14 08:16] LABS: Hematocrit 38.6 % (37.0-47.0); Hemoglobin 13.0 g/dl (12.0-16.0); Imm Gran Abs Auto 0.02 X10*3/uL (0.00-0.03); Imm Gran Pct Auto 0.3 % (0.0-0.4); Lymphocytes Absolute Auto 1.9 X10*3/uL (1.2-4.9); Mean Corpuscular HGB Conc 33.7 g/dl (31.0-35.0); Mean Corpuscular Hemoglobin 30.0 pg (27.0-33.0); Mean Corpuscular Volume 88.9 fL (80.0-98.0); NRBC Abs Auto 0.000 X10*3/uL (0.0-0.012); NRBC Pct Auto 0.0 /100WBC (0.0-0.2); Platelet Count 252 X10*3/uL (160-400); Red Blood Count 4.34 X10*6/uL (4.20-5.50); White Blood Count 6.5 X10*3/uL (4.8-10.8)
[2025-11-14 08:51] LABS: Alanine Aminotransferase 23 U/L (0-31); Albumin Level 4.2 g/dL (3.5-5.0); Alkaline Phosphatase 159 U/L (39-117); Anion Gap 11 (12-20); Aspartate Amino Transferase 20 U/L (5-31); Blood Urea Nitrogen 17 mg/dL (9-16); Calcium 9.2 mg/dL (8.4-10.2); Carbon Dioxide 26 mmol/L (22-29); Chloride 107 mmol/L (96-108); Estimated Glomerular Filt Rate 47; Potassium 4.4 mmol/L (3.3-5.1); Sodium 140 mmol/L (135-145); Total Protein 7.0 g/dL (6.5-8.0)
[2025-11-14 09:07] LABS: Free T4 (Free Thyroxine) 0.95 ng/dL (0.71-1.85); Thyroid Stimulating Hormone 1.75 uIU/mL (0.32-4.0)
== END 2025-11-14 07:38 | disposition home or self-care (01) ==
LOC: HO.LABR 07:37
PROVIDERS: PCP Internal Medicine; Visit Provider Internal Medicine
DX: E11.9 Type 2 diabetes mellitus without complications (principal)
CPT/HCPCS: 36415; 80053; 83036; 84439; 84443; 85025